=== PATIENT | female | born 1940 | race Caucasian/White ===

== ENCOUNTER → 2017-06-16 11:21 | Outpatient (CLI) | payer MEDICARE, SELFPAY ==
--- NOTE | 2017-06-16 11:35 | RAD_ITS ---
STUDY: X-RAY CHEST REASON FOR EXAM: Female, 76 years old. Two-week history of cough. TECHNIQUE: PA and lateral views of the chest. COMPARISON: Comparison is made with prior study dated June 17, 2014. FINDINGS: Stable elevation of the right hemidiaphragm. The lungs are clear. No acute abnormality is seen. There is no demonstrated pleural abnormality. Normal size heart. Normal mediastinum and yokasta. Normal visualized pulmonary arteries. Normal visualized aortic arch and descending thoracic aorta. There is demineralization of the osseous structures. Normal visualized ribs, clavicles, and shoulders. There is no demonstrated abnormality of the visualized soft tissue structures of the upper abdomen. RAD/Chest PA and Lateral IMPRESSION: Normal x-ray examination of the chest. Electronically Signed: Edgar Mcfadden MD at 12:26 EST Tel [phone], Service support ,
== END ==
PROVIDERS: Family Provider Internal Medicine; PCP Internal Medicine; Visit Provider Internal Medicine
DX: R05 Cough (principal)
CPT/HCPCS: 71046

== ENCOUNTER → 2017-10-02 15:05 | Outpatient (CLI) | payer MEDICARE, SELFPAY ==
--- NOTE | 2017-10-02 15:07 | RAD_ITS ---
STUDY: X-RAY - CERVICAL SPINE REASON FOR EXAM: Female, 77 years old. Neck stiffness. TECHNIQUE: 6 view(s) of the cervical spine were obtained including oblique views. COMPARISON: None FINDINGS: Normal anterior atlantoaxial articulation. Normal odontoid process. Normal cervical lordosis. There is multi-level endplate spondylosis. There is multi-level degenerative disc disease with multilevel disc space narrowing. Normal visualized intervertebral neuroforamina. The soft tissue structures are unremarkable. RAD/Cerv Spine 4 or 5 Views IMPRESSION: Multilevel disc space narrowing and spondylosis. Electronically Signed: Edgar Mcfadden MD at 9:13 EDT Tel [phone], Service support ,
== END ==
PROVIDERS: Family Provider Internal Medicine; PCP Internal Medicine; Visit Provider Internal Medicine
DX: M48.02 Spinal stenosis, cervical region (principal); M47.892 Other spondylosis, cervical region; M43.6 Torticollis
CPT/HCPCS: 72050

== ENCOUNTER → 2017-10-24 08:25 | Outpatient (CLI) | payer MEDICARE, SELFPAY ==
[2017-10-24 08:37] VITALS: BP 131/69; PULSE 89; RESP 16; TEMP 37; O2SAT 95; BMI 26.9
[2017-10-24] MEDS: Cosyntropin 0.25 MG Vial IM (08:50)
== END ==
PROVIDERS: Family Provider Internal Medicine; PCP Internal Medicine; Visit Provider Internal Medicine
DX: R53.83 Other fatigue (principal)
CPT/HCPCS: 82533; 96372; J0834

== ENCOUNTER → 2017-10-24 10:06 | Outpatient (CLI) | payer MEDICARE, SELFPAY ==
--- NOTE | 2017-10-24 10:10 | RAD_ITS ---
STUDY: X-RAY CHEST REASON FOR EXAM: Female, 77 years old. Cough. Shortness of breath. History of double mastectomy. TECHNIQUE: PA and lateral views of the chest. COMPARISON: June 16, 2017. FINDINGS: The lungs are clear and expanded. There is no demonstrated pleural abnormality. Normal size heart. Normal mediastinum and yokasta. Normal visualized pulmonary arteries. Normal visualized aortic arch and descending thoracic aorta. There is demineralization of the osseous structures. Normal visualized ribs, clavicles, and shoulders. There is absence of the bilateral breast shadows. There is no demonstrated abnormality of the visualized soft tissue structures of the upper abdomen. RAD/Chest PA and Lateral IMPRESSION: No acute cardiopulmonary disease or interval change. Electronically Signed: Ruben Parikh DO at 18:37 EDT Tel [phone], Service support ,
== END ==
PROVIDERS: Family Provider Internal Medicine; PCP Internal Medicine; Visit Provider Internal Medicine
DX: R05 Cough (principal); R53.83 Other fatigue
CPT/HCPCS: 36415; 71046; 82533; 96372; J0834

== ENCOUNTER 2017-10-31 06:39 | Day surgery (SDC) | payer MEDICARE, SELFPAY ==
[2017-10-31 07:15] VITALS: BP 127/73; PULSE 85; RESP 18; TEMP 36.2; O2SAT 96; BMI 27.8
--- NOTE | 2017-10-31 09:26 | PCM.OPRPT ---
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 She been unsuccessful in wearing a traditional hearing aid due to chronic drainage from her left mastoid cavity from chronic mastoiditis and the above procedure was offered in hopes of successful rehabilitation of her hearing loss. She was eager to proceed. The risks, alternatives, potential benefits, and complications were discussed at length and any questions answered to the patient and/or caregiver's satisfaction. Witnessed informed consent was obtained in the office, and the patient and/or caregiver was agreeable to proceed. Procedure went as follows: The patient was identified in the preoperative holding after site marking the appropriate ear in accordance with the patient's history, office chart, and physical exam. The patient was then brought to the operating room and placed under general anesthesia and intubated. When appropriate anesthesia is obtained, the left scalp was prepped and draped in usual sterile fashion. The abutment site was then marked 5 cm posterior to the external auditory meatus and injected with 0.5 mL of 1% lidocaine with 100,000 epinephrine. Using a 5 mm punch, The skin and subcutaneous tissue were then resected. The periosteum overlying the operative site was then removed sharply with an iris scissor and a periosteal elevator. The resident services manager drill hole was then created and palpated to ensure bone at the maximal depth of the hole and then finalize to 4 mm in size to allow for placement of the titanium abutment. The bony fragments were then suctioned and irrigated clear and the 4 x 9 mm abutment was then placed in accordance of the manufactures directions. Xeroform gauze was then placed at the skin edge followed by the healing cap. The patient was then to return to anesthesia, was revived and extubated without complication having tolerated the procedure well. Type of Anesthesia:: General Anesthesiologist: Dax Maxwell Special Medications: none Specimen's removed: none Drains: none Estimated Blood Loss (mL): 0 mL Fluids Replaced: 300 mL Grafts/Implants Used: 4 mm by 9 mm titanium abutment - Complications none - Admit VTE Documentation VTE Present on Admission: No VTE Mechan Device Prophylaxis: SCD's VTE Pharm Prophylaxis ordered?: No
[2017-10-31 09:32] VITALS: BP 127/73; BP 131/69; PULSE 72; RESP 18; TEMP 36.2; O2SAT 98
--- NOTE | 2017-10-31 09:34 | DCINST_ITS ---
- Discharge Diagnoses Current Active Problems: Current Active and Chronic Problems Mixed conductive and sensorineural hearing loss (Chronic) Chronic mastoiditis of left side (Chronic) You will use the following diet at home:: No restrictions Your food should be the consistency of: Regular Discharge Activity: Return to Normal Activity Call your doctor if your incision/area has: Continuous Slow Oozing, Increased Pain/ Swelling, Foul Smelling Discharge, Swelling at the incision site Call your doctor if you observe: Fever of 101 or Higher, Uncontrolled pain Cleanse incision/area with: Keep Dressing Clean & Dry Allergies/Adverse Reactions: Allergies bacitracin Allergy (Verified 10/27/17 11:12) Hives clarithromycin Allergy (Verified 10/27/17 11:12) Hives gemfibrozil Allergy (Verified 10/27/17 11:12) Unknown Iodinated Contrast- Oral and IV Dye [CONTRASTS] Allergy (Verified 10/27/17 11:13 ) Rash iodine Allergy (Verified 10/27/17 11:12) Hives levofloxacin Allergy (Verified 10/27/17 11:12) Hives Macrolide Antibiotics Allergy (Verified 10/27/17 11:12) Unknown Penicillins Allergy (Verified 10/27/17 11:12) Laryngospasms sulfamethoxazole [From Bactrim] Allergy (Verified 10/27/17 11:12) Swelling trimethoprim [From Bactrim] Allergy (Verified 10/27/17 11:12) Swelling codeine Adverse Reaction (Verified 10/27/17 11:12) Vomiting meperidine HCl [From Demerol] Adverse Reaction (Verified 10/27/17 11:12) Vomiting morphine Adverse Reaction (Verified 10/27/17 11:12) Vomiting Medications to take at Discharge Lansoprazole [Prevacid] 15 mg PO DAILY 09/09/13 RX: Aspirin E.C. [Ecotrin] 81 mg PO QHS 09/09/13 Diltiazem HCl [Diltiazem 24Hr ER] 120 mg PO DAILY 12/16/16 Lactobacillus Combo No.11 [Probiotic] 1 each PO DAILY 10/27/17 Zicam 1 spray NASAL PRN PRN 10/27/17 Primary Care Physician: Анна Gallardo MD [Primary Care Provider] - Please Follow Up With: Al Snider MD When: 10 days
[2017-10-31 09:45] VITALS: BP 110/60; BP 127/73; PULSE 71; RESP 18; O2SAT 95
[2017-10-31 09:54] VITALS: BP 112/60; BP 127/73; PULSE 73; RESP 18; TEMP 36; O2SAT 97
[2017-10-31 10:10] VITALS: BP 127/73
[2017-10-31 10:31] VITALS: BP 127/73
== END 2017-10-31 10:32 | disposition home or self-care (01) ==
LOC: SDC 06:41 → AC 06:42
PROVIDERS: Family Provider Internal Medicine; PCP Internal Medicine; Visit Provider Otolaryngology
PROC: (CPT 69710; principal; 2017-10-31 08:15)
DX: H90.6 Mixed conductive and sensorineural hearing loss, bilateral (principal); H70.12 Chronic mastoiditis, left ear; K21.9 Gastro-esophageal reflux disease without esophagitis; Z79.82 Long term (current) use of aspirin; Z79.899 Other long term (current) drug therapy
CPT/HCPCS: 69930; J7120; J2405

== ENCOUNTER → 2017-11-17 06:10 | Outpatient (CLI) | payer MEDICARE, SELFPAY ==
--- NOTE | 2017-11-17 06:13 | ECHOD_ITS ---
Reason For Study: SOB Procedure This was a 2D Doppler, Color Flow transthoracic echocardiogram. Exam performed in department. Left Ventricle Normal LV size. Left ventricular systolic function is normal. The estimated ejection fraction is 60 %. Transmitral diastolic flow velocities suggest mild (stage 1) diastolic dysfunction (reversed pattern). No regional wall motion abnormalities noted. Right Ventricle Normal RV size. Normal systolic function. Atria Normal left atrium. Normal right atrium. Mitral Valve Normal mitral valve. Mild (1+) eccentric mitral valve insufficiency. Tricuspid Valve Normal tricuspid valve. Aortic Valve Normal aortic valve. Pulmonic Valve Normal pulmonic valve. Great Vessels Normal aortic root. The pulmonary artery is normal size. Normal inferior vena cava. Pericardium/Pleural No pericardial effusion. MMode/2D Measurements & Calculations LVIDd: 4.4 cm IVSd: 0.56 cm LA dimension: 2.7 cm LVIDs: 3.4 cm LVPWd: 0.81 cm RVDd: 2.7 cm FS: 23.4 % LAV(MOD-bp): 23.9 ml LVAd ap4: 21.8 cm2 SV(MOD-sp4): 29.9 ml LAV(MOD-bp) Indexed: 12.4 ml/m2 EDV(MOD-sp4): 56.3 ml LAV(MOD-sp2): 26.5 ml EDV(sp4-el): 59.7 ml LAV(MOD-sp4): 21.3 ml LVAs ap4: 13.8 cm2 ESV(MOD-sp4): 26.4 ml ESV(sp4-el): 27.6 ml EF(MOD-sp4): 53.1 % EF(sp4-el): 53.8 % SV(sp4-el): 32.1 ml LA A4 area: 11.5 cm2 RA A4 area: 10.8 cm2 Time Measurements MV dec time: 0.24 sec Doppler Measurements & Calculations MV E max christiano: 53.5 cm/sec Lat Peak E' Christiano: 5.2 cm/sec Med Peak E' Christiano: 3.9 cm/sec MV A max christiano: 111.7 cm/sec E/E' lat: 10.3 E/E' med: 13.8 MV E/A: 0.48 Ao V2 max: 136.5 cm/sec LV V1 max: 99.1 cm/sec PA V2 max: 103.8 cm/sec Ao max P.5 mmHg LV V1 max P.9 mmHg Interpretation Summary Normal LV size. Left ventricular systolic function is normal. The estimated ejection fraction is 60 %. Transmitral diastolic flow velocities suggest mild (stage 1) diastolic dysfunction (reversed pattern). Ordering Physician: Анна Gallardo Referring Physician: Анна Gallardo Performed By: Maria Monge RDCS
--- NOTE | 2017-11-17 10:07 | STRESSREP ---
Stress Test Report Exercise myocardial perfusion stress test. 77-year-old lady with a history of shortness of breath. Medications: Aspirin diltiazem Prevacid probiotic. Stress protocol: Resting EKG demonstrates normal sinus rhythm with a rate of 67 bpm normal intervals and noted resting blood pressure is 140/80 mmHg. The patient exercised according to regular Tavon protocol for total duration of 4 minutes and 30 seconds. Patient completed 1 minute and 30 seconds into stage II of the Tavon protocol. The maximum heart rate attained was 123 bpm which was 86% of maximum predicted heart rate the maximum workload attained was 6.4 metabolic equivalents. At rest there were no ST or T-wave changes noted suggest ischemia peak exercise upsloping ST changes only were noted with no meet the criteria for ischemia the test was terminated due to shortness of breath. No chest pain was noted. The resting blood pressure was 140/80 mmHg with a peak blood pressure 148/70 mmHg. Myocardial perfusion protocol. 11.4 mCi of technetium 99m sestamibi was injected at rest. The patient exercised according to regular Tavon protocol for total duration of 4 minutes and 30 seconds. At peak exercise 32.3 mCi of technetium 99m sestamibi was injected stress images were obtained stress and rest images were reconstructed and compared in the short axis vertical long and horizontal long axis. Gated images were also obtained. Perfusion SPECT analysis: Review of the stress images demonstrate normal uptake of tracer noted in all areas of the myocardium. The resting images similarly demonstrate normal uptake of tracer noted in all areas of the myocardium. No areas of reversibility are noted suggest ischemia and no previous infarct is noted. Gated SPECT analysis: The gated ejection fraction is 80%. Conclusion: Normal exercise myocardial perfusion stress test at a low to moderate workload. Preserved ejection fraction
== END ==
PROVIDERS: Family Provider Internal Medicine; PCP Internal Medicine; Visit Provider Internal Medicine
DX: R06.02 Shortness of breath (principal)
CPT/HCPCS: 78452; 93017; 93306; A9500; A4216

== ENCOUNTER 2017-12-19 13:30 | Outpatient (RCR) | payer MEDICARE, SELFPAY ==
--- NOTE | 2017-12-03 09:12 | HP.PTEVAL_ITS ---
Patient's Visit Information MADIHA NEGRON is a 77 year old F referred to Physical Therapy by Анна Gallardo with a diagnosis of DDD CERVICAL ,NECK PAIN. Date of Evaluation: 12/02/17 Physical Therapist: Evangelist Strauss PT, - Visit Plan Frequency: 2x /Week Duration: 3 Weeks Plan: US/P,[facility] THERAPY CERVICAL TRACTION-CERVICAL MOBS 3-4 OA/AA,C2-3 , ICTX 15-20# X15MIN,CERVICAL ROM/POSTURAL EX - Subjective Subjective: This 73 y/o female presents to physical therapy with neck pain,DDD cervical spine. Patient has had cervical pain on right side 2 1/2 months incidous onset of neck. Patient developed Bailey prior to neck pain with tiredenes. Location right cervical worse with turning cervical to right,drivng ,sitting. Symtoms better rest. Patient seen DR x-rays DDD.Denies parathesia/ tingling. Denies SUAREZ/tinnitus/dizziness. Patient sleep is affects. Patient symptoms affect QOL and inablity golf. SOCIAL: . VOCATION: retired. HOBBIES: golfing - Pain Right Neck Pain Intensity (Out of 10): 3 Pain Intensity Range: 10 - Objective POSTURE: mild foward posture. NEURO: denies parathesia/tingling ,reflexes C5-6- 7 1/3. PALAPTION: tender occiput ,parasinals,levator ,C2-3,OA. AROM: BUE WNL. MMT: BUE 4/5 ,shoulder 4-/5. CERVICAL ROM: flexion min loss,extension mod loss,lateeral flexion /rotation right mod loss,left min/mod loss. ASSESORY MOTION: C2-3,OA restricted - Special Tests C/S Radiculapathy - Left Upper limb tension test: Negative C/S Radiculapathy - Right Upper limb tension test: Negative C/S Radiculapathy - Left Spurlings: Negative C/S Radiculapathy - Right Spurlings: Positive C/S Radiculapathy - Left Cervical distraction: Negative C/S Radiculapathy - Right Cervical distraction: Negative Cervical Sitting: Protrusion - Mechanical Response: No effect Cervical Sitting: Protrusion - Symptoms During Testing: Increases Cervical Sitting: Protrusion - Symptoms After Testing: No worse Cervical Sitting: Retraction - Mechanical Response: No effect Cervical Sitting: Retraction - Symptoms During Testing: Increases Cervical Sitting: Retraction - Symptoms After Testing: No worse Cervical Sitting: Sidebend Right - Mechanical Response: No effect Cervical Sitting: Sidebend Right - Symptoms During Testing: Increases Cervical Sitting: Sidebend Right - Symptoms After Testing: No worse Cervical Sitting: Sidebend Left - Mechanical Response: No effect Cervical Sitting: Sidebend Left - Symptoms During Testing: No effect Cervical Sitting: Sidebend Left - Symptoms After Testing: Better Cervical Sitting: Rotation Right - Mechanical Response: No effect Cervical Sitting: Rotation Right - Symptoms During Testing: Increases Cervical Sitting: Rotation Right - Symptoms After Testing: No worse Cervical Sitting: Rotation Left - Mechanical Response: No effect Cervical Sitting: Rotation Left - Symptoms During Testing: Decreases Cervical Sitting: Rotation Left - Symptoms After Testing: Better - Goals Goal 1:: Independant with HEP Goal Time Frame: 4-6 Weeks Goal 2:: Patient to be Independant with posture for ADL'S Goal Time Frame: 4-6 Weeks Goal 3:: Patient to decrease pain right cervical to improve function for driving. Goal Time Frame: 4-6 Weeks Goal 4:: Patient to improve cervical ROM to right min/mod limited for function of recovery for function. Goal Time Frame: 4-6 Weeks Goal 5:: Patient improve ablity to perform ADL'S and driving,golfing with min limiations Goal Time Frame: 4-6 Weeks - Rehabilitation Potential Physical Therapy Diagnosis: This 77 y/o female presents to physical therapy with cervical DDD,neck pain with loss of ROM to right which impairs driving ADL' S and golf thus benifit from skilled PT. Rehabilitation Potential: Good - Anticipated Interventions Patient/Client Instruction: Educate patient on: Condition, Plan of Care For the Purpose of:: To decrease pain, To increase ROM, To improve muscle performance and motor function, To increase tolerance to activity/condition/ position, To improve ability of physical actions for home/community/work/leisure , To improve health of tissue, To decrease soft tissue restriction, To increase flexibility/ROM, To improve health and function, To improve ability to perform tasks related to life management Therapeutic Exercise to Include: Strength training, Postural training, Flexibilty training, Active ROM For the Purpose of:: To decrease pain, To increase ROM, To improve muscle performance and motor function, To improve ability to perform ADL's, To improve performance and independence with ADL's, To improve ability of physical actions for home/community/work/leisure, To improve health of tissue, To decrease soft tissue restriction, To improve ability to perform tasks related to life management Manual Therapy Techniques to Include: Mobilization, Soft tissue mobilization Comment: CERVICAL TRACTION ,MOBS OA ,AA,C2-3 For the Purpose of:: To increase ROM, To improve nutrient delivery to tissue, To increase oxygenation perfusion, To improve health of tissue, To decrease soft tissue restriction TENS: Yes IF ES: Yes Cryotherapy (ice pack, ice massage): Yes Thermo therapy (hot pack): Yes Ultrasound (thermal/non thermal): Yes Intermittent cervical traction: Yes - 15-20# X15MIN For the Purpose of:: To decrease pain, To increase ROM, To improve nutrient delivery to tissue, To increase oxygenation perfusion, To improve health of tissue, To decrease soft tissue restriction Thank you for the opportunity to evaluate your patient. For Medicare and Medicare HMO plans, please review the plan of care and approve it. It will need to be FAXED BACK to us at [phone] for Medicare purposes. Please let me know if there are questions or concerns regarding this plan of care. Physician Signature: Date:
--- NOTE | 2018-02-06 09:19 | HP.PTDCSUM ---
HP - PT D/C Summary It has been my pleasure to treat MADIHA NEGRON under orders from Анна Gallardo, for the diagnosis of DDD CERVICAL ,NECK PAIN for a total of 6 visit(s). Discharge Date: Please see the following information for a summary of their discharge status. - Subjective Subjective: goes by AURELIO.. Neck feels good right now. Played golf twice this week with no increase pain. Just finished [employer] program. - Pain Right Neck Pain Intensity (Out of 10): 1 - Overall Improvement % Improvement: 80 - Objective Objective/Function: CUES TO SLOW DOWN THE EXERICSES- ADMITS SHE DOES GO FAST. INCREASED TRACTION PULL BY 1#. Lori ALL WELL. - Goals Goal 1:: Independant with HEP Goal 2:: Patient to be Independant with posture for ADL'S Goal 3:: Patient to decrease pain right cervical to improve function for driving. Goal 4:: Patient to improve cervical ROM to right min/mod limited for function of recovery for function. Goal 5:: Patient improve ablity to perform ADL'S and driving,golfing with min limiations - Plan Plan: US/[facility] THERAPY CERVICAL TRACTION-CERVICAL MOBS 3-4 OA/AA,C2-3 ,ICTX 15-20# X15MIN,CERVICAL ROM/POSTURAL EX - D/C Information If there are questions or concerns regarding this patient's physical therapy, please feel free to call me at [phone]. Thank you for the referral of this patient. Sincerely, Evangelist Strauss, PT,
== END 2017-12-19 19:00 | disposition home or self-care (01) ==
LOC: PT 13:30
PROVIDERS: Family Provider Internal Medicine; PCP Internal Medicine; Visit Provider Internal Medicine
DX: M50.30 Other cervical disc degeneration, unspecified cervical region (principal)
CPT/HCPCS: 97012; 97035; 97110; 97162

== ENCOUNTER → 2018-05-25 13:31 | Outpatient (CLI) | payer SELFPAY ==
--- NOTE | 2018-05-25 13:43 | CT_ITS ---
STUDY: CT CHEST WITHOUT CONTRAST REASON FOR EXAM: Female, 77 years old. Hyperlipidemia. Calcium scoring examination. Radiological over read examination. RADIATION DOSAGE (If Supplied By Facility): CTDIvol = ( 12.19 ) mGy, DLP = ( 390.07 ) mGycm TECHNIQUE: Transaxial imaging was performed without the administration of intravenous contrast material. Individualized dose optimization techniques were used for this CT. COMPARISON: Comparison is made with prior examination dated February 22, 2016. FINDINGS: History of bilateral mastectomy. Stable mild degree of increased markings at the lung bases suggestive of scarring and/or atelectasis. There is no demonstrated pleural abnormality. There are calcifications of the coronary arteries. There are multiple small lymph nodes within the mediastinum, which are normal in size and morphology most compatible with reactive lymph hyperplasia. Normal hilar regions. Normal unenhanced pulmonary arteries. Normal aorta arch and descending thoracic aorta. There are degenerative changes of the thoracic spine. Hiatal hernia. CT/Limited Chest CT w/CCTA IMPRESSION: Stable examination. No acute abnormality is seen. Electronically Signed: Edgar Mcfadden MD at 15:55 EST Tel [phone], Service support ,
[2018-05-25 13:49] VITALS: BP 102/48; PULSE 57; RESP 18; O2SAT 97; BMI 28.6
--- NOTE | 2018-05-25 15:54 | CA.SCORE ---
Calcium Scoring Date of Study:: 05/25/18 Coronary Calcium Scoring: Coronary calcium scoring. High-resolution computed tomographic imaging of the chest was performed on 121 219 with particular attention paid to the coronary arteries. Images from the examination were analyzed for the presence and extent of coronary artery calcification using the coronary calcification quantification software. The patient tolerated the procedure well and there were no complications. Results: Coronary artery Left main coronary artery score 2.3 Left anterior descending artery score 22.3 Left circumflex artery score 0 Right coronary artery score 0 Total Agagston score 24.6. Interpretation: The above is indicative of mild plaque burden with mild or minimal coronary disease.
--- OUTSIDE RECORDS SUMMARY | 2018-07-28 01:18 | XMS RPT_ITS | Continuity of Care Document ---
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 - Subjective Subjective: This 73 y/o female presents to physical therapy with neck pain,DDD cervical spine. Patient has had cervical pain on right madison e 2 1/2 months incidous onset of neck. Patient developed [place] prior to neck pain with tiredenes. Location right cervical worse with turning cervical to right,drivng ,sitting. Symtoms better rest. Patien t seen DR x-rays DDD.Denies parathesia/tingling. Denies SUAREZ/tinnitus/dizziness. Patient sleep is affects. Patient symptoms affect QOL and inablity golf. SOCIAL: . VOCATION: retired. HOBBIES: golfi ng - Pain Right Neck Pain Intensity (Out of 10): 3 Pain Intensity Range: 10 - Objective POSTURE: mild foward posture. NEURO: denies parathesia/tingling ,reflexes C5-6-7 1/3. PALAPTION: tender occip ut ,parasinals,levator ,C2-3,OA. AROM: BUE WNL. MMT: BUE 4/5 ,shoulder 4-/5. CERVICAL ROM: flexion min loss,extension mod loss,lateeral flexion /rotation right mod loss,left min/mod loss. ASSESORY MOTIO N: C2-3,OA restricted - Special Tests C/S Radiculapathy - Left Upper limb tension test: Negative C/S Radiculapathy - Right Upper limb tension test: Negative C/S Radiculapathy - Left Spurlings: Negative C/S Radiculapathy - Right Spurlings: Positive C/S Radiculapathy - Left Cervical distraction: Negative C/S Radiculapathy - Right Cervical distraction: Negative Cervical Sitting: Protrusion - Mechanical Response: No effect Cervical Sitting: Protrusion - Symptoms During Testing: Increases Cervical Sitting: Protrusion - Symptoms After Testing: No worse Cervical Sitting: Retraction - Mechanical Response: No effect Cervical Sitting: Retraction - Symptoms During Testing: Increases Cervical Sitting: Retraction - Symptoms After Testing: No worse Cervical Sitting: Sidebend Right - Mechanical Response: No eff ect Cervical Sitting: Sidebend Right - Symptoms During Testing: Increases Cervical Sitting: Sidebend Right - Symptoms After Testing: No worse Cervical Sitting: Sidebend Left - Mechanical Response: No ef fect Cervical Sitting: Sidebend Left - Symptoms During Testing: No effect Cervical Sitting: Sidebend Left - Symptoms After Testing: Better Cervical Sitting: Rotation Right - Mechanical Response: No effe ct Cervical Sitting: Rotation Right - Symptoms During Testing: Increases Cervical Sitting: Rotation Right - Symptoms After Testing: No worse Cervical Sitting: Rotation Left - Mechanical Response: No eff ect Cervical Sitting: Rotation Left - Symptoms During Testing: Decreases Cervical Sitting: Rotation Left - Symptoms After Testing: Better - Goals Goal 1:: Independant with HEP Goal Time Frame: 4-6 Week s Goal 2:: Patient to be Independant with posture for ADL'S Goal Time Frame: 4- 6 Weeks Goal 3:: Patient to decrease pain right cervical to improve function for driving. Goal Time Frame: 4-6 Weeks Goal 4 :: Patient to improve cervical ROM to right min/mod limited for function of recovery for function. Goal Time Frame: 4-6 Weeks Goal 5:: Patient improve ablity to perform ADL'S and driving,golfing with mi n limiations Goal Time Frame: 4-6 Weeks - Rehabilitation Potential Physical Therapy Diagnosis: This 77 y/o female presents to physical therapy with cervical DDD,neck pain with loss of ROM to right whic h impairs driving ADL'S and golf thus benifit from skilled PT. Rehabilitation Potential: Good - Anticipated Interventions Patient/Client Instruction: Educate patient on: Condition, Plan of Care For the Purpose of:: To decrease pain, To increase ROM, To improve muscle performance and motor function, To increase tolerance to activity/condition/position, To improve ability of physical actions for home/c ommunity/work/leisure, To improve health of tissue, To decrease soft tissue restriction, To increase flexibility/ROM, To improve health and function, To improve ability to perform tasks related to life management Therapeutic Exercise to Include: Strength training, Postural training, Flexibilty training, Active ROM For the Purpose of:: To decrease pain, To increase ROM, To improve muscle performance an d motor function, To improve ability to perform ADL's, To improve performance and independence with ADL's, To improve ability of physical actions for home/community/work/leisure, To improve health of ti ssue, To decrease soft tissue restriction, To improve ability to perform tasks related to life management Manual Therapy Techniques to Include: Mobilization, Soft tissue mobilization Comment: CERVICAL T RACTION ,MOBS OA ,AA,C2-3 For the Purpose of:: To increase ROM, To improve nutrient delivery to tissue, To increase oxygenation perfusion, To improve health of tissue, To decrease soft tissue restrictio n TENS: Yes IF ES: Yes Cryotherapy (ice pack, ice massage): Yes Thermo therapy (hot pack): Yes Ultrasound (thermal/non thermal): Yes Intermittent cervical traction: Yes - 15-20# X15MIN For the Purpose o f:: To decrease pain, To increase ROM, To improve nutrient delivery to tissue, To increase oxygenation perfusion, To improve health of tissue, To decrease soft tissue restriction Thank you for the o pportunity to evaluate your patient. For Medicare and Medicare HMO plans, please review the plan of care and approve it. It will need to be FAXED BACK to us at [phone] for Medicare purposes. Ple ase let me know if there are questions or concerns regarding this plan of care. Physician Signature: Date: <Electronically signed by Evangelist Strauss PT, Cert. T, OCS> 12/03/17 0916 CC: Анна Gallardo MD MATTIE Signed For Medicare only, by signing this I certify the plan of care. Physicians Signature Date 17-Nov-2017 Echocardiogram Complete Result: Comments: See Note; NOTES: [facility] [address] [place] [address] Echo Complete 11/17/17 1039 MR#: [id number] Acct: [id number] Name: MADIHA NEGRON Rep #: [id number] : 1940 77 From: Alverto Vidales MD Attending Dr: Анна Gallardo MD Status: REG CLI Ordering Dr: Анна Gallardo MD Date: 11/17/17 Location: [facility] Sex: F C Admitted: Reason For Nando dy: SOB Procedure This was a 2D Doppler, Color Flow transthoracic echocardiogram. Exam performed in department. Left Ventricle Normal LV size. Left ventricular systolic function is normal. The estimat ed ejection fraction is 60 %. Transmitral diastolic flow velocities suggest mild (stage 1) diastolic dysfunction (reversed pattern). No regional wall motion abnormalities noted. Right Ventricle Normal RV size. Normal systolic function. Atria Normal left atrium. Normal right atrium. Mitral Valve Normal mitral valve. Mild (1+) eccentric mitral valve insufficiency. Tricuspid Valve Normal tricuspid richard ve. Aortic Valve Normal aortic valve. Pulmonic Valve Normal pulmonic valve. Great Vessels Normal aortic root. The pulmonary artery is normal size. Normal inferior vena cava. Pericardium/Pleural No p ericardial effusion. MMode/2D Measurements AND Calculations LVIDd: 4.4 cm IVSd: 0.56 cm LA dimension: 2.7 cm LVIDs: 3.4 cm LVPWd: 0.81 cm RVDd: 2.7 cm FS: 23.4 % LAV(MOD-bp): 23.9 ml LVAd ap4: 21.8 cm2 SV(MOD-sp4): 29.9 ml LAV(MOD-bp) Indexed: 12.4 ml/m2 EDV(MOD-sp4): 56.3 ml LAV(MOD-sp2): 26.5 ml EDV(sp4-el): 59.7 ml L AV(MOD-sp4): 21.3 ml LVAs ap4: 13.8 cm2 ESV(MOD-sp4): 26.4 ml ESV(sp4-el): 27.6 ml EF(MOD-sp4): 53.1 % EF(sp4-el): 53.8 % SV(sp4-el): 32.1 ml LA A4 area: 11.5 cm2 RA A4 area: 10.8 cm2 Time Measurements MV dec time: 0.24 sec Doppler Measurements AND Calculations MV E max med: 53.5 cm/sec Lat Peak E' Med: 5.2 cm/sec Med Peak E' Med: 3.9 cm/sec MV A max med: 111.7 cm/sec E/E' lat: 10.3 E/E' med: 13.8 MV E/A: 0.48 Ao V2 max: 136.5 cm/sec LV V1 max: 99.1 cm/sec PA V2 max: 103.8 cm/sec Ao max P.5 mmHg LV V1 max P.9 mmHg Interpretation Summary Normal LV size. Left ventricular systolic function is normal. The estimated ejection fracti on is 60 %. Transmitral diastolic flow velocities suggest mild (stage 1) diastolic dysfunction (reversed pattern). __ Ordering Physician: Анна Gallardo Referring Physician: Анна Gallardo Performed By: Maria Monge RDCS 11/17/171727 Date Alverto Vidales MD CC: Анна Gallardo MD Date Dictated: 11/17/17 1039 Date Transcribed: 11/17/171727 Leg Man: Signed 17-Nov-2017 Stress Report Result: Comments: See Note; NOTES: [facility] [address] [place] [address] MR#: [id number] Acct: [id number] Name: MADIHA NEGRON Rep #: [id number] : 77 From: Alverto Vidales MD Primary Care: Анна Gallardo MD Status: REG CLI Ordering Dr: Sex: F C Stress Test Report Exercise myocardial perfusion stress test. 77-year-old lady with a history of shortness of breath. Medications: Aspirin diltiazem Prevacid probiotic. Stress protocol: Resting EKG demonstrates normal sinus rhythm with a rate of 67 bpm normal intervals and noted resting blood p ressure is 140/80 mmHg. The patient exercised according to regular Tavon protocol for total duration of 4 minutes and 30 seconds. Patient completed 1 minute and 30 seconds into stage II of the Tavon pro tocol. The maximum heart rate attained was 123 bpm which was 86% of maximum predicted heart rate the maximum workload attained was 6.4 metabolic equivalents. At rest there were no ST or T-wave changes n oted suggest ischemia peak exercise upsloping ST changes only were noted with no meet the criteria for ischemia the test was terminated due to shortness of breath. No chest pain was noted. The resting b lood pressure was 140/80 mmHg with a peak blood pressure 148/70 mmHg. Myocardial perfusion protocol. 11.4 mCi of technetium 99m sestamibi was injected at rest. The patient exercised according to regula r Tavon protocol for total duration of 4 minutes and 30 seconds. At peak exercise 32.3 mCi of technetium 99m sestamibi was injected stress images were obtained stress and rest images were reconstructed and compared in the short axis vertical long and horizontal long axis. Gated images were also obtained. Perfusion SPECT analysis: Review of the stress images demonstrate normal uptake of tracer noted i n all areas of the myocardium. The resting images similarly demonstrate normal uptake of tracer noted in all areas of the myocardium. No areas of reversibility are noted suggest ischemia and no previous infarct is noted. Gated SPECT analysis: The gated ejection fraction is 80%. Conclusion: Normal exercise myocardial perfusion stress test at a low to moderate workload. Preserved ejection fraction 1013 <Electronically signed by Alverto Vidales MD> Date Alverto Vidales MD CC: Анна Gallardo MD Date Dictated: 11/17/17 1007 Date Transcribed: 11/17/17 1007 Leg Man: CO Signed 03-Nov-2017 Operative Report Result: Comments: See Note; NOTES: [facility] [address] [place] [address] Operative Report 10/31/17 0926 MR#: [id number] Acct: [id number] Name: CARMELINA NEGRON MARIANO Baker Rep #: [id number] : 1940 77 From: Al Snider MD PCP: Анна Gallardo MD Status: [facility] Location: [facility] Problem List (1) 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 She been unsuccessful in wearing a traditional hearing aid due to chronic drainage from her left mastoid cavity from chronic mastoiditis and the above procedure was off ered in hopes of successful rehabilitation of her hearing loss. She was eager to proceed. The risks, alternatives, potential benefits, and complications were discussed at length and any questions answer ed to the patient and/or caregiver's satisfaction. Witnessed informed consent was obtained in the office, and the patient and/or caregiver was agreeable to proceed. Procedure went as follows: The patie nt was identified in the preoperative holding after site marking the appropriate ear in accordance with the patient's history, office chart, and physical exam. The patient was then brought to the operat ing room and placed under general anesthesia and intubated. When appropriate anesthesia is obtained, the left scalp was prepped and draped in usual sterile fashion. The abutment site was then marked 5 c m posterior to the external auditory meatus and injected with 0.5 mL of 1% lidocaine with 100,000 epinephrine. Using a 5 mm punch, The skin and subcutaneous tissue were then resected. The periosteum ove rlying the operative site was then removed sharply with an iris scissor and a periosteal elevator. The car pilot drill hole was then created and palpated to ensure bone at the maximal depth of the hole and then finalize to 4 mm in size to allow for placement of the titanium abutment. The bony fragments were then suctioned and irrigated clear and the 4 x 9 mm abutment was then placed in accordance of the anufactures directions. Xeroform gauze was then placed at the skin edge followed by the healing cap. The patient was then to return to anesthesia, was revived and extubated without complication having t olerated the procedure well. Type of Anesthesia:: General Anesthesiologist: Dax Maxwell Special Medications: none Specimen's removed: none Drains: none Estimated Blood Loss (mL): 0 mL Fluids Replaced: 30 0 mL Grafts/Implants Used: 4 mm by 9 mm titanium abutment - Complications none - Admit VTE Documentation VTE Present on Admission: No VTE Mechan Device Prophylaxis: SCD's VTE Pharm Prophylaxis ordere d?: No 10/31/17 0933 <Electronically signed by Al Snider MD> Date Al Snider MD CC: Анна Gallardo MD; Al Snider MD Signed 31-Oct-2017 Discharge Instruction Result: Comments: See Note; NOTES: [facility] [address] [place] [address] Instructions for Home/Discharge Instructions 10/31/17 0933 MR#: [id number] Acct: [id number] Name: MADIHA NEGRON Rep #: [id number] : 1940 77 From: Al Snider MD PCP: Анна Gallardo MD Status: REG SDC - Discharge Diagnoses Current Active Problems: Current Active and Chron ic Problems Mixed conductive and sensorineural hearing loss (Chronic) Chronic mastoiditis of left side (Chronic) You will use the following diet at home:: No restrictions Your food should be the cons istency of: Regular Discharge Activity: Return to Normal Activity Call your doctor if your incision/area has: Continuous Slow Oozing, Increased Pain/ Swelling, Foul Smelling Discharge, Swelling at the i ncision site Call your doctor if you observe: Fever of 101 or Higher, Uncontrolled pain Cleanse incision/area with: Keep Dressing Clean AND Dry Allergies/Adverse Reactions: Allergies bacitracin Allergy (Verified 10/27/17 11:12) Hives clarithromycin Allergy (Verified 10/27/17 11:12) Hives gemfibrozil Allergy (Verified 10/27/17 11:12) Unknown Iodinated Contrast- Oral and IV Dye [CONTRASTS] Allergy (Liz ified 10/27/17 11:13) Rash iodine Allergy (Verified 10/27/17 11:12) Hives levofloxacin Allergy (Verified 10/27/17 11:12) Hives Macrolide Antibiotics Allergy (Verified 10/27/17 11:12) Unknown Penicillins Allergy (Verified 10/27/17 11:12) Laryngospasms sulfamethoxazole [From Bactrim] Allergy (Verified 10/27/17 11:12) Swelling trimethoprim [From Bactrim] Allergy (Verified 10/27/17 11:12) Swelling codeine Adverse Reaction (Verified 10/27/17 11:12) Vomiting meperidine HCl [From Demerol] Adverse Reaction (Verified 10/27/17 11:12) Vomiting morphine Adverse Reaction (Verified 10/27/17 11:12) Vomiting Medi cations to take at Discharge Lansoprazole [Prevacid] 15 mg PO DAILY 09/09/13 RX: Aspirin E.C. [Ecotrin] 81 mg PO QHS 09/09/13 Diltiazem HCl [Diltiazem 24Hr ER] 120 mg PO DAILY 12/16/16 Lactobacillus Co mbo No.11 [Probiotic] 1 each PO DAILY 10/27/17 Zicam 1 spray NASAL PRN PRN 10/27/17 Primary Care Physician: Анна Gallardo MD [Primary Care Provider] - Please Follow Up With: Al Snider MD When: 10 d ays 10/31/17 0934 <Electronically signed by Al Snider MD> Date Al Snider MD CC: Анна Gallardo MD 24-Oct-2017 Chest PA and Lateral Result: Comments: See Note; NOTES: [facility] [address] [place] [address] Chest PA and Lateral MR#: [id number] Acct: [id number] Name: MADIHA NEGRON Rep #: [id number] : 1940 F 77 From: Ruben Parikh DO PCP: Анна Gallardo MD Status: REG CLI Study: Chest PA and Lateral Date of Exam: 10/24/17 Exam# [id number] Ordering Dr: Анна Gallardo MD STUDY: X-RAY CHEST REASON FOR EXAM: Female, 77 years old. Cough. Shortness of breath. History of double mastectomy. TECHNIQUE: PA and lateral views of the chest. COMPARISON: June 16, 2017. FINDINGS: The lungs are clear and expanded. There is no demonstrated pleural abnormality. Normal size heart. Normal mediastinum and yokasta. Normal visualized pulmonary arteries. Normal visu alized aortic arch and descending thoracic aorta. There is demineralization of the osseous structures. Normal visualized ribs, clavicles, and shoulders. There is absence of the bilateral breast shadows . There is no demonstrated abnormality of the visualized soft tissue structures of the upper abdomen. RAD/Chest PA and Lateral IMPRESSION: No ac little shell tribe cardiopulmonary disease or interval change. Electronically Signed: Ruben Parikh DO at 18:37 EDT Tel [phone], Service support , CC: Анна Gallardo MD Leg Man: Signed 02-Oct-2017 Cerv Spine 4 or 5 Views Result: Comments: See Note; NOTES: [facility] [address] [place] [address] Cerv Spine 4 or 5 Views MR#: [id number] Acct: [id number] Name: MADIHA NEGRON Rep #: [id number] : 1940 F 77 From: Edgar Mcfadden MD PCP: Анна Gallardo MD Status: REG CLI Study: Cerv Spine 4 or 5 Views Date of Exam: 10/02/17 Exam# [id number] Ordering Dr: Анна Gallardo MD STUDY : X-RAY - CERVICAL SPINE REASON FOR EXAM: Female, 77 years old. Neck stiffness. TECHNIQUE: 6 view(s) of the cervical spine were obtained including oblique views. COMPARISON: None FINDINGS: Normal anterior atlantoaxial articulation. Normal odontoid process. Normal cervical lordosis. There is multi-level endplate spondylosis. There is multi-level degenerative dis c disease with multilevel disc space narrowing. Normal visualized intervertebral neuroforamina. The soft tissue structures are unremarkable. RAD /Cerv Spine 4 or 5 Views IMPRESSION: Multilevel disc space narrowing and spondylosis. Electronically Signed: Edgar Mcfadden MD at 9:13 EDT Tel [phone], Service support , CC: Анна Gallardo MD Leg Man: Signed 16-Jun-2017 Chest PA and Lateral Result: Comments: See Note; NOTES: [facility] [address] [place] [address] Chest PA and Lateral MR#: [id number] Acct: [id number] Name: MADIHA NEGRON Rep #: [id number] : 1940 F 76 From: Edgar Mcfadden MD PCP: Анна Gallardo MD Status: REG CLI Study: Chest PA and Lateral Date of Exam: 06/16/17 Exam# [id number] Ordering Dr: Анна Gallardo MD STUDY: X-RA Y CHEST REASON FOR EXAM: Female, 76 years old. Two-week history of cough. TECHNIQUE: PA and lateral views of the chest. COMPARISON: Comparison is made with prior study dated June 17, 2014. FINDINGS: Stable elevation of the right hemidiaphragm. The lungs are clear. No acute abnormality is seen. There is no demonstrated pleural abnormality. Normal size heart . Normal mediastinum and yokasta. Normal visualized pulmonary arteries. Normal visualized aortic arch and descending thoracic aorta. There is demineralization of the osseous structures. Normal visualized ribs, clavicles, and shoulders. There is no demonstrated abnormality of the visualized soft tissue structures of the upper abdomen. RAD/Chest PA and Lateral IMPRESSION: Normal x-ray examination of the chest. Electronically Signed: Edgar Mcfadden MD at 12:26 EST Tel [phone], Service support , CC: Анна Gallardo MD Leg Man: Signed 06-Mar-2017 Knee 4 or More Views Result: Comments: See Note; NOTES: [facility] [address] [place] [address] Knee 4 or More Views MR#: [id number] Acct: [id number] Name: MADIHA NEGRON Rep #: [id number] : 1940 F 76 From: Leonard Miller MD PCP: Анна Gallardo MD Status: REG CLI Study: Knee 4 or More Views Date of Exam: 03/06/17 Exam# [id number] Ordering Dr: Анна Gallardo MD STUDY: X-RAY - RIGHT KNEE REASON FOR EXAM: Female, 76 years old. Pain. No known injury TECHNIQUE: 4 view(s) of the knee. COMPARISON: None. FINDINGS: Normal visualized distal fem ur. Normal visualized proximal tibia and fibula. Normal proximal tibiofibular articulation. There is mild degenerative arthrosis of the medial femorotibial compartment. Normal lateral femorotibial comp artment. Normal patellofemoral articulation. The soft tissue structures are unremarkable. RAD/Knee 4 or More Views IMPRESSION: Mild arthrosis of the medial compartment Electronically Signed: Leonard Miller MD, FACR at 11:45 EDT , Service support , CC: Анна Gallardo MD Leg Man: Signed 17-Dec-2016 Emergency Department Summary Result: Comments: See Note; NOTES: [facility] [address] [place] [address] Emergency Department Summary 12/16/16 1905 MR#: [id number] Acct: [id number] Name: MADIHA NEGRON Rep #: [id number] : 1940 76 From: Moshe Diaz MD PCP: Анна Gallardo MD Status: DEP ER - ER Visit Summary Date of Service: 12/16/16 Chief Complaint: Pulsing in neck Histo ry of Present Illness: The patient is a 76 F presenting to the emergency department secondary to a pulsating sensation in her right neck and dysesthesia in her right lower lip. Patient states this is be en going on intermittently over the course of the last 3-4 days. Patient states that there is no exacerbating relieving factors, no visual changes or weakness associated with this. Patient states that s he has old paresthesias in her right hand that are unchanged after a mastectomy surgery. Patient states that she called her primary care physician recommended that she come to the emergency department. Patient's only underlying risk factors are age. Physical Examination: Vital signs within normal limits. Well-nourished female no acute distress. PRL, EOMI no evidence of nystagmus. Moist mucous membran es. Very minimal right lower lip numbness on palpation with no evidence of facial droop. No carotid bruits. NIH stroke scale found to be 0. Remainder physical otherwise unremarkable. Test Results: [place] bolic panel shows mild elevation of creatinine to 1.5, CT angiogram of the brain and neck are found to be negative for aneurysm dissection or any other abnormalities Emergency Department Course and Rosemary atment: Patient presented with a pulsing sensation in her neck and was evaluated with CT angiograms were found to be negative. Patient states that she has a history of shingles in the past that felt sim ilar to this but there is no obvious rash at this point. No indication for starting treatment at this time. Patient was instructed to follow-up with her primary care physician all questions were answere d and patient was discharged. Disposition: Discharge Impression: 1. Right lip paresthesia ED Disposition - Plan for ED Patient: Disposition: Home or Assisted Living Chief Complaint: Numb/Ting Diagn osis: Paresthesia of lower lip Instructions: ED Paraesthesias Referrals: Анна Gallardo MD [Primary Care Provider] - 3-5 Days if not improving What to do if you have Problems For any increased pain, shortness of breath, bleeding, nausea or vomiting, chest pain, or any unexpected problems, contact your Primary Care Provider. Call [facility] ([phone]) or report to the closest Emergency Ro om. Call 911 if necessary. 12/17/16 2348 <Electronically signed by Moshe Diaz MD> Date Moshe Diaz MD Cosigner Signature (If Indicated): Date CC: Анна Gallardo MD 16-Dec-2016 CTA Head W/WO Contrast Result: Comments: See Note; NOTES: [facility] [address] [place] [address] CTA Head W/WO Contrast MR#: [id number] Acct: [id number] Name: MADIHA NEGRON Rep #: [id number] : 1940 F 76 From: Ginger Vieyra MD PCP: Анна Gallardo MD Status: REG ER Study: CTA Head W/WO Contrast Date of Exam: 12/16/16 Exam# [id number] Ordering Dr: Moshe Diaz MD STUDY: CT A OF THE BRAIN REASON FOR EXAM: Female, 76 years old. History of melanoma, dizziness and weakness RADIATION DOSAGE (If Supplied By Facility): CTDIvol = ( ) mGy, DLP = ( 767.99 ) mGycm TECHNIQUE: CT a ngiography was performed with a multi-detector CT scanner. Data acquisition was obtained from the skull base through the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 Mass Index Calculated 31.41 kg/m2 Body Surface Area Calculated 1.88 m2 :33 Pulse 78 /min Comments: Pattern: Regular Respiration Rate 16 /min Comments: Pattern: Unlabored O2 SAT 98 % Comments: Room air BP Systolic 118 mm[Hg] Comments: Patient Position: Sitting; Cuff Location: Left Arm; Cuff Size: Standard BP Diastolic 70 mm[Hg] Comments: Patient Position: Sitting; Cuff Location: Left Arm; Cuff Size: Standard Weight 183 lb Height 64 in Body Mass Index Calculated 31.41 kg/m2 Body Surface Area Calculated 1.88 m2 :48 Temperature 97.9 f Comments: Method: Temporal Pulse 74 /min Comments: Pattern: Regular Respiration Rate 20 /min Comments: Pattern: Unlabored O2 SAT 97 % Comments: Room air BP Systolic 110 mm[Hg] Comments: Patient Position: Sitting; Cuff Location: Left Arm; Cuff Size: Standard BP Diastolic 70 mm[Hg] Comments: Patient Position: Sitting; Cuff Location: Left Arm; Cuff Size: Standard Weight 186 lb Height 64 in Body Mass Index Calculated 31.93 kg/m2 Body Surface Area Calculated 1.9 m2 :32 Temperature 97.4 f Comments: Method: Temporal Pulse 84 /min Comments: Pattern: Regular Respiration Rate 17 /min O2 SAT 97 % Comments: Room air BP Systolic 108 mm[Hg] Comments: Patient Position: Sitting BP Diastolic 64 mm[Hg] Comments: Patient Position: Sitting Weight 186 lb Height 64 in Body Mass Index Calculated 31.93 kg/m2 Body Surface Area Calculated 1.9 m2 :05 Temperature 97.6 f Comments: Method: Temporal Pulse 74 /min Comments: Pattern: Regular Respiration Rate 20 /min Comments: Pattern: Unlabored O2 SAT 98 % Comments: Room air BP Systolic 104 mm[Hg] Comments: Patient Position: Sitting; Cuff Location: Left Arm; Cuff Size: Standard BP Diastolic 70 mm[Hg] Comments: Patient Position: Sitting; Cuff Location: Left Arm; Cuff Size: Standard Weight 186 lb Height 64 in Body Mass Index Calculated 31.93 kg/m2 Body Surface Area Calculated 1.9 m2 :01 Temperature 97.6 f Comments: Method: Temporal Pulse 78 /min Comments: Pattern: Regular Respiration Rate 20 /min Comments: Pattern: Unlabored O2 SAT 97 % Comments: Room air BP Systolic 120 mm[Hg] Comments: Patient Position: Sitting; Cuff Location: Left Arm; Cuff Size: Standard BP Diastolic 78 mm[Hg] Comments: Patient Position: Sitting; Cuff Location: Left Arm; Cuff Size: Standard Weight 164 lb Height 67 in Body Mass Index Calculated 25.69 kg/m2 Body Surface Area Calculated 1.86 m2 :13 Temperature 97 f Comments: Method: Temporal Pulse 82 /min Comments: Pattern: Regular Respiration Rate 20 /min Comments: Pattern: Unlabored O2 SAT 98 % Comments: Room air BP Systolic 118 mm[Hg] Comments: Patient Position: Sitting; Cuff Location: Left Arm; Cuff Size: Standard BP Diastolic 76 mm[Hg] Comments: Patient Position: Sitting; Cuff Location: Left Arm; Cuff Size: Standard Weight 175 lb Height 67 in Body Mass Index Calculated 27.41 kg/m2 Body Surface Area Calculated 1.91 m2 :57 Temperature 97.6 f Comments: Method: Temporal Pulse 68 /min Comments: Pattern: Regular Respiration Rate 20 /min Comments: Pattern: Unlabored O2 SAT 97 % Comments: Room air BP Systolic 120 mm[Hg] Comments: Patient Position: Sitting; Cuff Location: Left Arm; Cuff Size: Standard BP Diastolic 80 mm[Hg] Comments: Patient Position: Sitting; Cuff Location: Left Arm; Cuff Size: Standard Weight 182 lb Height 68 in Body Mass Index Calculated 27.67 kg/m2 Body Surface Area Calculated 1.96 m2 :20 Temperature 97.6 f Comments: Method: Temporal Pulse 86 /min Comments: Pattern: Regular Respiration Rate 20 /min Comments: Pattern: Unlabored O2 SAT 98 % Comments: Room air BP Systolic 124 mm[Hg] Comments: Patient Position: Sitting; Cuff Location: Left Arm; Cuff Size: Standard BP Diastolic 78 mm[Hg] Comments: Patient Position: Sitting; Cuff Location: Left Arm; Cuff Size: Standard Weight 182 lb Height 68 in Body Mass Index Calculated 27.67 kg/m2 Body Surface Area Calculated 1.96 m2 :28 Temperature 97.6 f Comments: Method: Temporal Pulse 74 /min Comments: Pattern: Regular Respiration Rate 20 /min Comments: Pattern: Unlabored O2 SAT 98 % Comments: Room air BP Systolic 142 mm[Hg] Comments: Patient Position: Sitting; Cuff Location: Left Arm; Cuff Size: Large BP Diastolic 80 mm[Hg] Comments: Patient Position: Sitting; Cuff Location: Left Arm; Cuff Size: Large Weight 182 lb Height 68.2 in Body Mass Index Calculated 27.51 kg/m2 Body Surface Area Calculated 1.97 m2 :08 Temperature 97.6 f Comments: Method: Temporal Pulse 74 /min Comments: Pattern: Regular Respiration Rate 18 /min Comments: Pattern: Unlabored O2 SAT 98 % Comments: Room air BP Systolic 104 mm[Hg] Comments: Patient Position: Sitting; Cuff Location: Left Arm; Cuff Size: Standard BP Diastolic 78 mm[Hg] Comments: Patient Position: Sitting; Cuff Location: Left Arm; Cuff Size: Standard Weight 175 lb Height 68.2 in Body Mass Index Calculated 26.45 kg/m2 Body Surface Area Calculated 1.94 m2 :20 Temperature 98 f Comments: Method: Tympanic Pulse 91 /min Comments: Pattern: Regular Respiration Rate 18 /min Comments: Pattern: Unlabored O2 SAT 97 % Comments: Room air BP Systolic 112 mm[Hg] Comments: Patient Position: Sitting; Cuff Location: Left Arm; Cuff Size: Standard BP Diastolic 78 mm[Hg] Comments: Patient Position: Sitting; Cuff Location: Left Arm; Cuff Size: Standard Weight 182 lb Height 68.5 in Body Mass Index Calculated 27.27 kg/m2 Body Surface Area Calculated 1.97 m2 :08 Temperature 97.6 f Comments: Method: Temporal Pulse 84 /min Comments: Pattern: Regular Respiration Rate 18 /min Comments: Pattern: Unlabored O2 SAT 98 % Comments: Room air BP Systolic 120 mm[Hg] Comments: Patient Position: Sitting; Cuff Location: Left Arm; Cuff Size: Standard BP Diastolic 80 mm[Hg] Comments: Patient Position: Sitting; Cuff Location: Left Arm; Cuff Size: Standard Weight 182 lb Height 68.5 in Body Mass Index Calculated 27.27 kg/m2 Body Surface Area Calculated 1.97 m2 :08 Pulse 82 /min Comments: Pattern: Regular Respiration Rate 16 /min Comments: Pattern: Unlabored O2 SAT 98 % Comments: Room air BP Systolic 130 mm[Hg] Comments: Patient Position: Sitting; Cuff Location: Left Arm; Cuff Size: Standard BP Diastolic 74 mm[Hg] Comments: Patient Position: Sitting; Cuff Location: Left Arm; Cuff Size: Standard Weight 185 lb Height 68.5 in Body Mass Index Calculated 27.72 kg/m2 Body Surface Area Calculated 1.99 m2 :41 Temperature 97.8 f Comments: Method: Temporal Pulse 74 /min Comments: Pattern: Regular Respiration Rate 20 /min Comments: Pattern: Unlabored O2 SAT 98 % Comments: Room air BP Systolic 120 mm[Hg] Comments: Patient Position: Sitting; Cuff Location: Left Arm; Cuff Size: Standard BP Diastolic 78 mm[Hg] Comments: Patient Position: Sitting; Cuff Location: Left Arm; Cuff Size: Standard Weight 181 lb Height 68.5 in Body Mass Index Calculated 27.12 kg/m2 Body Surface Area Calculated 1.97 m2 :55 Temperature 97.4 f Comments: Method: Tympanic Pulse 92 /min Comments: Pattern: Regular Respiration Rate 18 /min Comments: Pattern: Unlabored O2 SAT 98 % Comments: Room air BP Systolic 116 mm[Hg] Comments: Patient Position: Sitting; Cuff Location: Left Arm; Cuff Size: Standard BP Diastolic 74 mm[Hg] Comments: Patient Position: Sitting; Cuff Location: Left Arm; Cuff Size: Standard Weight 181.3125 lb Height 68.5 in Body Mass Index Calculated 27.17 kg/m2 Body Surface Area Calculated 1.97 m2 :12 Temperature 97.6 f Comments: Method: Temporal Pulse 90 /min Comments: Pattern: Regular Respiration Rate 16 /min Comments: Pattern: Unlabored O2 SAT 98 % Comments: Room air BP Systolic 132 mm[Hg] Comments: Patient Position: Sitting; Cuff Location: Left Arm; Cuff Size: Standard BP Diastolic 70 mm[Hg] Comments: Patient Position: Sitting; Cuff Location: Left Arm; Cuff Size: Standard Weight 169 lb Height 68.5 in Body Mass Index Calculated 25.32 kg/m2 Body Surface Area Calculated 1.91 m2 :17 Temperature 97.6 f Comments: Method: Oral Pulse 76 /min Comments: Pattern: Regular Respiration Rate 20 /min Comments: Pattern: Unlabored BP Systolic 122 mm[Hg] Comments: Patient Position: Sitting; Cuff Location: Left Arm; Cuff Size: Standard BP Diastolic 84 mm[Hg] Comments: Patient Position: Sitting; Cuff Location: Left Arm; Cuff Size: Standard Weight 180 lb Height 68.5 in Body Mass Index Calculated 26.97 kg/m2 Body Surface Area Calculated 1.96 m2 :12 Temperature 97.6 f Comments: Method: Oral Pulse 75 /min Comments: Pattern: Regular Respiration Rate 20 /min Comments: Pattern: Unlabored O2 SAT 97 % Comments: Room air BP Systolic 120 mm[Hg] Comments: Patient Position: Sitting; Cuff Location: Left Arm; Cuff Size: Large BP Diastolic 80 mm[Hg] Comments: Patient Position: Sitting; Cuff Location: Left Arm; Cuff Size: Large Weight 180.125 lb Height 68.5 in Body Mass Index Calculated 26.99 kg/m2 Body Surface Area Calculated 1.97 m2 :58 Temperature 97.6 f Comments: Method: Oral Pulse 70 /min Comments: Pattern: Regular Respiration Rate 18 /min Comments: Pattern: Unlabored BP Systolic 120 mm[Hg] Comments: Patient Position: Sitting; Cuff Location: Left Arm; Cuff Size: Standard BP Diastolic 80 mm[Hg] Comments: Patient Position: Sitting; Cuff Location: Left Arm; Cuff Size: Standard Weight 180 lb Height 68.5 in Body Mass Index Calculated 26.97 kg/m2 Body Surface Area Calculated 1.96 m2 :09 Temperature 97.6 f Comments: Method: Oral Pulse 70 /min Comments: Pattern: Regular Respiration Rate 18 /min Comments: Pattern: Unlabored BP Systolic 122 mm[Hg] Comments: Patient Position: Sitting; Cuff Location: Left Arm; Cuff Size: Standard BP Diastolic 78 mm[Hg] Comments: Patient Position: Sitting; Cuff Location: Left Arm; Cuff Size: Standard Weight 180 lb Height 68.5 in Body Mass Index Calculated 26.97 kg/m2 Body Surface Area Calculated 1.96 m2 :34 Temperature 96.8 f Comments: Method: Temporal Pulse 76 /min Comments: Pattern: Regular Respiration Rate 16 /min Comments: Pattern: Unlabored BP Systolic 122 mm[Hg] Comments: Patient Position: Sitting; Cuff Location: Left Arm; Cuff Size: Standard BP Diastolic 74 mm[Hg] Comments: Patient Position: Sitting; Cuff Location: Left Arm; Cuff Size: Standard Weight 183.6 lb Height 68.5 in Body Mass Index Calculated 27.51 kg/m2 Body Surface Area Calculated 1.98 m2 :59 Temperature 98.1 f Comments: Method: Tympanic Pulse 64 /min Comments: Pattern: Regular Respiration Rate 16 /min Comments: Pattern: Unlabored BP Systolic 108 mm[Hg] Comments: Patient Position: Sitting; Cuff Location: Left Arm; Cuff Size: Standard BP Diastolic 74 mm[Hg] Comments: Patient Position: Sitting; Cuff Location: Left Arm; Cuff Size: Standard Weight 183 lb Height 68.5 in Body Mass Index Calculated 27.42 kg/m2 Body Surface Area Calculated 1.98 m2 :43 Temperature 97.6 f Comments: Method: Oral Pulse 70 /min Comments: Pattern: Regular Respiration Rate 14 /min Comments: Pattern: Unlabored O2 SAT 97 % Comments: Room air BP Systolic 112 mm[Hg] Comments: Patient Position: Sitting; Cuff Location: Left Arm; Cuff Size: Standard BP Diastolic 70 mm[Hg] Comments: Patient Position: Sitting; Cuff Location: Left Arm; Cuff Size: Standard Weight 178 lb Height 68.5 in Body Mass Index Calculated 26.67 kg/m2 Body Surface Area Calculated 1.96 m2 :37 Temperature 98 f Comments: Method: Oral Pulse 70 /min Comments: Pattern: Regular Respiration Rate 18 /min Comments: Pattern: Unlabored BP Systolic 118 mm[Hg] Comments: Patient Position: Sitting; Cuff Location: Left Arm; Cuff Size: Standard BP Diastolic 70 mm[Hg] Comments: Patient Position: Sitting; Cuff Location: Left Arm; Cuff Size: Standard Weight 178 lb Height 68.5 in Body Mass Index Calculated 26.67 kg/m2 Body Surface Area Calculated 1.96 m2 :51 Temperature 98 f Comments: Method: Oral Pulse 78 /min Comments: Pattern: Regular Respiration Rate 18 /min Comments: Pattern: Unlabored BP Systolic 122 mm[Hg] Comments: Patient Position: Sitting; Cuff Location: Left Arm; Cuff Size: Standard BP Diastolic 76 mm[Hg] Comments: Patient Position: Sitting; Cuff Location: Left Arm; Cuff Size: Standard Weight 183 lb Height 68.5 in Body Mass Index Calculated 27.42 kg/m2 Body Surface Area Calculated 1.98 m2 :41 Temperature 98 f Comments: Method: Oral Pulse 64 /min Comments: Pattern: Regular Respiration Rate 20 /min Comments: Pattern: Unlabored BP Systolic 118 mm[Hg] Comments: Patient Position: Sitting; Cuff Location: Left Arm; Cuff Size: Standard BP Diastolic 70 mm[Hg] Comments: Patient Position: Sitting; Cuff Location: Left Arm; Cuff Size: Standard Weight 175 lb Height 68.5 in Body Mass Index Calculated 26.22 kg/m2 Body Surface Area Calculated 1.94 m2 :59 Temperature 97.6 f Comments: Method: Oral Pulse 70 /min Comments: Pattern: Regular Respiration Rate 18 /min Comments: Pattern: Unlabored BP Systolic 124 mm[Hg] Comments: Patient Position: Sitting; Cuff Location: Left Arm; Cuff Size: Standard BP Diastolic 74 mm[Hg] Comments: Patient Position: Sitting; Cuff Location: Left Arm; Cuff Size: Standard Weight 173 lb Height 68.5 in Body Mass Index Calculated 25.92 kg/m2 Body Surface Area Calculated 1.93 m2 :52 Temperature 99.7 f Comments: Method: Oral Pulse 76 /min Comments: Pattern: Regular Respiration Rate 18 /min Comments: Pattern: Unlabored BP Systolic 120 mm[Hg] Comments: Patient Position: Sitting; Cuff Location: Left Arm; Cuff Size: Standard BP Diastolic 72 mm[Hg] Comments: Patient Position: Sitting; Cuff Location: Left Arm; Cuff Size: Standard Weight 173 lb Height 68.5 in Body Mass Index Calculated 25.92 kg/m2 Body Surface Area Calculated 1.93 m2 :40 Temperature 97.9 f Comments: Method: Oral Pulse 74 /min Comments: Pattern: Regular Respiration Rate 18 /min Comments: Pattern: Unlabored BP Systolic 110 mm[Hg] Comments: Patient Position: Sitting; Cuff Location: Left Arm; Cuff Size: Standard BP Diastolic 74 mm[Hg] Comments: Patient Position: Sitting; Cuff Location: Left Arm; Cuff Size: Standard Weight 173 lb Height 68.5 in Body Mass Index Calculated 25.92 kg/m2 Body Surface Area Calculated 1.93 m2 :29 Temperature 97.6 f Comments: Method: Oral Pulse 70 /min Comments: Pattern: Regular Respiration Rate 18 /min Comments: Pattern: Unlabored BP Systolic 120 mm[Hg] Comments: Patient Position: Sitting; Cuff Location: Left Arm; Cuff Size: Standard BP Diastolic 78 mm[Hg] Comments: Patient Position: Sitting; Cuff Location: Left Arm; Cuff Size: Standard Weight 173 lb Height 68.5 in Body Mass Index Calculated 25.92 kg/m2 Body Surface Area Calculated 1.93 m2 :22 Temperature 98.2 f Comments: Method: Oral Pulse 68 /min Comments: Pattern: Regular Respiration Rate 18 /min Comments: Pattern: Unlabored BP Systolic 118 mm[Hg] Comments: Patient Position: Sitting; Cuff Location: Left Arm; Cuff Size: Standard BP Diastolic 78 mm[Hg] Comments: Patient Position: Sitting; Cuff Location: Left Arm; Cuff Size: Standard Weight 173 lb Height 68.5 in Body Mass Index Calculated 25.92 kg/m2 Body Surface Area Calculated 1.93 m2 :55 Temperature 97.9 f Comments: Method: Oral Pulse 72 /min Comments: Pattern: Regular Respiration Rate 16 /min Comments: Pattern: Unlabored BP Systolic 116 mm[Hg] Comments: Patient Position: Sitting; Cuff Location: Left Arm; Cuff Size: Standard BP Diastolic 78 mm[Hg] Comments: Patient Position: Sitting; Cuff Location: Left Arm; Cuff Size: Standard Weight 173 lb Height 68.5 in Body Mass Index Calculated 25.92 kg/m2 Body Surface Area Calculated 1.93 m2 :33 Temperature 98.2 f Comments: Method: Oral Pulse 74 /min Comments: Pattern: Regular Respiration Rate 18 /min Comments: Pattern: Unlabored BP Systolic 120 mm[Hg] Comments: Patient Position: Sitting; Cuff Location: Left Arm; Cuff Size: Standard BP Diastolic 80 mm[Hg] Comments: Patient Position: Sitting; Cuff Location: Left Arm; Cuff Size: Standard Weight 173 lb Height 68.5 in Body Mass Index Calculated 25.92 kg/m2 Body Surface Area Calculated 1.93 m2 :46 Temperature 98.2 f Comments: Method: Oral Pulse 70 /min Comments: Pattern: Regular Respiration Rate 18 /min Comments: Pattern: Unlabored BP Systolic 118 mm[Hg] Comments: Patient Position: Sitting; Cuff Location: Left Arm; Cuff Size: Standard BP Diastolic 76 mm[Hg] Comments: Patient Position: Sitting; Cuff Location: Left Arm; Cuff Size: Standard Weight 173 lb :14 Pulse 70 /min Comments: Pattern: Regular Respiration Rate 18 /min Comments: Pattern: Unlabored BP Systolic 120 mm[Hg] Comments: Patient Position: Sitting; Cuff Location: Left Arm; Cuff Size: Standard BP Diastolic 80 mm[Hg] Comments: Patient Position: Sitting; Cuff Location: Left Arm; Cuff Size: Standard Weight 168 lb :31 Temperature 98 f Comments: Method: Oral Pulse 68 /min Comments: Pattern: Regular Respiration Rate 16 /min Comments: Pattern: Unlabored BP Systolic 118 mm[Hg] Comments: Patient Position: Sitting; Cuff Location: Left Arm; Cuff Size: Standard BP Diastolic 78 mm[Hg] Comments: Patient Position: Sitting; Cuff Location: Left Arm; Cuff Size: Standard Weight 168 lb Height 0 in Head Circumference 0.00 cm :24 Pulse 64 /min Comments: Pattern: Regular Respiration Rate 16 /min Comments: Pattern: Unlabored BP Systolic 120 mm[Hg] Comments: Patient Position: Sitting; Cuff Location: Left Arm; Cuff Size: Standard BP Diastolic 78 mm[Hg] Comments: Patient Position: Sitting; Cuff Location: Left Arm; Cuff Size: Standard Weight 169 lb Height 0 in Head Circumference 0.00 cm :01 Pulse 70 /min Comments: Pattern: Regular Respiration Rate 16 /min Comments: Pattern: Unlabored BP Systolic 118 mm[Hg] Comments: Patient Position: Sitting; Cuff Location: Left Arm; Cuff Size: Standard BP Diastolic 80 mm[Hg] Comments: Patient Position: Sitting; Cuff Location: Left Arm; Cuff Size: Standard Weight 0 lb Height 0 in Head Circumference 0.00 cm :00 Temperature 98.1 f Comments: Method: Oral Pulse 70 /min Comments: Pattern: Regular Respiration Rate 16 /min Comments: Pattern: Unlabored BP Systolic 120 mm[Hg] Comments: Patient Position: Sitting; Cuff Location: Left Arm; Cuff Size: Standard BP Diastolic 78 mm[Hg] Comments: Patient Position: Sitting; Cuff Location: Left Arm; Cuff Size: Standard Weight 0 lb Height 0 in Head Circumference 0.00 cm :00 Pulse 68 /min Comments: Pattern: Regular Respiration Rate 16 /min Comments: Pattern: Unlabored BP Systolic 112 mm[Hg] Comments: Patient Position: Sitting; Cuff Location: Left Arm; Cuff Size: Standard BP Diastolic 76 mm[Hg] Comments: Patient Position: Sitting; Cuff Location: Left Arm; Cuff Size: Standard Weight 174 lb Height 0 in Head Circumference 0.00 cm :59 Temperature 98.2 f Comments: Method: Oral Pulse 70 /min Comments: Pattern: Regular Respiration Rate 16 /min Comments: Pattern: Unlabored BP Systolic 110 mm[Hg] Comments: Patient Position: Sitting; Cuff Location: Left Arm; Cuff Size: Standard BP Diastolic 78 mm[Hg] Comments: Patient Position: Sitting; Cuff Location: Left Arm; Cuff Size: Standard Weight 0 lb Height 0 in Head Circumference 0.00 cm :08 Temperature 98.4 f Comments: Method: Oral Pulse 102 /min Comments: Pattern: Regular Respiration Rate 18 /min Comments: Pattern: Unlabored O2 SAT 98 % Comments: Room air BP Systolic 96 mm[Hg] Comments: Patient Position: Sitting; Cuff Location: Left Arm; Cuff Size: Standard BP Diastolic 72 mm[Hg] Comments: Patient Position: Sitting; Cuff Location: Left Arm; Cuff Size: Standard Weight 167.4375 lb Height 0 in Head Circumference 0.00 cm :57 Temperature 98.5 f Comments: Method: Oral Pulse 88 /min Comments: Pattern: Regular Respiration Rate 18 /min Comments: Pattern: Unlabored BP Systolic 100 mm[Hg] Comments: Patient Position: Sitting; Cuff Location: Right Arm; Cuff Size: Standard BP Diastolic 60 mm[Hg] Comments: Patient Position: Sitting; Cuff Location: Right Arm; Cuff Size: Standard Weight 170.125 lb Height 68.5 in Body Mass Index Calculated 25.49 kg/m2 Body Surface Area Calculated 1.92 m2 Head Circumference 0.00 cm :55 Temperature 98.6 f Comments: Method: Oral Pulse 72 /min Comments: Pattern: Regular Respiration Rate 16 /min Comments: Pattern: Unlabored BP Systolic 98 mm[Hg] Comments: Patient Position: Sitting; Cuff Location: Right Arm; Cuff Size: Standard BP Diastolic 68 mm[Hg] Comments: Patient Position: Sitting; Cuff Location: Right Arm; Cuff Size: Standard Weight 0 lb Height 0 in Head Circumference 0.00 cm :14 Temperature 98.2 f Comments: Method: Oral Pulse 72 /min Comments: Pattern: Regular Respiration Rate 16 /min Comments: Pattern: Unlabored BP Systolic 106 mm[Hg] Comments: Patient Position: Sitting; Cuff Location: Left Arm; Cuff Size: Standard BP Diastolic 68 mm[Hg] Comments: Patient Position: Sitting; Cuff Location: Left Arm; Cuff Size: Standard Weight 168 lb Height 0 in Head Circumference 0.00 cm :43 Temperature 98.1 f Comments: Method: Oral Pulse 70 /min Comments: Pattern: Regular Respiration Rate 16 /min Comments: Pattern: Unlabored BP Systolic 106 mm[Hg] Comments: Patient Position: Sitting; Cuff Location: Right Arm; Cuff Size: Standard BP Diastolic 82 mm[Hg] Comments: Patient Position: Sitting; Cuff Location: Right Arm; Cuff Size: Standard Weight 0 lb Height 0 in Head Circumference 0.00 cm :49 Temperature 98.7 f Comments: Method: Oral Pulse 72 /min Comments: Pattern: Regular Respiration Rate 16 /min Comments: Pattern: Unlabored BP Systolic 98 mm[Hg] Comments: Patient Position: Sitting; Cuff Location: Right Arm; Cuff Size: Standard BP Diastolic 62 mm[Hg] Comments: Patient Position: Sitting; Cuff Location: Right Arm; Cuff Size: Standard Weight 160 lb Height 0 in Head Circumference 0.00 cm :05 Temperature 98.2 f Comments: Method: Oral Pulse 68 /min Comments: Pattern: Regular Respiration Rate 16 /min Comments: Pattern: Undefined BP Systolic 104 mm[Hg] Comments: Patient Position: Sitting; Cuff Location: Undefined; Cuff Size: Undefined BP Diastolic 64 mm[Hg] Comments: Patient Position: Sitting; Cuff Location: Undefined; Cuff Size: Undefined Weight 152 lb Height 0 in Head Circumference 0.00 cm Results Date Description Value Details :02 CALCIFIDIOL (53004) VIT D Comments: PATIENT NOT FASTINGPERFORMED BY: [facility] [id number] BY: [employer] [address] [id number] 25 Vitamin D, 25-Hydroxy 26.9 ng/mL (Abnormal) Range: 30.0-100.0 Comments: Vitamin D deficiency has been defined by the [place] [employer] and an Endocrine Society practice guideline as alevel of serum 25-OH vitamin D less than 20 ng/mL (1,2).The Endocrine Society went on to further define vitamin Dinsufficiency as a level between 21 and 29 ng/mL (2).1. IOM ([place] [employer]). 2010. Dietary reference intakes for calcium and D. [place]: The National Academies Press.2. [place] MF, Pamela [place], Jaron SUAREZ, et al. Evaluation, treatment, and prevention of vitamin D deficiency: an Endocrine Society clinical practice guideline. JCEM. 2010; 96(7):1911-30. :02 CBC WITH MANUAL DIFF Comments: PATIENT NOT FASTINGPERFORMED BY: [facility] [place] [id number] BY: [employer] [id number] ([id number]) Immature Grans (Abs) 0.0 {x10E3/uL} (Normal) Range: 0.0-0.1 Immature Granulocytes 0 % (Normal) Baso (Absolute) 0.0 {x10E3/uL} (Normal) Range: 0.0-0.2 Eos (Absolute) 0.1 {x10E3/uL} (Normal) Range: 0.0-0.4 Monocytes(Absolute) 0.3 {x10E3/uL} (Normal) Range: 0.1-0.9 Lymphs (Absolute) 2.2 {x10E3/uL} (Normal) Range: 0.7-3.1 Neutrophils (Absolute) 2.6 {x10E3/uL} (Normal) Range: 1.4-7.0 Basos 1 % (Normal) Eos 2 % (Normal) Monocytes 6 % (Normal) Lymphs 42 % (Normal) Neutrophils 49 % (Normal) Platelets 294 {x10E3/uL} (Normal) Range: 150-379 RDW 14.9 % (Normal) Range: 12.3-15.4 MCHC 34.1 g/dL (Normal) Range: 31.5-35.7 MCH 27.6 pg (Normal) Range: 26.6-33.0 MCV 81 fL (Normal) Range: 79-97 Hematocrit 38.1 % (Normal) Range: 34.0-46.6 Hemoglobin 13.0 g/dL (Normal) Range: 11.1-15.9 RBC 4.71 {x10E6/uL} (Normal) Range: 3.77-5.28 WBC 5.3 {x10E3/uL} (Normal) Range: 3.4-10.8 6-Lks-015992:02 Methymalonic Acid, Serum Comments: PATIENT NOT FASTINGPERFORMED BY: [facility]Core[facility]6370 [facility] [id number] BY: BTC Trip[address] [id number] (56098) Disclaimer: SPRCS (Normal) Comments: This test was developed and its performance characteristicsdetermined by [employer]. It has not been cleared or approvedby the Food and Drug Administration. Methylmalonic Acid, Serum 218 nmol/L (Normal) Range: 0-378 6-Ivq-740358:02 Vitamin B-12 (cyanocobalamin) Comments: PATIENT NOT FASTINGPERFORMED BY: CB [facility] Uutpgq3518 [place] [facility] [place] [id number] BY: [address] [id number] (76923) Vitamin B12 447 pg/mL (Normal) Range: 232-1245 8-Dao-432057:02 Ferritin (66144) Comments: PATIENT NOT FASTINGPERFORMED BY: CB [facility] Lwhfxu9150 [place] [facility] [place] [id number] BY: [address] [id number] Ferritin, Serum 19 ng/mL (Normal) Range: 15-150 5-Rge-506590:02 Sed Rate Erythrocyte Comments: PATIENT NOT FASTINGPERFORMED BY: Aveillant [facility] Wfztdn1353 [facility] [id number] BY: [address] [id number] (91124) Sedimentation Rate-Westergren 15 mm/h (Normal) Range: 0-40 4-Hke-315306:02 CAMILLA (ANTINUCLEAR ANTIBODY) Comments: PATIENT NOT FASTINGPERFORMED BY: CB [facility] Wlkxxw2655 [facility] [id number] BY: [address] [id number] (21635) CAMILLA Direct Negative (Normal) 8-Ihg-653900:02 EBV ACUTE PFOF IgG/IgM Comments: PATIENT NOT FASTINGPERFORMED BY: Aveillant [facility] Bmmzkf8436 [facility] [id number] BY: [address] [id number] (22538) Interpretation: SPRCS (Normal) Comments: EBV Interpretation Chart . Interpretation EBV-IgM EA(D)-IgG VCA-IgG EBNA-IgG . EBV Seronegative - - - - Early Phase + - - - Acute Primary + +or- + - Infection Convalescence/Past - +or- + + Infection Reactivated +or- + + + Infection + Antibody Present - Antibody Absent EBV Nuclear Antigen Ab, IgG >600.0 U/mL (Abnormal) Range: 0.0-17.9 Comments: Negative <18.0 Equivocal 18.0 - 21.9 Positive >21.9 EBV Ab VCA, IgG 484.0 U/mL (Abnormal) Range: 0.0-17.9 Comments: Negative <18.0 Equivocal 18.0 - 21.9 Positive >21.9 EBV Early Antigen Ab, IgG 9.3 U/mL (Abnormal) Range: 0.0-8.9 Comments: A second sample should be collected and tested no less than 2-4 weeks. Negative < 9.0 Equivocal 9 .0 - 10.9 Positive >10.9 EBV Ab VCA, IgM <36.0 U/mL (Normal) Range: 0.0-35.9 Comments: Negative <36.0 Equivocal 36.0 - 43.9 Positive >43.9 3-Cgv-881515:34 HgA1C , Office (98584) HgA1C , Office 6.4 % (Normal) Range: 4.6 - 7.1 39-Kby-865629:23 CBC WITH MANUAL DIFF Comments: fax a copy to Dr. Lo [phone]; A courtesy copy of this report has been sent [phone].PATIENT NOT FASTINGPERFORMED BY: LabCoHackensack University Medical CenterKzztjf6610 [facility] [id number] (67889) l Information: FX DR LO [phone] Immature Grans (Abs) 0.0 {x10E3/uL} (Normal) Range: 0.0-0.1 Immature Granulocytes 0 % (Normal) Baso (Absolute) 0.1 {x10E3/uL} (Normal) Range: 0.0-0.2 Eos (Absolute) 0.1 {x10E3/uL} (Normal) Range: 0.0-0.4 Monocytes(Absolute) 0.4 {x10E3/uL} (Normal) Range: 0.1-0.9 Lymphs (Absolute) 2.4 {x10E3/uL} (Normal) Range: 0.7-3.1 Neutrophils (Absolute) 2.9 {x10E3/uL} (Normal) Range: 1.4-7.0 Basos 1 % (Normal) Eos 2 % (Normal) Monocytes 7 % (Normal) Lymphs 41 % (Normal) Neutrophils 49 % (Normal) Platelets 338 {x10E3/uL} (Normal) Range: 150-379 RDW 14.4 % (Normal) Range: 12.3-15.4 MCHC 32.8 g/dL (Normal) Range: 31.5-35.7 MCH 27.5 pg (Normal) Range: 26.6-33.0 MCV 84 fL (Normal) Range: 79-97 Hematocrit 39.9 % (Normal) Range: 34.0-46.6 Hemoglobin 13.1 g/dL (Normal) Range: 11.1-15.9 RBC 4.76 {x10E6/uL} (Normal) Range: 3.77-5.28 WBC 5.9 {x10E3/uL} (Normal) Range: 3.4-10.8 40-Pls-863093:23 C-REACTIVE PROTEIN (47675) Comments: please fax a copy to Dr. Lo; A courtesy copy of this report has been sent [phone].PATIENT NOT FASTINGPERFORMED BY: BababooHackensack University Medical CenterWcwfmi9800 [facility] [id number] C-Reactive Protein, Quant 3.8 mg/L (Normal) Range: 0.0-4.9 48-Mir-457248:23 Sed Rate Erythrocyte (16217) Comments: fax a copy to Dr. Lo; A courtesy copy of this report has been sent [phone].PATIENT NOT FASTINGPERFORMED BY: BTC [facility]Core[facility]6370 [facility] [id number] Sedimentation Rate-Westergren 17 mm/h (Normal) Range: 0-40 05-Nov-20178:00 Cortisol,Urinary Free 24- Hour Comments: PATIENT NOT FASTINGPERFORMED BY: LabPamela [place] 741497 [facility] [id number] Information: START 11/05/17@8AM Urine (34651) Cortisol,F,ug/24hr,U 12 {ug/24_hr} (Normal) Range: 0-50 Comments: This test was developed and its performance characteristicsdetermined by [facility]. It has not been cleared or approvedby the Food and Drug Administration. Cortisol,F,ug/L,U 7 ug/L (Normal) 21-Dwf-93157:50 CORTISOL SERUM Comments: BASELINE OR POST MEDICATION STIMULATION?: 60 Min Post MED [facility] Olidxhabqz[address] [place], [place], [phone] CORTISOL 41.70 ug/dL (Abnormal) Range: 3.09-22.40 Comments: Adult (AM) 4.30 - 22.40 ug/dL Adult (PM) 3.09 - 16.66 ug/dL 37-Ivq-41131:20 CORTISOL SERUM Comments: BASELINE OR POST MEDICATION STIMULATION?: 30 Min Post MED [facility] Rlifoazmpf[address] [place], [place], [phone] CORTISOL 37.70 ug/dL (Abnormal) Range: 3.09-22.40 Comments: Adult (AM) 4.30 - 22.40 ug/dL Adult (PM) 3.09 - 16.66 ug/dL 50-Aqh-86824:42 CORTISOL SERUM Comments: BASELINE OR POST MEDICATION STIMULATION?: [facility] Nvfyroprnm56[address] [place], [place], [phone]) CORTISOL 28.40 ug/dL (Abnormal) Range: 3.09-22.40 Comments: Adult (AM) 4.30 - 22.40 ug/dL Adult (PM) 3.09 - 16.66 ug/dL 51-Cqj-475738:46 EBV Acute Infection Comments: PATIENT NOT FASTINGPERFORMED BY: LabCorewell [facility] Hospital6370 [facility] [id number] Information: SRC:UC Antibodies Interpretation: SPRCS (Normal) Comments: EBV Interpretation Chart . Interpretation EBV-IgM EA(D)-IgG VCA-IgG EBNA-IgG . EBV Seronegative - - - - Early Phase + - - - Acute Primary + +or- + - Infection Convalescence/Past - +or- + + Infection Reactivated +or- + + + Infection + Antibody Present - Antibody Absent EBV Nuclear Antigen Ab, IgG >600.0 U/mL (Abnormal) Range: 0.0-17.9 Comments: Negative <18.0 Equivocal 18.0 - 21.9 Positive >21.9 EBV Ab VCA, IgG 438.0 U/mL (Abnormal) Range: 0.0-17.9 Comments: Negative <18.0 Equivocal 18.0 - 21.9 Positive >21.9 EBV Early Antigen Ab, IgG 10.6 U/mL (Abnormal) Range: 0.0-8.9 Comments: A second sample should be collected and tested no less than 2-4 weeks. Negative < 9.0 Equivocal 9 .0 - 10.9 Positive >10.9 EBV Ab VCA, IgM <36.0 U/mL (Normal) Range: 0.0-35.9 Comments: Negative <36.0 Equivocal 36.0 - 43.9 Positive >43.9 99-Itq-150060:46 Microscopic Examination Comments: PATIENT NOT FASTINGPERFORMED BY: LabSoundCure Ngsxpo9018 [facility] [id number] Bacteria Few (Normal) Epithelial Cells (non None seen {/hpf} Range: 0 - 10 renal) (Normal) RBC None seen {/hpf} Range: 0 - 2 (Normal) WBC 0-5 {/hpf} Range: 0 - 5 (Normal) Written Authorization WAR (Normal) Comments: PATIENT NOT FASTINGPERFORMED BY: LabSoundCure Qrktep6712 [facility] [id number] 4:46 Comments: Written Authorization Received.Authorization received from KARLA QUINONEZ LPN [id number] by Alejandrina Solano 88-Yrj-883941:46 Troponin I (88371) Comments: PATIENT NOT FASTINGPERFORMED BY: LabCo Glklbk2625 [facility] [id number] Troponin I 0.02 ng/mL (Normal) Range: 0.00-0.04 27-Fhh-091927:46 CREATINE KINASE TOTAL (52478) Comments: PATIENT NOT FASTINGPERFORMED BY: BTC [facility] Iguhhq7820 [facility] [id number] Creatine Kinase,Total 107 U/L (Normal) Range: 24-173 :46 SPEP (01102) Comments: PATIENT NOT FASTINGPERFORMED BY: BTC TripCore[facility]6370 [facility] [id number] PDF . (Normal) Please note: SPRCS (Normal) Comments: Protein electrophoresis scan will follow via computer, mail, orcourier delivery. A/G Ratio 0.9 (Normal) Range: 0.7-1.7 Globulin, Total 4.1 g/dL (Abnormal) Range: 2.2-3.9 M-Fox Not Observed g/dL (Normal) Gamma Globulin 1.3 g/dL (Normal) Range: 0.4-1.8 Beta Globulin 1.4 g/dL (Abnormal) Range: 0.7-1.3 Pyoum-8-Affqfsmj 1.1 g/dL (Abnormal) Range: 0.4-1.0 Hwuvt-8-Oivmxdnt 0.3 g/dL (Normal) Range: 0.0-0.4 Albumin 3.6 g/dL (Normal) Range: 2.9-4.4 Protein, Total 7.7 g/dL (Normal) Range: 6.0-8.5 :46 T4, FREE (THYROXINE) (54039) Comments: PATIENT NOT FASTINGPERFORMED BY: BTC [facility]Core[facility]6370 [facility] [id number] T4,Free(Direct) 1.29 ng/dL (Normal) Range: 0.82-1.77 :46 T3, FREE (TRIDOTHYRONINE) (46651) Comments: PATIENT NOT FASTINGPERFORMED BY: BTC TripCore[facility]6370 [facility] [id number] Triiodothyronine,Free,Serum 3.1 pg/mL (Normal) Range: 2.0-4.4 :46 URINALYSIS, W/ MICRO Comments: PATIENT NOT FASTINGPERFORMED BY: [facility]6370 [facility] [id number] Information: SRC:THOM (91937) Microscopic Examination See below: (Normal) Comments: Microscopic was indicated and was performed. Microscopic Examination MICRON (Normal) Comments: Microscopic follows if indicated. Nitrite, Urine Negative (Normal) Urobilinogen,Semi-Qn 0.2 mg/dL (Normal) Range: 0.2-1.0 Bilirubin Negative (Normal) Occult Blood Negative (Normal) Ketones Negative (Normal) Glucose Negative (Normal) Protein Negative (Normal) WBC Esterase Negative (Normal) Appearance Clear (Normal) Urine-Color Yellow (Normal) pH 6.0 (Normal) Range: 5.0-7.5 Specific [place] 1.007 (Normal) Range: 1.005-1.030 78-Flm-625252:46 URINE DARLYN CULTURE-LOUISE COL Comments: PATIENT NOT FASTINGPERFORMED BY: Cybrata NetworksAtrium Health University City [id number] COUNT (85319) Result 1 MUG (Normal) Comments: Mixed urogenital flora25,000-50,000 colony forming units per mL Urine Final report (Normal) Culture,Comprehensive 63-Ylo-395849:40 DARLYN CULTURE-BLOOD (44280) Comments: PATIENT NOT FASTINGPERFORMED BY: [facility]brata NetworksAt[facility] Health [facility] [id number] Information: RIGHT ARM DRAWN@215PM SRC:WB Result 1 NGFD (Normal) Comments: No aerobic or anaerobic growth in five days. Blood Culture, Routine Final report (Normal) 23-Ebm-966767:03 ANTISTREPTOLYSIN O-TITER Comments: PATIENT NOT FASTINGPERFORMED BY: Cybr[facility] NetworksAt[facility] Health [facility] [id number] BY: Bababoo[address] [id number] (09996) Antistreptolysin O Ab 52.4 {IU/mL} (Normal) Range: 0.0-200.0 29-Aki-156972:03 CCP ANTIBODY (80001) Comments: PATIENT NOT FASTINGPERFORMED BY: Cybrata NetworksAt[facility] Health [facility] [id number] BY: Notice Kiosk[address] [id number] CCP Antibodies IgG/IgA 11 {units} (Normal) Range: 0-19 Comments: Negative <20 Weak positive 20 - 39 Moderate positive 40 - 59 Strong positive >59 93-Qcr-155910:03 SED RATE ERYTHROCYTE Comments: PATIENT NOT FASTINGPERFORMED BY: LabRiley [place] 0311970 [facility] [id number] BY: [address] [id number] (04523) Sedimentation Rate-Westergren 19 mm/h (Normal) Range: 0-40 81-Xxh-566450:03 C-REACTIVE PROTEIN Comments: PATIENT NOT FASTINGPERFORMED BY: LabRiley [place] 0311970 [facility] [id number] BY: [address] [id number] (44440) C-Reactive Protein, Quant 6.4 mg/L (Abnormal) Range: 0.0-4.9 68-Bws-579023:03 TSH (45156) Comments: PATIENT NOT FASTINGPERFORMED BY: [place] 1255870 [facility] [id number] BY: [address] [id number] TSH 2.970 {uIU/mL} (Normal) Range: 0.450-4.500 07-Ffm-341490:03 RHEUMATOID FACTOR-QUANT Comments: PATIENT NOT FASTINGPERFORMED BY: [place] 1255870 [facility] [id number] BY: [address] [id number] (53643) RA Latex Turbid. <10.0 {IU/mL} (Normal) Range: 0.0-13.9 22-Rqo-341594:03 METABOLIC PANEL, Comments: PATIENT NOT FASTINGPERFORMED BY: LabRiley [place] 0311970 [facility] [id number] BY: [address] [id number] COMPREHENSIVE (39247) ALT (SGPT) 15 [iU]/L (Normal) Range: 0-32 AST (SGOT) 22 [iU]/L (Normal) Range: 0-40 Alkaline Phosphatase 94 [iU]/L (Normal) Range: 39-117 Bilirubin, Total <0.2 mg/dL (Normal) Range: 0.0-1.2 A/G Ratio 1.2 (Normal) Range: 1.2-2.2 Globulin, Total 3.5 g/dL (Normal) Range: 1.5-4.5 Albumin 4.3 g/dL (Normal) Range: 3.5-4.8 Protein, Total 7.8 g/dL (Normal) Range: 6.0-8.5 Calcium 10.0 mg/dL (Normal) Range: 8.7-10.3 Carbon Dioxide, Total 24 mmol/L (Normal) Range: 18-29 Comments: Effective October 13, 2017 Carbon Dioxide, Total reference interval will be changing to: Age Male Female 0 days - 30 days 16 - 29 16 - 29 31 days - 1 year 15 - 25 15 - 25 2 years - 5 years 17 - 26 17 - 26 6 y ears - 12 years 19 - 27 19 - 27 >12 years 20 - 29 20 - 29 Chloride 101 mmol/L (Normal) Range: 96-106 Potassium 4.6 mmol/L (Normal) Range: 3.5-5.2 Sodium 140 mmol/L (Normal) Range: 134-144 BUN/Creatinine Ratio 18 (Normal) Range: 12-28 eGFR If Africn Am 59 mL/min/1.73 (Abnormal) eGFR If NonAfricn Am 51 mL/min/1.73 (Abnormal) Creatinine 1.05 mg/dL (Abnormal) Range: 0.57-1.00 BUN 19 mg/dL (Normal) Range: 8-27 Glucose 97 mg/dL (Normal) Range: 65-99 90-Dbk-355916:03 CBC with auto diff Comments: PATIENT NOT FASTINGPERFORMED BY: CB [facility] Nnhoob3174 [facility] [id number] BY: BN [facility] [address] [id number] (25906) Immature Grans (Abs) 0.0 {x10E3/uL} (Normal) Range: 0.0-0.1 Immature Granulocytes 0 % (Normal) Baso (Absolute) 0.1 {x10E3/uL} (Normal) Range: 0.0-0.2 Eos (Absolute) 0.3 {x10E3/uL} (Normal) Range: 0.0-0.4 Monocytes(Absolute) 0.4 {x10E3/uL} (Normal) Range: 0.1-0.9 Lymphs (Absolute) 2.4 {x10E3/uL} (Normal) Range: 0.7-3.1 Neutrophils (Absolute) 3.5 {x10E3/uL} (Normal) Range: 1.4-7.0 Basos 1 % (Normal) Eos 4 % (Normal) Monocytes 7 % (Normal) Lymphs 36 % (Normal) Neutrophils 52 % (Normal) Platelets 356 {x10E3/uL} (Normal) Range: 150-379 RDW 14.2 % (Normal) Range: 12.3-15.4 MCHC 34.2 g/dL (Normal) Range: 31.5-35.7 MCH 28.4 pg (Normal) Range: 26.6-33.0 MCV 83 fL (Normal) Range: 79-97 Hematocrit 39.2 % (Normal) Range: 34.0-46.6 Hemoglobin 13.4 g/dL (Normal) Range: 11.1-15.9 RBC 4.72 {x10E6/uL} (Normal) Range: 3.77-5.28 WBC 6.7 {x10E3/uL} (Normal) Range: 3.4-10.8 10-Puz-573549:03 CAMILLA (ANTINUCLEAR ANTIBODY) Comments: PATIENT NOT FASTINGPERFORMED BY: [employer] [facility] [id number] BY: BTC TripGregory [place] [id number] (91889) CAMILLA Direct Negative (Normal) 12-Pif-563642:03 Lyme Disease Antibody W/ Comments: PATIENT NOT FASTINGPERFORMED BY: [employer] Snlelg[address] [place] [address] [id number] BY: BTC Trip[address] [id number] Reflex (54426) Lyme IgG/IgM Ab <0.91 {ISR} (Normal) Range: 0.00-0.90 Comments: Negative <0.91 Equivocal 0.91 - 1.09 Positive >1.09 8-Ojs-950585:59 Rapid Flu (34485 x 2) Influenza A Ag positive A (Normal) :10 HGB A1C (89912) Comments: PATIENT WAS FASTINGPERFORMED BY: [employer] [address] [id number] BY: LabSoundCureHackensack University Medical CenterXmskqg3063 [facility] [id number] Hemoglobin A1c 6.3 % (Abnormal) Range: 4.8-5.6 Comments: . Pre-diabetes: 5.7 - 6.4 Diabetes: >6.4 Glycemic control for adults with diabetes: <7.0 :10 LIPOPROTEIN, BLD, BY NMR Comments: PATIENT WAS FASTINGPERFORMED BY: [employer] [address] [id number] BY: Aveillant LabZoyi Fzsljf4993 [facility] [id number]; fu 18 DB (85633) LP-IR Score 80 (Abnormal) Comments: INSULIN RESISTANCE MARKER <--Insulin Sensitive Insulin Resistant--> Percentile in Reference PopulationInsulin Resistance ScoreLP-IR Score Low 25th 50th 75th High <27 27 45 63 >63LP-IR Score is inaccurate if patient is non-fasting. .The LP-IR score is a laboratory developed i [facility] that has beenassociated with insulin resistance and diabetes risk and should beused as one component of a physician's clinical assessment. TheLP-IR score listed above has not been cleared by the [place] Food andDrug Administration. LDL Size 20.4 nm (Normal) Comments: INTERPRETATIVE INFORMATION PARTICLE CONCENTRATION AND SIZE <--Lower CVD Risk Highe r CVD Risk--> LDL AND HDL PARTICLES Percentile in Reference Population HDL-P (total) High 75th 50th 25th Low >34.9 34.9 30.5 26.7 <26.7 . Small LDL-P Low 25th 50th 75th High <117 117 527 839 >839 . LDL Size <-Large (Pattern A)-> <-Small (Pattern B)-> 23.0 20.6 20.5 19.0 Small LDL-P and LDL Size are associated with CVD risk, but not afterLDL-P is taken into account. .These assays were developed and their performance characteristicsdetermined by [email or web address]. These assays have not been cleared by [place] Food and Drug Administration. The clinical utility of theselaboratory values have not been fully established. Small LDL-P 1556 nmol/L (Abnormal) HDL-P (Total) 39.4 umol/L (Normal) Cholesterol, Total 321 mg/dL (Abnormal) Range: 100-199 Triglycerides 315 mg/dL (Abnormal) Range: 0-149 HDL-C 55 mg/dL (Normal) LDL-C 203 mg/dL (Abnormal) Range: 0-99 Comments: . Optimal < 100 Above optimal 100 - 129 Borderline 1 30 - 159 High 160 - 189 Very high > 189 .LDL-C is inaccurate if patient is non-fasting. LDL-P 2465 nmol/L (Abnormal) Comments: Low < 1000 Moderate 1000 - 1299 Borderline-High 1300 - 1599 High 1600 - 2000 Very High > 2000 19-Cmq-00417:10 METABOLIC PANEL, Comments: PATIENT WAS FASTINGPERFORMED BY: BN [facility] Axmztgrgba1846 [facility] [id number] BY: CB [facility] Jecqmf9574 [facility] [id number] COMPREHENSIVE (63207) ALT (SGPT) 14 [iU]/L (Normal) Range: 0-32 AST (SGOT) 20 [iU]/L (Normal) Range: 0-40 Alkaline Phosphatase 85 [iU]/L (Normal) Range: 39-117 Bilirubin, Total 0.4 mg/dL (Normal) Range: 0.0-1.2 A/G Ratio 1.3 (Normal) Range: 1.2-2.2 Globulin, Total 3.3 g/dL (Normal) Range: 1.5-4.5 Albumin 4.3 g/dL (Normal) Range: 3.5-4.8 Protein, Total 7.6 g/dL (Normal) Range: 6.0-8.5 Calcium 9.9 mg/dL (Normal) Range: 8.7-10.3 Carbon Dioxide, Total 22 mmol/L (Normal) Range: 18-29 Chloride 102 mmol/L (Normal) Range: 96-106 Potassium 4.6 mmol/L (Normal) Range: 3.5-5.2 Sodium 141 mmol/L (Normal) Range: 134-144 BUN/Creatinine Ratio 16 (Normal) Range: 12-28 eGFR If Africn Am 55 mL/min/1.73 (Abnormal) eGFR If NonAfricn Am 47 mL/min/1.73 (Abnormal) Creatinine 1.12 mg/dL (Abnormal) Range: 0.57-1.00 BUN 18 mg/dL (Normal) Range: 8-27 Glucose 135 mg/dL (Abnormal) Range: 65-99 4-Bfw-765754:37 MICROALBUMIN: CREATININE RATIO Comments: PATIENT NOT FASTINGPERFORMED BY: [employer] Jwmtdp1193 [facility] [id number] (97591) AND (41711) Microalb/Creat Ratio <2.3 {mg/g_creat} (Normal) Range: 0.0-30.0 Microalbumin, Urine <3.0 ug/mL (Normal) Creatinine, Urine 130.4 mg/dL (Normal) 5-Pjj-208928:37 URINALYSIS (40214) Comments: PATIENT NOT FASTINGPERFORMED BY: [employer] Pykuze8532 [facility] [id number] Information: NURSE DRAW Microscopic Examination MICNIP (Normal) Comments: Microscopic not indicated and not performed. Nitrite, Urine Negative (Normal) Urobilinogen,Semi-Qn 0.2 mg/dL (Normal) Range: 0.2-1.0 Bilirubin Negative (Normal) Occult Blood Negative (Normal) Ketones Negative (Normal) Glucose Negative (Normal) Protein Negative (Normal) WBC Esterase Negative (Normal) Appearance Clear (Normal) Urine-Color Yellow (Normal) pH 6.5 (Normal) Range: 5.0-7.5 Specific [place] 1.018 (Normal) Range: 1.005-1.030 7-Mca-212576:37 Homocysteine, Plasma (83110) Comments: PATIENT NOT FASTINGPERFORMED BY: LabCoHackensack University Medical CenterZraquo3958 [facility] [id number] Homocyst(e)ine, Plasma 13.2 umol/L (Normal) Range: 0.0-15.0 88-Pfo-339728:10 Basic Metabolic Profile (BMP) Comments: [facility] [address]yjzdmrkx[address] [place], [address] GAP 6 (Normal) Range: 5-15 CO2 28.0 mmol/L (Normal) Range: 21.0-32.0 CL 108 mmol/L (Abnormal) Range: 98-107 K 3.9 mmol/L (Normal) Range: 3.5-5.1 NA 142 mmol/L (Normal) Range: 136-145 CA 9.1 mg/dL (Normal) Range: 8.5-10.1 BUN/CRE 12.0 {RATIO} (Normal) Range: 10-20 Estimated CRCL 31.68 ml/min (Normal) EST GFR - AA 43 mL/min (Abnormal) Comments: GFR Calc EST GFR 36 mL/min (Abnormal) Comments: Non- GFR Calc CREAT,SERUM 1.50 mg/dL (Abnormal) Range: 0.55-1.02 Comments: The validity of the calculated GFR AND GFRAA in patients over70 years has not been determined. Clinical correlation isessential. BUN 18 mg/dL (Normal) Range: 7-18 GLU 131 mg/dL (Abnormal) Range: 70-110 Comments: Fasting Glucose result greater than or equal to 126 mg/dLsuggests DIABETES MELLITUS per A.D.A. criteria. 9-Msn-814665:39 CBC with auto diff Comments: PATIENT NOT FASTINGPERFORMED BY: LabCoHackensack University Medical CenterBhqmlr6508 [facility] [id number] Information: NURSE DRAW (14232) Immature Grans (Abs) 0.0 {x10E3/uL} (Normal) Range: 0.0-0.1 Immature Granulocytes 0 % (Normal) Baso (Absolute) 0.0 {x10E3/uL} (Normal) Range: 0.0-0.2 Eos (Absolute) 0.1 {x10E3/uL} (Normal) Range: 0.0-0.4 Monocytes(Absolute) 0.4 {x10E3/uL} (Normal) Range: 0.1-0.9 Lymphs (Absolute) 2.4 {x10E3/uL} (Normal) Range: 0.7-3.1 Neutrophils (Absolute) 2.6 {x10E3/uL} (Normal) Range: 1.4-7.0 Basos 1 % (Normal) Eos 2 % (Normal) Monocytes 7 % (Normal) Lymphs 44 % (Normal) Neutrophils 46 % (Normal) Platelets 317 {x10E3/uL} (Normal) Range: 150-379 RDW 14.0 % (Normal) Range: 12.3-15.4 MCHC 33.3 g/dL (Normal) Range: 31.5-35.7 MCH 27.8 pg (Normal) Range: 26.6-33.0 MCV 84 fL (Normal) Range: 79-97 Hematocrit 39.6 % (Normal) Range: 34.0-46.6 Hemoglobin 13.2 g/dL (Normal) Range: 11.1-15.9 RBC 4.74 {x10E6/uL} (Normal) Range: 3.77-5.28 WBC 5.5 {x10E3/uL} (Normal) Range: 3.4-10.8 [id number] METABOLIC PANEL, COMPREHENSIVE Comments: PATIENT NOT FASTINGPERFORMED BY: [facility] [id number] [id number]; db 03-25 ([id number]) ALT (SGPT) 12 [iU]/L (Normal) Range: 0-32 AST (SGOT) 21 [iU]/L (Normal) Range: 0-40 Alkaline Phosphatase, S 93 [iU]/L (Normal) Range: 39-117 Bilirubin, Total 0.3 mg/dL (Normal) Range: 0.0-1.2 A/G Ratio 1.3 (Normal) Range: 1.2-2.2 Globulin, Total 3.4 g/dL (Normal) Range: 1.5-4.5 Albumin, Serum 4.5 g/dL (Normal) Range: 3.5-4.8 Protein, Total, Serum 7.9 g/dL (Normal) Range: 6.0-8.5 Calcium, Serum 9.8 mg/dL (Normal) Range: 8.7-10.3 Carbon Dioxide, Total 20 mmol/L (Normal) Range: 18-29 Chloride, Serum 102 mmol/L (Normal) Range: 96-106 Potassium, Serum 4.4 mmol/L (Normal) Range: 3.5-5.2 Sodium, Serum 143 mmol/L (Normal) Range: 134-144 BUN/Creatinine Ratio 15 (Normal) Range: 12-28 eGFR If Africn Am 50 mL/min/1.73 (Abnormal) eGFR If NonAfricn Am 43 mL/min/1.73 (Abnormal) Creatinine, Serum 1.21 mg/dL (Abnormal) Range: 0.57-1.00 BUN 18 mg/dL (Normal) Range: 8-27 Glucose, Serum 112 mg/dL (Abnormal) Range: 65-99 [id number]-Ine-[id number]:12 HgA1C , Office (43704) HgA1C , Office 6.1 % (Normal) Range: 4.6 - 7.1 [id number]-Ipf-[id number] LIPOPROTEIN, BLD, BY NMR Comments: PATIENT WAS FASTINGPERFORMED BY: BN [facility] [address] [id number] BY: CB [facility] [id number] [facility] [id number] Information: HARD DRAW; fu 10-31-16 ([id number]) LP-IR Score 76 (Abnormal) Comments: INSULIN RESISTANCE MARKER <--Insulin Sensitive Insulin Resistant--> Percentile in Reference PopulationInsulin Resistance ScoreLP-IR Score Low 25th 50th 75th High <27 27 45 63 >63LP-IR Score is inaccurate if patient is non-fasting. .The LP-IR score is a laboratory developed i [facility] that has beenassociated with insulin resistance and diabetes risk and should beused as one component of a physician's clinical assessment. TheLP-IR score listed above has not been cleared by the [place] Food andDrug Administration. LDL Size 20.1 nm (Normal) Comments: INTERPRETATIVE INFORMATION PARTICLE CONCENTRATION AND SIZE <--Lower CVD Risk Highe r CVD Risk--> LDL AND HDL PARTICLES Percentile in Reference Population HDL-P (total) High 75th 50th 25th Low >34.9 34.9 30.5 26.7 <26.7 . Small LDL-P Low 25th 50th 75th High <117 117 527 839 >839 . LDL Size <-Large (Pattern A)-> <-Small (Pattern B)-> 23.0 20.6 20.5 19.0 Small LDL-P and LDL Size are associated with CVD risk, but not afterLDL-P is taken into account. .These assays were developed and their performance characteristicsdetermined by [facility]. These assays have not been cleared by [place] Food and Drug Administration. The clinical utility of theselaboratory values have not been fully established. Small LDL-P 1425 nmol/L (Abnormal) HDL-P (Total) 34.1 umol/L (Normal) Cholesterol, Total 287 mg/dL (Abnormal) Range: 100-199 Triglycerides 329 mg/dL (Abnormal) Range: 0-149 HDL-C 47 mg/dL (Normal) LDL-C 174 mg/dL (Abnormal) Range: 0-99 Comments: . Optimal < 100 Above optimal 100 - 129 Borderline 1 30 - 159 High 160 - 189 Very high > 189 .LDL-C is inaccurate if patient is non-fasting. LDL-P 2297 nmol/L (Abnormal) Comments: Low < 1000 Moderate 1000 - 1299 Borderline-High 1300 - 1599 High 1600 - 2000 Very High > 21-Oct-201610:53 Homocysteine, Plasma Comments: PATIENT WAS FASTINGPERFORMED BY: [facility] [address] [id number] BY: LabSoundCureHackensack University Medical CenterNfdfhy3405 [facility] [id number] ([id number]) Homocyst(e)ine, Plasma 13.7 umol/L (Normal) Range: 0.0-15.0 :57 T3, FREE (TRIDOTHYRONINE) (40567) Comments: PATIENT NOT FASTINGPERFORMED BY: [facility] [id number] Triiodothyronine,Free,Serum 2.8 pg/mL (Normal) Range: 2.0-4.4 :57 T4, FREE (THYROXINE) (11231) Comments: PATIENT NOT FASTINGPERFORMED BY: [facility] [id number] T4,Free(Direct) 1.06 ng/dL (Normal) Range: 0.82-1.77 :57 Anti-TPO Antibody (74093) Comments: PATIENT NOT FASTINGPERFORMED BY: [facility] [id number] Thyroid Peroxidase (TPO) Ab 14 {IU/mL} (Normal) Range: 0-34 2-Ibx-586396:45 HgA1C , Office (44546) HgA1C , Office 6.0 % (Normal) Range: 4.6 - 7.1 :11 LIPID PANEL (76884) Comments: PATIENT WAS FASTINGPERFORMED BY: [facility] [id number]; apt. 4-5 LDL/HDL Ratio 3.8 {ratio_units} (Abnormal) Range: 0.0-3.2 Comments: LDL/HDL Ratio Men Women 1/2 Avg.Risk 1.0 1.5 Av g.Risk 3.6 3.2 2X Avg.Risk 6.2 5.0 3X Avg.Risk 8.0 6.1 LDL Cholesterol Calc 193 mg/dL (Abnormal) Range: 0-99 VLDL Cholesterol Gianfranco 41 mg/dL (Abnormal) Range: 5-40 HDL Cholesterol 51 mg/dL (Normal) Comments: According to ATP-III Guidelines, HDL-C >59 mg/dL is considered anegative risk factor for CHD. Triglycerides 204 mg/dL (Abnormal) Range: 0-149 Cholesterol, Total 285 mg/dL (Abnormal) Range: 100-199 :11 METABOLIC PANEL, Comments: PATIENT WAS FASTINGPERFORMED BY: LabCoHackensack University Medical CenterKwrqkr2661 [facility] [id number] Information: [id number] COMPREHENSIVE (59273) ALT (SGPT) 12 [iU]/L (Normal) Range: 0-32 AST (SGOT) 23 [iU]/L (Normal) Range: 0-40 Alkaline Phosphatase, S 79 [iU]/L (Normal) Range: 39-117 Bilirubin, Total 0.3 mg/dL (Normal) Range: 0.0-1.2 A/G Ratio 1.2 (Normal) Range: 1.1-2.5 Globulin, Total 3.4 g/dL (Normal) Range: 1.5-4.5 Albumin, Serum 4.2 g/dL (Normal) Range: 3.5-4.8 Protein, Total, Serum 7.6 g/dL (Normal) Range: 6.0-8.5 Calcium, Serum 9.4 mg/dL (Normal) Range: 8.7-10.3 Carbon Dioxide, Total 23 mmol/L (Normal) Range: 18-29 Chloride, Serum 102 mmol/L (Normal) Range: 97-108 Potassium, Serum 4.5 mmol/L (Normal) Range: 3.5-5.2 Sodium, Serum 139 mmol/L (Normal) Range: 134-144 BUN/Creatinine Ratio 17 (Normal) Range: 11-26 eGFR If Africn Am 54 mL/min/1.73 (Abnormal) eGFR If NonAfricn Am 47 mL/min/1.73 (Abnormal) Creatinine, Serum 1.15 mg/dL (Abnormal) Range: 0.57-1.00 BUN 19 mg/dL (Normal) Range: 8-27 Glucose, Serum 101 mg/dL (Abnormal) Range: 65-99 07-Feb-20159:03 METABOLIC PANEL, Comments: PATIENT WAS FASTINGPERFORMED BY: LabCoHackensack University Medical CenterSmnvmo7208 [facility] [id number] Information: [id number] COMPREHENSIVE (34786) ALT (SGPT) 11 [iU]/L (Normal) Range: 0-32 AST (SGOT) 21 [iU]/L (Normal) Range: 0-40 Alkaline Phosphatase, S 93 [iU]/L (Normal) Range: 39-117 Bilirubin, Total 0.3 mg/dL (Normal) Range: 0.0-1.2 A/G Ratio 1.2 (Normal) Range: 1.1-2.5 Globulin, Total 3.4 g/dL (Normal) Range: 1.5-4.5 Albumin, Serum 4.2 g/dL (Normal) Range: 3.5-4.8 Protein, Total, Serum 7.6 g/dL (Normal) Range: 6.0-8.5 Calcium, Serum 9.7 mg/dL (Normal) Range: 8.7-10.3 Carbon Dioxide, Total 22 mmol/L (Normal) Range: 18-29 Chloride, Serum 100 mmol/L (Normal) Range: 97-108 Potassium, Serum 4.4 mmol/L (Normal) Range: 3.5-5.2 Sodium, Serum 137 mmol/L (Normal) Range: 134-144 BUN/Creatinine Ratio 15 (Normal) Range: 11-26 eGFR If Africn Am 52 mL/min/1.73 (Abnormal) eGFR If NonAfricn Am 45 mL/min/1.73 (Abnormal) Creatinine, Serum 1.19 mg/dL (Abnormal) Range: 0.57-1.00 BUN 18 mg/dL (Normal) Range: 8-27 Glucose, Serum 93 mg/dL (Normal) Range: 65-99 07-Feb-20159:03 LIPID PANEL (62858) Comments: PATIENT WAS FASTINGPERFORMED BY: [facility] Cclpkm3785 [facility] [id number]; apt. 02-13-15 LDL/HDL Ratio 3.9 {ratio_units} (Abnormal) Range: 0.0-3.2 Comments: LDL/HDL Ratio Men Women 1/2 Avg.Risk 1.0 1.5 Av g.Risk 3.6 3.2 2X Avg.Risk 6.2 5.0 3X Avg.Risk 8.0 6.1 LDL Cholesterol Calc 188 mg/dL (Abnormal) Range: 0-99 VLDL Cholesterol Gianfranco 49 mg/dL (Abnormal) Range: 5-40 HDL Cholesterol 48 mg/dL (Normal) Comments: According to ATP-III Guidelines, HDL-C >59 mg/dL is considered anegative risk factor for CHD. Triglycerides 246 mg/dL (Abnormal) Range: 0-149 Cholesterol, Total 285 mg/dL (Abnormal) Range: 100-199 8-Vel-101442:10 HgA1C , Office (26197) HgA1C , Office 6.2 % (Normal) Range: 4.6 - 7.1 3-Fyy-735805:10 Blood Glucose , Office (54749) Blood Glucose , Office 120 (Normal) :35 Comp. Metabolic Panel (14) Comments: PATIENT WAS FASTINGPERFORMED BY: LabCoHackensack University Medical CenterJluruf3110 [facility] [id number] Information: [id number]; patient has fu 6-09-16 nothing urgent will discuss at that apt. ALT (SGPT) 15 [iU]/L (Normal) Range: 0-32 AST (SGOT) 24 [iU]/L (Normal) Range: 0-40 Alkaline Phosphatase, S 89 [iU]/L (Normal) Range: 39-117 Bilirubin, Total 0.4 mg/dL (Normal) Range: 0.0-1.2 A/G Ratio 1.3 (Normal) Range: 1.1-2.5 Globulin, Total 3.2 g/dL (Normal) Range: 1.5-4.5 Albumin, Serum 4.2 g/dL (Normal) Range: 3.5-4.8 Protein, Total, Serum 7.4 g/dL (Normal) Range: 6.0-8.5 Calcium, Serum 9.7 mg/dL (Normal) Range: 8.7-10.3 Carbon Dioxide, Total 23 mmol/L (Normal) Range: 18-29 Chloride, Serum 102 mmol/L (Normal) Range: 97-108 Potassium, Serum 4.9 mmol/L (Normal) Range: 3.5-5.2 Sodium, Serum 140 mmol/L (Normal) Range: 134-144 BUN/Creatinine Ratio 18 (Normal) Range: 11-26 eGFR If Africn Am 52 mL/min/1.73 (Abnormal) eGFR If NonAfricn Am 45 mL/min/1.73 (Abnormal) Creatinine, Serum 1.18 mg/dL (Abnormal) Range: 0.57-1.00 BUN 21 mg/dL (Normal) Range: 8-27 Glucose, Serum 102 mg/dL (Abnormal) Range: 65-99 :35 Lipid Panel With LDL/HDL Comments: PATIENT WAS FASTINGPERFORMED BY: BababooHackensack University Medical CenterAkntbz6144 [facility] [id number] Ratio LDL/HDL Ratio 4.1 {ratio_units} (Abnormal) Range: 0.0-3.2 Comments: LDL/HDL Ratio Men Women 1/2 Avg.Risk 1.0 1.5 Av g.Risk 3.6 3.2 2X Avg.Risk 6.2 5.0 3X Avg.Risk 8.0 6.1 LDL Cholesterol Calc 195 mg/dL (Abnormal) Range: 0-99 VLDL Cholesterol Gianfranco 57 mg/dL (Abnormal) Range: 5-40 HDL Cholesterol 48 mg/dL (Normal) Comments: According to ATP-III Guidelines, HDL-C >59 mg/dL is considered anegative risk factor for CHD. Triglycerides 286 mg/dL (Abnormal) Range: 0-149 Cholesterol, Total 300 mg/dL (Abnormal) Range: 100-199 :37 METABOLIC PANEL, Comments: PATIENT WAS FASTINGPERFORMED BY: BababooWilliam [place] [id number] [facility] [id number] Information: [id number] COMPREHENSIVE (14364) ALT (SGPT) 15 [iU]/L (Normal) Range: 0-32 AST (SGOT) 24 [iU]/L (Normal) Range: 0-40 Alkaline Phosphatase, S 91 [iU]/L (Normal) Range: 39-117 Bilirubin, Total 0.3 mg/dL (Normal) Range: 0.0-1.2 A/G Ratio 1.5 (Normal) Range: 1.1-2.5 Globulin, Total 3.0 g/dL (Normal) Range: 1.5-4.5 Albumin, Serum 4.5 g/dL (Normal) Range: 3.5-4.8 Protein, Total, Serum 7.5 g/dL (Normal) Range: 6.0-8.5 Calcium, Serum 10.0 mg/dL (Normal) Range: 8.7-10.3 Carbon Dioxide, Total 23 mmol/L (Normal) Range: 18-29 Chloride, Serum 101 mmol/L (Normal) Range: 97-108 Potassium, Serum 4.6 mmol/L (Normal) Range: 3.5-5.2 Sodium, Serum 140 mmol/L (Normal) Range: 134-144 BUN/Creatinine Ratio 17 (Normal) Range: 11-26 eGFR If Africn Am 55 mL/min/1.73 (Abnormal) eGFR If NonAfricn Am 48 mL/min/1.73 (Abnormal) Creatinine, Serum 1.13 mg/dL (Abnormal) Range: 0.57-1.00 BUN 19 mg/dL (Normal) Range: 8-27 Glucose, Serum 101 mg/dL (Abnormal) Range: 65-99 :37 LIPID PANEL (07750) Comments: PATIENT WAS FASTINGPERFORMED BY: LabCoHackensack University Medical CenterOmusjk2120 [facility] [id number] LDL/HDL Ratio 3.8 {ratio_units} (Abnormal) Range: 0.0-3.2 Comments: LDL/HDL Ratio Men Women 1/2 Avg.Risk 1.0 1.5 Av g.Risk 3.6 3.2 2X Avg.Risk 6.2 5.0 3X Avg.Risk 8.0 6.1 Comment: LDLCOM (Normal) Comments: Possible Familial Hypercholesterolemia. FH should be suspected whenfasting LDL cholesterol is above 189 mg/dL or non-HDL cholesterolis above 219 mg/dL. A family history of high cholesterol and heartdise ase in 1st degree relatives should be collected. J Clin Nidqrhd2662;5:133-140 LDL Cholesterol Calc 195 mg/dL (Abnormal) Range: 0-99 VLDL Cholesterol Gianfranco 58 mg/dL (Abnormal) Range: 5-40 HDL Cholesterol 52 mg/dL (Normal) Comments: According to ATP-III Guidelines, HDL-C >59 mg/dL is considered anegative risk factor for CHD. Triglycerides 291 mg/dL (Abnormal) Range: 0-149 Cholesterol, Total 305 mg/dL (Abnormal) Range: 100-199 :19 HgA1C , Office (58396) HgA1C , Office 6.0 % (Normal) Range: 4.6 - 7.1 :37 CBC WITH MANUAL DIFF Comments: PATIENT WAS FASTINGPERFORMED BY: [place] [id number] [facility] [id number] Information: [id number] (15507) Immature Grans (Abs) 0.0 {x10E3/uL} (Normal) Range: 0.0-0.1 Immature Granulocytes 0 % (Normal) Baso (Absolute) 0.0 {x10E3/uL} (Normal) Range: 0.0-0.2 Eos (Absolute) 0.2 {x10E3/uL} (Normal) Range: 0.0-0.4 Monocytes(Absolute) 0.4 {x10E3/uL} (Normal) Range: 0.1-0.9 Lymphs (Absolute) 2.3 {x10E3/uL} (Normal) Range: 0.7-3.1 Neutrophils (Absolute) 2.2 {x10E3/uL} (Normal) Range: 1.4-7.0 Basos 1 % (Normal) Eos 5 % (Normal) Monocytes 7 % (Normal) Lymphs 44 % (Normal) Neutrophils 43 % (Normal) Platelets 321 {x10E3/uL} (Normal) Range: 150-379 RDW 15.1 % (Normal) Range: 12.3-15.4 MCHC 34.2 g/dL (Normal) Range: 31.5-35.7 MCH 26.8 pg (Normal) Range: 26.6-33.0 MCV 78 fL (Abnormal) Range: 79-97 Hematocrit 36.3 % (Normal) Range: 34.0-46.6 Hemoglobin 12.4 g/dL (Normal) Range: 11.1-15.9 RBC 4.63 {x10E6/uL} (Normal) Range: 3.77-5.28 WBC 5.1 {x10E3/uL} (Normal) Range: 3.4-10.8 :37 Metabolic Panel, Comprehensive Comments: PATIENT WAS FASTINGPERFORMED BY: [facility] [id number] (53851) ALT (SGPT) 13 [iU]/L (Normal) Range: 0-32 AST (SGOT) 21 [iU]/L (Normal) Range: 0-40 Alkaline Phosphatase, S 86 [iU]/L (Normal) Range: 39-117 Bilirubin, Total 0.3 mg/dL (Normal) Range: 0.0-1.2 A/G Ratio 1.4 (Normal) Range: 1.1-2.5 Globulin, Total 3.0 g/dL (Normal) Range: 1.5-4.5 Albumin, Serum 4.2 g/dL (Normal) Range: 3.5-4.8 Protein, Total, Serum 7.2 g/dL (Normal) Range: 6.0-8.5 Calcium, Serum 9.7 mg/dL (Normal) Range: 8.6-10.2 Carbon Dioxide, Total 22 mmol/L (Normal) Range: 18-29 Chloride, Serum 101 mmol/L (Normal) Range: 97-108 Potassium, Serum 4.6 mmol/L (Normal) Range: 3.5-5.2 Sodium, Serum 140 mmol/L (Normal) Range: 134-144 BUN/Creatinine Ratio 20 (Normal) Range: 11-26 eGFR If Africn Am 54 mL/min/1.73 (Abnormal) eGFR If NonAfricn Am 46 mL/min/1.73 (Abnormal) Creatinine, Serum 1.16 mg/dL (Abnormal) Range: 0.57-1.00 BUN 23 mg/dL (Normal) Range: 8-27 Glucose, Serum 106 mg/dL (Abnormal) Range: 65-99 01-Qfs-57391:37 Lipid Panel (02876) Comments: PATIENT WAS FASTINGPERFORMED BY: [facility] Rfcyzl6555 [facility] [id number] LDL/HDL Ratio 4.3 {ratio_units} (Abnormal) Range: 0.0-3.2 Comments: LDL/HDL Ratio Men Women 1/2 Avg.Risk 1.0 1.5 Av g.Risk 3.6 3.2 2X Avg.Risk 6.2 5.0 3X Avg.Risk 8.0 6.1 LDL Cholesterol Calc 211 mg/dL (Abnormal) Range: 0-99 VLDL Cholesterol Gianfranco 59 mg/dL (Abnormal) Range: 5-40 HDL Cholesterol 49 mg/dL (Normal) Comments: According to ATP-III Guidelines, HDL-C >59 mg/dL is considered anegative risk factor for CHD. Triglycerides 295 mg/dL (Abnormal) Range: 0-149 Cholesterol, Total 319 mg/dL (Abnormal) Range: 100-199 :57 CALCIFIDIOL (59199) VIT D 25 Comments: PATIENT NOT FASTINGPERFORMED BY: BababooHackensack University Medical CenterVescdb0293 [facility] [id number] Vitamin D, 25-Hydroxy 23.6 ng/mL (Abnormal) Range: 30.0-100.0 Comments: Vitamin D deficiency has been defined by the [place] [employer] and an Endocrine Society practice guideline as alevel of serum 25-OH vitamin D less than 20 ng/mL (1,2).The Endocrine Society went on to further define vitamin Dinsufficiency as a level between 21 and 29 ng/mL (2).1. IOM ([place] [employer]). 2010. Dietary reference intakes for calcium and D. [place]: The National Academies Press.2. [place] MF, Pamela NC, Jaron SUAREZ, et al. Evaluation, treatment, and prevention of vitamin D deficiency: an Endocrine Society clinical practice guideline. JCEM. 2010; 96(7):1911-30. :57 TSH (66551) Comments: PATIENT NOT FASTINGPERFORMED BY: Bababoo Gsqzli3831 [facility] [id number] TSH 3.010 {uIU/mL} (Normal) Range: 0.450-4.500 :57 METABOLIC PANEL, COMPREHENSIVE Comments: PATIENT NOT FASTINGPERFORMED BY: BababooHackensack University Medical CenterQxvpqk3303 [facility] [id number] (31667) ALT (SGPT) 16 [iU]/L (Normal) Range: 0-32 AST (SGOT) 31 [iU]/L (Normal) Range: 0-40 Alkaline Phosphatase, S 78 [iU]/L (Normal) Range: 39-117 A/G Ratio 1.3 (Normal) Range: 1.1-2.5 Bilirubin, Total 0.3 mg/dL (Normal) Range: 0.0-1.2 Globulin, Total 3.2 g/dL (Normal) Range: 1.5-4.5 Albumin, Serum 4.3 g/dL (Normal) Range: 3.5-4.8 Protein, Total, Serum 7.5 g/dL (Normal) Range: 6.0-8.5 Calcium, Serum 9.7 mg/dL (Normal) Range: 8.6-10.2 Carbon Dioxide, Total 22 mmol/L (Normal) Range: 19-28 Chloride, Serum 103 mmol/L (Normal) Range: 97-108 Potassium, Serum 4.2 mmol/L (Normal) Range: 3.5-5.2 Sodium, Serum 139 mmol/L (Normal) Range: 134-144 BUN/Creatinine Ratio 15 (Normal) Range: 11-26 eGFR If Africn Am 55 mL/min/1.73 (Abnormal) eGFR If NonAfricn Am 48 mL/min/1.73 (Abnormal) Creatinine, Serum 1.13 mg/dL (Abnormal) Range: 0.57-1.00 BUN 17 mg/dL (Normal) Range: 8-27 Glucose, Serum 143 mg/dL (Abnormal) Range: 65-99 13-Gct-43491:57 CBC WITH MANUAL DIFF Comments: PATIENT NOT FASTINGPERFORMED BY: [facility] Hoqfod7757 [facility] [id number] Information: [id number] (88743) Immature Grans (Abs) 0.0 {x10E3/uL} (Normal) Range: 0.0-0.1 Immature Granulocytes 0 % (Normal) Range: 0-2 Baso (Absolute) 0.0 {x10E3/uL} (Normal) Range: 0.0-0.2 Eos (Absolute) 0.1 {x10E3/uL} (Normal) Range: 0.0-0.4 Monocytes(Absolute) 0.3 {x10E3/uL} (Normal) Range: 0.1-0.9 Lymphs (Absolute) 2.3 {x10E3/uL} (Normal) Range: 0.7-3.1 Neutrophils (Absolute) 2.6 {x10E3/uL} (Normal) Range: 1.4-7.0 Basos 1 % (Normal) Range: 0-3 Eos 1 % (Normal) Range: 0-5 Monocytes 6 % (Normal) Range: 4-12 Lymphs 43 % (Normal) Range: 14-46 Neutrophils 49 % (Normal) Range: 40-74 Platelets 303 {x10E3/uL} (Normal) Range: 155-379 RDW 14.2 % (Normal) Range: 12.3-15.4 MCHC 34.0 g/dL (Normal) Range: 31.5-35.7 MCH 28.5 pg (Normal) Range: 26.6-33.0 MCV 84 fL (Normal) Range: 79-97 Hematocrit 39.7 % (Normal) Range: 34.0-46.6 Hemoglobin 13.5 g/dL (Normal) Range: 11.1-15.9 RBC 4.73 {x10E6/uL} (Normal) Range: 3.77-5.28 WBC 5.3 {x10E3/uL} (Normal) Range: 3.4-10.8 27-Nvh-70482:22 Urinalysis, Office (63601) UA - LEUKOCYTE ESTERASE Negative (Normal) UA - NITRITE Negative (Normal) URINE UROBILINGN LOUISE TIMED 2 mg/dL (Normal) UA - PROTEIN Negative mg/dL (Normal) UA - PH 5.0 (Normal) UA - BLOOD Hemolyzed Trace (Normal) UA - SPECIFIC GRAVITY 1.030 (Abnormal) UA - KETONES Negative mg/dL (Normal) UA - BILIRUBIN Negative (Normal) UA - GLUCOSE Negative (Normal) 5-Mzi-308029:22 CMP GAP 9 (Normal) Range: 5-15 CL 107 mmol/L (Normal) Range: 98-107 CO2 26.0 mmol/L (Normal) Range: 21.0-32.0 K 4.1 mmol/L (Normal) Range: 3.5-5.1 NA 142 mmol/L (Normal) Range: 136-145 BIT 0.30 mg/dL (Normal) Range: 0.00-1.00 ALT 19 U/L (Normal) Range: 12-78 ALK 84 U/L (Normal) Range: 50-136 AST 24 U/L (Normal) Range: 15-37 CA 9.1 mg/dL (Normal) Range: 8.5-10.1 AG 0.9 {RATIO} (Normal) Range: 0.9-2.4 ALB 3.5 g/dL (Normal) Range: 3.4-5.0 GLOB 4.0 g/dL (Normal) Range: 2.7-4.2 TPROT 7.5 g/dL (Normal) Range: 6.4-8.2 BC 14.2 {RATIO} (Normal) Range: 10-20 CREAT 1.2 mg/dL (Abnormal) Range: 0.6-1.0 BUN 17 mg/dL (Normal) Range: 7-18 GLU 94 mg/dL (Normal) Range: 70-110 6-Gom-202696:22 LIPID LDL 150 mg/dL (Abnormal) Range: 0-130 VLDL 51 mg/dL (Abnormal) Range: 5-40 HDL 46 mg/dL (Normal) Comments: Reference RangeHDL <40 mg/dL Low HDL CholesterolHDL >or= 60 mg/dL High HDL Cholesterol TRIG 256 mg/dL (Abnormal) Range: 0-199 Comments: Serum Triglycerides Reference IntervalNormal <150 mg/dLBorderline high 150 - 199 mg/dLHigh 200 - 499 mg/ dLVery High > or = 500 mg/dL CHOL 247 mg/dL (Abnormal) Comments: <200 mg/dL [place]281-328 mg/dL Borderline>240 mg/dL High Risk :15 CRE Comments: CALL RESULTS TO 8665 CREAT 1.4 mg/dL (Abnormal) Range: 0.6-1.0 :11 ABDOMEN WITH IV CONTRAST Radiology Report See Note Comments: PROCEDURE: CT ABDOMEN WITH CONTRAST REASON FOR EXAM: Female, 72 years old. Adrenal adenoma. History ofbreast cancer and melanoma. RADIATION DOSAGE (If Supplied By Facility): CTDIvol = ( 16 ) mGy, (Normal) DLP =(1203 ) mGycm TECHNIQUE: Transaxial images were obtained post I.V. administration of100 ml of Isovue 300 contrast. COMPARISON: April 07, 2012 FINDINGS:The v isualized lung bases are unremarkable. The visualized portions oftheheart are within normal limits. Liver size is normal. In the right lobe laterally on axial image 18,focaldecreased density is demons trated. This is unchanged compared to a priorstudy of December 15, 2008. There is non-visualization of the gallbladder,which may be secondary to either contraction or a prior cholecystectomy.Normal sple en. Normal pancreas. The right inner gland is normal. Small nodule in the left adrenal glandmeasures 1 cm in diameter. This is stable compared to the prior study 2011 and December 15. No abnormal enhancement isdemonstrated on delayed imaging. The right kidney is mildly atrophic with cortical thinning posteriorly.There is no hydronephrosis or retained renal calculi. The ureter is decompressed. Left kidney size is normal. There is no hydronephrosis or retained renalcalculi. The ureters decompress. Moderate size hiatal hernia is present. Normal small intestine. Normalcolon. T he appendix is visualized and appears normal. Normal abdominal aorta. Normal inferior vena cava. Normalretroperitoneum. Normal abdominal wall. There are diffuse degenerative changes of thevisualized lumbar spine. IMPRESSION:1 cm diameter left adrenal nodule is stable dating back to December.This is most consistent with a small adenoma. 1 cm diameter decreased density in the right lobe of the liver is stable. Cortical thinning and atrophic changes are identified in the rightkidney.No hydronephrosis. Moderate hiatal hernia. Lumbar spondylosis. Signed:Diaz oliver D.O.November 10, 2012 at 11:10:28 AM [id number] Signed DS/DS If you are the referring physician and would like to consult with theradiologist who provided this interpretation, please contact Diaz Chavez D.O. at [phone]. If this radiologist is unavailable, you will bedirected to another radiologist to assist. If you are a patient with a question regarding this report, pleasecont actyour referring physician directly. Professional Interpretation Provided By: [employer], Phone , These documents contain legally protected and confidential healthinforma tion intended only for the use of the individual or entity namedabove. If you are not the intended recipient, you are hereby notifiedthatany disclosure, copying, distribution, or other use of these docu ments isstrictly prohibited. If you have received this information in error,pleasenotify the sender immediately and arrange for the return or destructionofthese documents. Dictated on 11/10/12 1110 b y Justin Becker DOscribed on 11/10/12 1125 by ITS IMPORTSign by Vitaly Becker DO on 11/10/12 1126 Sign by: Eugenio Vitaly 4-Yjd-448298:40 LIPID LDL <TEST NOT PERFORMED> mg/dL (Normal) Range: 0-130 VLDL 83 mg/dL (Abnormal) Range: 5-40 CHOL 313 mg/dL (Abnormal) Comments: <200 mg/dL Desirable 200-240 mg/dL Borderline >240 mg/dL High Risk HDL 44 mg/dL (Normal) Comments: Reference Range HDL <40 mg/dL Low HDL Cholesterol HDL >or= 60 mg/dL High HDL Cholesterol TRIG 417 mg/dL (Abnormal) Comments: TRIGLYCERIDE IS GREATER THAN 400 mg/dL. LDL RESULT IS INVALID AND WILL NOT BE REPORTED.Serum Triglycerides Reference Interval Normal <150 mg/dL Bor derline high 150 - 199 mg/dL High 200 - 499 mg/dL Very High > or = 500 mg/dL 2-Tsb-239121:40 LIVER ALT 20 U/L (Normal) Range: 12-78 BID 0.09 mg/dL (Normal) Range: 0.00-0.30 BIT 0.40 mg/dL (Normal) Range: 0.00-1.00 ALK 85 U/L (Normal) Range: 50-136 ALB 4.0 g/dL (Normal) Range: 3.4-5.0 AST 22 U/L (Normal) Range: 15-37 TPROT 8.2 g/dL (Normal) Range: 6.4-8.2 1-Ucx-344849:50 CHEST, PA AND LATERAL Radiology Report See Note (Normal) Comments: PROCEDURE: X-RAY CHEST REASON FOR EXAM: Female, 71 years old. Chest pain TECHNIQUE: Frontal and lateral views COMPARISON: None. FINDINGS: The lungs are mildly hyperaerated. There is no demonst rated parenchymalabnormality. There is no demonstrated pleural abnormality. Normal heart and pericardium. Normal mediastinum and yokasta. Normal visualized pulmonary arteries.Normalvisualized aortic arch and descending thoracic aorta. Normal visualized thoracic spine. Normal visualized ribs, clavicles, andshoulders. There is no demonstrated abnormality of the visualized soft tissuestructures of the up per abdomen. IMPRESSION:Mild hyperaeration. Signed:Сергей Gilliland D.O.April 07, 2012 at 8:03:03 PM [id number] Signed IF/IF If you are the referring physician and would like to [facility] theradiologist who provided this interpretation, please contact Сергей Gilliland D.O.at [phone]. If this radiologist is unavailable, you will be directedto another radiologist to assist. If you are a pa tient with a question regarding this report, pleasecontactyour referring physician directly. Professional Interpretation Provided By: [employer], Phone , These documents c ontain legally protected and confidential healthinformation intended only for the use of the individual or entity namedabove. If you are not the intended recipient, you are hereby notifiedthatany disclo sure, copying, distribution, or other use of these documents isstrictly prohibited. If you have received this information in error,pleasenotify the sender immediately and arrange for the return or destr uctionofthese documents. Dictated on 04/07/12 1311 by Todd Gilliland DOranscribed on 04/07/122012 by ITS IMPORTSign by Сергей Gilliland DO on 04/07/122013 Sign by: Сергей Gilliland DO [id number] CKMB CPKMB 0.6 ng/mL (Normal) Range: 0.0-5.0 Comments: CK-MB and RI Interpretation MB Relative Index Non-AMI <or= 5 NA Indeterminate > 5 <or= 4 AMI > 5 > 4 CPK 90 U/L (Normal) Range: 26-192 [id number]:21 DDIMQ 1.24 {FEUug/mL} Range: 0.22-0.48 (Abnormal) Comments: D-Dimer ELEVATED: Additional studies and clinicalassessments are indicated to conclude diagnosis of:Deep Vein Thrombosis (DVT) or Pulmonary Embolism (PE)CRITICAL VALUE REPEATED AND VERIFIED. CALLED TO Chip SOLIZ RN04/07/12 1324 TRANG ALCANTARRESULTS READ BACK BY SAME . [id number] TROP < 0.02 ng/mL (Normal) Comments: TROPONIN-I EXPECTED VALUES <0.05 NEGATIVE 0.06 - 0.59 AT RISK OF WI > OR = 0.60 SUGGEST WI 07-Apr-20120:00 CHEST WITH CONTRAST Radiology Report See Note (Normal) Comments: PROCEDURE: CT CHEST WITH CONTRAST REASON FOR EXAM: Female, 71 years old. Left-sided chest pain andelevated d- dimer. The patient has a history of bilateral breast cancer. RADIATION DOSAGE (If Suppli ed By Facility): CTDIvol = ( 16.81 ) mGy, DLP=( 716.38 ) mGycm TECHNIQUE: High resolution transaxial imaging was performed followingintravenous administration of 75CC ml of Isovue 370 contrast materi al.Multiplanar coronal and sagittal images were reformatted. COMPARISON: Comparison is made with prior study dated October 03, 2006. FINDINGS:Hyperinflation. There is a mild degree of biapical parenchymal scarring. Mild degree ofbibasilar scarring. There is no demonstrated pleural abnormality. Normal heart and pericardium. There are multiple small lymph nodes within the mediastinum, which arenormal in s ize and morphology most compatible with reactive lymphhyperplasia. Normal hilar regions. Normal enhancement of the pulmonaryarteries. Normal enhanced thoracic aorta and visualized great vessels. Ther e are mild multi-level degenerative changes of the thoracic spine. There is a 1 cm hypodense nodule in the proximal of the left adrenalgland.This most likely represents a small adenoma. There is eviden ce of amoderate-sized hiatal hernia. IMPRESSION:There is no evidence of pulmonary embolism.Small left adrenal adenoma. Signed:Edgar Mcfadden M.D.April 07, 2012 at 4:18:06 PM [id number] onically Signed GP/GP If you are the referring physician and would like to consult with theradiologist who provided this interpretation, please contact Ana Rosa Almonte at [phone]. If this r adiologist is unavailable, youwill be directed to another radiologist to assist. If you are a patient with a question regarding this report, pleasecontactyour referring physician directly. Professional Interpretation Provided By: [employer], Phone , These documents contain legally protected and confidential healthinformation intended only for the use of the individual or entity namedabove. If you are not the intended recipient, you are hereby notifiedthatany disclosure, copying, distribution, or other use of these documents isstrictly prohibited. If you have received t his information in error,pleasenotify the sender immediately and arrange for the return or destructionofthese documents. Dictated on 04/07/12 1550 by Lesa FLORES,Karlranscribed on 04/07/12 1622 by ITS IMPORTSign by Edgar Mcfadden MD on 04/07/12 162 Sign by: Edgar Mcfadden MD [id number]:26 CBCMD RBCM NORM C+C {NORMAL} (Normal) PE ADEQUATE (Normal) EOS 3 % (Normal) Range: 0-5 MON 3 % (Normal) Range: 0-10 LYMPH 53 % (Abnormal) Range: 19-41 BAND 1 % (Normal) Range: 0-5 PMN 40 % (Abnormal) Range: 47-70 ANC 2.5 3/uL (Normal) Range: 2.0-7.7 LUCIE 100 (Normal) PLT 312 K/mm3 (Normal) Range: 150-450 MCHC 33.4 g/dL (Normal) Range: 32-36 RDW 13.7 % (Normal) Range: 11.6-14.6 MCH 28.6 pg (Normal) Range: 27.0-32.0 MCV 85.6 fL (Normal) Range: 81-99 HCT 39.0 % (Normal) Range: 37-47 HGB 13.0 g.dL (Normal) Range: 12.0-15.0 RBC 4.55 {M/mm3} (Normal) Range: 4.2-5.4 WBC 5.4 K/mm3 (Normal) Range: 4.4-11.0 :26 CMP GAP 11 (Normal) Range: 5-15 CO2 26.0 mmol/L (Normal) Range: 21.0-32.0 CL 103 mmol/L (Normal) Range: 98-107 K 4.1 mmol/L (Normal) Range: 3.5-5.1 NA 140 mmol/L (Normal) Range: 136-145 BIT 0.40 mg/dL (Normal) Range: 0.00-1.00 ALK 86 U/L (Normal) Range: 50-136 ALT 17 U/L (Normal) Range: 12-78 AST 22 U/L (Normal) Range: 15-37 AG 0.9 {RATIO} (Normal) Range: 0.9-2.4 CA 9.0 mg/dL (Normal) Range: 8.5-10.1 GLOB 4.3 g/dL (Abnormal) Range: 2.7-4.2 ALB 3.9 g/dL (Normal) Range: 3.4-5.0 TPROT 8.2 g/dL (Normal) Range: 6.4-8.2 BC 15.4 {RATIO} (Normal) Range: 10-20 CREAT 1.3 mg/dL (Abnormal) Range: 0.6-1.0 BUN 20 mg/dL (Abnormal) Range: 7-18 GLU 107 mg/dL (Normal) Range: 70-110 :26 LIPID LDL 189 mg/dL (Abnormal) Range: 0-130 VLDL 65 mg/dL (Abnormal) Range: 5-40 HDL 44 mg/dL (Normal) Comments: Reference Range HDL <40 mg/dL Low HDL Cholesterol HDL >or= 60 mg/dL High HDL Cholesterol CHOL 298 mg/dL (Abnormal) Comments: <200 mg/dL Desirable 200-240 mg/dL Borderline >240 mg/dL High Risk TRIG 323 mg/dL (Abnormal) Comments: Serum Triglycerides Reference Interval Normal <150 mg/dL Borderline high 150 - 199 mg/dL High 200 - 499 mg/dL Very High > or = 500 mg/dL :26 UAC UBAC 0 SEEN {/hpf} (Normal) UMUC 0 SEEN {/hpf} (Normal) UEPIS 0-5 SEEN {/hpf} (Normal) Range: 5-10 URBC 0 SEEN {/hpf} (Normal) Range: 0-5 UWBC 0 SEEN {/hpf} (Normal) Range: 0-5 UMA Negative (Normal) UOB Negative (Normal) TINA Negative (Normal) UROBU 0.2 EU/dl (Normal) Range: 0.2 - 1.0 CRISTHIAN 6.0 (Normal) Range: 5.0-8.0 uPROTU Negative (Normal) BILIU Negative (Normal) KETU Negative mg/dL (Normal) SGU 1.020 (Normal) Range: 1.002-1.030 GLUR Negative (Normal) UCLAR Clear (Normal) UCOL Yellow (Normal) :22 CMP GAP 11 (Normal) Range: 5-15 CO2 26.0 mmol/L (Normal) Range: 21.0-32.0 CL 104 mmol/L (Normal) Range: 98-107 K 4.0 mmol/L (Normal) Range: 3.5-5.1 NA 141 mmol/L (Normal) Range: 136-145 BIT 0.40 mg/dL (Normal) Range: 0.00-1.00 ALT 20 U/L (Normal) Range: 12-78 ALK 80 U/L (Normal) Range: 50-136 AST 22 U/L (Normal) Range: 15-37 CA 9.4 mg/dL (Normal) Range: 8.5-10.1 AG 0.9 {RATIO} (Normal) Range: 0.9-2.4 GLOB 4.2 g/dL (Normal) Range: 2.7-4.2 ALB 3.8 g/dL (Normal) Range: 3.4-5.0 TPROT 8.0 g/dL (Normal) Range: 6.4-8.2 BC 16.4 {RATIO} (Normal) Range: 10-20 CREAT 1.1 mg/dL (Abnormal) Range: 0.6-1.0 BUN 18 mg/dL (Normal) Range: 7-18 GLU 99 mg/dL (Normal) Range: 70-110 :22 LIPID Comments: has f/u 08/15 VLDL 57 mg/dL (Abnormal) Range: 5-40 LDL 187 mg/dL (Abnormal) Range: 0-130 HDL 44 mg/dL (Normal) Comments: Reference Range HDL <40 mg/dL Low HDL Cholesterol HDL >or= 60 mg/dL High HDL Cholesterol TRIG 287 mg/dL (Abnormal) Comments: Serum Triglycerides Reference Interval Normal <150 mg/dL Borderline high 150 - 199 mg/dL High 200 - 499 mg/dL Very High > or = 500 mg/dL CHOL 288 mg/dL (Abnormal) Comments: <200 mg/dL Desirable 200-240 mg/dL Borderline >240 mg/dL High Risk :25 COMP METABOLIC GAP 8 (Normal) Range: 5-15 CO2 28.0 mmol/L (Normal) Range: 21.0-32.0 CL 103 mmol/L (Normal) Range: 98-107 K 4.2 mmol/L (Normal) Range: 3.5-5.1 NA 139 mmol/L (Normal) Range: 136-145 T BILI 0.30 mg/dL (Normal) Range: 0.00-1.00 ALT 19 U/L (Normal) Range: 12-78 ALK P 84 U/L (Normal) Range: 50-136 AST 22 U/L (Normal) Range: 15-37 CA 9.5 mg/dL (Normal) Range: 8.5-10.1 A/G 0.8 {RATIO} (Abnormal) Range: 0.9-2.4 GLOB 4.5 g/dL (Abnormal) Range: 2.7-4.2 ALB 3.7 g/dL (Normal) Range: 3.4-5.0 T PROT 8.2 g/dL (Normal) Range: 6.4-8.2 BUN/CRE 14.2 {RATIO} (Normal) Range: 10-20 CREAT,SERUM 1.2 mg/dL (Abnormal) Range: 0.6-1.0 BUN 17 mg/dL (Normal) Range: 7-18 GLU 112 mg/dL (Abnormal) Range: 70-110 Comments: Fasting Glucose result from 110 to <126 mg/dL suggests IMPAIRED HOMEOSTASIS per A.D.A. criteria. :25 LIPID VLDL 61 mg/dL (Abnormal) Range: 5-40 LDL 192 mg/dL (Abnormal) Range: 0-130 HDL 45 mg/dL (Normal) Comments: Reference Range HDL <40 mg/dL Low HDL Cholesterol HDL >or= 60 mg/dL High HDL Cholesterol TRIG 304 mg/dL (Abnormal) Comments: Serum Triglycerides Reference Interval Normal <150 mg/dL Borderline high 150 - 199 mg/dL High 200 - 499 mg/dL Very High > or = 500 mg/dL CHOL 298 mg/dL (Abnormal) Comments: <200 mg/dL Desirable 200-240 mg/dL Borderline >240 mg/dL High Risk :58 LIPID VLDL 43 mg/dL (Abnormal) Range: 5-40 HDL 56 mg/dL (Normal) Comments: Reference Range HDL <40 mg/dL Low HDL Cholesterol HDL >or= 60 mg/dL High HDL Cholesterol LDL 178 mg/dL (Abnormal) Range: 0-130 TRIG 213 mg/dL (Abnormal) Comments: Serum Triglycerides Reference Interval Normal <150 mg/dL Borderline high 150 - 199 mg/dL High 200 - 499 mg/dL Very High > or = 500 mg/dL CHOL 277 mg/dL (Abnormal) Comments: <200 mg/dL Desirable 200-240 mg/dL Borderline >240 mg/dL High Risk :59 COMP METABOLIC CO2 29.0 mmol/L (Normal) Range: 21.0-32.0 GAP 7 (Normal) Range: 5-15 A/G 0.9 {RATIO} (Normal) Range: 0.9-2.4 ALB 3.8 g/dL (Normal) Range: 3.4-5.0 ALK P 83 U/L (Normal) Range: 50-136 ALT 15 U/L (Normal) Range: 12-78 AST 15 U/L (Normal) Range: 15-37 CA 9.1 mg/dL (Normal) Range: 8.5-10.1 CL 103 mmol/L (Normal) Range: 98-107 GLOB 4.4 g/dL (Abnormal) Range: 2.7-4.2 K 4.7 mmol/L (Normal) Range: 3.5-5.1 NA 139 mmol/L (Normal) Range: 136-145 T BILI 0.40 mg/dL (Normal) Range: 0.00-1.00 T PROT 8.2 g/dL (Normal) Range: 6.4-8.2 BUN 17 mg/dL (Normal) Range: 7-18 BUN/CRE 15.5 {RATIO} (Normal) Range: 10-20 CREAT,SERUM 1.1 mg/dL (Abnormal) Range: 0.6-1.0 EST GFR 52 mL/min (Abnormal) EST GFR - AA 63 mL/min (Normal) GLU 98 mg/dL (Normal) Range: 70-110 :59 LIPID HDL 53 mg/dL (Normal) Comments: Reference RangeHDL <40 mg/dL Low HDL CholesterolHDL >or= 60 mg/dL High HDL Cholesterol LDL 185 mg/dL (Abnormal) Range: 0-130 VLDL 37 mg/dL (Normal) Range: 5-40 CHOL 275 mg/dL (Abnormal) Comments: <200 mg/dL [id number] mg/dL Borderline>240 mg/dL High Risk TRIG 187 mg/dL (Normal) Comments: Serum Triglycerides Reference IntervalNormal <150 mg/dLBorderline high 150 - 199 mg/dLHigh 200 - 499 mg/ dLVery High > or = 500 mg/dL [id number] HAND,MIN 3 VIEWS (MT) Radiology Report See Note (Normal) Comments: Exam Number: [id number] CLINICAL:NO RECENT INJURYPAIN MID 2ND AND 3RD METACARPAL AREA X-RAY EXAMINATION RIGHT HAND TECHNIQUE:Three views of the hand. COMPARISON:None. FINDINGS:Normal visualized carpal syed olimpia. Normal metacarpal bones. Normal visualized phalanges. 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 Normal second through fifth carpometacarpalarticulations. Normal metacarpophalangeal joints. There are degenerative changesof the interphalangeal joints. There is no de monstrated soft tissue swelling. IMPRESSION:Chronic degenerative changes, as discussed above. Reported By: TRA STEVENSON M.D. :32 LIPID CHOL 214 mg/dL (Abnormal) Comments: <200 mg/dL Desirable 200-240 mg/dL Borderline >240 mg/dL High Risk HDL 41 mg/dL (Normal) Comments: Reference Range HDL <40 mg/dL Low HDL Cholesterol HDL >or= 60 mg/dL High HDL Cholesterol LDL 128 mg/dL (Normal) Range: 0-130 TRIG 227 mg/dL (Abnormal) Comments: Serum Triglycerides Reference Interval Normal <150 mg/dL Borderline high 150 - 199 mg/dL High 200 - 499 mg/dL Very High > or = 500 mg/dL VLDL 45 mg/dL (Abnormal) Range: 5-40 :32 LIVER D BILI 0.05 mg/dL (Normal) Range: 0.00-0.30 ALB 3.4 g/dL (Normal) Range: 3.4-5.0 ALK P 69 U/L (Normal) Range: 50-136 ALT 18 U/L (Abnormal) Range: 30-65 AST 20 U/L (Normal) Range: 15-37 T BILI 0.30 mg/dL (Normal) Range: 0.00-1.00 T PROT 7.5 g/dL (Normal) Range: 6.4-8.2 [id number] PELVIS WITH IV CONTRAST Radiology Report See Note (Normal) Comments: Exam Number: [id number] CLINICAL:Abdominal pain, history of breast cancer CT ABDOMEN WITH CONTRAST COMPARISON: weight TECHNIQUE:Transaxial imaging was performed post contrast administration. The e xamination was performed with intravenous administration of 100 ml of Isovue- 300 contrast material. Oral contrast given. Delayed imaging submitted. Coronal and sagittal images reconstructed. FINDINGS :The visualized lower lungs are clear. The visualized heart is normal in size, morphology and position. There is a stable low attenuated lesion in the right lobe of the liver becomes isoattenuating on delayed imaging consistent with a benign cavernous hemangioma. No enhancing liver lesion identified. The spleen is normal size and contour with normal enhancement. Normal gallbladder and visualized co mmon bile duct (CBD). The pancreas is normal without focal or diffuse enlargement, atrophy or pancreatic calcifications. Stable left adrenal adenoma. Stable mild lobulation to the kidneys. No enhancing renal lesion. No hydronephrosis. Normal retroperitoneum without lymphadenopathy or a mass lesion. Normal visualized distal esophagus and stomach. Normal visualized small intestine, without an obstruc tion or bowel wall edema. Mild thickening of the sigmoid colon wall with scattered diverticula. There is some minimal inflammation in the surrounding mesentery. There is no peritoneal fluid. There is no demonstrated free peritoneal or extraluminal gas. Normal caliber of the abdominal aorta. Normal caliber of the inferior vena cava. Normal visualized osseous and soft tissue structures in the abdomin al region. CT PELVIS WITH CONTRAST COMPARISON:None. TECHNIQUE:Transaxial imaging was performed post contrast administration. The examination was performed with intravenous administration of 100 ml of I sovue-300 contrast material. Oral contrast given. Delayed imaging submitted. Coronal and sagittal images reconstructed. FINDINGS:Normal bladder without demonstrated mass, wall thickening or calculus. The uterus is normal in size and contour. Normal adnexal regions without a demonstrated ovarian or adnexal mass lesion. There is a small moderate free fluid lower pelvis. There is no demonstrated pel alexsander or inguinal lymphadenopathy. Normal loops of small intestines visualized within the pelvis. Diverticula with mild sigmoid bowel wall thickening and minimal mesenteric inflammation. Normal visualized pelvic arteries and veins. Normal visualized osseous and soft tissue structures of the pelvis. IMPRESSION:Possible developing sigmoid diverticulitis. Clinical correlation recommended. Sigmoid colon w all thickening with mild mesenteric inflammation and free fluid in lower pelvis. Appendix within normal limits. Probably benign cavernous hemangioma within the right lobe of the liver which is stable. S table left adrenal adenoma. Reported By: ZAY POSADAS M.D. [id number] ABDOMEN WITH IV CONTRAST Radiology Report See Note (Normal) Comments: Exam Number: [id number] CLINICAL:Abdominal pain, history of breast cancer CT ABDOMEN WITH CONTRAST COMPARISON: weight TECHNIQUE:Transaxial imaging was performed post contrast administration. The e xamination was performed with intravenous administration of 100 ml of Isovue- 300 contrast material. Oral contrast given. Delayed imaging submitted. Coronal and sagittal images reconstructed. FINDINGS :The visualized lower lungs are clear. The visualized heart is normal in size, morphology and position. There is a stable low attenuated lesion in the right lobe of the liver becomes isoattenuating on delayed imaging consistent with a benign cavernous hemangioma. No enhancing liver lesion identified. The spleen is normal size and contour with normal enhancement. Normal gallbladder and visualized co mmon bile duct (CBD). The pancreas is normal without focal or diffuse enlargement, atrophy or pancreatic calcifications. Stable left adrenal adenoma. Stable mild lobulation to the kidneys. No enhancing renal lesion. No hydronephrosis. Normal retroperitoneum without lymphadenopathy or a mass lesion. Normal visualized distal esophagus and stomach. Normal visualized small intestine, without an obstruc tion or bowel wall edema. Mild thickening of the sigmoid colon wall with scattered diverticula. There is some minimal inflammation in the surrounding mesentery. There is no peritoneal fluid. There is no demonstrated free peritoneal or extraluminal gas. Normal caliber of the abdominal aorta. Normal caliber of the inferior vena cava. Normal visualized osseous and soft tissue structures in the abdomin al region. CT PELVIS WITH CONTRAST COMPARISON:None. TECHNIQUE:Transaxial imaging was performed post contrast administration. The examination was performed with intravenous administration of 100 ml of I sovue-300 contrast material. Oral contrast given. Delayed imaging submitted. Coronal and sagittal images reconstructed. FINDINGS:Normal bladder without demonstrated mass, wall thickening or calculus. The uterus is normal in size and contour. Normal adnexal regions without a demonstrated ovarian or adnexal mass lesion. There is a small moderate free fluid lower pelvis. There is no demonstrated pel alexsander or inguinal lymphadenopathy. Normal loops of small intestines visualized within the pelvis. Diverticula with mild sigmoid bowel wall thickening and minimal mesenteric inflammation. Normal visualized pelvic arteries and veins. Normal visualized osseous and soft tissue structures of the pelvis. IMPRESSION:Possible developing sigmoid diverticulitis. Clinical correlation recommended. Sigmoid colon w all thickening with mild mesenteric inflammation and free fluid in lower pelvis. Appendix within normal limits. Probably benign cavernous hemangioma within the right lobe of the liver which is stable. S table left adrenal adenoma. Reported By: ZAY POSADAS M.D. :01 BMP BUN 16 mg/dL (Normal) Range: 7-18 BUN/CRE 13.3 {RATIO} (Normal) Range: 10-20 CA 9.0 mg/dL (Normal) Range: 8.5-10.1 CL 106 mmol/L (Normal) Range: 98-107 CO2 27.0 mmol/L (Normal) Range: 21.0-32.0 CREAT,SERUM 1.2 mg/dL (Abnormal) Range: 0.6-1.0 EST GFR 47 mL/min (Abnormal) EST GFR - AA 57 mL/min (Abnormal) GAP 7 (Normal) Range: 5-15 GLU 88 mg/dL (Normal) Range: 70-110 K 4.1 mmol/L (Normal) Range: 3.5-5.1 NA 140 mmol/L (Normal) Range: 136-145 :01 CBCD BASO% 0.6 % (Normal) Range: 0-1 EO% 1.6 % (Normal) Range: 0-5 HCT 36.3 % (Abnormal) Range: 37-47 HGB 12.4 g/dL (Normal) Range: 12.0-16.0 LY% 44.9 % (Abnormal) Range: 19-41 MCH 29.3 pg (Normal) Range: 27.0-32.0 MCHC 34.3 g/dL (Normal) Range: 32-36 MCV 85.5 fL (Normal) Range: 81-99 MONO% 5.5 % (Normal) Range: 0-10 MPV 6.8 fL (Normal) Range: 6.5-12.0 NEUT% 47.4 % (Normal) Range: 47-70 PLT 274 K/mm3 (Normal) Range: 150-450 RBC 4.25 {M/mm3} (Normal) Range: 4.2-5.4 RDW 14.2 % (Normal) Range: 11.6-14.6 WBC 4.7 K/mm3 (Normal) Range: 4.4-11.0 [id number] Urinalysis, Office (80362) UA - BILIRUBIN Negative (Normal) UA - BLOOD Hemolyzed Small (Normal) UA - KETONES Negative mg/dL (Normal) UA - LEUKOCYTE ESTERASE Negative (Normal) UA - NITRITE Negative (Normal) UA - PH 6.0 (Normal) UA - PROTEIN Negative mg/dL (Normal) UA - SPECIFIC GRAVITY 1.025 (Normal) URINE UROBILINGN LOUISE TIMED 2 mg/dL (Normal) UA - GLUCOSE Negative (Normal) :10 LIPID CHOL 280 mg/dL (Abnormal) Comments: <200 mg/dL Desirable 200-240 mg/dL Borderline >240 mg/dL High Risk HDL 54 mg/dL (Normal) Comments: Reference Range HDL <40 mg/dL Low HDL Cholesterol HDL >or= 60 mg/dL High HDL Cholesterol LDL 179 mg/dL (Abnormal) Range: 0-130 TRIG 236 mg/dL (Abnormal) Comments: Serum Triglycerides Reference Interval Normal <150 mg/dL Borderline high 150 - 199 mg/dL High 200 - 499 mg/dL Very High > or = 500 mg/dL VLDL 47 mg/dL (Abnormal) Range: 5-40 :10 LIVER ALB 3.7 g/dL (Normal) Range: 3.4-5.0 ALK P 90 U/L (Normal) Range: 50-136 ALT 17 U/L (Abnormal) Range: 30-65 AST 16 U/L (Normal) Range: 15-37 D BILI 0.07 mg/dL (Normal) Range: 0.00-0.30 T BILI 0.40 mg/dL (Normal) Range: 0.00-1.00 T PROT 8.0 g/dL (Normal) Range: 6.4-8.2 [id number]:00 Urinalysis, Office (33897) UA - BILIRUBIN Negative (Normal) UA - BLOOD Hemolyzed Small (Normal) UA - GLUCOSE Negative (Normal) UA - KETONES Negative mg/dL (Normal) UA - LEUKOCYTE ESTERASE Negative (Normal) UA - NITRITE Negative (Normal) UA - PH 6.0 (Normal) UA - PROTEIN Negative mg/dL (Normal) UA - SPECIFIC GRAVITY 1.025 (Normal) URINE UROBILINGN LOUISE TIMED 2 mg/dL (Normal) :20 CBCD BASO% 0.5 % (Normal) Range: 0-1 EO% 1.6 % (Normal) Range: 0-5 HCT 39.6 % (Normal) Range: 37-47 HGB 13.8 g/dL (Normal) Range: 12.0-16.0 LY% 43.4 % (Abnormal) Range: 19-41 MCH 29.4 pg (Normal) Range: 27.0-32.0 MCHC 34.7 g/dL (Normal) Range: 32-36 MCV 84.8 fL (Normal) Range: 81-99 MONO% 6.2 % (Normal) Range: 0-10 MPV 7.4 fL (Normal) Range: 6.5-12.0 NEUT% 48.3 % (Normal) Range: 47-70 PLT 326 K/mm3 (Normal) Range: 150-450 RBC 4.68 {M/mm3} (Normal) Range: 4.2-5.4 RDW 13.5 % (Normal) Range: 11.6-14.6 WBC 4.6 K/mm3 (Normal) Range: 4.4-11.0 :20 COMP METABOLIC A/G 0.9 {RATIO} (Normal) Range: 0.9-2.4 ALB 3.8 g/dL (Normal) Range: 3.4-5.0 ALK P 94 U/L (Normal) Range: 50-136 ALT 24 U/L (Abnormal) Range: 30-65 AST 19 U/L (Normal) Range: 15-37 BUN 16 mg/dL (Normal) Range: 7-18 BUN/CRE 12.3 {RATIO} (Normal) Range: 10-20 CA 9.6 mg/dL (Normal) Range: 8.5-10.1 CL 105 mmol/L (Normal) Range: 98-107 CO2 27.5 mmol/L (Normal) Range: 21.0-32.0 CREAT,SERUM 1.3 mg/dL (Abnormal) Range: 0.6-1.0 EST GFR 43 mL/min (Abnormal) EST GFR - AA 52 mL/min (Abnormal) Comments: ESTIMATED GLOMERULAR FILTRATION RATE The National Kidney Foundation (NKF) guidelines forChronic kidney disease (CKD) recommends all laboratoriesestimate the level of glomerular filtration ra te (GFR)in p atients from age 18 - 70 years of age.The eGFR for patient's is the eGFRmultiplied by 1.212. [facility] Laboratory uses the abbreviated Modification of Diet inRenal Disease (MDRD) study equati on to calculate the eGFR.The Estimated GFR equation is not applicable for patients<18 years of age or patients >70 years of age.The following conditions may alter the eGFR calculationresult: extre mes in body size, severe malnutrition orobesity, skeletal muscle disease, paraplegia, quadriplegia,vegetarian diet, , certain drug therapy and rapidlychanging kidney function. Association o f GFR and Staging of Kidney Disease*GFR (mL/min) With Kidney Disease W/O Kidney Disease>/= 90 Stage One Rhrxyo59 - 89 Stage Two Suspect Decreased GFR30 - 59 Stage Three Stage Three15 - 29 Stage Four Stage Four< 15 or Dialysis Stage Five Stage Five *Each stage assumes the associ ated GFR level has been ineffect for at least three months.Additional studies & clinical assessments are indicated toconclude diagnosis of Chronic Kidney Disease (CKD). GAP 8 (Normal) Range: 5-15 GLOB 4.3 g/dL (Abnormal) Range: 2.7-4.2 GLU 106 mg/dL (Normal) Range: 70-110 K 4.5 mmol/L (Normal) Range: 3.5-5.1 NA 140 mmol/L (Normal) Range: 136-145 T BILI 0.33 mg/dL (Normal) Range: 0.00-1.00 T PROT 8.1 g/dL (Normal) Range: 6.4-8.2 [id number]-[id number]:20 LIPID CHOL 314 mg/dL (Abnormal) Comments: <200 mg/dL Desirable 200-240 mg/dL Borderline >240 mg/dL High Risk HDL 54 mg/dL (Normal) Comments: Reference Range HDL <40 mg/dL Low HDL Cholesterol HDL >or= 60 mg/dL High HDL Cholesterol LDL 220 mg/dL (Abnormal) Range: 0-130 TRIG 200 mg/dL (Abnormal) Comments: Serum Triglycerides Reference Interval Normal <150 mg/dL Borderline high 150 - 199 mg/dL High 200 - 499 mg/dL Very High > or = 500 mg/dL VLDL 40 mg/dL (Normal) Range: 5-40 :20 METHYLM [id number] 336 nmol/L (Normal) Range: 73-376 Comments: The reference range for methylmalonic acid has been set at+3sd above the mean for healthy blood bank donors. In theclinical assessment of patients with megaloblastic anemiasa cutoff of +3sd provides gre ater specificity in thediagnosis of the vitamin deficiency states, despite thesacrifice of some sensitivity.Performed At: [address] [id number] :21 COMP METABOLIC CL 106 mmol/L (Normal) Range: 98-107 CO2 27.1 mmol/L (Normal) Range: 21.0-32.0 GAP 5 (Normal) Range: 5-15 A/G 1.0 {RATIO} (Normal) Range: 0.9-2.4 ALB 3.9 g/dL (Normal) Range: 3.4-5.0 ALK P 88 U/L (Normal) Range: 50-136 ALT 26 U/L (Abnormal) Range: 30-65 AST 20 U/L (Normal) Range: 15-37 BUN 18 mg/dL (Normal) Range: 7-18 BUN/CRE 15.0 {RATIO} (Normal) Range: 10-20 CA 9.8 mg/dL (Normal) Range: 8.5-10.1 CREAT,SERUM 1.2 mg/dL (Abnormal) Range: 0.6-1.0 GLOB 4.0 g/dL (Normal) Range: 2.7-4.2 GLU 86 mg/dL (Normal) Range: 70-110 K 3.8 mmol/L (Normal) Range: 3.5-5.1 NA 138 mmol/L (Normal) Range: 136-145 T BILI 0.37 mg/dL (Normal) Range: 0.00-1.00 T PROT 7.9 g/dL (Normal) Range: 6.4-8.2 00-Jgl-75339:21 LIPID CHOL 266 mg/dL (Abnormal) Comments: <200 mg/dL Desirable 200-240 mg/dL Borderline >240 mg/dL High Risk HDL 54 mg/dL (Normal) Comments: Reference Range HDL <40 mg/dL Low HDL Cholesterol HDL >or= 60 mg/dL High HDL Cholesterol LDL 166 mg/dL (Abnormal) Range: 0-130 TRIG 232 mg/dL (Abnormal) Comments: Serum Triglycerides Reference Interval Normal <150 mg/dL Borderline high 150 - 199 mg/dL High 200 - 499 mg/dL Very High > or = 500 mg/dL VLDL 46 mg/dL (Abnormal) Range: 5-40 9-Dmw-886873:45 PELVIS WITH CONTRAST Radiology Report See Note (Normal) Comments: Exam Number: [id number] THREE PHASE CT OF THE ABDOMEN WITH AND WITHOUT CONTRAST/CT OF THEPELVIS WITH CONTRAST HISTORYBreast cancer. Liver lesion. COMPARISONJune 03, 2007, also from October 03, 2006. 3 .75-mm axial tomographic images were acquired through the abdomenwithout intravenous contrast administration. The study is thenrepeated after administration of 100 cc of Isovue 300 contrast withdelaye d imaging. Images were also obtained through the pelvis. 100cc of Isovue 300 contrast was given. The patient was pretreatedwithout immediate complications. A small hypodensity persists in the right lobe of the liver having alow density on nonenhanced and on enhanced images but without aperipheral enhancement. It does tend to disappear on delayed images. Its overall shape is unchanged from the pr evious study of 2007. It isapproximately the same overall size as the study from Maymeasuring about 11 or 12 mm in length. On the previous study ofJune 03, 2007, this measured at approximately the same length. Itis slightly more prominent, however, compared to a study of lthough this could be secondary to volume averaging and greater slicethickness on that previous 2006 study. The elliot ngs are clear. No pleural or pericardial effusions. The heartis normal size. The aorta is normal. Small left adrenal mass is unchanged in size, isprobably an adenoma. The right adrenal gland is no rmal. The kidneysare unchanged without evidence of obstruction. The pancreas andspleen are normal. The gallbladder has been resected. No enlargedlymph nodes within the abdomen or pelvis. There are colonicdiverticula in the colon without inflammation. There are degenerativechanges to the lower lumbar facet. The uterus is normal. No adnexalmasses. There are several phleboliths. IMPRESSIONOve rall the liver lesion in the right lobe has not significantlychanged from the study of June 03, 2007. The left adrenal mass isalso stable in size favoring a benign etiology. Reported By: ANN MARIE GERBER M.D. 2-Wnn-948343:44 ABDOMEN W/WO CONTRAST Radiology Report See Note (Normal) Comments: Exam Number: [id number] THREE PHASE CT OF THE ABDOMEN WITH AND WITHOUT CONTRAST/CT OF THEPELVIS WITH CONTRAST HISTORYBreast cancer. Liver lesion. COMPARISONJune 03, 2007, also from October 03, 2006. 3 .75-mm axial tomographic images were acquired through the abdomenwithout intravenous contrast administration. The study is thenrepeated after administration of 100 cc of Isovue 300 contrast withdelaye d imaging. Images were also obtained through the pelvis. 100cc of Isovue 300 contrast was given. The patient was pretreatedwithout immediate complications. A small hypodensity persists in the right lobe of the liver having alow density on nonenhanced and on enhanced images but without aperipheral enhancement. It does tend to disappear on delayed images. Its overall shape is unchanged from the pr evious study of 2007. It isapproximately the same overall size as the study from Maymeasuring about 11 or 12 mm in length. On the previous study ofJune 03, 2007, this measured at approximately the same length. Itis slightly more prominent, however, compared to a study of lthough this could be secondary to volume averaging and greater slicethickness on that previous 2006 study. The elliot ngs are clear. No pleural or pericardial effusions. The heartis normal size. The aorta is normal. Small left adrenal mass is unchanged in size, isprobably an adenoma. The right adrenal gland is no rmal. The kidneysare unchanged without evidence of obstruction. The pancreas andspleen are normal. The gallbladder has been resected. No enlargedlymph nodes within the abdomen or pelvis. There are colonicdiverticula in the colon without inflammation. There are degenerativechanges to the lower lumbar facet. The uterus is normal. No adnexalmasses. There are several phleboliths. IMPRESSIONOve rall the liver lesion in the right lobe has not significantlychanged from the study of June 03, 2007. The left adrenal mass isalso stable in size favoring a benign etiology. Reported By: ANN MARIE GERBER M.D. :24 CBCD,SMEAR DIFF CELLS COUNTED 100 (Normal) EOS 2 % (Normal) Range: 0-5 HCT 36.9 % (Abnormal) Range: 37-47 HGB 12.7 g/dL (Normal) Range: 12.0-16.0 LYMPH 42 % (Abnormal) Range: 19-41 MCH 29.1 pg (Normal) Range: 27.0-32.0 MCHC 34.4 g/dL (Normal) Range: 32-36 MCV 84.8 fL (Normal) Range: 81-99 MONOCYTE 5 % (Normal) Range: 0-10 PLT 293 K/mm3 (Normal) Range: 150-450 PLT EST SeeNote (Normal) Comments: Result: ADEQUATE RBC 4.36 {M/mm3} (Normal) Range: 4.2-5.4 RDW 12.9 % (Normal) Range: 11.6-14.6 RED CELL MORPH SeeNote {NORMAL} (Normal) Comments: Result: NORM C+C SEGS 51 % (Normal) Range: 47-70 WBC 4.3 K/mm3 (Abnormal) Range: 4.4-11.0 :24 COMP METABOLIC A/G 1.0 {RATIO} (Normal) Range: 0.9-2.4 ALB 3.7 g/dL (Normal) Range: 3.4-5.0 ALK P 87 U/L (Normal) Range: 50-136 ALT 29 U/L (Abnormal) Range: 30-65 AST 22 U/L (Normal) Range: 15-37 BUN 16 mg/dL (Normal) Range: 7-18 BUN/CRE 13.3 {RATIO} (Normal) Range: 10-20 CA 9.5 mg/dL (Normal) Range: 8.5-10.1 CL 104 mmol/L (Normal) Range: 98-107 CO2 23.6 mmol/L (Normal) Range: 21.0-32.0 CREAT,SERUM 1.2 mg/dL (Abnormal) Range: 0.6-1.0 GAP 10 (Normal) Range: 5-15 GLOB 3.8 g/dL (Normal) Range: 2.7-4.2 GLU 89 mg/dL (Normal) Range: 70-110 K 4.0 mmol/L (Normal) Range: 3.5-5.1 NA 138 mmol/L (Normal) Range: 136-145 T BILI 0.30 mg/dL (Normal) Range: 0.00-1.00 T PROT 7.5 g/dL (Normal) Range: 6.4-8.2 09-Oct-20079:24 LIPID CHOL 246 mg/dL (Abnormal) Comments: <200 mg/dL Desirable 200-240 mg/dL Borderline >240 mg/dL High Risk HDL 53 mg/dL (Normal) Comments: Reference Range HDL <40 mg/dL Low HDL Cholesterol HDL >or= 60 mg/dL High HDL Cholesterol LDL 165 mg/dL (Abnormal) Range: 0-130 TRIG 140 mg/dL (Normal) Comments: Serum Triglycerides Reference Interval Normal <150 mg/dL Borderline high 150 - 199 mg/dL High 200 - 499 mg/dL Very High > or = 500 mg/dL VLDL 28 mg/dL (Normal) Range: 5-40 14-Mhd-417972:15 ABDOMEN W/WO CONTRAST Radiology Report See Note (Normal) Comments: Exam Number: [id number] CT OF THE ABDOMEN WITH AND WITHOUT CONTRAST HISTORYNeoplasm uncertain behavior of adrenal glands. COMPARISON STUDYJune 2006. 2.75-mm axial tomographic images were acquired through the upperabdomen without intravenous contrast administration. The study hasbeen repeated through the entire abdomen after the uneventfuladministration of 100 cc of Isovue 300 contrast. Delayed images wereobtained through the adrenal glands. Lung bases are clear. No pleural or pericardial effusions. The heartis of normal size. A tiny left adrenal mass is unchanged in appearance a size that hasdensity measurement of -15 Hounsfield units consistent with alipid-laden benign adenoma. The right adrenal gland is normal. Within the right lobe of the liver there is an oval shaped lowattenuati on mass which fills in with contrast on delayed imagesmeasuring about 11.6 mm in length. By my measurements it measuredabout 10 mm previously. No other hepatic lesions are identified. Small cortical defects are again noted in the right kidney. Nohydronephrosis. The pancreas and spleen are unremarkable. Noadenopathy. The bowel is normal. Osseous structures showdegenerative facet disease at the L5-S1 level. IMPRESSION1) Stable left adrenal benign adenoma.2) Small right hepatic hypodensity probably unchanged in size,consider its small size. Consider a 6 month follow-up abdomen CT withc ontrast to confirm stability. Reported By: ANN MARIE GERBER M.D. 58-Irs-724391:14 LIPID CHOL 246 mg/dL (Abnormal) Comments: <200 mg/dL Desirable 200-240 mg/dL Borderline >240 mg/dL High Risk HDL 48 mg/dL (Normal) Comments: Reference Range HDL <40 mg/dL Low HDL Cholesterol HDL >or= 60 mg/dL High HDL Cholesterol LDL 148 mg/dL (Abnormal) Range: 0-130 TRIG 248 mg/dL (Abnormal) Comments: Serum Triglycerides Reference Interval Normal <150 mg/dL Borderline high 150 - 199 mg/dL High 200 - 499 mg/dL Very High > or = 500 mg/dL VLDL 50 mg/dL (Abnormal) Range: 5-40 05-Vgy-107828:14 LIVER ALB 3.9 g/dL (Normal) Range: 3.4-5.0 ALK P 84 U/L (Normal) Range: 50-136 ALT 29 [iU]/L (Abnormal) Range: 30-65 AST 19 U/L (Normal) Range: 15-37 D BILI 0.06 mg/dL (Normal) Range: 0.00-0.30 T BILI 0.36 mg/dL (Normal) Range: 0.00-1.00 T PROT 7.8 g/dL (Normal) Range: 6.4-8.2 :40 ABDOMEN W/WO CONTRAST Radiology Report See Note (Normal) Comments: Exam Number: [id number] 4-PHASE CT SCAN OF LIVER CLINICAL STATEMENTMass in the right hepatic lobe. History of breast cancer. CONTRASTIV and oral contrast. The patient was premedicated to pr event Iodine allergy. No allergic reaction was noted during or after the contrastCT scan. COMPARISONComparison is made to the recent CT scan of the chest on October 03, 2006. FINDINGSThere is redemonstration of 8-mm ov al nodular density in the posteriorsegment of the right hepatic lobe with progressive filling of contrastmedia into inside this lesion. On the 4-minute delayed scan, there isalmost complete filling of contrast media, isodense with thesurrounding liver parenchyma. The findings are consistent with abenign hematoma rather than due to metastases. Cortical indentations are seen in the superior end of th e inferiorpole of the right kidney, most likely due to chronic pyelonephritis inview of no atherosclerotic vascular calcifications of the abdominalaorta or adrenal arteries. There is redemonstration o f 1 cm-benign left adrenal adenoma,measuring -1 Hounsfield unit on the noncontrast CT scan. The spleen, pancreas, and biliary tree are unremarkable except forpostsurgical change of cholecystectomy. The right adrenal gland andleft kidney appears to be normal as well as periaortic region. IMPRESSION1. Status post cholecystectomy. Right chronic pyelonephritis withcortical scarring is suspected.2. 8-mm hypodense oval lesion in the posterior segment of theright hepatic lobe is believed to be due to benign hemangioma ratherthan metastases to the liver. Reported By: JOSY JOSEPH M.D. 03-Oct-20068:39 CHEST WITH CONTRAST Radiology Report See Note (Normal) Comments: Exam Number: [id number] CT CHEST WITH CONTRAST CLINICAL STATEMENTRight axillary lymph node with possible enlargement. History ofbreast cancer. COMPARISONNone. TECHNIQUE5-mm continuous axial images were o btained from the thoracic inlet tothe upper abdomen following the administration of l00 cc of Isovue 300. FINDINGSThere is no axillary, mediastinal or hilar lymphadenopathy. Therewere several small lym ph nodes seen in the right axilla. The oneclosest to the marked palpable lesion measures approximately 6 mm inlong axis. A slightly larger lymph node is also seen posteriorlywhich measures approximate ly 8 mm in greatest dimension and 5 mm inshort axis dimension. There are several normal sized lymph nodes inthe mediastinum as well. The heart chambers are normal. There is no pericardial effusion orpe ricardial thickening. The lungs are clear. There is no focal consolidation, pleuraleffusion, pneumothorax or pulmonary nodules. No endobronchiallesions. In the upper abdomen, there is an ill-define d 8-mm hypodense lesionseen within the posterior segment of the right hepatic lobe,suboptimally evaluated given the early phase of contrast enhancement.The spleen, pancreas, right adrenal gland, and kid neys are withinnormal limits. There are some focal areas of cortical thinning seenwithin the right kidney. There is a 9-mm nodule within the leftadrenal gland which is indeterminate. The osseous str uctures are unremarkable. IMPRESSION1. There are a few small lymph nodes within the right axilla whichare normal in size and did not meet CT criteria for lymphadenopathy.No prior studies are availabl e to see if these are enlarging. Thereare few normal sized lymph nodes in the mediastinum as well. 2. An 8-mm hypodensity within the right hepatic lobe lesionindetermined but worrisome for metastati c disease in a patient with ahistory of breast cancer. Comparison with prior studies, ifavailable, would be most useful. Followup dedicated CT of the liveris recommended if previous images are not magdaleno ilable. 3. A 9-mm nodular density in the left adrenal gland. This nodulecould be evaluated further at the same time as the liver lesionmentioned in impression #2. Reported By: ELIE BECKFORD M.D. 05-Lau-81000:40 COMP METABOLIC A/G 1.0 {RATIO} (Normal) Range: 0.9-2.4 ALB 3.7 g/dL (Normal) Range: 3.4-5.0 ALK P 77 U/L (Normal) Range: 50-136 ALT 28 [iU]/L (Abnormal) Range: 30-65 AST 24 U/L (Normal) Range: 15-37 BUN 14 mg/dL (Normal) Range: 7-18 BUN/CRE 14.0 {RATIO} (Normal) Range: 10-20 CA 8.9 mg/dL (Normal) Range: 8.5-10.1 CL 108 mmol/L (Abnormal) Range: 98-107 CO2 27.4 mmol/L (Normal) Range: 22.0-29.0 CREAT,SERUM 1.0 mg/dL (Normal) Range: 0.6-1.0 GAP 8 (Normal) Range: 5-15 GLOB 3.7 g/dL (Abnormal) Range: 2.3-3.5 GLU 87 mg/dL (Normal) Range: 70-110 K 4.1 mmol/L (Normal) Range: 3.5-5.1 NA 143 mmol/L (Normal) Range: 136-145 T BILI 0.50 mg/dL (Normal) Range: 0.00-1.00 T PROT 7.4 g/dL (Normal) Range: 6.4-8.2 :40 LIPID CHOL 230 mg/dL (Abnormal) Comments: <200 mg/dL Desirable 200-240 mg/dL Borderline >240 mg/dL High Risk HDL 54 mg/dL (Normal) Comments: Reference Range HDL <40 mg/dL Low HDL Cholesterol HDL >or= 60 mg/dL High HDL Cholesterol LDL 147 mg/dL (Abnormal) Range: 0-130 TRIG 143 mg/dL (Normal) Comments: Serum Triglycerides Reference Interval Normal <150 mg/dL Borderline high 150 - 199 mg/dL High 200 - 499 mg/dL Very High > or = 500 mg/dL VLDL 29 mg/dL (Normal) Range: 5-40 Plan of Care Name Dates Details Instructions Encounter for routine adult medical exam with abnormal findings : Eprescribed prescriptions (G8553) Indication: Encounter for routine adult medical exam with abnormal findings Forearm joint pain, left : Lateral Epicondyle injection Indication: Forearm joint pain, left Acute pansinusitis : *URI Treatment Indication: Acute pansinusitis Acute pansinusitis : *URI Symptoms Indication: Acute pansinusitis Acute pansinusitis : Eprescribed prescriptions (G8553) Indication: Acute pansinusitis Impaired Fasting Glucose (Renamed from Elevated fasting blood sugar) : Hemoglobin A1c Test *: a1c test Indication: Impaired Fasting Glucose (Renamed from Elevated fasting blood sugar) Impaired Fasting Glucose (Renamed from Elevated fasting blood sugar) : Eprescribed prescriptions (G8553) Indication: Impaired Fasting Glucose (Renamed from Elevated fasting blood sugar) Epicondylitis, lateral : Lateral Epicondyle injection Indication: Epicondylitis, lateral Hypercholesteremia : High Cholesterol (Hypercholesterolemia) *: cardiovascular health Indication: Hypercholesteremia Acute sinusitis, unspecified : *URI Treatment Indication: Acute sinusitis, unspecified Acute sinusitis, unspecified : URI Symptoms Indication: Acute sinusitis, unspecified Acute sinusitis, unspecified : *URI Treatment Indication: Acute sinusitis, unspecified Acute sinusitis, unspecified : Antibiotic Usage Education - Female Indication: Acute sinusitis, unspecified Acute sinusitis, unspecified : URI Symptoms Indication: Acute sinusitis, unspecified Hypercholesteremia : Cholesterol - Nonprescription Treatment Indication: Hypercholesteremia Planned Observations CBC WITH MANUAL DIFF ([id number])Indication: Renal insufficiency On: 4-Yzz-549057:55 Request MICROALBUMIN: CREATININE RATIO (30814) AND (49504)Indication: Renal insufficiency On: :55 Request URINALYSIS (87470)Indication: Renal insufficiency On: :55 Request Metabolic Panel, Comprehensive (46540)Indication: Renal insufficiency On: :55 Request EBV Panel (09628)Indication: Fatigue On: 69-Nsj-450921:49 Request METABOLIC PANEL, COMPREHENSIVE (61890)Indication: Hypercholesteremia On: 6-Cvn-884171:30 Request LIPID PANEL (41268)Indication: Hypercholesteremia On: :30 Request HgA1C , Office (23611)Indication: Impaired Fasting Glucose (Renamed from Elevated fasting blood sugar) On: 0-Ola-661340:01 Request VITAMIN D, 1, 25-DIHYDROXY (90232)Indication: Vitamin disease On: 45-Yyo-946344:51 Request METABOLIC PANEL, COMPREHENSIVE (89898)Indication: Hypercholesteremia On: :33 Request LIPID PANEL (84207)Indication: Hypercholesteremia On: 07-Jul-20129:33 Request Troponin I (80160)Indication: CHEST PAIN On: 9-Wmq-298676:17 Request CPK MB FRACTION (76118)Indication: CHEST PAIN On: 0-Cbo-672356:17 Request CREATINE KINASE TOTAL (53344)Indication: CHEST PAIN On: 1-Qoy-883240:17 Request D-Dimer (36824)Indication: CHEST PAIN On: 7-Irb-649978:17 Request LIPID PANEL (52056)Indication: Hypercholesteremia On: 4-Yqh-052207:07 Request HEPATIC FUNCTION PANEL (83803)Indication: Hypercholesteremia On: 9-Ikk-853901:07 Request URINALYSIS, W/ MICRO (58714)Indication: Renal insufficiency On: 70-Afk-098138:41 Request METABOLIC PANEL, COMPREHENSIVE (62471)Indication: Hypercholesteremia On: 46-Pui-847793:41 Request LIPID PANEL (34554)Indication: Hypercholesteremia On: :41 Request CBC WITH MANUAL DIFF (93013)Indication: Hypercholesteremia On: :41 Request Metabolic Panel, Comprehensive (73699)Indication: Hypercholesteremia On: :10 Request Lipid Panel (05975)Indication: Hypercholesteremia On: 49-Rpr-189544:10 Request Lipid Panel (86439)Indication: Hypercholesteremia On: 86-Xgq-953188:48 Request Comments: recheck in 3 months Metabolic Panel, Comprehensive (20981)Indication: Hypercholesteremia On: 55-Kvv-075207:47 Request LIPID PANEL (25493)Indication: Hypercholesteremia On: 7-Tyv-697972:19 Request LIPID PANEL (85339)Indication: Hypercholesteremia On: 88-Mpi-508282:00 Request METABOLIC PANEL, COMPREHENSIVE (72661)Indication: Hypercholesteremia On: 98-Xob-814832:00 Request Metabolic Panel, Basic (17874)Indication: Abdominal pain, acute, generalized On: 31-Tuf-813007:06 Request CBC, Platelets & Auto Diff (93262)Indication: Abdominal pain, acute, generalized On: 52-Dve-478681:06 Request Lipid Panel (87429)Indication: Hypercholesteremia On: 26-Kuw-972069:03 Request HEPATIC FUNCTION PANEL (57455)Indication: Hypercholesteremia On: :03 Request HEPATIC FUNCTION PANEL (99046)Indication: Hypercholesteremia On: :21 Request Lipid Panel (23125)Indication: Hypercholesteremia On: 20-Axm-278486:21 Request Comments: in three months (approximately) Methylmalonic acid, serum 14768Xunlromndg: Nonscarring hair loss, unspecified On: 9-Epz-263483:16 Request CBC (Auto) (17302)Indication: Hypercholesteremia On: 7-Zkz-424816:11 Request Metabolic Panel, Comprehensive (59768)Indication: Hypercholesteremia On: 2-Qdh-748741:11 Request Lipid Panel (58254)Indication: Hypercholesteremia On: 6-Irc-225747:11 Request Comments: 4 month Metabolic Panel, Comprehensive (65835)Indication: Hypercholesteremia On: :50 Request Lipid Panel (14581)Indication: Hypercholesteremia On: 0-Xsk-306983:50 Request Urinalysis, Office (14622)Indication: Renal insufficiency On: 6-Emd-349774:42 Request METABOLIC PANEL, COMPREHENSIVE (01897)Indication: Hypercholesteremia On: 49-Awm-366863:12 Request LIPID PANEL (01658)Indication: Hypercholesteremia On: 44-Sok-183880:12 Request CBC WITH MANUAL DIFF (08881)Indication: Hypercholesteremia On: 83-Kta-679232:12 Request Comments: in six months (approximately) HEPATIC FUNCTION PANEL (68803)Indication: Hypercholesteremia On: 28-Pws-679391:23 Request Lipid Panel (18017)Indication: Hypercholesteremia On: 11-Xkd-788119:23 Request Comments: in six months HEPATIC FUNCTION PANEL (26913)Indication: Hypercholesteremia On: 00-Lny-044896:16 Request LIPID PANEL (60908)Indication: Hypercholesteremia On: 86-Qpu-129251:16 Request Planned Encounters Medical; [facility] (Doctor) - On: 30-Apr-2018 13:00 [facility] Sami FLORES, Анна Fong MD Planned Procedures Flu Vaccine (Quadrivalent) On: 28-Jan-2018 Intent 60001Lh: Iveth Richard Comments: Lot #[id number]-R dltd, IMDose prefilled syringegiven by: Lauren Richard MA Nuclear Stress Test/Stress On: 07-Nov-2017 Intent SPECT/TreadmillBy: Sami FLORES, Анна Gallardo MD, Анна iRley Echo CompleteBy: Sami FLORES, On: 07-Nov-2017 Intent Анна Fong MD ELECTROCARDIOGRAM, COMPLETE On: 21-Oct-2017 Intent (ECG) (68874)By: Sami FLORES, Comments: see scanned document of test done to see results reviewed today with patient Анна Gallardo MD, Анна Riley Radiology - ChestBy: Sami On: 21-Oct-2017 Intent Анна FLORES MD, Dana M Radiology - Cervical SpineBy: On: 02-Oct-2017 Intent Анна Gallardo MD, MD, Dana M Radiology - ChestBy: Sami On: 16-Jun-2017 Intent Анна FLORES MD, Dana M Comments: wet read DRAIN/INJECT MAJOR JOINT OR On: 11-Mar-2017 Intent BURSA (17197)By: Sami FLORES, Comments: lot: 2 cc marcaine [id number] exp 08-03-2018 1 cc kenalog [id number] exp exp:as above rte:intra articular right knee dose:as above given by:Dr. 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 On: 13-Feb-2016 Intent (08005)By: Анна Gallardo MD, MD, Dana M Flu Vaccine (Quadrivalent) On: 30-Jan-2016 Intent 41023Tc: KARLA Quinonez Comments: Lot #:[id number] date:5-93-08Ffoavt given:0.5mlRoute: IMSite given:Right DltdGiven by: Obi signed Fluarix EKG (26804)By: Sami FLORES, On: 25-Jan-2016 Intent Анна Fong MD Comments: see scanned document of test done to see results reviewed today with patient Kenalog Injection, 10 mgm On: 30-Oct-2015 Intent (J3301)By: Анна Gallardo MD Comments: Lot #:[id number] date:02/2017Amount given:1ml KenalogRoute: intra jointSite given: left elbowGiven by: Анна Gallardo Dr., MD, Dana M Bone Density StudyBy: Sami On: 08-Aug-2015 Intent Анна FLORES MD, Dana M Flu Vaccine (Quadrivalent) On: 13-Feb-2015 Intent 24027Hh: Анна Gallardo MD, MD, Dana M MRI - Knee(s) - LeftBy: Sami On: 08-Jul-2014 Intent Анна FLORES MD, Dana M Radiology - ChestBy: Sami On: 17-Jun-2014 Intent Анна FLORES MD, Dana M Comments: attention left clavicle Radiology - Knee - Left - On: 17-Jun-2014 Intent Weight BearingBy: Анна Gallardo MD, MD, Dana M Prevnar 13 (39293)By: Sami On: 11-Apr-2014 Intent Анна FLORES MD, Dana M ELECTROCARDIOGRAM, COMPLETE On: 11-Apr-2014 Intent (ECG) (37667)By: Анна Gallardo MD, MD, Dana M Flu Vaccine (Quadrivalent) On: 04-Mar-2014 Intent 64042Fn: Reyna Grace LPN ADMINISTRATION OF INFLUENZA On: 04-Mar-2014 Intent VIRUS VACCINE (G0008)By: Lesly Comments: X23SP6.15prefilled syringeR Dltd, IMAS, LPNABN and VIS signed Reyna GARSIA Eprescribed prescriptions On: 09-Aug-2013 Intent (G8553)By: Reyna Lopes DO FLU VAC, SPLIT, >3 YEARS, On: 27-Jan-2013 Intent INTRAMUSC (98577)By: Kory, Comments: Lot:[id number]:Dose:0.5mLRoute:IMSite:L DltdGiven By:TAMMY signed Katalina IMMUNIZ ADMNIN, 1 VAC, On: 27-Jan-2013 Intent SNGL/COMBO (97093)By: Katalina Horn CT - OtherBy: Aaynna Ayers CNP On: 09-Nov-2012 Intent Comments: Adrenals with and without contrast CT - Abdomen & PelvisBy: On: 04-Nov-2012 Intent Анна Gallardo MD, MD, Dana M CT - AbdomenBy: Sami FLORES, On: 29-Oct-2012 Intent Анна Fong MD Comments: adrenal glands Kenalog Injection, 10 mgm On: 29-Oct-2012 Intent (J3301)By: Анна Gallardo MD, MD, Dana M Kenalog Injection, 10 mgm On: 29-Oct-2012 Intent (J3301)By: Анна Gallardo MD, MD, Dana M CT - Other (IV Contrast On: 07-Jul-2012 Intent Needed)By: Анна Gallardo MD Comments: Abdomen - focus on adrenal glands Анна Gallardo MD Eprescribed prescriptions On: 07-Jul-2012 Intent (G8553)By: Leora Brush LPN CT - AbdomenBy: Sami FLORES, On: 21-Apr-2012 Intent Анна Fong MD Comments: follow up on adrenal gland adenoma in 4 months Eprescribed prescriptions On: 21-Apr-2012 Intent (G8553)By: Katalina Horn CT - Chest (IV Contrast On: 07-Apr-2012 Intent Needed)By: Анна Gallardo MD Comments: PE protocol patient has allergy to IVP dye she will go through endo to be premedicated Анна Gallardo MD Radiology - ChestBy: Sami On: 07-Apr-2012 Intent Анна FLORES MD, Dana M EKG ([id number])By: Sami FLORES, On: 07-Apr-2012 Intent Анна Fong MD Comments: see scanned document of test done to see results reviewed today with patient IMMUNIZ ADMNIN, 1 VAC, On: 20-Jan-2012 Intent SNGL/COMBO ([id number])By: Hluszrola Comments: Lot #[id number]-right deltoidgiven by: Topher Blue LPN LPN, Tori FLU VAC, SPLIT, >3 YEARS, On: 20-Jan-2012 Intent INTRAMUSC ([id number])By: Mirza GARSIA, Tori FLU VAC, SPLIT, >3 YEARS, On: 15-Feb-2011 Intent INTRAMUSC ([id number])By: Floyd, Comments: Lot:[id number]:11/02/11Amt:prefilledRoute:IMSite:right deltGiven By: SUN Bearden Mariluz IMMUNIZ ADMNIN, 1 VAC, On: 15-Feb-2011 Intent SNGL/COMBO ([id number])By: Mariluz Barrientos IMMUNIZ ADMNIMyles, 1 VAC, On: 06-Feb-2010 Intent SNGL/COMBO ([id number])By: Evert MENDEZ, Catrina FLU VAC, SPLIT, >3 YEARS, On: 06-Feb-2010 Intent INTRAMUSC ([id number])By: Evert MENDEZ, Comments: Lot #: [id number] date: mount given: 0.5 mlRoute: IMSite given: right deltoidGiven by: VANESSA Curtis Kenalog Injection, 10 mgm On: 23-Sep-2009 Intent ([id number])By: Sami FLORES, Анна Gallardo MD, Анна Riley Kenalog Injection, 10 mgm On: 23-Sep-2009 Intent (J3301)By: Sami FLORES, Анна Gallardo MD, Анна Riley Radiology - Hand - RightBy: On: 21-Sep-2009 Intent Sami FLORES, Анна Gallardo MD, Анна Riley IMMUNIZ ADMNIN, 1 VAC, On: 02-Feb-2009 Intent SNGL/COMBO ([id number])By: Catrina Loyd RN FLU VAC, SPLIT, >3 YEARS, On: 02-Feb-2009 Intent INTRAMUSC ([id number])By: Catrina Loyd RN CT - Abdomen & PelvisBy: On: 13-Dec-2008 Intent Sami FLORES, Анна Gallardo MD, Анна Riley IMMUNIZ ADMNIN, 1 VAC, On: 19-Feb-2008 Intent SNGL/COMBO ([id number])By: KARLA Quinonez FLU VAC, SPLIT, >3 YEARS, On: 19-Feb-2008 Intent INTRAMUSC ([id number])By: Jayce, Comments: Lot #:Expiration date:Amount given:Route: IMSite given:left deltoid Given by:wallace [facility] On: 05-Feb-2008 Intent VACCINE ([id number])By: Анна Gallardo MD, MD, Dana M PNEUM VAC ADLT/IMUMNOSPR, On: 05-Feb-2008 Intent SBC/INTRM ([id number])By: Анна Gallardo MD, MD, Dana M CT - Abdomen & PelvisBy: On: 05-Nov-2007 Intent Анна Gallardo MD, MD, Dana M CT - AbdomenBy: Sami FLORES, On: 27-May-2007 Intent Анна Fong MD CT - ChestBy: Анна Gallardo MD On: 30-Sep-2006 Intent Анна Fraga MD Comments: attn axillary--enlarged axillary node Radiology - Thoracic SpineBy: On: 03-Apr-2006 Intent Анна Gallardo MD, MD, Dana M Radiology - Lumbar SpineBy: On: 03-Apr-2006 Intent Анна Gallardo MD, MD, Dana M FLU VAC, SPLIT, >3 YEARS, On: 17-Mar-2006 Intent INTRAMUSC ([id number])By: Nelia Eaton [facility] On: 17-Mar-2006 Intent VIRUS VACCINE ([id number])By: Nelia Eaton Planned Medications INJECTION, TRIAMCINOLONE ACETONIDE, NOT OTHERWISE SPECIFIED, 10 MG Ordered: 29-Oct-2012 Pending Анна Gallardo MD, MD, Dana M INJECTION, TRIAMCINOLONE ACETONIDE, NOT OTHERWISE SPECIFIED, 10 MG Ordered: 29-Oct-2012 Mamiing Анна Gallardo MD, MD, Dana M INJECTION, TRIAMCINOLONE ACETONIDE, NOT OTHERWISE SPECIFIED, 10 MG Ordered: 30-Oct-2015 Pending Анна Gallardo MD, MD, Dana M Instructions Name Dates Details Current nonsmoker (Renamed from Current non-smoker) : How to access health information online Indication: Current nonsmoker (Renamed from Current non-smoker) Current nonsmoker (Renamed from Current non-smoker) : How to access health information online - Detail Indication: Current nonsmoker (Renamed from Current non-smoker) Current nonsmoker (Renamed from Current non-smoker) : Patient Instructions Indication: Current nonsmoker (Renamed from Current non-smoker) BMI 31.0-31.9,adult : How to access health information online Indication: BMI 31.0-31.9,adult BMI 31.0-31.9,adult : How to access health information online - Detail Indication: BMI 31.0-31.9,adult BMI 31.0-31.9,adult : Patient Instructions Indication: BMI 31.0-31.9,adult BMI 31.0-31.9,adult : How to access health information online Indication: BMI 31.0-31.9,adult BMI 31.0-31.9,adult : How to access health information online - Detail Indication: BMI 31.0-31.9,adult BMI 31.0-31.9,adult : Patient Instructions Indication: BMI 31.0-31.9,adult Cough : How to access health information online Indication: Cough Cough : How to access health information online - Detail Indication: Cough Cough : Patient Instructions Indication: Cough Current nonsmoker (Renamed from Current non-smoker) : How to access health information online Indication: Current nonsmoker (Renamed from Current non-smoker) Current nonsmoker (Renamed from Current non-smoker) : How to access health information online - Detail Indication: Current nonsmoker (Renamed from Current non-smoker) Current nonsmoker (Renamed from Current non-smoker) : Patient Instructions Indication: Current nonsmoker (Renamed from Current non-smoker) BMI 32.0-32.9,adult : How to access health information online Indication: BMI 32.0-32.9,adult BMI 32.0-32.9,adult : How to access health information online - Detail Indication: BMI 32.0-32.9,adult BMI 32.0-32.9,adult : Patient Instructions Indication: BMI 32.0-32.9,adult Current nonsmoker (Renamed from Current non-smoker) : How to access health information online Indication: Current nonsmoker (Renamed from Current non-smoker) Current nonsmoker (Renamed from Current non-smoker) : How to access health information online - Detail Indication: Current nonsmoker (Renamed from Current non-smoker) Current nonsmoker (Renamed from Current non-smoker) : Patient Instructions Indication: Current nonsmoker (Renamed from Current non-smoker) Encounter for routine adult medical exam with abnormal findings : How to access health information online Indication: Encounter for routine adult medical exam with abnormal findings Encounter for routine adult medical exam with abnormal findings : How to access health information online - Detail Indication: Encounter for routine adult medical exam with abnormal findings Encounter for routine adult medical exam with abnormal findings : Patient Instructions Indication: Encounter for routine adult medical exam with abnormal findings Right knee pain : How to access health information online Indication: Right knee pain Right knee pain : How to access health information online - Detail Indication: Right knee pain Right knee pain : Patient Instructions Indication: Right knee pain BMI 31.0-31.9,adult : How to access health information online Indication: BMI 31.0-31.9,adult BMI 31.0-31.9,adult : How to access health information online - Detail Indication: BMI 31.0-31.9,adult BMI 31.0-31.9,adult : Patient Instructions Indication: BMI 31.0-31.9,adult Hypercholesteremia : How to access health information online Indication: Hypercholesteremia Hypercholesteremia : How to access health information online - Detail Indication: Hypercholesteremia Hypercholesteremia : Patient Instructions Indication: Hypercholesteremia BMI 27.0-27.9,adult : How to access health information online Indication: BMI 27.0-27.9,adult BMI 27.0-27.9,adult : How to access health information online - Detail Indication: BMI 27.0-27.9,adult BMI 27.0-27.9,adult : Patient Instructions Indication: BMI 27.0-27.9,adult Chest pain : How to access health information online Indication: Chest pain Chest pain : How to access health information online - Detail Indication: Chest pain Chest pain : Patient Instructions Indication: Chest pain Forearm joint pain, left : How to access health information online Indication: Forearm joint pain, left Forearm joint pain, left : How to access health information online - Detail Indication: Forearm joint pain, left Forearm joint pain, left : Patient Instructions Indication: Forearm joint pain, left Encounter for routine adult medical exam with abnormal findings : How to access health information online Indication: Encounter for routine adult medical exam with abnormal findings Encounter for routine adult medical exam with abnormal findings : How to access health information online - Detail Indication: Encounter for routine adult medical exam with abnormal findings Encounter for routine adult medical exam with abnormal findings : Patient Instructions Indication: Encounter for routine adult medical exam with abnormal findings Acute pansinusitis : How to access health information online Indication: Acute pansinusitis Acute pansinusitis : How to access health information online - Detail Indication: Acute pansinusitis Acute pansinusitis : Patient Instructions Indication: Acute pansinusitis Impaired Fasting Glucose (Renamed from Elevated fasting blood sugar) : How to access health information online Indication: Impaired Fasting Glucose (Renamed from Elevated fasting blood sugar) Impaired Fasting Glucose (Renamed from Elevated fasting blood sugar) : How to access health information online - Detail Indication: Impaired Fasting Glucose (Renamed from Elevated fasting blood sugar) Impaired Fasting Glucose (Renamed from Elevated fasting blood sugar) : Patient Instructions Indication: Impaired Fasting Glucose (Renamed from Elevated fasting blood sugar) Abdominal pain, acute, left lower quadrant : Patient Instructions Indication: Abdominal pain, acute, left lower quadrant Hypercholesteremia : Patient Instructions Indication: Hypercholesteremia CHEST PAIN : Patient Instructions Indication: CHEST PAIN Hypercholesteremia : Patient Instructions Indication: Hypercholesteremia Encounters Lab Order On: 07-Apr-2018 15:52 Encounter Diagnosis: Renal insufficiency End: 07-Apr-2018 15:56 [facility] Visit On: 28-Jan-2018 11:57 Encounter Diagnosis: Need for prophylactic vaccination and inoculation against influenza (Renamed from Need for immunization against influenza) End: 01-Feb-2018 20:35 [facility] Visit On: 08-Jan-2018 13:39 Encounter Diagnosis: BMI 31.0-31.9,adult, Current nonsmoker (Renamed from Current non-smoker), Abdominal weakness, Fatigue, Arthralgia, unspecified joint, SOB (shortness of breath), Neck stiffness End: 08-Jan-2018 14:24 [facility] Order On: 06-Jan-2018 14:08 Encounter Diagnosis: Fatigue End: 06-Jan-2018 14:11 [facility] Visit On: 08-Dec-2017 11:25 Encounter Reason: Follow up for chronic medical issues - The patient feels well with minor complaints and has decreased energy level. Patient has been compliant with instructions. Current medication use: no side effects End: 08-Dec-2017 12:10 and compliant with dosing regimen. Patient sleeps 7 hours per night. Impact of disease: emotional impact-mild. Nutrition: balanced diet and supplemental vitamins. The medical issues the patient is follo wing up for include blood sugar issues, cardiac issues, high cholesterol, kidney problems (renal insuff) and other (MTHFR mutation, esophageal strciture, hx. 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), Postmenopausal, Elevated serum homocysteine level, Myalgia, Hypercholesteremia, Migraine, Renal insufficiency, Homozygous MTHFR mutation C677T, Esophageal stricture, Abnormal thyroid blood test, Abnormality of esophagus, Arthralgia, unspecified joint, Constipation, chronic, Personal history of breast cancer, Encounter for routine adult medical exam with abnormal findings, Abnormal cortisol level, Bilateral hearing loss, unspecified hearing loss type, Allergic to IV contrast, Malignant melanoma, Degeneration of intervertebral disc of thoracic region, Acute intractable headache, unspecified headache type, BMI 32.0-32.9,adult, Chest pain, Neck stiffness, Prediabetes, SOB (shortness of breath) [facility] Visit On: 07-Nov-2017 9:30 Encounter Reason: Follow up acute care visit - The patient feels the same and has decreased energy level. Patient has been compliant with instructions. Current medication use: no side effects and compliant with dosing re End: 07-Nov-2017 10:15 gimen. Patient sleeps 6 hours per night. Impact of disease: emotional impact-mild. Nutrition: balanced diet and supplemental vitamins. The medical issues the patient is following up for include other (mono,fatigue).Encounter Diagnosis: BMI 31.0-31.9,adult, Current nonsmoker (Renamed from Current non-smoker), Fatigue, Viral syndrome, Constipation, chronic, Abnormal cortisol level, SOB (shortness of breath), Cough (786.2) [facility] Order On: 30-Oct-2017 8:36 Encounter Diagnosis: Abnormal cortisol level, Myalgia End: 30-Oct-2017 8:42 [facility] Order On: 23-Oct-2017 13:46 Encounter Diagnosis: Fatigue End: 23-Oct-2017 14:12 [facility] Visit On: 21-Oct-2017 13:22 Encounter Reason: Follow up acute care visit - The patient does not feel well and has decreased energy level. Patient has been compliant with instructions. Current medication use: no side effects and compliant with dosin End: 21-Oct-2017 13:52 g regimen. Patient sleeps 7 hours per night. Impact of disease: emotional impact- mild. Nutrition: balanced diet and supplemental vitamins. The medical issues the patient is following up for include URI.Encounter Diagnosis: BMI 32.0-32.9,adult, Current nonsmoker (Renamed from Current non-smoker), Cough (786.2), Neck stiffness, Arthralgia, unspecified joint, Fatigue, SOB (shortness of breath) [facility] Visit On: 02-Oct-2017 14:14 Encounter Diagnosis: BMI 32.0-32.9,adult, Current nonsmoker (Renamed from Current non-smoker), Myalgia, Neck stiffness, Acute intractable headache, unspecified headache type, Arthralgia, unspecified joint, Cough (786.2) End: 02-Oct-2017 15:14 [facility] Visit On: 04-Aug-2017 13:01 Encounter Reason: Follow up tests - Date: (07/30/17)., [ADDITIONAL REASON] Follow up for chronic medical issues - The patient feels well with minor complai End: 05-Aug-2017 7:33 nts, has good energy level and is sleeping well. Patient has been compliant with instructions. Current medication use: no side effects and compliant with dosing regimen. Patient sleeps 8 hours per night . Nutrition: balanced diet and supplemental vitamins. The medical issues the patient is following up for include All identified problems below, blood sugar issues, high blood pressure and high cholesterol. weight :. 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), Prediabetes, Postmenopausal, Renal insufficiency, Homozygous MTHFR mutation C677T, Migraine, Abnormal thyroid blood test, Abnormality of esophagus, Malignant melanoma, Personal history of breast cancer, Allergic to IV contrast, BMI 31.0-31.9,adult, Esophageal stricture, Chest mass, Bilateral hearing loss, unspecified hearing loss type, Hypercholesteremia, Degeneration of intervertebral disc of thoracic region, Elevated serum homocysteine level, Flu-like symptoms, Encounter for routine adult medical exam with abnormal findings, Chest pain [facility] Visit On: 16-Jun-2017 9:27 Encounter Reason: Follow up acute care visit - The patient feeling better since last seen and improving. Patient has been compliant with instructions. Current medication use: no side effects, compliant with dosing regime End: 16-Jun-2017 11:13 n and considered effective by patient. Patient sleeps 7 hours per night. Impact of disease: emotional impact-mild. Nutrition: balanced diet and supplemental vitamins. The medical issues the patient is following up for include other (Influenza A). Encounter Diagnosis: BMI 31.0-31.9,adult, Current nonsmoker (Renamed from Current non-smoker), Cough (786.2) [facility] Order On: 09-Jun-2017 16:53 Encounter Diagnosis: Flu-like symptoms End: 09-Jun-2017 16:59 [facility] Visit On: 25-Mar-2017 13:25 Encounter Reason: Physical female exam - General health: feels well with no complaints, has good energy level and is sleeping well. The patient's appetite is normal. Nutrition: normal/adequate. Exercises 3 days per week. End: 31-Mar-2017 11:14 Sleeps on average 7 hours per night. Normal bowel and bladder habits. There are no current emotional problems. screening, colonoscopy (02/2016), screening, mammography (double mastectomy), screening, P ap smear (none over 70) and screening, visual acuity (Dr. 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), Buttock pain, Abnormality of esophagus, Elevated serum homocysteine level, Degeneration of intervertebral disc of thoracic region, Esophageal stricture, Right knee pain, Chest pain, Screening for osteoporosis, BMI 27.0-27.9,adult, Allergic to IV contrast, BMI 25.0-25.9,adult, Bilateral hearing loss, unspecified hearing loss type [facility] Visit On: 11-Mar-2017 11:41 Encounter Reason: Injections - The medication the patient is here to receive is other (2 cc marcaine 1 cc kenalog right knee).Encounter Diagnosis: Right knee pain End: 13-Mar-2017 12:55 [facility] Order On: 11-Mar-2017 9:09 Encounter Diagnosis: Elevated serum homocysteine level, Renal insufficiency End: 11-Mar-2017 9:13 [facility] Visit On: 06-Mar-2017 8:18 Encounter Diagnosis: Left knee pain End: 06-Mar-2017 8:45 [facility] Visit On: 07-Feb-2017 14:06 Encounter Reason: Injections - The medication the patient is here to receive is other (quad flu).Encounter Diagnosis: Need for prophylactic vaccination and inoculation against influenza (Renamed from Need for immunization against influenza) End: 10-Feb-2017 19:32 [facility] Visit On: 31-Oct-2016 14:04 Encounter Reason: Follow up for chronic medical issues - The patient feels well with minor complaints and has good energy level. Patient has been compliant with instructions. Current medication use: no side effects, comp End: 31-Oct-2016 14:38 liant with dosing regimen and considered effective by patient. Patient sleeps 7 hours per night. Impact of disease: emotional impact-mild. Nutrition: balanced diet and supplemental vitamins. The medical issues the patient is following up for include blood sugar issues, cardiac issues, high cholesterol, kidney problems and other (hair loss, esophageal abnormality, hx. 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), Abnormality of esophagus, Homozygous MTHFR mutation C677T, Elevated serum homocysteine level [facility] Visit On: 13-Feb-2016 13:12 Encounter Diagnosis: BMI 27.0-27.9,adult, Current nonsmoker (Renamed from Current non-smoker), Annual Medicare Physical (Renamed from Medicare annual wellness visit, subsequent), Forearm joint pain, left, Abnormality of esophagus, End: 19-Feb-2016 8:10 Degeneration of intervertebral disc of thoracic region, Allergic to IV contrast, Fatigue, Mitral regurgitation, Well Woman--benechos, Malignant melanoma, Hypercholesteremia, Impaired Fasting Glucose (Renamed from Elevated fasting blood sugar), Nonscarring hair loss, unspecified, Chest pain, Personal history of breast cancer, 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), Esophageal stricture, Screening for osteoporosis, Migraine, Prediabetes, Renal insufficiency, Abnormal thyroid blood test, Postmenopausal, Chest mass [facility] Visit On: 30-Jan-2016 12:05 Encounter Diagnosis: Need for prophylactic vaccination and inoculation against influenza (V04.81) End: 30-Jan-2016 17:54 [facility] Visit On: 25-Jan-2016 13:57 Encounter Diagnosis: Chest pain, Current nonsmoker (Renamed from Current non-smoker) End: 25-Jan-2016 14:57 [facility] Visit On: 30-Oct-2015 14:20 Encounter Diagnosis: Forearm joint pain, left, Current nonsmoker (Renamed from Current non-smoker) End: 31-Oct-2015 9:44 [facility] Visit On: 08-Aug-2015 11:28 Encounter Reason: Annual Medicare Exam - The patient had reviewed and updated the family history, medication/s, past medical history and social history. Yes the patient did have a mini mental status exam done today. The End: 08-Aug-2015 12:49 activities of daily living the patient needs help with are none. The patient has driven in past 6 months and put area rugs through house (fall handout given ), but the patient has not had fecal incontin ence, had urinary incontinence, missed or ran out of medications to soon, fallen in the past 6 months, gotten lost, has a medalert necklace or bracelet or put handrails in bathroom. The patient has comp leted the following preventative measures: PAP smear (over age 70 ), mammography (double masectomy ) and colonoscopy (2013). The patient does have durable power of cotton bag sewer and living will. The patient has noticed nothing from the geriatic depression scale. Other providers contributing to the patient's care are body worker (Dr. Martin ), gastrologist (Dr. Castanon ) and other: (Opthalm: Dr. Lo ). Note for Annual Medicare Exam: patient here for medical follow up as well as medicare physical. went through all the mdicare questions withthe patient and reveiwed alltheir medical problems with NO taking dilitizem for this and help. had diliation. have to split pill and should not. going to [employer] and exercise. had migtraine after URI and plane think barometric pressure. saw alonzo because vision off thought aura better now Encounter Diagnosis: Annual Medicare Physical (Renamed from Medicare annual wellness visit, subsequent), Current nonsmoker (Renamed from Current non-smoker), Screening for osteoporosis, BMI 27.0-27.9,adult, Dysphagia, Impaired Fasting Glucose (Renamed from Elevated fasting blood sugar), Personal history of breast cancer, Nonscarring hair loss, unspecified, Mitral regurgitation, Hypercholesteremia, Fatigue, Malignant melanoma, Migraine, Well Woman--benechos, Abnormality of esophagus, Allergic to IV contrast, Degeneration of intervertebral disc of thoracic region, Esophageal stricture, 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 Patient has been compliant with instructions. Current medication use: experiencing side effects (dicyclomine ) and compliant with dosing reg End: 13-Feb-2015 11:43 imen. The patient feels well with no complaints, has good energy level and is sleeping well. Patient sleeps 7 hours per night. Impact of disease: emotional impact- mild. Nutrition: balanced diet and supplemental vitamins.Encounter Diagnosis: Dysphagia , Hypercholesteremia, Contrast media allergy (V15.08), Migraine (346.80), Well Woman--benechos, Diseases of Esophagus, Unspecified (530.9), Degenerative Disc Disease (722.6), Impaired Fasting Glucose (Renamed from Elevated fasting blood sugar), Alopecia, unspecified (704.00), Mitral regurgitation (424.0), Melanoma,unspecified (172.9), HX, PERSONAL, MALIGNANCY, BREAST (V10.3), Fatigue, Need for prophylactic vaccination and inoculation against influenza (V04.81) [facility] Phone Encounter On: 07-Feb-2015 9:35 Encounter Diagnosis: Hypercholesteremia End: 07-Feb-2015 9:36 [facility] Office Visit On: 25-Oct-2014 15:19 Encounter Reason: Cough - Symptoms include cough. The cough is described as barky and brassy. Cough onset was gradual 2 week(s) ago. Symptoms are described as worsening. Symptoms are relieved by nonsteroidal anti-inflamm End: 25-Oct-2014 15:41 atory drugs. Note for Cough: yellow ucous allergic to alot atb. been over week and not getting betterEncounter Diagnosis: Acute pansinusitis [facility] Office Visit On: 07-Oct-2014 11:07 Encounter Reason: Follow up for chronic medical issues - The patient feels well with no complaints, has good energy level and is sleeping well. Patient has been compliant with instructions. Current medication use: no madison End: 07-Oct-2014 11:41 e effects, compliant with dosing regimen and considered effective by patient. Patient sleeps 7 hours per night. Impact of disease: emotional impact-mild. Nutrition: balanced diet and supplemental vitami ns. The medical issues the patient is following up for include blood sugar issues, cardiac issues, gastric reflux, high cholesterol and other (alopecia, DDD, hx. breast cancer ).Encounter Diagnosis: Impaired Fasting Glucose (Renamed from Elevated fasting blood sugar), HX, PERSONAL, MALIGNANCY, BREAST (V10.3), GERD (530.81), Contrast media allergy (V15.08), Migraine (346.80), Alopecia, unspecified (704.00), Mitral regurgitation (424.0), Fatigue, Left knee pain, Melanoma,unspecified (172.9), Diseases of Esophagus, Unspecified (530.9), Degenerative Disc Disease (722.6), Well Woman--benechos, Hypercholesteremia (272.0) [facility] Phone Encounter On: 11-Jul-2014 14:54 [facility] End: 11-Jul-2014 14:58 Office Visit On: 08-Jul-2014 10:59 Encounter Reason: Follow up tests - Date: (06/30/14 blood work)., [ADDITIONAL REASON] Follow up for chronic medical issues - The patient feels well with minor complai End: 08-Jul-2014 11:44 nts (knee issues), has good energy level and is sleeping well. Patient has been compliant with instructions. Current medication use: no side effects and compliant with dosing regimen. Patient sleeps 7 h ours per night.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 Patient has been compliant with instructions. Current medication use: no s End: 27-May-2007 11:23 jessenia effects. Patient sleeps 7 hours per night. Nutrition: inappropriate diet and no supplemental vitamins & iron. The medical issues the patient is following up for include gastric reflux ,high chol esterol and other (allergy). weight :. Note for Follow up for chronic medical issues: pain in left ear last few months. sinus infection in past treat with atb help, [ADDITIONAL REASON] Follow up, Laboratory Test Results - Date: (05.01.07 on face sheet). 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 Patient has been compliant with instructions. Current medication use: no side effects. Patient sleeps 5 hours per night. End: 30-Sep-2006 16:25 Nutrition: balanced diet. The medical issues the patient is following up for include All identified problems below ,gastric reflux ,high cholesterol and other (Breast Ca, Melanoma). Encounter Diagnosis: Hypercholesteremia (272.0), GERD (530.81), Melanoma,unspecified (172.9), Breast Cancer (174.9), Migraine (346.80), Mitral regurgitation (424.0), Alopecia, unspecified (704.00), Need for prophylactic vaccination and inoculation against influenza (V04.81), Diseases of Esophagus, Unspecified (530.9), [facility]--[facility], Low back pain (724.2), Allergic rhinitis (477.9) [facility] Office Visit On: 03-Apr-2006 14:58 Encounter Reason: Follow up for chronic medical issues - The patient feels well with no complaints ,has good energy level and is sleeping well. Patient has been compliant with instructions. Current medication use: compli End: 03-Apr-2006 15:27 ant with dosing regimen. Patient sleeps 6 hours per night. Nutrition: poor nutrition. The medical issues the patient is following up for include gastric reflux and other. 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 talkback host when lay on, still a knot, years had, no worseEncounter Diagnosis: GERD (530.81), Melanoma,unspecified (172.9), Breast Cancer (174.9), Migraine (346.80), Alopecia, unspecified (704.00), Need for prophylactic vaccination and inoculation against influenza (V04.81), Mitral regurgitation (424.0), Diseases of Esophagus, Unspecified (530.9), Hypercholesteremia (272.0), [facility]--[facility], Low back pain (724.2) [facility] Historical Summary On: 01-Apr-2006 12:55 [facility] End: 01-Apr-2006 13:02 Historical Summary On: 24-Mar-2006 17:57 [facility] End: 24-Mar-2006 17:59 Nurse Visit On: 17-Mar-2006 11:16 Encounter Diagnosis: Need for prophylactic vaccination and inoculation against influenza (V04.81) End: 17-Mar-2006 11:16 [facility] Error Encounter On: 07-Mar-2006 14:13 Encounter Diagnosis: Unspecified Diagnosis End: 07-Mar-2006 14:18 [facility]ayers [facility]; a guarantor
--- OUTSIDE RECORDS SUMMARY | 2018-07-28 01:19 | XMS RPT_ITS | Continuity of Care Document ---
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 Wdjmew6004 [facility] [id number] COUNT (29426) Result 1 MUG (Normal) Comments: Mixed urogenital flora25,000-50,000 colony forming units per mL Urine Final report (Normal) Culture,Comprehensive 28-Hmd-149016:40 DARLYN CULTURE-BLOOD (79805) Comments: PATIENT NOT FASTINGPERFORMED BY: [employer]eta [facility] [id number] Information: RIGHT ARM DRAWN@215PM SRC:WB Result 1 NGFD (Normal) Comments: No aerobic or anaerobic growth in five days. Blood Culture, Routine Final report (Normal) 90-Drs-570673:03 ANTISTREPTOLYSIN O-TITER Comments: PATIENT NOT FASTINGPERFORMED BY: [employer] [facility]-SullivanJaneevaAtrium Health [facility] [id number] BY: AorTx[address] [id number] (89576) Antistreptolysin O Ab 52.4 {IU/mL} (Normal) Range: 0.0-200.0 76-Foe-069871:03 CCP ANTIBODY (56123) Comments: PATIENT NOT FASTINGPERFORMED BY: [employer] Hqximi0003 [facility] [id number] BY: AorTx[address] [id number] CCP Antibodies IgG/IgA 11 {units} (Normal) Range: 0-19 Comments: Negative <20 Weak positive 20 - 39 Moderate positive 40 - 59 Strong positive >59 10-Zfh-738715:03 SED RATE ERYTHROCYTE Comments: PATIENT NOT FASTINGPERFORMED BY: [employer] [facility] [id number] BY: [address] [id number] (12006) Sedimentation Rate-Westergren 19 mm/h (Normal) Range: 0-40 18-Mcz-985133:03 C-REACTIVE PROTEIN Comments: PATIENT NOT FASTINGPERFORMED BY: [place] 9685070 [facility] [id number] BY: [address] [id number] (12406) C-Reactive Protein, Quant 6.4 mg/L (Abnormal) Range: 0.0-4.9 36-Icy-074650:03 TSH (46061) Comments: PATIENT NOT FASTINGPERFORMED BY: LabSteven Ville 0195170 [facility] [id number] BY: [address] [id number] TSH 2.970 {uIU/mL} (Normal) Range: 0.450-4.500 08-Lgh-654365:03 RHEUMATOID FACTOR-QUANT Comments: PATIENT NOT FASTINGPERFORMED BY: LabSteven [place] 0195170 [facility] [id number] BY: [address] [id number] (65111) RA Latex Turbid. <10.0 {IU/mL} (Normal) Range: 0.0-13.9 38-Jnz-906762:03 METABOLIC PANEL, Comments: PATIENT NOT FASTINGPERFORMED BY: LabSteven [place] 0195170 [facility] [id number] BY: [address] [id number] COMPREHENSIVE (84970) ALT (SGPT) 15 [iU]/L (Normal) Range: 0-32 [...] 0 days - 30 days 16 - 16 - 31 days - 1 year 15 - 25 15 - 25 2 years - 5 years 17 - 26 17 - 26 6 y ears - 12 years 19 - 19 - >12 years - 20 - Chloride 101 mmol/L (Normal) Range: 96-106 Potassium 4.6 mmol/L (Normal) Range: 3.5-5.2 Sodium 140 mmol/L (Normal) Range: 134-144 BUN/Creatinine Ratio 18 (Normal) Range: 12-28 eGFR If Africn Am 59 mL/min/1.73 (Abnormal) eGFR If NonAfricn Am 51 mL/min/1.73 (Abnormal) Creatinine 1.05 mg/dL (Abnormal) Range: 0.57-1.00 BUN 19 mg/dL (Normal) Range: 8-27 Glucose 97 mg/dL (Normal) Range: 65-99 86-Lrd-256348:03 CBC with auto diff Comments: PATIENT NOT FASTINGPERFORMED BY: CB [facility] [address] [id number] BY: BN [facility] [address] [id number] (15826) Immature Grans (Abs) 0.0 {x10E3/uL} (Normal) Range: [...] 3.77-5.28 WBC 6.7 {x10E3/uL} (Normal) Range: 3.4-10.8 81-Awd-207514:03 CAMILLA (ANTINUCLEAR ANTIBODY) Comments: PATIENT NOT FASTINGPERFORMED BY: [employer] [facility] [id number] BY: AorTx[address] [id number] (58749) CAMILLA Direct Negative (Normal) 23-Non-700920:03 Lyme Disease Antibody W/ Comments: PATIENT NOT FASTINGPERFORMED BY: [employer] [id number] BY: [employer] [id number] Reflex (10336) Lyme IgG/IgM Ab <0.91 {ISR} (Normal) Range: 0.00-0.90 Comments: Negative <0.91 Equivocal 0.91 - 1.09 Positive >1.09 9-Vvz-004961:59 Rapid Flu (89884 x 2) Influenza A Ag positive A (Normal) 58-Sey-53101:10 HGB A1C (03062) Comments: PATIENT WAS FASTINGPERFORMED BY: [employer] Avejzawjqo0044 [facility] [id number] BY: [facility] Igamrw1933 [facility] [id number] Hemoglobin A1c 6.3 % (Abnormal) Range: 4.8-5.6 Comments: . Pre-diabetes: 5.7 - 6.4 Diabetes: >6.4 Glycemic control for adults with diabetes: <7.0 96-Elt-84481:10 LIPOPROTEIN, BLD, BY NMR Comments: PATIENT WAS FASTINGPERFORMED BY: [employer] [facility] Knxrabjfjg7277 [facility] [id number] BY: [facility] Ljqjuk6641 [facility] [id number]; fu 4-2-18 DB (82915) LP-IR Score 80 (Abnormal) Comments: INSULIN RESISTANCE MARKER <--Insulin Sensitive Insulin Resistant--> Percentile in Reference PopulationInsulin Resistance ScoreLP-IR Score Low 25th 50th 75th High <27 27 45 63 >63LP-IR Score is inaccurate if patient is non-fasting. .The LP-IR score is a laboratory developed i [facility] that has beenassociated with insulin [...] were developed and their performance characteristicsdetermined by [employer]. These assays have not been cleared by [...] 1600 - 2000 Very High > 2000 69-Nuf-65933:10 METABOLIC PANEL, Comments: PATIENT WAS FASTINGPERFORMED BY: [facility] [address] [id number] BY: [facility] Ziendw8485 [facility] [id number] [facility] (22509) ALT (SGPT) 14 [iU]/L (Normal) Range: 0-32 [...] 8-27 Glucose 135 mg/dL (Abnormal) Range: 65-99 7-Yoe-771948:37 MICROALBUMIN: CREATININE RATIO Comments: PATIENT NOT FASTINGPERFORMED BY: [employer] Gsxbdg3744 [facility] [id number] (61115) AND (61124) Microalb/Creat Ratio <2.3 {mg/g_creat} (Normal) Range: 0.0-30.0 Microalbumin, Urine <3.0 ug/mL (Normal) Creatinine, Urine 130.4 mg/dL (Normal) :37 URINALYSIS (51002) Comments: PATIENT NOT FASTINGPERFORMED BY: [employer] Osksxu6377 [facility] [id number] Information: NURSE DRAW Microscopic Examination MICNIP (Normal) Comments: Microscopic not indicated and not performed. Nitrite, Urine Negative (Normal) Urobilinogen,Semi-Qn 0.2 mg/dL (Normal) Range: 0.2-1.0 Bilirubin Negative (Normal) Occult Blood Negative (Normal) Ketones Negative (Normal) Glucose Negative (Normal) Protein Negative (Normal) WBC Esterase Negative (Normal) Appearance Clear (Normal) Urine-Color Yellow (Normal) pH 6.5 (Normal) Range: 5.0-7.5 Specific [place] 1.018 (Normal) Range: 1.005-1.030 :37 Homocysteine, Plasma (44792) Comments: PATIENT NOT FASTINGPERFORMED BY: [employer] Dznzqs7294 [facility] [id number] Homocyst(e)ine, Plasma 13.2 umol/L (Normal) Range: 0.0-15.0 19-Jml-462776:10 Basic Metabolic Profile (BMP) Comments: [facility] Em[address] [place], [address] GAP 6 (Normal) Range: 5-15 CO2 28.0 [...] 126 mg/dLsuggests DIABETES MELLITUS per A.D.A. criteria. 6-Gge-625371:39 CBC with auto diff Comments: PATIENT NOT FASTINGPERFORMED BY: LabCoBayonne Medical CenterQpnhyv5205 [facility] [id number] Information: NURSE DRAW (64592) Immature Grans (Abs) 0.0 {x10E3/uL} (Normal) Range: [...] 3.77-5.28 WBC 5.5 {x10E3/uL} (Normal) Range: 3.4-10.8 2-Qja-773629:39 METABOLIC PANEL, COMPREHENSIVE Comments: PATIENT NOT FASTINGPERFORMED BY: [facility] Dhtumt5899 [facility] [id number]; fu db 11-21 (48959) ALT (SGPT) 12 [iU]/L (Normal) Range: 0-32 [...] Glucose, Serum 112 mg/dL (Abnormal) Range: 65-99 88-Oyt-582141:12 HgA1C , Office (93467) HgA1C , Office 6.1 % (Normal) Range: 4.6 - 7.1 02-Duk-124353:53 LIPOPROTEIN, BLD, BY NMR Comments: PATIENT WAS FASTINGPERFORMED BY: BN [facility] [address] [id number] BY: CB [facility] Ryitma5060 [facility] [id number] Information: HARD DRAW; fu 10-31-16 (47255) LP-IR Score 76 (Abnormal) Comments: INSULIN RESISTANCE MARKER <--Insulin Sensitive Insulin Resistant--> Percentile in Reference PopulationInsulin Resistance ScoreLP-IR Score Low 25th 50th 75th High <27 27 45 63 >63LP-IR Score is inaccurate if patient is non-fasting. .The LP-IR score is a laboratory developed i [facility] that has beenassociated with insulin [...] were developed and their performance characteristicsdetermined by [employer]. These assays have not been cleared by [...] 1600 - 2000 Very High > 2000 62-Nwb-883040:53 Homocysteine, Plasma Comments: PATIENT WAS FASTINGPERFORMED BY: BN [facility] Jhfbqdemxm4158 [facility] [id number] BY: CB [facility] Zwqwvg8499 [facility] [id number] (36984) Homocyst(e)ine, Plasma 13.7 umol/L (Normal) Range: 0.0-15.0 14-Apn-714313:57 T3, FREE (TRIDOTHYRONINE) (87214) Comments: PATIENT NOT FASTINGPERFORMED BY: [employer] AmericaSchool[facility] Hospital6370 [facility] [id number] Triiodothyronine,Free,Serum 2.8 pg/mL (Normal) Range: 2.0-4.4 :57 T4, FREE (THYROXINE) (38699) Comments: PATIENT NOT FASTINGPERFORMED BY: [employer] [facility]School[facility]6370 [facility] [id number] T4,Free(Direct) 1.06 ng/dL (Normal) Range: 0.82-1.77 :57 Anti-TPO Antibody (10626) Comments: PATIENT NOT FASTINGPERFORMED BY: [employer] [facility] [place] [address] [id number] Thyroid Peroxidase (TPO) Ab 14 {IU/mL} (Normal) Range: 0-34 9-Mob-785183:45 HgA1C , Office (24105) HgA1C , Office 6.0 % (Normal) Range: 4.6 - 7.1 :11 LIPID PANEL (54276) Comments: PATIENT WAS FASTINGPERFORMED BY: [employer] [facility] [place] [address] [id number]; apt. 4-5 LDL/HDL Ratio 3.8 {ratio_units} (Abnormal) [...] METABOLIC PANEL, Comments: PATIENT WAS FASTINGPERFORMED BY: LabSchoolcraft [facility] Hospital6370 [facility] [id number] Information: [id number] COMPREHENSIVE (06557) ALT (SGPT) 12 [iU]/L (Normal) Range: 0-32 [...] METABOLIC PANEL, Comments: PATIENT WAS FASTINGPERFORMED BY: KYLE LabCoBayonne Medical CenterLflsss6803 [facility] [id number] Information: [id number] COMPREHENSIVE (92816) ALT (SGPT) 11 [iU]/L (Normal) Range: 0-32 [...] mg/dL (Normal) Range: 65-99 07-Feb-20159:03 LIPID PANEL (39827) Comments: PATIENT WAS FASTINGPERFORMED BY: LabCoBayonne Medical CenterMldqiw6552 [facility] [id number]; apt. 02-13-15 LDL/HDL Ratio 3.9 {ratio_units} (Abnormal) [...] Cholesterol, Total 285 mg/dL (Abnormal) Range: 100-199 1-Lmr-974535:10 HgA1C , Office (95926) HgA1C , Office 6.2 % (Normal) Range: 4.6 - 7.1 :10 Blood Glucose , Office (06629) Blood Glucose , Office 120 (Normal) :35 Comp. Metabolic Panel (14) Comments: PATIENT WAS FASTINGPERFORMED BY: [facility] Fidjuh4118 [facility] [id number] Information: [id number]; patient has fu 6-09-16 nothing urgent will [...] With LDL/HDL Comments: PATIENT WAS FASTINGPERFORMED BY: AorTxBayonne Medical CenterHsuzwf2596 [facility] [id number] Ratio LDL/HDL Ratio 4.1 {ratio_units} (Abnormal) Range: [...] METABOLIC PANEL, Comments: PATIENT WAS FASTINGPERFORMED BY: [employer] Njqqfv4493 [facility] [id number] Information: [id number] COMPREHENSIVE (12343) ALT (SGPT) 15 [iU]/L (Normal) Range: 0-32 [...] Glucose, Serum 101 mg/dL (Abnormal) Range: 65-99 29-Ura-865431:37 LIPID PANEL (09443) Comments: PATIENT WAS FASTINGPERFORMED BY: [employer]6370 ClearMesh NetworksAtrium Health University City [id number] LDL/HDL Ratio 3.8 {ratio_units} (Abnormal) Range: 0.0-3.2 [...] degree relatives should be collected. J Clin Xmrggei7819;5:133-140 LDL Cholesterol Calc 195 mg/dL (Abnormal) Range: 0-99 VLDL Cholesterol Gianfranco 58 mg/dL (Abnormal) Range: 5-40 HDL Cholesterol 52 mg/dL (Normal) Comments: According to ATP-III Guidelines, HDL-C >59 mg/dL is considered anegative risk factor for CHD. Triglycerides 291 mg/dL (Abnormal) Range: 0-149 Cholesterol, Total 305 mg/dL (Abnormal) Range: 100-199 0-Xdp-622442:19 HgA1C , Office (19218) HgA1C , Office 6.0 % (Normal) Range: 4.6 - 7.1 :37 CBC WITH MANUAL DIFF Comments: PATIENT WAS FASTINGPERFORMED BY: [employer] [facility] Doswsb3394 [facility]-SullivanJaneevaAtrium Health [facility] City [id number] Information: [id number] (69171) Immature Grans (Abs) 0.0 {x10E3/uL} (Normal) Range: [...] Panel, Comprehensive Comments: PATIENT WAS FASTINGPERFORMED BY: LabCoBayonne Medical CenterOvnvwk8541 [facility] [id number] (75810) ALT (SGPT) 13 [iU]/L (Normal) Range: 0-32 [...] Glucose, Serum 106 mg/dL (Abnormal) Range: 65-99 :37 Lipid Panel (47592) Comments: PATIENT WAS FASTINGPERFORMED BY: LabCoBayonne Medical CenterAqbgck4293 [facility] [id number] LDL/HDL Ratio 4.3 {ratio_units} (Abnormal) Range: 0.0-3.2 [...] 319 mg/dL (Abnormal) Range: 100-199 :57 CALCIFIDIOL (56370) VIT D 25 Comments: PATIENT NOT FASTINGPERFORMED BY: [employer] [facility]School[facility] Hospital6370 [facility] [id number] Vitamin D, 25-Hydroxy 23.6 ng/mL (Abnormal) Range: 30.0-100.0 Comments: Vitamin D deficiency has been defined by the [place] ofMedicine and an Endocrine Society practice guideline as alevel of serum 25-OH vitamin D less than 20 ng/mL (1,2).The Endocrine Society went on to further define vitamin Dinsufficiency as a level between 21 and 29 ng/mL (2).1. IOM ([place] of Medicine). 2010. Dietary reference intakes for calcium and D. [place]: The National Academies Press.2. [place] MF, Pamela HOLDEN, Jaron SUAREZ, et al. Evaluation, treatment, and prevention of vitamin D deficiency: an Endocrine Society clinical practice guideline. JCEM. 2010; 96(7):1911-30. :57 TSH (36519) Comments: PATIENT NOT FASTINGPERFORMED BY: LabCoBayonne Medical CenterLtwvmz7290 [facility] [id number] TSH 3.010 {uIU/mL} (Normal) Range: 0.450-4.500 :57 METABOLIC PANEL, COMPREHENSIVE Comments: PATIENT NOT FASTINGPERFORMED BY: LabSchoolcraft Memorial Hospital6370 [facility] [id number] (86044) ALT (SGPT) 16 [iU]/L (Normal) Range: 0-32 [...] Glucose, Serum 143 mg/dL (Abnormal) Range: 65-99 25-Vjn-56974:57 CBC WITH MANUAL DIFF Comments: PATIENT NOT FASTINGPERFORMED BY: [facility] Pcnlvb0866 [facility] [id number] Information: [id number] (03268) Immature Grans (Abs) 0.0 {x10E3/uL} (Normal) Range: [...] 3.77-5.28 WBC 5.3 {x10E3/uL} (Normal) Range: 3.4-10.8 43-Kfn-81196:22 Urinalysis, Office (09547) UA - LEUKOCYTE ESTERASE Negative (Normal) UA - NITRITE Negative (Normal) URINE UROBILINGN LOUISE TIMED 2 mg/dL (Normal) UA - PROTEIN Negative mg/dL (Normal) UA - PH 5.0 (Normal) UA - BLOOD Hemolyzed Trace (Normal) UA - SPECIFIC GRAVITY 1.030 (Abnormal) UA - KETONES Negative mg/dL (Normal) UA - BILIRUBIN Negative (Normal) UA - GLUCOSE Negative (Normal) 8-Dcd-487746:22 CMP GAP 9 (Normal) Range: 5-15 CL [...] 7-18 GLU 94 mg/dL (Normal) Range: 70-110 4-Qch-148174:22 LIPID LDL 150 mg/dL (Abnormal) Range: 0-130 [...] CHOL 247 mg/dL (Abnormal) Comments: <200 mg/dL Bshtqvhie926-328 mg/dL Borderline>240 mg/dL High Risk :15 CRE [...] is stable compared to the prior study ofTan2011 and December 15 9. No abnormal enhancement isdemonstrated on delayed imaging. [...] oliver D.O.November 10, 2012 at 11:10:28 AM [id number] Signed DS/DS If you are the referring physician and would like to consult with theradiologist who provided this interpretation, please contact Diaz Chavez D.O. at [phone]. If this radiologist is unavailable, you will bedirected to another radiologist to assist. If you are a patient with a question regarding this report, pleasecont actyour referring physician directly. Professional Interpretation Provided By: [employer], Phone , These documents contain legally protected [...] or destructionofthese documents. Dictated on 11/10/12 1110 Marce Cespedes DOribed on 11/10/12 1125 by ITS IMPORTSign by Eugenio BUCKNERVitaly on 11/10/12 1126 Sign by: Vitaly Becker DO 4-Joh-668401:40 LIPID LDL <TEST NOT PERFORMED> mg/dL (Normal) [...] Very High > or = 500 mg/dL 5-Ahn-667919:40 LIVER ALT 20 U/L (Normal) Range: 12-78 BID 0.09 mg/dL (Normal) Range: 0.00-0.30 BIT 0.40 mg/dL (Normal) Range: 0.00-1.00 ALK 85 U/L (Normal) Range: 50-136 ALB 4.0 g/dL (Normal) Range: 3.4-5.0 AST 22 U/L (Normal) Range: 15-37 TPROT 8.2 g/dL (Normal) Range: 6.4-8.2 3-Ocu-237514:50 CHEST, PA AND LATERAL Radiology Report See [...] Gilliland D.O.April 07, 2012 at 8:03:03 PM [id number] Signed IF/IF If you are the referring physician and would like to consult [facility] theradiologist who provided this interpretation, please contact Сергей Gilliland D.O.at [phone]. If this radiologist is unavailable, you will be directedto another radiologist to assist. If you are a pa tient with a question regarding this report, pleasecontactyour referring physician directly. Professional Interpretation Provided By: [employer], Phone , These documents c ontain legally [...] on 04/07/122013 Sign by: Сергей Gilliland DO 0-Zde-834883:21 CKMB CPKMB 0.6 ng/mL (Normal) Range: 0.0-5.0 Comments: CK-MB and RI Interpretation MB Relative Index Non-AMI <or= 5 NA Indeterminate > 5 <or= 4 AMI > 5 > 4 CPK 90 U/L (Normal) Range: 26-192 2-Xot-837722:21 DDIMQ 1.24 {FEUug/mL} Range: 0.22-0.48 (Abnormal) Comments: D-Dimer ELEVATED: Additional studies and clinicalassessments are indicated to conclude diagnosis of:Deep Vein Thrombosis (DVT) or Pulmonary Embolism (PE)CRITICAL VALUE REPEATED AND VERIFIED. CALLED TO Chip SOLIZ RN04/07/12 1324 TRANG ALCANTARRESULTS READ BACK BY SAME . 2-Fwy-840786:21 TROP < 0.02 ng/mL (Normal) Comments: TROPONIN-I EXPECTED VALUES <0.05 NEGATIVE 0.06 - 0.59 AT RISK OF PA > OR = 0.60 SUGGEST PA 07-Apr-20120:00 CHEST WITH CONTRAST Radiology Report See [...] Mcfadden M.D.April 07, 2012 at 4:18:06 PM [id number] onically Signed GP/GP If you are the referring physician and would like to consult with theradiologist who provided this interpretation, please contact Ana Rosa Almonte at [phone]. If this r adiologist is unavailable, youwill be directed to another radiologist to assist. If you are a patient with a question regarding this report, pleasecontactyour referring physician directly. Professional Interpretation Provided By: [employer], Phone , These documents contain legally protected [...] destructionofthese documents. Dictated on 04/07/12 1550 by Karl Mcfadden MDranscribed on 04/07/121621 by ITS IMPORTSign by Lesa FLORES,Edgar on 04/07/121622 Sign by: Edgar Mcfadden MD :26 CBCMD RBCM NORM C+C {NORMAL} (Normal) PE [...] CHOL 275 mg/dL (Abnormal) Comments: <200 mg/dL Vuhqcprsz884-347 mg/dL Borderline>240 mg/dL High Risk TRIG 187 mg/dL (Normal) Comments: Serum Triglycerides Reference IntervalNormal <150 mg/dLBorderline high 150 - 199 mg/dLHigh 200 - 499 mg/ dLVery High > or = 500 mg/dL 99-Cgd-663870:07 HAND,MIN 3 VIEWS (MT) Radiology Report See Note (Normal) Comments: Exam Number: [id number] CLINICAL:NO RECENT INJURYPAIN MID 2ND AND 3RD [...] T PROT 7.5 g/dL (Normal) Range: 6.4-8.2 41-Tks-512255:55 PELVIS WITH IV CONTRAST Radiology Report See Note (Normal) Comments: Exam Number: [id number] CLINICAL:Abdominal pain, history of breast cancer CT [...] adrenal adenoma. Reported By: ZAY POSADAS M.D. 75-Bcw-008389:54 ABDOMEN WITH IV CONTRAST Radiology Report See Note (Normal) Comments: Exam Number: [id number] CLINICAL:Abdominal pain, history of breast cancer CT [...] 11.6-14.6 WBC 4.7 K/mm3 (Normal) Range: 4.4-11.0 09-Dqr-300474:29 Urinalysis, Office (95441) UA - BILIRUBIN Negative (Normal) UA - [...] mg/dL VLDL 47 mg/dL (Abnormal) Range: 5-40 73-Nyf-21031:10 LIVER ALB 3.7 g/dL (Normal) Range: 3.4-5.0 ALK P 90 U/L (Normal) Range: 50-136 ALT 17 U/L (Abnormal) Range: 30-65 AST 16 U/L (Normal) Range: 15-37 D BILI 0.07 mg/dL (Normal) Range: 0.00-0.30 T BILI 0.40 mg/dL (Normal) Range: 0.00-1.00 T PROT 8.0 g/dL (Normal) Range: 6.4-8.2 3-Qxn-393595:00 Urinalysis, Office (62956) UA - BILIRUBIN Negative (Normal) UA - [...] for patient's is the eGFRmultiplied by 1.212. [facility] Laboratory uses the abbreviated Modification of Diet [...] Disease W/O Kidney Disease>/= 90 Stage One Obxihz43 - 89 Stage Two Suspect Decreased GFR30 [...] T PROT 8.1 g/dL (Normal) Range: 6.4-8.2 46-Ptt-07904:20 LIPID CHOL 314 mg/dL (Abnormal) Comments: <200 [...] mg/dL VLDL 40 mg/dL (Normal) Range: 5-40 28-Zbh-89735:20 METHYLM 865209 336 nmol/L (Normal) Range: 73-376 Comments: The reference range for methylmalonic acid has been set at+3sd above the mean for healthy blood bank donors. In theclinical assessment of patients with megaloblastic anemiasa cutoff of +3sd provides gre ater specificity in thediagnosis of the vitamin deficiency states, despite thesacrifice of some sensitivity.Performed At: [facility] [id number] 48-Gpg-19450:21 COMP METABOLIC CL 106 mmol/L (Normal) Range: [...] T PROT 7.9 g/dL (Normal) Range: 6.4-8.2 32-Cng-29046:21 LIPID CHOL 266 mg/dL (Abnormal) Comments: <200 [...] mg/dL VLDL 46 mg/dL (Abnormal) Range: 5-40 6-Xkm-947764:45 PELVIS WITH CONTRAST Radiology Report See Note (Normal) Comments: Exam Number: [id number] THREE PHASE CT OF THE ABDOMEN WITH [...] mm in length. On the previous study ofMayuary 2007, this measured at approximately the same [...] etiology. Reported By: ANN MARIE GERBER M.D. 5-Hwz-570354:44 ABDOMEN W/WO CONTRAST Radiology Report See Note (Normal) Comments: Exam Number: [id number] THREE PHASE CT OF THE ABDOMEN WITH [...] mg/dL VLDL 28 mg/dL (Normal) Range: 5-40 29-Kxj-328379:15 ABDOMEN W/WO CONTRAST Radiology Report See Note (Normal) Comments: Exam Number: [id number] CT OF THE ABDOMEN WITH AND WITHOUT [...] stability. Reported By: ANN MARIE GERBER M.D. 78-Eza-432265:14 LIPID CHOL 246 mg/dL (Abnormal) Comments: <200 [...] mg/dL VLDL 50 mg/dL (Abnormal) Range: 5-40 90-Eab-333574:14 LIVER ALB 3.9 g/dL (Normal) Range: 3.4-5.0 ALK P 84 U/L (Normal) Range: 50-136 ALT 29 [iU]/L (Abnormal) Range: 30-65 AST 19 U/L (Normal) Range: 15-37 D BILI 0.06 mg/dL (Normal) Range: 0.00-0.30 T BILI 0.36 mg/dL (Normal) Range: 0.00-1.00 T PROT 7.8 g/dL (Normal) Range: 6.4-8.2 64-Aad-039703:40 ABDOMEN W/WO CONTRAST Radiology Report See Note (Normal) Comments: Exam Number: [id number] 4-PHASE CT SCAN OF LIVER CLINICAL STATEMENTMass [...] Report See Note (Normal) Comments: Exam Number: [id number] CT CHEST WITH CONTRAST CLINICAL STATEMENTRight axillary [...] impression #2. Reported By: ELIE BECKFORD M.D. 20-Eug-76139:40 COMP METABOLIC A/G 1.0 {RATIO} (Normal) Range: [...] - Nonprescription Treatment Indication: Hypercholesteremia Planned Observations EBV Panel ([id number])Indication: Fatigue On: 39-Vnh-214776:49 Request METABOLIC PANEL, COMPREHENSIVE (43177)Indication: Hypercholesteremia On: 4-Yvh-234698:30 Request LIPID PANEL (55991)Indication: Hypercholesteremia On: 8-Zrs-218744:30 Request HgA1C , Office (92446)Indication: Impaired Fasting Glucose (Renamed from Elevated fasting blood sugar) On: 4-Kre-454014:01 Request VITAMIN D, 1, 25-DIHYDROXY (83451)Indication: Vitamin disease On: 81-Rha-725369:51 Request METABOLIC PANEL, COMPREHENSIVE (55506)Indication: Hypercholesteremia On: 07-Jul-20129:33 Request LIPID PANEL (87892)Indication: Hypercholesteremia On: :33 Request Troponin I (86776)Indication: CHEST PAIN On: 1-Zit-670666:17 Request CPK MB FRACTION (75706)Indication: CHEST PAIN On: 5-Dis-643622:17 Request CREATINE KINASE TOTAL (56540)Indication: CHEST PAIN On: 9-Goz-429334:17 Request D-Dimer (00491)Indication: CHEST PAIN On: 6-Gfl-961322:17 Request LIPID PANEL (00887)Indication: Hypercholesteremia On: 1-Tqv-395799:07 Request HEPATIC FUNCTION PANEL (60297)Indication: Hypercholesteremia On: 1-Yed-873328:07 Request URINALYSIS, W/ MICRO (23929)Indication: Renal insufficiency On: 49-Elv-674473:41 Request METABOLIC PANEL, COMPREHENSIVE (85894)Indication: Hypercholesteremia On: 27-Rkw-468488:41 Request LIPID PANEL (97945)Indication: Hypercholesteremia On: 77-Yvv-510902:41 Request CBC WITH MANUAL DIFF (60997)Indication: Hypercholesteremia On: 63-Als-128114:41 Request Metabolic Panel, Comprehensive (58436)Indication: Hypercholesteremia On: 66-Vbv-791993:10 Request Lipid Panel (72154)Indication: Hypercholesteremia On: 37-Qwi-894232:10 Request Lipid Panel (80085)Indication: Hypercholesteremia On: 69-Bkh-728998:48 Request Comments: recheck in 3 months Metabolic Panel, Comprehensive (64266)Indication: Hypercholesteremia On: 72-Mvv-422910:47 Request LIPID PANEL (63438)Indication: Hypercholesteremia On: 1-Nke-103622:19 Request LIPID PANEL (47151)Indication: Hypercholesteremia On: 04-Mvy-373374:00 Request METABOLIC PANEL, COMPREHENSIVE (30205)Indication: Hypercholesteremia On: 27-Dhl-511106:00 Request Metabolic Panel, Basic (38335)Indication: Abdominal pain, acute, generalized On: :06 Request CBC, Platelets & Auto Diff (86353)Indication: Abdominal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
--- OUTSIDE RECORDS SUMMARY | 2018-07-28 01:21 | XMS RPT_ITS | Continuity of Care Document ---
:1940 Author Organization [facility] Address [address] [place] [address] Phone Care Team Providers Name Role Phone Анна Gallardo MD Unavailable Al Snider Unavailable Анна Gallardo MD Unavailable Boogie Lopez Unavailable Kathy FLORES, Vitaly Odonnell Unavailable Dayna DO , Dr. [place] - Pauline Baker Unavailable KARLA Quinonez Unavailable Unavailable Unavailable Unavailable Problems Name Dates Details Abdominal weakness (R19.8, 789.9) Comments: knock area out of her. not pain. no weight loss. Status: Active Abnormal glucose level (R73.09, 790.29) Comments: stable now. in 6.0's Status: Active Abnormal thyroid blood test (R94.6, [...] worsen then to [facility] main. Status: Active Allergic to IV contrast (Z91.041, V15.08) Status: Active Bilateral hearing loss, unspecified hearing loss type (H91.93, 389.9) Comments: sees Dr. snider ENT Status: Active BMI 28.0-28.9,adult (Z68.28, V85.24) Status: Active BMI 31.0-31.9,adult (Z68.31, V85.31) Status: Active Constipation, chronic (K59.09, 564.00) Comments: stable talk about stoold softner daily. 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 Status: Active Diabetes mellitus type II, controlled, with no complications (Renamed from Controlled type 2 diabetes mellitus without complication) (E11.9, 250.00) Comments: hga1c 6.6 will add metformin pt told if sick, dehydrate or flu signs and symptoms to hold the metformin. also if planning to get IV dye, will hold. Status: Active Elevated serum homocysteine level (R74.8, 790.5) Comments: under 15 not uner 10. on folic acid Status: Active Encounter for routine adult medical exam with abnormal findings (Z00.01, V70.0) Comments: 04-30-18 [facility] no mammogram d/t double mastectomy, no pap over age 70. Colonoscopy 6-[address] Bedoya, had some colon removed for divert. DEXA 02/2016 good so recheck 2019, patient is deaf in left ear-now has bone conduction hearing aid, immunizations are up to date, 6CIT= Status: Active Esophageal stricture (K22.2, 530.3) Comments: eating well weight good. 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 Status: Active Hypercholesteremia (E78.00, 272.0) Comments: reviewed with patient recent test cholesterol still too high tried welchol Zetia, colestid, statins, niacin. Lopid. tried SP. went high after stop periods. talk about repathea now diabetic and wilchec k CCTA. try metforminBV screening normal 11-16, 1-19 BHL -17 Status: Active Impaired Fasting Glucose (Renamed from Elevated fasting blood sugar) (R73.01, 790.21) Comments: impaired fasting glucose Status: Active Malignant melanoma (C43.9, 172.9) Comments: seeing Dr. martin now. Status: Active Migraine (G43.909, 346.90) Comments: stable had one after sick recently. went away. 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 3-11 biopsy axila and reactive lymph nodes. Status: Active Postmenopausal (Z78.0, V49.81) Status: Active Renal insufficiency (N28.9, 593.9) Comments: stable for 10 yearss work up in past on PPI chronically ? contribute. stable okay for metformin only mild Status: Active Medications Name Dates Details Aspirin EC Low Dose 81 MG Oral Tablet Delayed Release 1 (one) Tablet DR qd for 0 days Quantity: 30 {Tablet} Refills: 3 Ordered:30-Apr-2018 Sami FLORES, Анна Whitt MD Start : 30-Apr-2018 Active DilTIAZem HCl ER 120 MG Oral Capsule Extended Release 24 Hour 1 Capsule ER 24HR qd for 0 days Quantity: 90 {Capsule} Refills: 3 Ordered:30-Apr-2018 Анна Gallardo MD, MD, Dana M Start : 30-Apr-2018 Active Comments:pt wants this actual medication the cartia Folic Acid 1 MG Oral Tablet 1 (one) Tablet Tablet 5 a day for 0 days Quantity: 30 {Tablet} Refills: 0 Ordered:30-Apr-2018 Анна Gallardo MD, MD, Dana M Start : 30-Apr-2018 Active MetFORMIN HCl 500 MG Oral Tablet 1 (one) Tablet in am with breakfast for 0 days Quantity: 30 {Tablet} Refills: 4 Ordered:30-Apr-2018 Анна Gallardo MD, MD, Dana M Start : 30-Apr-2018 Active Prevacid 30 MG Oral Capsule Delayed Release [address] BID for 0 days Quantity: 60 {Capsule_DR} Refills: 0 Ordered:30-Apr-2018 Анна Gallardo MD, MD, Dana M Start : 30-Apr-2018 Active Vitamin B Complex Oral Tablet 1 (one) Tablet Tablet daily for 0 days Quantity: 30 {Tablet} Refills: 0 Ordered:30-Apr-2018 Анна Gallardo MD, MD, Dana M Start : 30-Apr-2018 Active ACETYLCYSTEINE, 20% (Inhalation Solution) 1 Solution [...] days Quantity: 30 {Tablet} Refills: 6 Ordered:30-Mar-2012 Анна Gallardo MD, MD, Dana M Start : 30-Mar-2012 End : 30-Mar-2012 Inactive Comments:myalgia BACTRIM DS, 800-160MG (Oral Tablet) 1 Tablet bid for 0 days Quantity: 20 {Tablet} Refills: 0 Ordered:05-Oct-2013 Long JAILER/TRAINING OFFICER, Leora L Start : 20-Aug-2013 End : [...] days Quantity: 10 {Tablet} Refills: 0 Ordered:26-Jun-2010 Leora Brush LPN Start : 26-Jun-2010 End : 26-Jun-2010 Inactive [...] : 30-Oct-2015 End : 31-Oct-2015 Inactive Comments:Lot #:[id number] date:07/2016Amount given:1mlRoute: intra- jointSite given: left elbowGiven [...] : 29-Oct-2012 Inactive Comments:no refills called to [facility] 07-07-12 eruell TRIAMCINOLONE ACETONIDE, 0.1% (External Cream) 1 (one) [...] End : 16-Aug-2011 Inactive Comments:muscle aches ZOSTAVAX, 01363WOW/0.65ML (Subcutaneous Solution Reconstituted) 1 (one) For Solution [...] 2 bid End : 07-Oct-2014 Discontinued ERGOCALCIFEROL, [id number] (Oral Capsule) 1 (one) Capsule Capsule twice a week for 0 days Quantity: 8 {Capsule} Refills: 3 Ordered:17-Jun-2014 Анна Gallardo MD, MD, Dana M Start : 17-Jun-2014 End : 07-Oct-2014 Discontinued [...] 466.0) Status: Inactive as of 29-Oct-2012 Acute intractable headache, unspecified headache type (R51, 784.0) Status: Resolved as of 30-Apr-2018 Acute pansinusitis (J01.40, 461.8) Comments: willuse otc mucinex. at this poitn treat with atb then see hwo do Status: Inactive as of 13-Feb-2015 Acute sinusitis, unspecified (J01.90, 461.9) Status: Inactive as of 29-Oct-2012 Adrenal adenoma (D35.00, 227.0) Comments: 1 cm will recheck. has scheduled. 2008 had one good Status: Inactive as of 17-Jun-2014 Allergic rhinitis (J30.9, 477.9) Status: Inactive as of 08-Nov-2008 Arthralgia, unspecified joint (M25.50, 719.40) Comments: gone and labs negative Status: Resolved as of 30-Apr-2018 BMI 25.0-25.9,adult (Z68.25, V85.21) Status: Resolved as [...] sob call. Status: Inactive as of 29-Oct-2012 Chest pain (R07.9, 786.50) Comments: muscular. tender to massage muscle and help. with mastectomy and scar ? cause been years since stress will get fatigue more take naps more and not able to go all day work outside. when work out not sob. Status: Resolved as of 30-Apr-2018 Chronic serous otitis media, unspecified laterality (H65.20, [...] treat with atb ? mycoplasma. went to [place]. have one dog. have feral cats outside. old house ? mold Status: Resolved as of 05-Dec-2017 Diverticulitis (K57.92, 562.11) Status: Inactive as of 17-Jun-2014 Diverticulosis (K57.90, 562.10) Comments: reveiwed with patient hospital reports. colectomy. Status: Inactive as of 17-Jun-2014 Dysphagia (R13.10, 787.20) Comments: was in ER recently because worsen on dicyclomine. better off. seen braydon[place]ent[place] and he scopeput her on diltiazem, and seems to be better Status: Inactive as of 30-Oct-2015 Ear surgery Comments: done because chronic infection refer to local ENT here abnormal external meatus Status: Inactive as of 29-Oct-2012 Epicondylitis, lateral (M77.10, 726.32) Comments: handout given Status: Inactive as of 19-Mar-2013 Fatigue (R53.83, 780.79) Comments: seem viral syndrome. [...] is better but still really limited Status: Resolved as of 30-Apr-2018 Flu-like symptoms (R68.89, 780.99) Status: Resolved as of 02-Oct-2017 Forearm joint pain, left (M25.532, 719.43) Comments: bad again and want injected. 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 had echo and stress test good. still get fatigue. Status: Resolved as of 30-Apr-2018 Subcutaneous nodule of chest wall (R22.9, 782.2) [...] as of 17-Jun-2014 Well Woman--benechos Comments: colonscopy - good Status: Resolved as of 02-Oct-2017 Procedures Procedure Dates Details Bunion Completed Comments: right foot Cholecystectomy Completed Colonoscopy Completed Comments: Dr. Castanon 09-08-2013 repeat in 6 months per scanned document Dr. Wyman rec. repeat in 3 years MASTECTOMY, EXTENDED, RADICAL () Completed Comments: bilateral, 1984 portion of colon removed Completed Comments: d/t diverticulitis 09-10-13 Skin Cancer Completed Comments: on left side of face removal Melanoma Dr. Martin Date Value Details 13-May-2018 TXT - Blood Flow Screening Result: Comments: See Note; NOTES: [facility] Cardiovascular Services [address] [place] [address] 05/12/18 0800 MR#: [id number] Acct: [id number] Name: MADIHA NEGRON Rep #: [id number] : 1940 77 From: Omero Fink MD Attending Dr: Анна Gallardo MD Status: REG REF Ordering Dr: Date: 05/13/18 Location: [facility] Sex: F C Admitted: Reason For Study: Blood flow screening Car otid Duplex Ultrasound Abdominal Aorta The right maximum ICA velocity is 74.6/22.6 cm/s. The maximal outside diameter of the proximal aorta The right ECA velocity is less than 125 cm/s. measures 1.6 cm in the longitudinal axis. There is no plaque formation noted on the right The maximal outside diameter of the proximal aorta side. measures 1.5 x 1.6 cm in the cross-sectional axis. The left maximum ICA velocity is 96.6/36.9 cm/s. The left ECA velocity is less than 125 cm/s. There is no plaque formation noted on the left side. Ankle Brachial Index The right ankle/ brachial index is 1.0. The left ankl e/ brachial index is 1.0. Medical History and Assessment The client presents with a history of diabetes. The heart rate is 66 beats per minute. The heart rhythm is regular. The right blood pressure is 120/76. The assessment was performed by Topher Hdz RVT. Interpretation Summary Normal carotid artery screening (0 to 15% narrowing). Normal aortic ultrasound exam. The ankle/brachial index is normal (1.0 or greater). Ordering Physician: Анна Gallardo M.D. Performed By: Chelsi Hdz RV T 05/13/181951 Date Omero Fink MD CC: Анна Gallardo MD Date Dictated: 05/12/18 Date Transcribed: 05/13/181951 Lump Receiver: Signed 11-Feb-2018 PT D/C Summary (1) Result: Comments: See Note; NOTES: [facility] Physical Therapy [facility] [place] [address] Fax REHABILITATION SERVICES DISCHAR SUMMARY MR#: [id number] Acct: [id number] Name: MADIHA NEGRON Rep #: [id number] : 1940 77 From: Evangelist Strauss PT, Cert. MDT, OCS Referring Dr.: Анна Gallardo MD Status: REG RCR Insuran ce: [facility] MEDICARE SELF PAY INSURANCE HP - PT D/C Summary It has been my pleasure to treat MADIHA NEGRON under orders from Анна Gallardo, for the diagnosis of DDD CERVICAL ,NECK [...] driving,golfing with min limiations - Plan Plan: US/MHP,MANULA THERAPY CERVICAL TRACTION-CERVICAL MOBS 3-4 OA/AA,C2-3 ,ICTX 15-20# X15MIN,CERVICAL ROM/POSTUR AL EX - D/C Information If there are questions or concerns regarding this patient's physical therapy, please feel free to call me at [phone]. Thank you for the referral of this patient. Sincerely , Evangelist Strauss PT, <Electronically signed by Evangelist Strauss PT, Cert. T, OCS> 02/11/18 1449 CC: Анна Gallardo MD MATTIE Signed 03-Dec-2017 Inital Evaluation (1) - PT Result: Comments: See Note; NOTES: [facility] Physical Therapy [facility] [place] [address] Fax REHABILITATION SERVICES INITIAL EVALUATION MR#: [id number] Acct: [id number] Name: MADIHA NEGORN Rep #: [id number] : 1940 77 From: Cert. KARLEY Mckeon PT, OCS Referring Dr.: Анна Gallardo MD Status: REG RCR Insura nce: [facility] MEDICARE SELF PAY INSURANCE Patient's Visit Information MADIHA NEGRON is a 77 year old F referred to Physical Therapy by Анна Gallardo with a diagnosis of DDD CERVICAL ,N SANG PAIN. Date of Evaluation: 12/02/17 Physical Therapist: Evangelist Strauss PT, - Visit Plan Frequency: 2x /Week Duration: 3 Weeks Plan: US/MHP,MANULA THERAPY CERVICAL TRACTION-CERVICAL MOBS 3-4 OA/AA ,C2-3 ,ICTX 15-20# X15MIN,CERVICAL ROM/POSTURAL EX - Subjective Subjective: This 73 y/o female presents to physical therapy with neck pain,DDD cervical spine. Patient has had cervical pain on right madison e 2 1/2 months incidous onset of neck. Patient developed [place] prior to neck pain with tiredenes. Location [...] to be FAXED BACK to us at [phone] for Medicare purposes. Ple ase let me know if there are questions or concerns regarding this plan of care. Physician Signature: Date: <Electronically signed by Evangelist Strauss PT, Cert. MDT, OCS> 12/03/17915 CC: Анна Gallardo MD MATTIE Signed For Medicare only, by signing this I certify the plan of care. Physicians Signature Date 17-Nov-2017 Echocardiogram Complete Result: Comments: See Note; NOTES: [facility] Cardiovascular Services [address] [place] [address] Echo Complete 11/17/17 1039 MR#: [id number] Acct: [id number] Name: MADIHA NEGRON Rep #: [id number] : 1940 77 From: Alverto Vidales MD Attending Dr: Анна Gallardo MD Status: REG CLI Ordering Dr: Анна Gallardo MD Date: 11/17/17 Location: [facility] Sex: F C Admitted: Reason For Sierra dy: SOB Procedure This was a 2D [...] Gallardo Performed By: Maria Monge RDCS 11/17/17 1728 Date Alverto Vidales MD CC: Анна Gallardo MD Date Dictated: 11/17/17 1039 Date Transcribed: 11/17/17 1728 Lump Receiver: Signed 17-Nov-2017 Stress Report Result: Comments: See Note; NOTES: [facility] Cardiovascular Services [address] [place] [address] MR#: [id number] Acct: [id number] Name: MADIHA NEGRON Rep #: [id number] : 77 From: Alverto Vidales MD Primary [...] low to moderate workload. Preserved ejection fraction 07 /16/18 1013 <Electronically signed by Alverto Vidales MD> Date Alverto Vidales MD CC: Анна Gallardo MD Date Dictated: 11/17/17 1007 Date Transcribed: 11/17/17 1007 Lump Receiver: [place] Signed 03-Nov-2017 Operative Report Result: Comments: See Note; NOTES: [facility] Medical Records Department [address] [place] [address] Operative Report 10/31/17 0926 MR#: [id number] Acct: [id number] Name: CARMELINA NEGRON Rep #: [id number] : 1940 77 From: Al Snider MD PCP: Анна Gallardo MD Status: [facility] Location: [facility] Problem List (1) [...] iris scissor and a periosteal elevator. The dispatcher ship pilot drill hole was then created and palpated to ensure bone at the maximal depth of the hole and then finalize to 4 mm in size to allow for placement of the titanium abutment. The bony fragments were then suctioned and irrigated clear and the 4 x 9 mm abutment was then placed in accordance of the [facility] directions. Xeroform gauze was then placed at [...] SCD's VTE Pharm Prophylaxis ordere d?: No 10/31/17932 <Electronically signed by Al Snider MD> Date Al Snider MD CC: Анна Gallardo MD; Al Snider MD Signed 31-Oct-2017 Discharge Instruction Result: Comments: See Note; NOTES: [facility] Medical Records Department [address] [place] [address] Instructions for Home/Discharge Instructions 10/31/17932 MR#: [id number] Acct: [id number] Name: MADIHA NEGRON Rep #: [id number] : 1940 77 From: Al Snider MD [...] and Lateral Result: Comments: See Note; NOTES: [facility] Imaging Services [address] [place] [address] Chest PA and Lateral MR#: [id number] Acct: [id number] Name: MADIHA NEGRON Rep #: [id number] : 1940 F 77 From: Ruben Parikh DO PCP: Анна Gallardo MD Status: REG CLI Study: Chest PA and Lateral Date of Exam: 10/24/17 Exam# [id number] Ordering Dr: Анна Gallardo MD STUDY: X-RAY [...] Ruben Parikh DO at 18:37 EDT Tel [phone], Service support , CC: Анна Gallardo MD Lump Receiver: Signed 02-Oct-2017 Cerv Spine 4 or 5 Views Result: Comments: See Note; NOTES: [facility] Imaging Services [address] [place] [address] Cerv Spine 4 or 5 Views MR#: [id number] Acct: [id number] Name: MADIHA NEGRON Rep #: [id number] : 1940 F 77 From: Edgar Mcfadden MD PCP: Анна Gallardo MD Status: REG CLI Study: Cerv Spine 4 or 5 Views Date of Exam: 10/02/17 Exam# [id number] Ordering Dr: Анна Gallardo MD STUDY : [...] Edgar Mcfadden MD at 9:13 EDT Tel [phone], Service support , CC: Анна Gallardo MD Lump Receiver: Signed 16-Jun-2017 Chest PA and Lateral Result: Comments: See Note; NOTES: [facility] Imaging Services [address] [place] [address] Chest PA and Lateral MR#: [id number] Acct: [id number] Name: MADIHA NEGRON Rep #: [id number] : 1940 F 76 From: Edgar Mcfadden MD PCP: Анна Gallardo MD Status: REG CLI Study: Chest PA and Lateral Date of Exam: 06/16/17 Exam# [id number] Ordering Dr: Анна Gallardo MD STUDY: X-RA [...] Edgar Mcfadden MD at 12:26 EST Tel [phone], Service support , CC: Анна Gallardo MD Lump Receiver: Signed 06-Mar-2017 Knee 4 or More Views Result: Comments: See Note; NOTES: [facility] Imaging Services [address] [place] [address] Knee 4 or More Views MR#: [id number] Acct: [id number] Name: MADIHA NEGRON Rep #: [id number] : 1940 F 76 From: Leonard Miller MD PCP: Анна Gallardo MD Status: REG CLI Study: Knee 4 or More Views Date of Exam: 03/06/17 Exam# [id number] Ordering Dr: Анна Gallardo MD STUDY: X-RAY [...] Service support , CC: Анна Gallardo MD Lump Receiver: Signed 17-Dec-2016 Emergency Department Summary Result: Comments: See Note; NOTES: [facility] Medical Records Department [address] [place] [address] Emergency Department Summary 12/16/16 1905 MR#: [id number] Acct: [id number] Name: MADIHA NEGRON Rep #: [id number] : 1940 76 From: Moshe Diaz MD [...] 0. Remainder physical otherwise unremarkable. Test Results: [place] bolic panel shows mild elevation of creatinine [...] problems, contact your Primary Care Provider. Call [facility] ([phone]) or report to the closest Emergency Ro om. Call 911 if necessary. 12/17/16 3535 <Electronically signed by Moshe Diaz MD> Date Moshe Diaz MD Cosigner Signature (If Indicated): Date CC: Анна Gallardo MD 16-Dec-2016 CTA Head W/WO Contrast Result: Comments: See Note; NOTES: [facility] Imaging Services [address] [place] [address] CTA Head W/WO Contrast MR#: [id number] Acct: [id number] Name: MADIHA NEGRON Rep #: [id number] : 1940 F 76 From: Ginger Vieyra MD PCP: Анна Gallardo MD Status: REG ER Study: CTA Head W/WO Contrast Date of Exam: 12/16/16 Exam# [id number] Ordering Dr: Moshe Diaz MD STUDY: CT [...] There is no demonstrated aneurysm of the nondalton of [place]. There is no demonstrated abnormality of the visualized brain. 0035 CT/CTA Head W/WO Contrast IMPRESSION: Normal nondalton of [place] without a demonstrated aneurysm or hemodynamically significant stenosis. There are no acute intracranial abnormalities. Electronicall y Signed: Ginger Vieyra MD at 18:49 EDT Tel [phone], Service support , CC: Анна Gallardo MD; Moshe Diaz Lump Receiver: Signed 16-Dec-2016 CTA Neck W/WO Contrast Result: Comments: See Note; NOTES: [facility] Imaging Services [address] [place] [address] CTA Neck W/WO Contrast MR#: [id number] Acct: [id number] Name: MADIHA NEGRON Rep #: [id number] : 1940 F 76 From: Ginger Vieyra MD PCP: Анна Gallardo MD Status: REG ER Study: CTA Neck W/WO Contrast Date of Exam: 12/16/16 Exam# [id number] Ordering Dr: Moshe Diaz MD STUDY: CT [...] Individualized dose optimization techniques were used for [facility] CT. COMPARISON: None. FINDINGS: AORTIC ARCH: There [...] Vieyra MD at 19: 00 EDT Tel [phone], Service support , CC: Анна Gallardo MD; Mohse Diaz Lump Receiver: Signed 22-Feb-2016 Chest without Contrast Result: Comments: See Note; NOTES: [facility] Imaging Services [address] [place] [address] Verdana 4d Chest without Contrast MR#: [id number] Acct: [id number] Name: MADIHA NEGRON Rep #: [id number] : 1940 F 75 From: Natalie Rosa MD PCP: Анна Gallardo MD Status: REG CLI Study: Chest without Contrast Date of Exam: 02/22/16 Exam# [id number] Ordering Dr: Анна Gallardo MD STUDY: CT [...] MD at 7:22 EDT , Service support [phone], CC: Анна Gallardo MD Lump Receiver: Signed 20-Feb-2016 Dexa Bone Density Study () Result: Comments: See Note; NOTES: [facility] Imaging Services [address] [place] [address] Verdana 4d Dexa Bone Density Study () MR#: [id number] Acct: [id number] Name: ELSA NEGRON Rep #: [id number] : 1940 F 75 From: Edgar Mcfadden MD PCP: Анна Gallardo MD Status: [facility] Study: Dexa Bone Density Study () Date of Exam: 02/20/16 Exam# [id number] Ordering Dr: Анна Dhaliwal MD STUDY: DUAL [...] Edgar Mcfadden MD at 11:33 EDT Tel [phone], Service support [phone], CC: Анна Gallardo MD Lump Receiver: Signed 08-Feb-2015 Emergency Department Summary Result: Comments: See Note; NOTES: [facility] Medical Records Department [address] [place] [address] Emergency Department Summary MR#: [id number] Acct: [id number] Name: MADIHA ECHEVERRIA Rep #: [id number] : 1940 74 From: Vitaly Denney DO [...] bolus. Vitaly Denney DO T: NTS JOB: [id number] 02/08/15 0835 <Electronically signed by Vitaly Denney DO> Date Vitaly Mercedes Cosigner Signature (If Indicated): Date CC: Анна Gallardo MD Date Dictated: 02/07/151619 Date Transcribed: 02/07/151619 Lump Receiver: Signed 08-Feb-2015 Emergency Department Summary Result: Comments: See Note; NOTES: [facility] Medical Records Department [address] [place] [address] Emergency Department Summary MR#: [id number] Acct: [id number] Name: MADIHA ECHEVERRIA Rep #: [id number] : 1940 74 From: Vitaly Denney DO PCP: Анна Gallardo MD Status: DEP ER DATE OF SERVICE: 02/07/2015 Addendum Again addendum to prior dictation. After makin g arrangements for upper endoscopy went back into the room and the patient states that the food bolus resolved itself as I walked in. She is able to tolerate a Coke. I let Dr. Castanon office know sade case. They will be contacting her tomorrow to set up outpatient dilatation of the esophagus. Vitaly Denney DO T: NTS JOB: [id number] 02/08/15 0835 <Electronically signed by Vitaly Denney DO> Date Vitaly Denney DO Cosigner Signature (If Indicated): Date CC: Анна Gallardo MD Date Dictated: 02/07/151629 Date Transcribed: 02/07/151629 Lump Receiver: Signed 07-Feb-2015 Discharge Instruction Result: Comments: See Note; NOTES: [facility] Medical Records Department [address] [place] [address] Discharge Instruction 02/07/15 1628 MR#: [id number] Acct: [id number] Name: MADIHA NEGRON Rep #: [id number] : 1940 74 From: Vitaly Denney DO PCP: Анна Gallardo MD Status: REG ER ED Disposition - Plan for ED Patient: Disposition: Home or Assisted Living [facility] Complaint: Foreign Body Instructions: ED Esophageal Foreign [...] lems, contact your doctor. Call [facility] ([phone]) or report to the closest Emergency Room. Call 911 if necessary. 02/07/15 4008 <Electronically signed by Vitaly Denney DO&amp ;#62; Date Vitaly Denney DO Cosigner Signature (If Indicated): Date CC: Анна Gallardo MD 27-Jul-2014 Lower Ext Joint Only (Routine) Result: Comments: See Note; NOTES: [facility] Imaging Services [address] [place] [address] MRI Report MR#: [id number] Acct: [id number] Name: MADIHA NEGRON Rep #: [id number] : 1940 F 73 From: Leonard Miller MD PCP: Анна Gallardo MD Status: REG CLI Study: Lower Ext Joint Only (Routine) Date of Exam: 07/27/14 Exam# [id number] Ordering Dr: Анна Gallardo MD SIERRA DY: MRI LEFT KNEE REASON FOR EXAM: [...] FACR at 11:24 EDT ,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 (68601) ALT (SGPT) 11 [iU]/L (Normal) Range: 0-32 [...] Glucose, Serum 93 mg/dL (Normal) Range: 65-99 :03 LIPID PANEL (98720) Comments: PATIENT WAS FASTINGPERFORMED BY: Lab[facility] PhosphorTrenton Psychiatric HospitalEkgwtf6600 [facility] [id number]; apt. 02-13-15 LDL/HDL Ratio 3.9 {ratio_units} (Abnormal) [...] Cholesterol, Total 285 mg/dL (Abnormal) Range: 100-199 0-Sro-362221:10 HgA1C , Office (49738) HgA1C , Office 6.2 % (Normal) Range: 4.6 - 7.1 0-Tif-641496:10 Blood Glucose , Office (90668) Blood Glucose , Office 120 (Normal) :35 Comp. Metabolic Panel (14) Comments: PATIENT WAS FASTINGPERFORMED BY: LabCoTrenton Psychiatric HospitalHocnoi3412 [facility] [id number] Information: [id number]; patient has fu -09-16 nothing urgent will discuss at that apt. [...] With LDL/HDL Comments: PATIENT WAS FASTINGPERFORMED BY: [employer] Sk[facility] ParkCarteret Health Care [id number] Ratio LDL/HDL Ratio 4.1 {ratio_units} (Abnormal) Range: [...] METABOLIC PANEL, Comments: PATIENT WAS FASTINGPERFORMED BY: Social BicyclesFirstHealth [facility] [id number] Information: [id number] COMPREHENSIVE (66678) ALT (SGPT) 15 [iU]/L (Normal) Range: 0-32 [...] Glucose, Serum 101 mg/dL (Abnormal) Range: 65-99 77-Bla-374422:37 LIPID PANEL (57132) Comments: PATIENT WAS FASTINGPERFORMED BY: KYLE LabCoTrenton Psychiatric HospitalThcrsu2564 [facility] [id number] LDL/HDL Ratio 3.8 {ratio_units} (Abnormal) Range: 0.0-3.2 [...] degree relatives should be collected. J Clin Yskkeis5391;5:133-140 LDL Cholesterol Calc 195 mg/dL (Abnormal) Range: 0-99 VLDL Cholesterol Gianfranco 58 mg/dL (Abnormal) Range: 5-40 HDL Cholesterol 52 mg/dL (Normal) Comments: According to ATP-III Guidelines, HDL-C >59 mg/dL is considered anegative risk factor for CHD. Triglycerides 291 mg/dL (Abnormal) Range: 0-149 Cholesterol, Total 305 mg/dL (Abnormal) Range: 100-199 :19 HgA1C , Office (57481) HgA1C , Office 6.0 % (Normal) Range: 4.6 - 7.1 :37 CBC WITH MANUAL DIFF Comments: PATIENT WAS FASTINGPERFORMED BY: [facility] Tywlms4035 [facility] [id number] Information: [id number] (75898) Immature Grans (Abs) 0.0 {x10E3/uL} (Normal) Range: [...] Panel, Comprehensive Comments: PATIENT WAS FASTINGPERFORMED BY: LabCoTrenton Psychiatric HospitalAyzlmd9424 [facility] [id number] (14694) ALT (SGPT) 13 [iU]/L (Normal) Range: 0-32 [...] mg/dL (Abnormal) Range: 65-99 :37 Lipid Panel (95931) Comments: PATIENT WAS FASTINGPERFORMED BY: Mavizon Vfonqx3977 [facility] [id number] LDL/HDL Ratio 4.3 {ratio_units} (Abnormal) Range: 0.0-3.2 [...] 319 mg/dL (Abnormal) Range: 100-199 :57 CALCIFIDIOL (82271) VIT D 25 Comments: PATIENT NOT FASTINGPERFORMED BY: Mavizon Pajgic4724 [facility] [id number] Vitamin D, 25-Hydroxy 23.6 ng/mL (Abnormal) Range: 30.0-100.0 Comments: Vitamin D deficiency has been defined by the [place] of[employer]icine and an Endocrine Society practice guideline as alevel of serum 25-OH vitamin D less than 20 ng/mL (1,2).The Endocrine Society went on to further define vitamin Dinsufficiency as a level between 21 and 29 ng/mL (2).1. IOM ([place] of Medicine). 2010. Dietary reference intakes for calcium and D. [place]: The National Academies Press.2. Diego MF, Pamela NC, Jaron SUAREZ, et al. Evaluation, treatment, and prevention of vitamin D deficiency: an Endocrine Society clinical practice guideline. JCEM. 2010; 96(7):1911-30. :57 TSH (79404) Comments: PATIENT NOT FASTINGPERFORMED BY: [facility] Mtjunc9486 [facility] [id number] TSH 3.010 {uIU/mL} (Normal) Range: 0.450-4.500 :57 METABOLIC PANEL, COMPREHENSIVE Comments: PATIENT NOT FASTINGPERFORMED BY: Fix That BugMclaren Bay Special Care Hospital6370 [facility] [id number] (65300) ALT (SGPT) 16 [iU]/L (Normal) Range: 0-32 [...] Glucose, Serum 143 mg/dL (Abnormal) Range: 65-99 :57 CBC WITH MANUAL DIFF Comments: PATIENT NOT FASTINGPERFORMED BY: [facility]6370 [facility] [id number] Information: [id number] (24332) Immature Grans (Abs) 0.0 {x10E3/uL} (Normal) Range: [...] 3.77-5.28 WBC 5.3 {x10E3/uL} (Normal) Range: 3.4-10.8 :22 Urinalysis, Office (70260) UA - LEUKOCYTE ESTERASE Negative (Normal) UA - NITRITE Negative (Normal) URINE UROBILINGN LOUISE TIMED 2 mg/dL (Normal) UA - PROTEIN Negative mg/dL (Normal) UA - PH 5.0 (Normal) UA - BLOOD Hemolyzed Trace (Normal) UA - SPECIFIC GRAVITY 1.030 (Abnormal) UA - KETONES Negative mg/dL (Normal) UA - BILIRUBIN Negative (Normal) UA - GLUCOSE Negative (Normal) 1-Myw-515868:22 CMP GAP 9 (Normal) Range: 5-15 CL [...] 7-18 GLU 94 mg/dL (Normal) Range: 70-110 5-Zoz-024035:22 LIPID LDL 150 mg/dL (Abnormal) Range: 0-130 [...] CHOL 247 mg/dL (Abnormal) Comments: <200 mg/dL Dvehgkmvm653-885 mg/dL Borderline>240 mg/dL High Risk :15 CRE [...] is stable compared to the prior study ofWi2011 and December 15 9. No abnormal enhancement [...] Moderate hiatal hernia. Lumbar spondylosis. Signed:Diaz oliver DEfe.November 10, 2012 at 11:10:28 AM [id number] Signed DS/DS If you are the referring physician and would like to consult with theradiologist who provided this interpretation, please contact Diaz Chavez D.O. at [phone]. If this radiologist is unavailable, you will bedirected to another radiologist to assist. If you are a patient with a question regarding this report, pleasecont actyour referring physician directly. Professional Interpretation Provided By: CoSchedule, Phone , These documents contain legally protected [...] documents. Dictated on 11/10/12 1110 b y Yanely Becker DOranscribed on 11/10/12 1125 by ITS IMPORTSign by Vitaly Becker DO on 11/10/12 1126 Sign by: Vitaly Becker DO 3-Uof-866204:40 LIPID LDL <TEST NOT PERFORMED> mg/dL (Normal) [...] Very High > or = 500 mg/dL 5-Vdg-948068:40 LIVER ALT 20 U/L (Normal) Range: 12-78 BID 0.09 mg/dL (Normal) Range: 0.00-0.30 BIT 0.40 mg/dL (Normal) Range: 0.00-1.00 ALK 85 U/L (Normal) Range: 50-136 ALB 4.0 g/dL (Normal) Range: 3.4-5.0 AST 22 U/L (Normal) Range: 15-37 TPROT 8.2 g/dL (Normal) Range: 6.4-8.2 6-Obr-273470:50 CHEST, PA AND LATERAL Radiology Report See [...] Gilliland D.O.April 07, 2012 at 8:03:03 PM [id number] Signed IF/IF If you are the referring physician and would like to consult [employer] theradiologist who provided this interpretation, please contact Сергей Gilliland D.O.at [phone]. If this radiologist is unavailable, you will be directedto another radiologist to assist. If you are a pa tient with a question regarding this report, pleasecontactyour referring physician directly. Professional Interpretation Provided By: Co[employer], Phone , These documents c ontain legally [...] uctionofthese documents. Dictated on 04/07/12 1311 by Linette Gilliland DOribed on 04/07/122012 by ITS IMPORTSign by Сергей Gilliland DO on 04/07/122013 Sign by: Сергей Gilliland DO 0-Rqz-981322:21 CKMB CPKMB 0.6 ng/mL (Normal) Range: 0.0-5.0 Comments: CK-MB and RI Interpretation MB Relative Index Non-AMI <or= 5 NA Indeterminate > 5 <or= 4 AMI > 5 > 4 CPK 90 U/L (Normal) Range: 26-192 2-Svl-080009:21 DDIMQ 1.24 {FEUug/mL} Range: 0.22-0.48 (Abnormal) Comments: D-Dimer ELEVATED: Additional studies and clinicalassessments are indicated to conclude diagnosis of:Deep Vein Thrombosis (DVT) or Pulmonary Embolism (PE)CRITICAL VALUE REPEATED AND VERIFIED. CALLED TO Chip SOLIZ RN04/07/12 1324 TRANG ALCANTARRESULTS READ BACK BY SAME . 5-Eob-111536:21 TROP < 0.02 ng/mL (Normal) Comments: TROPONIN-I EXPECTED VALUES <0.05 NEGATIVE 0.06 - 0.59 AT RISK OF MD > OR = 0.60 SUGGEST MD 07-Apr-20120:00 CHEST WITH CONTRAST Radiology Report See [...] Mcfadden M.D.April 07, 2012 at 4:18:06 PM [id number] onically Signed GP/GP If you are the referring physician and would like to consult with theradiologist who provided this interpretation, please contact Ana Rosa Almonte at [phone]. If this r adiologist is unavailable, youwill be directed to another radiologist to assist. If you are a patient with a question regarding this report, pleasecontactyour referring physician directly. Professional Interpretation Provided By: CoSchedule, Phone , These documents contain legally protected [...] 04/07/12 1550 by Karl Mcfadden MDranscribed on 04/07/12 1622 by ITS IMPORTSign by Edgar Mcfadden MD on 04/07/12 1623 Sign by: Edgar Mcfadden MD 43-Jya-13165:26 CBCMD RBCM NORM C+C {NORMAL} (Normal) PE [...] (Normal) GLU 98 mg/dL (Normal) Range: 70-110 03-Fgw-75823:59 LIPID HDL 53 mg/dL (Normal) Comments: Reference RangeHDL <40 mg/dL Low HDL CholesterolHDL >or= 60 mg/dL High HDL Cholesterol LDL 185 mg/dL (Abnormal) Range: 0-130 VLDL 37 mg/dL (Normal) Range: 5-40 CHOL 275 mg/dL (Abnormal) Comments: <200 mg/dL Taqvzlnlr406-243 mg/dL Borderline>240 mg/dL High Risk TRIG 187 mg/dL (Normal) Comments: Serum Triglycerides Reference IntervalNormal <150 mg/dLBorderline high 150 - 199 mg/dLHigh 200 - 499 mg/ dLVery High > or = 500 mg/dL 28-Ayd-032391:07 HAND,MIN 3 VIEWS (MT) Radiology Report See Note (Normal) Comments: Exam Number: [id number] CLINICAL:NO RECENT INJURYPAIN MID 2ND AND 3RD [...] T PROT 7.5 g/dL (Normal) Range: 6.4-8.2 26-Nmg-579541:55 PELVIS WITH IV CONTRAST Radiology Report See Note (Normal) Comments: Exam Number: [id number] CLINICAL:Abdominal pain, history of breast cancer CT [...] adrenal adenoma. Reported By: ZAY POSADAS M.D. 27-Zif-262317:54 ABDOMEN WITH IV CONTRAST Radiology Report See Note (Normal) Comments: Exam Number: [id number] CLINICAL:Abdominal pain, history of breast cancer CT [...] adrenal adenoma. Reported By: ZAY POSADAS M.D. 29-Kno-74922:01 BMP BUN 16 mg/dL (Normal) Range: 7-18 [...] 11.6-14.6 WBC 4.7 K/mm3 (Normal) Range: 4.4-11.0 03-Ust-119718:29 Urinalysis, Office (65921) UA - BILIRUBIN Negative (Normal) UA - [...] mg/dL VLDL 47 mg/dL (Abnormal) Range: 5-40 51-Bkr-95588:10 LIVER ALB 3.7 g/dL (Normal) Range: 3.4-5.0 ALK P 90 U/L (Normal) Range: 50-136 ALT 17 U/L (Abnormal) Range: 30-65 AST 16 U/L (Normal) Range: 15-37 D BILI 0.07 mg/dL (Normal) Range: 0.00-0.30 T BILI 0.40 mg/dL (Normal) Range: 0.00-1.00 T PROT 8.0 g/dL (Normal) Range: 6.4-8.2 7-Gag-688118:00 Urinalysis, Office (58139) UA - BILIRUBIN Negative (Normal) UA - BLOOD Hemolyzed Small (Normal) UA - GLUCOSE Negative (Normal) UA - KETONES Negative mg/dL (Normal) UA - LEUKOCYTE ESTERASE Negative (Normal) UA - NITRITE Negative (Normal) UA - PH 6.0 (Normal) UA - PROTEIN Negative mg/dL (Normal) UA - SPECIFIC GRAVITY 1.025 (Normal) URINE UROBILINGN LOUISE TIMED 2 mg/dL (Normal) 55-Jgb-89360:20 CBCD BASO% 0.5 % (Normal) Range: 0-1 [...] for patient's is the eGFRmultiplied by 1.212. [facility] Laboratory uses the abbreviated Modification of [...] Disease W/O Kidney Disease>/= 90 Stage One Clubxf27 - 89 Stage Two Suspect Decreased GFR30 [...] T PROT 8.1 g/dL (Normal) Range: 6.4-8.2 :20 LIPID CHOL 314 mg/dL (Abnormal) Comments: <200 [...] 40 mg/dL (Normal) Range: 5-40 :20 METHYLM 780078 336 nmol/L (Normal) Range: 73-376 Comments: The reference range for methylmalonic acid has been set at+3sd above the mean for healthy blood bank donors. In theclinical assessment of patients with megaloblastic anemiasa cutoff of +3sd provides gre ater specificity in thediagnosis of the vitamin deficiency states, despite thesacrifice of some sensitivity.Performed At: [address] [id number] :21 COMP METABOLIC CL 106 mmol/L (Normal) [...] T PROT 7.9 g/dL (Normal) Range: 6.4-8.2 07-Qep-58068:21 LIPID CHOL 266 mg/dL (Abnormal) Comments: <200 [...] mg/dL VLDL 46 mg/dL (Abnormal) Range: 5-40 9-Ese-277971:45 PELVIS WITH CONTRAST Radiology Report See Note (Normal) Comments: Exam Number: [id number] THREE PHASE CT OF THE ABDOMEN WITH AND WITHOUT CONTRAST/CT OF THEPELVIS WITH CONTRAST HISTORYBreast cancer. Liver lesion. COMPARISONJan2007, also from October 03, 2006. 3 .75-mm [...] prominent, however, compared to a study of hough this could be secondary to volume averaging [...] etiology. Reported By: ANN MARIE GERBER M.D. 7-Shd-505850:44 ABDOMEN W/WO CONTRAST Radiology Report See Note (Normal) Comments: Exam Number: [id number] THREE PHASE CT OF THE ABDOMEN WITH [...] prominent, however, compared to a study of lthou this could be secondary to volume averaging [...] etiology. Reported By: ANN MARIE GERBER M.D. 09-Oct-20079:24 CBCD,SMEAR DIFF CELLS COUNTED 100 (Normal) EOS [...] T PROT 7.5 g/dL (Normal) Range: 6.4-8.2 :24 LIPID CHOL 246 mg/dL (Abnormal) Comments: <200 [...] mg/dL VLDL 28 mg/dL (Normal) Range: 5-40 82-Gyl-017869:15 ABDOMEN W/WO CONTRAST Radiology Report See Note (Normal) Comments: Exam Number: [id number] CT OF THE ABDOMEN WITH AND WITHOUT [...] stability. Reported By: ANN MARIE GERBER M.D. 73-Eia-692387:14 LIPID CHOL 246 mg/dL (Abnormal) Comments: <200 [...] mg/dL VLDL 50 mg/dL (Abnormal) Range: 5-40 83-Irz-003996:14 LIVER ALB 3.9 g/dL (Normal) Range: 3.4-5.0 ALK P 84 U/L (Normal) Range: 50-136 ALT 29 [iU]/L (Abnormal) Range: 30-65 AST 19 U/L (Normal) Range: 15-37 D BILI 0.06 mg/dL (Normal) Range: 0.00-0.30 T BILI 0.36 mg/dL (Normal) Range: 0.00-1.00 T PROT 7.8 g/dL (Normal) Range: 6.4-8.2 24-Nwf-727172:40 ABDOMEN W/WO CONTRAST Radiology Report See Note (Normal) Comments: Exam Number: [id number] 4-PHASE CT SCAN OF LIVER CLINICAL STATEMENTMass [...] the liver. Reported By: JOSY JOSEPH M.D. :39 CHEST WITH CONTRAST Radiology Report See Note (Normal) Comments: Exam Number: [id number] CT CHEST WITH CONTRAST CLINICAL STATEMENTRight axillary [...] impression #2. Reported By: ELIE BECKFORD M.D. 21-Wak-13381:40 COMP METABOLIC A/G 1.0 {RATIO} (Normal) Range: [...] - Nonprescription Treatment Indication: Hypercholesteremia Planned Observations Homocysteine, Plasma (87696)Indication: Elevated serum homocysteine level On: 98-Qkv-514141:15 Request METABOLIC PANEL, COMPREHENSIVE (86674)Indication: Diabetes mellitus type II, controlled, with no complications (Renamed from Controlled type 2 diabetes mellitus without complication) On: 61-Gjl-840984:02 Request LIPID PANEL (19101)Indication: Diabetes mellitus type II, controlled, with no complications (Renamed from Controlled type 2 diabetes mellitus without complication) On: 90-Yxv-567512:02 Request HGB A1C (19700)Indication: Diabetes mellitus type II, controlled, with no complications (Renamed from Controlled type 2 diabetes mellitus without complication) On: 15-Nna-909859:02 Request EBV Panel (54593)Indication: Fatigue On: 80-Mia-221159:49 Request METABOLIC PANEL, COMPREHENSIVE (52051)Indication: Hypercholesteremia On: :30 Request LIPID PANEL (25819)Indication: Hypercholesteremia On: :30 Request HgA1C , Office (01711)Indication: Impaired Fasting Glucose (Renamed from Elevated fasting blood sugar) On: 5-Vbl-370968:01 Request VITAMIN D, 1, 25-DIHYDROXY (97694)Indication: Vitamin disease On: 75-Tma-040427:51 Request METABOLIC PANEL, COMPREHENSIVE (82147)Indication: Hypercholesteremia On: :33 Request LIPID PANEL (85159)Indication: Hypercholesteremia On: :33 Request Troponin I (85321)Indication: CHEST PAIN On: :17 Request CPK MB FRACTION (52305)Indication: CHEST PAIN On: :17 Request CREATINE KINASE TOTAL (67095)Indication: CHEST PAIN On: :17 Request D-Dimer (84085)Indication: CHEST PAIN On: :17 Request LIPID PANEL (01817)Indication: Hypercholesteremia On: 8-Rtj-055991:07 Request HEPATIC FUNCTION PANEL (31699)Indication: Hypercholesteremia On: 7-Ass-921826:07 Request URINALYSIS, W/ MICRO (63458)Indication: Renal insufficiency On: 67-Snh-513101:41 Request METABOLIC PANEL, COMPREHENSIVE (43054)Indication: Hypercholesteremia On: 35-Ypc-123565:41 Request LIPID PANEL (72226)Indication: Hypercholesteremia On: 38-Dxj-711275:41 Request CBC WITH MANUAL DIFF (73857)Indication: Hypercholesteremia On: 35-Hvl-880828:41 Request Metabolic Panel, Comprehensive (97516)Indication: Hypercholesteremia On: 11-Ruc-790035:10 Request Lipid Panel (99421)Indication: Hypercholesteremia On: 33-Fej-046764:10 Request Lipid Panel (00114)Indication: Hypercholesteremia On: 13-Chd-280446:48 Request Comments: recheck in 3 months Metabolic Panel, Comprehensive (26256)Indication: Hypercholesteremia On: 91-Wvf-113016:47 Request LIPID PANEL (29902)Indication: Hypercholesteremia On: 3-Gsd-747585:19 Request LIPID PANEL (81323)Indication: Hypercholesteremia On: 56-Mwy-578496:00 Request METABOLIC PANEL, COMPREHENSIVE (38156)Indication: Hypercholesteremia On: 37-Uwu-441080:00 Request Metabolic Panel, Basic (61943)Indication: Abdominal pain, acute, generalized On: :06 Request CBC, Platelets & Auto Diff (82718)Indication: Abdominal pain, acute, generalized On: 23-Yvb-227396:06 Request Lipid Panel (71494)Indication: Hypercholesteremia On: 30-Quo-113977:03 Request HEPATIC FUNCTION PANEL (60313)Indication: Hypercholesteremia On: :03 Request HEPATIC FUNCTION PANEL (33849)Indication: Hypercholesteremia On: :21 Request Lipid Panel (19026)Indication: Hypercholesteremia On: 52-Eas-555315:21 Request Comments: in three months (approximately) Methylmalonic acid, serum 39696Nzlscunukp: Nonscarring hair loss, unspecified On: 4-Qfk-971259:16 Request CBC (Auto) (67266)Indication: Hypercholesteremia On: 0-App-764761:11 Request Metabolic Panel, Comprehensive (13240)Indication: Hypercholesteremia On: 1-Jlr-710687:11 Request Lipid Panel (17214)Indication: Hypercholesteremia On: 5-Mjd-565791:11 Request Comments: 4 month Metabolic Panel, Comprehensive (98884)Indication: Hypercholesteremia On: 9-Bbl-117168:50 Request Lipid Panel (32310)Indication: Hypercholesteremia On: 5-Roe-698082:50 Request Urinalysis, Office (00631)Indication: Renal insufficiency On: 8-Szv-069390:42 Request METABOLIC PANEL, COMPREHENSIVE (50850)Indication: Hypercholesteremia On: 39-Ase-857886:12 Request LIPID PANEL (91847)Indication: Hypercholesteremia On: 76-Nhn-400929:12 Request CBC WITH MANUAL DIFF (40618)Indication: Hypercholesteremia On: 33-Ibl-803001:12 Request Comments: in six months (approximately) HEPATIC FUNCTION PANEL (65665)Indication: Hypercholesteremia On: 26-Bnv-813166:23 Request Lipid Panel (87785)Indication: Hypercholesteremia On: 69-Img-080012:23 Request Comments: in six months HEPATIC FUNCTION PANEL (87208)Indication: Hypercholesteremia On: 65-Nbp-845294:16 Request LIPID PANEL (58342)Indication: Hypercholesteremia On: 21-Zce-118256:16 Request Planned Encounters Medical; MDLENAP 3 Month FU - On: 03-Aug-2018 11:00 [facility] Sami FLORES, Анна Fong MD Planned Procedures Flu Vaccine (Quadrivalent) On: 28-Jan-2018 Intent 36144Le: Iveth Richard Comments: Lot #[id number]-[id number] dltd, IMDose prefilled syringegiven by: Lauren Richard MA Nuclear Stress Test/Stress On: 07-Nov-2017 Intent SPECT/TreadmillBy: Sami FLORES, Анна Fong MD Echo CompleteBy: Sami FLORES, On: 07-Nov-2017 Intent Анна Fong MD ELECTROCARDIOGRAM, COMPLETE On: 21-Oct-2017 Intent (ECG) (85776)By: Sami FLORES, Comments: see scanned document of [...] ()By: Sami FLORES, Comments: lot: 2 cc marcaine [id number] exp 08-03-2018 1 cc kenalog [id number] exp exp:as above rte:intra articular right knee dose:as above given by:Dr. Gallardo ABN signedER, JAILER/TRAINING OFFICER Анна Fong MD Radiology - Knee - Right - On: 06-Mar-2017 Intent Weight BearingBy: Анна Gallardo MD, MD, Dana M Flu Vaccine (Quadrivalent) On: 07-Feb-2017 Intent 36429Lp: Анна Gallardo MD Comments: QUAD flu shotlot number: [id number]: 08/2017R Deltoid IMAD JAILER/TRAINING OFFICER Анна Gallardo MD CT - Chest (Without On: 13-Feb-2016 Intent Contrast)By: Анна Gallardo MD Comments: think lipoma but has had skin cancer melanoma and bresat cancer. 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 On: 13-Feb-2016 Intent (42940)By: Анна Gallardo MD, MD, Dana M Flu Vaccine (Quadrivalent) On: 30-Jan-2016 Intent 18268Ve: KARLA Quinonez Comments: Lot #:[id number] date:5-16-25Tmexju given:0.5mlRoute: IMSite given:Right DltdGiven by: Adrian and ABN signed Fluarix EKG (12494)By: Sami FLORES, On: 25-Jan-2016 Intent Анна Fong MD Comments: see scanned document of test done to see results reviewed today with patient Kenalog Injection, 10 mgm On: 30-Oct-2015 Intent (J3301)By: Анна Gallardo MD Comments: Lot #:[id number] date:02/2017Amount given:1ml KenalogRoute: intra jointSite given: left elbowGiven by: Анна Gallardo Dr., MD, Dana M Bone Density StudyBy: Sami On: 08-Aug-2015 Intent Анна FLORES MD, Dana M Flu Vaccine (Quadrivalent) On: 13-Feb-2015 Intent 17787Ei: Анна Gallardo MD, MD, Dana M MRI - Knee(s) - LeftBy: Sami On: 08-Jul-2014 Intent Анна FLORES MD, Dana M Radiology - ChestBy: Sami On: 17-Jun-2014 Intent Анна FLORES MD, Dana M Comments: attention left clavicle Radiology - Knee - Left - On: 17-Jun-2014 Intent Weight BearingBy: Анна Gallardo MD, MD, Dana M Prevnar 13 (33477)By: Sami On: 11-Apr-2014 Intent Анна FLORES MD, Dana M ELECTROCARDIOGRAM, COMPLETE On: 11-Apr-2014 Intent (ECG) (12306)By: Анна Gallardo MD, MD, Dana M Flu Vaccine (Quadrivalent) On: 04-Mar-2014 Intent 48149Ux: Reyna Grace LPN ADMINISTRATION OF INFLUENZA On: 04-Mar-2014 Intent VIRUS VACCINE (G0008)By: Lesly Comments: X23SP6.15prefilled syringeR Dltd, IMAS, LPNABN and VIS signed Reyna GARSIA Eprescribed prescriptions On: 09-Aug-2013 Intent (G8553)By: Reyna Lopes DO FLU VAC, SPLIT, >3 YEARS, On: 27-Jan-2013 Intent INTRAMUSC ([id number])By: Kory, Comments: Lot:[id number]:Dose:0.5mLRoute:IMSite:L DltdGiven By:TAMMY signed Katalina IMMUNIZ ADMNIN, 1 VAC, On: 27-Jan-2013 Intent SNGL/COMBO ([id number])By: Katalina Horn CT - OtherBy: Ayanna Ayers CNP E On: 09-Nov-2012 Intent Comments: Adrenals with and [...] Intent Анна FLORES MD, Dana M EKG ([id number])By: Sami FLORES, On: 07-Apr-2012 Intent Анна Fong MD Comments: see scanned document of test done to see results reviewed today with patient IMMUNIZ ADMNIN, 1 VAC, On: 20-Jan-2012 Intent SNGL/COMBO ([id number])By: Mirza Comments: Lot #[id number]-right deltoidgiven by: Topher Blue LPN LPN, Tori FLU VAC, SPLIT, >3 YEARS, On: 20-Jan-2012 Intent INTRAMUSC ([id number])By: Mirza GARSIA, Tori FLU VAC, SPLIT, >3 YEARS, On: 15-Feb-2011 Intent INTRAMUSC ([id number])By: Floyd, Comments: Lot:[id number]:11/02/11Amt:prefilledRoute:IMSite:right deltGiven By: SUN Bearden Mariluz IMMUNIZ ADMNIN, 1 VAC, On: 15-Feb-2011 Intent SNGL/COMBO ([id number])By: Mariluz Barrientos IMMUNIZ ADMNIN, 1 VAC, On: 06-Feb-2010 Intent SNGL/COMBO ([id number])By: Evert MENDEZ, Catrina FLU VAC, SPLIT, >3 YEARS, On: 06-Feb-2010 Intent INTRAMUSC ([id number])By: Evert MENDEZ, Comments: Lot #: [id number] date: mount given: 0.5 mlRoute: IMSite given: right deltoidGiven by: VANESSA Curtisy Kenalog Injection, 10 mgm On: 23-Sep-2009 Intent (J3301)By: Анна Gallardo MD, MD, Анна Riley Kenalog Injection, 10 mgm On: 23-Sep-2009 Intent ([id number])By: Анна Gallardo MD, MD, Dana M Radiology - Hand - RightBy: On: 21-Sep-2009 Intent Анна Gallardo MD, MD, Анна Riley IMMUNIZ ADMNIN, 1 VAC, On: 02-Feb-2009 Intent SNGL/COMBO ([id number])By: Catrina Loyd RN FLU VAC, SPLIT, >3 YEARS, On: 02-Feb-2009 Intent INTRAMUSC ([id number])By: Catrina Loyd RN CT - Abdomen & PelvisBy: On: 13-Dec-2008 Intent Анна Gallardo MD, MD, Анна Riley IMMUNIZ ADMNIN, 1 VAC, On: 19-Feb-2008 Intent SNGL/COMBO ([id number])By: KARLA Quinonez FLU VAC, SPLIT, >3 YEARS, On: 19-Feb-2008 Intent INTRAMUSC ([id number])By: Jayce, Comments: Lot #:Expiration date:Amount given:Route: IMSite given:left deltoid Given by:wallace KARLA ADMINISTRATION OF PNEUMOCOCCAL On: 05-Feb-2008 Intent VACCINE ([id number])By: Анна Gallardo MD, MD, Dana M PNEUM VAC ADLT/IMUMNOSPR, On: 05-Feb-2008 Intent SBC/INTRM ([id number])By: Анна Gallardo MD, MD, Dana M CT - Abdomen & PelvisBy: On: 05-Nov-2007 Intent Анна Gallardo MD, MD, Dana M CT - AbdomenBy: Sami FLORES, On: 27-May-2007 Intent Анна Fong MD CT - ChestBy: Анна Gallardo MD On: 30-Sep-2006 Intent Анна Fraga MD Comments: attn axillary--enlarged axillary node Radiology - Thoracic SpineBy: On: 03-Apr-2006 Intent Sami FLORES Анна Gallardo MD, Анна Riley Radiology - Lumbar SpineBy: On: 03-Apr-2006 Intent Sami FLORES, Анна Gallardo MD, Анна Riley FLU VAC, SPLIT, >3 YEARS, On: 17-Mar-2006 Intent INTRAMUSC ([id number])By: Nelia Eaton ADMINISTRATION OF INFLUENZA On: 17-Mar-2006 Intent VIRUS VACCINE ([id number])By: Nelia Eaton Planned Medications INJECTION, TRIAMCINOLONE ACETONIDE, NOT OTHERWISE SPECIFIED, 10 MG Ordered: 29-Oct-2012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
--- OUTSIDE RECORDS SUMMARY | 2018-07-28 01:22 | XMS RPT_ITS | Continuity of Care Document ---
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 14-Ecf-424706:46 Troponin I (18243) Comments: PATIENT NOT FASTINGPERFORMED BY: [facility] Nxyfgd2598 [place] [facility] BradsbyAt[facility] [id number] Troponin I 0.02 ng/mL (Normal) Range: 0.00-0.04 :46 CREATINE KINASE TOTAL (78802) Comments: PATIENT NOT FASTINGPERFORMED BY: [facility]6[address] [facility] [id number] Creatine Kinase,Total 107 U/L (Normal) Range: 24-173 :46 SPEP (60415) Comments: PATIENT NOT FASTINGPERFORMED BY: [facility] DevelopmentAsc[facility] Standish Hospital[address] [place] [address] [id number] PDF . (Normal) Please note: SPRCS (Normal) Comments: Protein electrophoresis scan will follow via computer, mail, orcourier delivery. A/G Ratio 0.9 (Normal) Range: 0.7-1.7 Globulin, Total 4.1 g/dL (Abnormal) Range: 2.2-3.9 M-Fox Not Observed g/dL (Normal) Gamma Globulin 1.3 g/dL (Normal) Range: 0.4-1.8 Beta Globulin 1.4 g/dL (Abnormal) Range: 0.7-1.3 Twzgo-8-Etdnkvug 1.1 g/dL (Abnormal) Range: 0.4-1.0 Dxyvx-1-Plafhjqe 0.3 g/dL (Normal) Range: 0.0-0.4 Albumin 3.6 g/dL (Normal) Range: 2.9-4.4 Protein, Total 7.7 g/dL (Normal) Range: 6.0-8.5 :46 T4, FREE (THYROXINE) (61998) Comments: PATIENT NOT FASTINGPERFORMED BY: [facility]6[address] [facility] [id number] T4,Free(Direct) 1.29 ng/dL (Normal) Range: 0.82-1.77 :46 T3, FREE (TRIDOTHYRONINE) (62735) Comments: PATIENT NOT FASTINGPERFORMED BY: [facility]6[address] [facility] [id number] Triiodothyronine,Free,Serum 3.1 pg/mL (Normal) Range: 2.0-4.4 :46 URINALYSIS, W/ MICRO Comments: PATIENT NOT FASTINGPERFORMED BY: [facility] Research and DevelopmentMit[place] 0400470 [facility] [id number] Information: SRC:UC (27681) Microscopic Examination See below: (Normal) Comments: Microscopic was indicated and was performed. Microscopic Examination MICRON (Normal) Comments: Microscopic follows if indicated. Nitrite, Urine Negative (Normal) Urobilinogen,Semi-Qn 0.2 mg/dL (Normal) Range: 0.2-1.0 Bilirubin Negative (Normal) Occult Blood Negative (Normal) Ketones Negative (Normal) Glucose Negative (Normal) Protein Negative (Normal) WBC Esterase Negative (Normal) Appearance Clear (Normal) Urine-Color Yellow (Normal) pH 6.0 (Normal) Range: 5.0-7.5 Specific [place] 1.007 (Normal) Range: 1.005-1.030 :46 URINE DARLYN CULTURE-LOUISE COL Comments: PATIENT NOT FASTINGPERFORMED BY: BuzzSpiceCape Regional Medical CenterXbjcyi5019 [facility] [id number] COUNT (28469) Result 1 MUG (Normal) Comments: Mixed urogenital flora25,000-50,000 colony forming units per mL Urine Final report (Normal) Culture,Comprehensive 97-Ofj-929997:40 DARLYN CULTURE-BLOOD (95833) Comments: PATIENT NOT FASTINGPERFORMED BY: [facility] and DevelopmentAsc[facility] Stand[facility] Hospital6[facility] [id number] Information: RIGHT ARM DRAWN@215PM SRC:WB Result 1 NGFD (Normal) Comments: No aerobic or anaerobic growth in five days. Blood Culture, Routine Final report (Normal) 56-Tjs-972586:03 ANTISTREPTOLYSIN O-TITER Comments: PATIENT NOT FASTINGPERFORMED BY: [facility] and DevelopmentMit[place] 0400470 [facility] [id number] BY: [address] [id number] (51855) Antistreptolysin O Ab 52.4 {IU/mL} (Normal) Range: 0.0-200.0 24-Fiu-743888:03 CCP ANTIBODY (12716) Comments: PATIENT NOT FASTINGPERFORMED BY: Lab41 Turner StreetDublin [place] [id number] BY: [address] [id number] CCP Antibodies IgG/IgA 11 {units} (Normal) Range: 0-19 Comments: Negative <20 Weak positive 20 - 39 Moderate positive 40 - 59 Strong positive >59 67-Eci-419582:03 SED RATE ERYTHROCYTE Comments: PATIENT NOT FASTINGPERFORMED BY: [place] 5058970 [facility] [id number] BY: [address] [id number] (62114) Sedimentation Rate-Westergren 19 mm/h (Normal) Range: 0-40 12-Liu-933056:03 C-REACTIVE PROTEIN Comments: PATIENT NOT FASTINGPERFORMED BY: [place] 5058970 [facility] [id number] BY: [place] [id number] (14748) C-Reactive Protein, Quant 6.4 mg/L (Abnormal) Range: 0.0-4.9 19-Add-401615:03 TSH (71940) Comments: PATIENT NOT FASTINGPERFORMED BY: [place] 5058970 [facility] [id number] BY: [address] [id number] TSH 2.970 {uIU/mL} (Normal) Range: 0.450-4.500 02-Amq-049286:03 RHEUMATOID FACTOR-QUANT Comments: PATIENT NOT FASTINGPERFORMED BY: [place] 5058970 [facility] [id number] BY: [address] [id number] (64235) RA Latex Turbid. <10.0 {IU/mL} (Normal) Range: 0.0-13.9 25-Ixu-911921:03 METABOLIC PANEL, Comments: PATIENT NOT FASTINGPERFORMED BY: [place] 5058970 [facility] [id number] BY: [employer] [id number] [facility] (71085) ALT (SGPT) 15 [iU]/L (Normal) Range: 0-32 [...] 8-27 Glucose 97 mg/dL (Normal) Range: 65-99 46-Nes-426717:03 CBC with auto diff Comments: PATIENT NOT FASTINGPERFORMED BY: KYLE [facility] Uggylm5200 [facility] [id number] BY: [address] [id number] (76037) Immature Grans (Abs) 0.0 {x10E3/uL} (Normal) Range: [...] 3.77-5.28 WBC 6.7 {x10E3/uL} (Normal) Range: 3.4-10.8 77-Zjg-768849:03 CAMILLA (ANTINUCLEAR ANTIBODY) Comments: PATIENT NOT FASTINGPERFORMED BY: KYLE [employer] [id number] BY: [address] [id number] (99970) CAMILLA Direct Negative (Normal) 26-Tmh-056452:03 Lyme Disease Antibody W/ Comments: PATIENT NOT FASTINGPERFORMED BY: [facility]len[facility] HospitalVurv Technology[address] [id number] BY: [address] [facility] [id number] Reflex (81753) Lyme IgG/IgM Ab <0.91 {ISR} (Normal) Range: 0.00-0.90 Comments: Negative <0.91 Equivocal 0.91 - 1.09 Positive >1.09 9-Why-062909:59 Rapid Flu (22441 x 2) Influenza A Ag positive A (Normal) 71-Ulf-86873:10 HGB A1C (65204) Comments: PATIENT WAS FASTINGPERFORMED BY: [employer] Lyhcjjdvtw6246 [facility] [id number] BY: Chorus Vycfhr3300 [facility] [id number] Hemoglobin A1c 6.3 % (Abnormal) Range: 4.8-5.6 Comments: . Pre-diabetes: 5.7 - 6.4 Diabetes: >6.4 Glycemic control for adults with diabetes: <7.0 01-Wpd-02877:10 LIPOPROTEIN, BLD, BY NMR Comments: PATIENT WAS FASTINGPERFORMED BY: [employer] Mxtuzebqoe9877 [facility] [id number] BY: Chorus Shdhet9405 [facility] [id number]; fu 4-2-18 DB (85918) LP-IR Score 80 (Abnormal) Comments: INSULIN RESISTANCE MARKER <--Insulin Sensitive Insulin Resistant--> Percentile in Reference PopulationInsulin Resistance ScoreLP-IR Score Low 25th 50th 75th High <27 27 45 63 >63LP-IR Score is inaccurate if patient is non-fasting. .The LP-IR score is a laboratory developed i [facility] that has beenassociated with insulin [...] were developed and their performance characteristicsdetermined by [place]. These assays have not been cleared by [...] 1600 - 2000 Very High > 2000 18-Ofj-31203:10 METABOLIC PANEL, Comments: PATIENT WAS FASTINGPERFORMED BY: LabCo[address] [id number] BY: [facility] Rsotjt5260 [facility] [id number] COMPREHENSIVE (71692) ALT (SGPT) 14 [iU]/L (Normal) Range: 0-32 [...] 8-27 Glucose 135 mg/dL (Abnormal) Range: 65-99 2-Uqu-579067:37 MICROALBUMIN: CREATININE RATIO Comments: PATIENT NOT FASTINGPERFORMED BY: [facility] Gtirwb3479 [facility] [id number] (75738) AND (32106) Microalb/Creat Ratio <2.3 {mg/g_creat} (Normal) Range: 0.0-30.0 Microalbumin, Urine <3.0 ug/mL (Normal) Creatinine, Urine 130.4 mg/dL (Normal) 4-Uga-889814:37 URINALYSIS (44493) Comments: PATIENT NOT FASTINGPERFORMED BY: [facility] Qyvydj5531 [facility] [id number] Information: NURSE DRAW Microscopic Examination MICNIP (Normal) Comments: Microscopic not indicated and not performed. Nitrite, Urine Negative (Normal) Urobilinogen,Semi-Qn 0.2 mg/dL (Normal) Range: 0.2-1.0 Bilirubin Negative (Normal) Occult Blood Negative (Normal) Ketones Negative (Normal) Glucose Negative (Normal) Protein Negative (Normal) WBC Esterase Negative (Normal) Appearance Clear (Normal) Urine-Color Yellow (Normal) pH 6.5 (Normal) Range: 5.0-7.5 Specific [place] 1.018 (Normal) Range: 1.005-1.030 :37 Homocysteine, Plasma (84913) Comments: PATIENT NOT FASTINGPERFORMED BY: KYLE [facility] Mnjana1022 [facility] [id number] Homocyst(e)ine, Plasma 13.2 umol/L (Normal) Range: 0.0-15.0 67-Ggf-339761:10 Basic Metabolic Profile (BMP) Comments: [facility] Ijhxfyvaza9464 [place], [place], [id number] GAP 6 (Normal) Range: 5-15 CO2 28.0 [...] 126 mg/dLsuggests DIABETES MELLITUS per A.D.A. criteria. 4-Lcd-226533:39 CBC with auto diff Comments: PATIENT NOT FASTINGPERFORMED BY: KYLE SMT Research and DevelopmentCoCape Regional Medical CenterBohqym3087 [facility] [id number] Information: NURSE DRAW (31860) Immature Grans (Abs) 0.0 {x10E3/uL} (Normal) Range: [...] 3.77-5.28 WBC 5.5 {x10E3/uL} (Normal) Range: 3.4-10.8 6-Apn-496626:39 METABOLIC PANEL, COMPREHENSIVE Comments: PATIENT NOT FASTINGPERFORMED BY: [facility]6[address] [facility] [id number]; fu db 11-21 (93742) ALT (SGPT) 12 [iU]/L (Normal) Range: 0-32 [...] Glucose, Serum 112 mg/dL (Abnormal) Range: 65-99 83-Vbw-099078:12 HgA1C , Office (31682) HgA1C , Office 6.1 % (Normal) Range: 4.6 - 7.1 95-Jex-481143:53 LIPOPROTEIN, BLD, BY NMR Comments: PATIENT WAS FASTINGPERFORMED BY: BN [facility] [address] [id number] BY: CB [facility] Znrdcv3391 [facility] [id number] Information: HARD DRAW; fu 10-31-16 (74923) LP-IR Score 76 (Abnormal) Comments: INSULIN RESISTANCE MARKER <--Insulin Sensitive Insulin Resistant--> Percentile in Reference PopulationInsulin Resistance ScoreLP-IR Score Low 25th 50th 75th High <27 27 45 63 >63LP-IR Score is inaccurate if patient is non-fasting. .The LP-IR score is a laboratory developed i [facility] that has beenassociated with insulin resistance and [...] were developed and their performance characteristicsdetermined by [employer]. These assays have not been cleared by [...] 1600 - 2000 Very High > 2000 58-Shf-970330:53 Homocysteine, Plasma Comments: PATIENT WAS FASTINGPERFORMED BY: [place] [address] [facility] [id number] BY: [place] 5058970 [facility] [id number] (41816) Homocyst(e)ine, Plasma 13.7 umol/L (Normal) Range: 0.0-15.0 :57 T3, FREE (TRIDOTHYRONINE) (19885) Comments: PATIENT NOT FASTINGPERFORMED BY: [address] [id number] Triiodothyronine,Free,Serum 2.8 pg/mL (Normal) Range: 2.0-4.4 :57 T4, FREE (THYROXINE) (67596) Comments: PATIENT NOT FASTINGPERFORMED BY: [address] [id number] T4,Free(Direct) 1.06 ng/dL (Normal) Range: 0.82-1.77 :57 Anti-TPO Antibody (63514) Comments: PATIENT NOT FASTINGPERFORMED BY: [address] [id number] Thyroid Peroxidase (TPO) Ab 14 {IU/mL} (Normal) Range: 0-34 5-Czc-900082:45 HgA1C , Office (36788) HgA1C , Office 6.0 % (Normal) Range: 4.6 - 7.1 :11 LIPID PANEL (58127) Comments: PATIENT WAS FASTINGPERFORMED BY: [address] [id number]; apt. 4-5 LDL/HDL Ratio 3.8 {ratio_units} (Abnormal) [...] Cholesterol, Total 285 mg/dL (Abnormal) Range: 100-199 23-Xwx-34463:11 METABOLIC PANEL, Comments: PATIENT WAS FASTINGPERFORMED BY: LabCoCape Regional Medical CenterFljvmi6111 [facility] [id number] Information: [id number] COMPREHENSIVE (45743) ALT (SGPT) 12 [iU]/L (Normal) Range: 0-32 [...] Glucose, Serum 101 mg/dL (Abnormal) Range: 65-99 :03 METABOLIC PANEL, Comments: PATIENT WAS FASTINGPERFORMED BY: [employer] Vlcmyf8187 [facility] [id number] Information: [id number] COMPREHENSIVE (95697) ALT (SGPT) 11 [iU]/L (Normal) Range: 0-32 [...] mg/dL (Normal) Range: 65-99 :03 LIPID PANEL (64706) Comments: PATIENT WAS FASTINGPERFORMED BY: BuzzSpiceCape Regional Medical CenterUcbkgr2867 [facility] [id number]; apt. 1012-15 LDL/HDL Ratio 3.9 {ratio_units} (Abnormal) Range: 0.0-3.2 [...] Cholesterol, Total 285 mg/dL (Abnormal) Range: 100-199 9-Ron-929899:10 HgA1C , Office (15199) HgA1C , Office 6.2 % (Normal) Range: 4.6 - 7.1 1-Rrg-803250:10 Blood Glucose , Office (68759) Blood Glucose , Office 120 (Normal) :35 Comp. Metabolic Panel (14) Comments: PATIENT WAS FASTINGPERFORMED BY: [facility]6[address] [facility] [id number] Information: [id number]; patient has fu 6-09-16 nothing urgent will [...] Glucose, Serum 102 mg/dL (Abnormal) Range: 65-99 73-Ubt-96007:35 Lipid Panel With LDL/HDL Comments: PATIENT WAS FASTINGPERFORMED BY: [employer]6370 [facility] [id number] Ratio LDL/HDL Ratio 4.1 {ratio_units} (Abnormal) Range: [...] METABOLIC PANEL, Comments: PATIENT WAS FASTINGPERFORMED BY: [employer]6370 [facility] [id number] Information: [id number] COMPREHENSIVE (30828) ALT (SGPT) 15 [iU]/L (Normal) Range: 0-32 [...] Glucose, Serum 101 mg/dL (Abnormal) Range: 65-99 07-Wfi-749148:37 LIPID PANEL (00974) Comments: PATIENT WAS FASTINGPERFORMED BY: LabCoCape Regional Medical CenterKpfgys0284 [facility] [id number] LDL/HDL Ratio 3.8 {ratio_units} (Abnormal) Range: 0.0-3.2 [...] degree relatives should be collected. J Clin Vdcvick6119;5:133-140 LDL Cholesterol Calc 195 mg/dL (Abnormal) Range: 0-99 VLDL Cholesterol Gianfranco 58 mg/dL (Abnormal) Range: 5-40 HDL Cholesterol 52 mg/dL (Normal) Comments: According to ATP-III Guidelines, HDL-C >59 mg/dL is considered anegative risk factor for CHD. Triglycerides 291 mg/dL (Abnormal) Range: 0-149 Cholesterol, Total 305 mg/dL (Abnormal) Range: 100-199 :19 HgA1C , Office (17541) HgA1C , Office 6.0 % (Normal) Range: 4.6 - 7.1 :37 CBC WITH MANUAL DIFF Comments: PATIENT WAS FASTINGPERFORMED BY: [facility]6[address] [facility] [id number] Information: [id number] (59690) Immature Grans (Abs) 0.0 {x10E3/uL} (Normal) Range: [...] Panel, Comprehensive Comments: PATIENT WAS FASTINGPERFORMED BY: [employer] Wuaowr0852 [facility] [id number] (75942) ALT (SGPT) 13 [iU]/L (Normal) Range: 0-32 [...] mg/dL (Abnormal) Range: 65-99 :37 Lipid Panel (82765) Comments: PATIENT WAS FASTINGPERFORMED BY: [employer]6370 [facility] [id number] LDL/HDL Ratio 4.3 {ratio_units} (Abnormal) Range: 0.0-3.2 [...] 319 mg/dL (Abnormal) Range: 100-199 :57 CALCIFIDIOL (20314) VIT D 25 Comments: PATIENT NOT FASTINGPERFORMED BY: [facility] Idebkx6841 [place] [facility] [id number] Vitamin D, 25-Hydroxy 23.6 ng/mL (Abnormal) Range: 30.0-100.0 Comments: Vitamin D deficiency has been defined by the [place] ofMedicine and an Endocrine Society practice guideline as alevel of serum 25-OH vitamin D less than 20 ng/mL (1,2).The Endocrine Society went on to further define vitamin Dinsufficiency as a level between 21 and 29 ng/mL (2).1. IOM ([place] of Medicine). 2010. Dietary reference intakes for calcium and D. [place]: The National Academies Press.2. Diego MF, Pamela NC, Jaron SUAREZ, et al. Evaluation, treatment, and prevention of vitamin D deficiency: an Endocrine Society clinical practice guideline. JCEM. 2010; 96(7):1911-30. :57 TSH (81450) Comments: PATIENT NOT FASTINGPERFORMED BY: [employer] Ylddzx2861 [facility] [id number] TSH 3.010 {uIU/mL} (Normal) Range: 0.450-4.500 :57 METABOLIC PANEL, COMPREHENSIVE Comments: PATIENT NOT FASTINGPERFORMED BY: [employer] Dyinqb8102 [facility] [id number] (05346) ALT (SGPT) 16 [iU]/L (Normal) Range: 0-32 [...] Glucose, Serum 143 mg/dL (Abnormal) Range: 65-99 52-Jup-84144:57 CBC WITH MANUAL DIFF Comments: PATIENT NOT FASTINGPERFORMED BY: [facility] Dipqba2781 [facility] [id number] Information: [id number] (19948) Immature Grans (Abs) 0.0 {x10E3/uL} (Normal) Range: [...] 3.77-5.28 WBC 5.3 {x10E3/uL} (Normal) Range: 3.4-10.8 71-Mjq-86891:22 Urinalysis, Office (10467) UA - LEUKOCYTE ESTERASE Negative (Normal) UA - NITRITE Negative (Normal) URINE UROBILINGN LOUISE TIMED 2 mg/dL (Normal) UA - PROTEIN Negative mg/dL (Normal) UA - PH 5.0 (Normal) UA - BLOOD Hemolyzed Trace (Normal) UA - SPECIFIC GRAVITY 1.030 (Abnormal) UA - KETONES Negative mg/dL (Normal) UA - BILIRUBIN Negative (Normal) UA - GLUCOSE Negative (Normal) 4-Wtl-792242:22 CMP GAP 9 (Normal) Range: 5-15 CL [...] 7-18 GLU 94 mg/dL (Normal) Range: 70-110 2-Ahi-449618:22 LIPID LDL 150 mg/dL (Abnormal) Range: 0-130 [...] CHOL 247 mg/dL (Abnormal) Comments: <200 mg/dL Vdogcfqdw368-500 mg/dL Borderline>240 mg/dL High Risk :15 CRE [...] is stable compared to the prior study [facility] 2011 and December 15 9. No abnormal enhancement [...] oliver D.O.November 10, 2012 at 11:10:28 AM [id number] Signed DS/DS If you are the referring physician and would like to consult with theradiologist who provided this interpretation, please contact Diaz Chavez D.O. at [phone]. If this radiologist is unavailable, you will bedirected to another radiologist to assist. If you are a patient with a question regarding this report, pleasecont actyour referring physician directly. Professional Interpretation Provided By: [employer], Phone , These documents contain legally protected [...] 11/10/12 1126 Sign by: Vitaly Becker DO 6-Bcz-201631:40 LIPID LDL <TEST NOT PERFORMED> mg/dL (Normal) [...] Very High > or = 500 mg/dL 7-Wbt-938759:40 LIVER ALT 20 U/L (Normal) Range: 12-78 BID 0.09 mg/dL (Normal) Range: 0.00-0.30 BIT 0.40 mg/dL (Normal) Range: 0.00-1.00 ALK 85 U/L (Normal) Range: 50-136 ALB 4.0 g/dL (Normal) Range: 3.4-5.0 AST 22 U/L (Normal) Range: 15-37 TPROT 8.2 g/dL (Normal) Range: 6.4-8.2 0-Jom-677425:50 CHEST, PA AND LATERAL Radiology Report See [...] Gilliland D.O.April 07, 2012 at 8:03:03 PM [id number] Signed IF/IF If you are the referring physician and would like to consult [facility] theradiologist who provided this interpretation, please contact Сергей Gilliland D.O.at [phone]. If this radiologist is unavailable, you will be directedto another radiologist to assist. If you are a pa tient with a question regarding this report, pleasecontactyour referring physician directly. Professional Interpretation Provided By: [employer], Phone , These documents c ontain legally [...] on 04/07/122013 Sign by: Сергей Gilliland DO 7-Ljm-495577:21 CKMB CPKMB 0.6 ng/mL (Normal) Range: 0.0-5.0 Comments: CK-MB and RI Interpretation MB Relative Index Non-AMI <or= 5 NA Indeterminate > 5 <or= 4 AMI > 5 > 4 CPK 90 U/L (Normal) Range: 26-192 3-Xmu-963559:21 DDIMQ 1.24 {FEUug/mL} Range: 0.22-0.48 (Abnormal) Comments: D-Dimer ELEVATED: Additional studies and clinicalassessments are indicated to conclude diagnosis of:Deep Vein Thrombosis (DVT) or Pulmonary Embolism (PE)CRITICAL VALUE REPEATED AND VERIFIED. CALLED TO Chip SOLIZ RN04/07/12 1324 TRANG ALCANTARRESULTS READ BACK BY SAME . 3-Pvs-059017:21 TROP < 0.02 ng/mL (Normal) Comments: TROPONIN-I EXPECTED VALUES <0.05 NEGATIVE 0.06 - 0.59 AT RISK OF OK > OR = 0.60 SUGGEST OK :00 CHEST WITH CONTRAST Radiology Report See Note [...] Mcfadden M.D.April 07, 2012 at 4:18:06 PM [id number] onically Signed GP/GP If you are the referring physician and would like to consult with theradiologist who provided this interpretation, please contact Ana Rosa Almonte at [phone]. If this r adiologist is unavailable, youwill be directed to another radiologist to assist. If you are a patient with a question regarding this report, pleasecontactyour referring physician directly. Professional Interpretation Provided By: [employer], Phone , These documents contain legally protected [...] documents. Dictated on 04/07/12 1550 by Karl Mcfadedn MDranscribed on 04/07/12 1622 by ITS IMPORTSign by Edgar Mcfadden MD on 04/07/12 1623 Sign by: Edgar Mcfadden MD 88-Ljt-51928:26 CBCMD RBCM NORM C+C {NORMAL} (Normal) PE [...] CHOL 275 mg/dL (Abnormal) Comments: <200 mg/dL Zwvlghsuf453-343 mg/dL Borderline>240 mg/dL High Risk TRIG 187 mg/dL (Normal) Comments: Serum Triglycerides Reference IntervalNormal <150 mg/dLBorderline high 150 - 199 mg/dLHigh 200 - 499 mg/ dLVery High > or = 500 mg/dL 84-Vxt-746943:07 HAND,MIN 3 VIEWS (MT) Radiology Report See Note (Normal) Comments: Exam Number: [id number] CLINICAL:NO RECENT INJURYPAIN MID 2ND AND 3RD [...] T PROT 7.5 g/dL (Normal) Range: 6.4-8.2 34-Eod-812306:55 PELVIS WITH IV CONTRAST Radiology Report See Note (Normal) Comments: Exam Number: [id number] CLINICAL:Abdominal pain, history of breast cancer CT [...] adrenal adenoma. Reported By: ZAY POSADAS M.D. 33-Vtj-388689:54 ABDOMEN WITH IV CONTRAST Radiology Report See Note (Normal) Comments: Exam Number: [id number] CLINICAL:Abdominal pain, history of breast cancer CT [...] 11.6-14.6 WBC 4.7 K/mm3 (Normal) Range: 4.4-11.0 :29 Urinalysis, Office (74135) UA - BILIRUBIN Negative (Normal) UA - [...] T PROT 8.0 g/dL (Normal) Range: 6.4-8.2 4-Akp-751543:00 Urinalysis, Office (51568) UA - BILIRUBIN Negative (Normal) UA - [...] for patient's is the eGFRmultiplied by 1.212. [facility] Laboratory uses the abbreviated Modification of [...] Disease W/O Kidney Disease>/= 90 Stage One Jdbqks01 - 89 Stage Two Suspect Decreased GFR30 [...] 40 mg/dL (Normal) Range: 5-40 :20 METHYLM 218785 336 nmol/L (Normal) Range: 73-376 Comments: The reference range for methylmalonic acid has been set at+3sd above the mean for healthy blood bank donors. In theclinical assessment of patients with megaloblastic anemiasa cutoff of +3sd provides gre ater specificity in thediagnosis of the vitamin deficiency states, despite thesacrifice of some sensitivity.Performed At: [employer] [id number] :21 COMP METABOLIC CL 106 mmol/L (Normal) [...] T PROT 7.9 g/dL (Normal) Range: 6.4-8.2 :21 LIPID CHOL 266 mg/dL (Abnormal) Comments: <200 [...] mg/dL VLDL 46 mg/dL (Abnormal) Range: 5-40 1-Ote-019997:45 PELVIS WITH CONTRAST Radiology Report See Note (Normal) Comments: Exam Number: [id number] THREE PHASE CT OF THE ABDOMEN WITH [...] in length. On the previous study ofMayuary , 2008, this measured at approximately the same length. Itis slightly more prominent, however, compared to a study of this could be secondary to volume averaging [...] etiology. Reported By: ANN MARIE GERBER M.D. 5-Zqd-107482:44 ABDOMEN W/WO CONTRAST Radiology Report See Note (Normal) Comments: Exam Number: [id number] THREE PHASE CT OF THE ABDOMEN WITH [...] mm in length. On the previous study 2007, this measured at approximately the same length. Itis slightly more prominent, however, compared to a study of this could be secondary to volume averaging [...] mg/dL VLDL 28 mg/dL (Normal) Range: 5-40 12-Ntj-923453:15 ABDOMEN W/WO CONTRAST Radiology Report See Note (Normal) Comments: Exam Number: [id number] CT OF THE ABDOMEN WITH AND WITHOUT [...] stability. Reported By: ANN MARIE GERBER M.D. 41-Vlc-743332:14 LIPID CHOL 246 mg/dL (Abnormal) Comments: <200 [...] mg/dL VLDL 50 mg/dL (Abnormal) Range: 5-40 74-Qix-281631:14 LIVER ALB 3.9 g/dL (Normal) Range: 3.4-5.0 ALK P 84 U/L (Normal) Range: 50-136 ALT 29 [iU]/L (Abnormal) Range: 30-65 AST 19 U/L (Normal) Range: 15-37 D BILI 0.06 mg/dL (Normal) Range: 0.00-0.30 T BILI 0.36 mg/dL (Normal) Range: 0.00-1.00 T PROT 7.8 g/dL (Normal) Range: 6.4-8.2 39-Ktf-059885:40 ABDOMEN W/WO CONTRAST Radiology Report See Note (Normal) Comments: Exam Number: [id number] 4-PHASE CT SCAN OF LIVER CLINICAL STATEMENTMass [...] Report See Note (Normal) Comments: Exam Number: [id number] CT CHEST WITH CONTRAST CLINICAL STATEMENTRight axillary [...] impression #2. Reported By: ELIE BECKFORD M.D. 98-Ulq-21073:40 COMP METABOLIC A/G 1.0 {RATIO} (Normal) Range: [...] Treatment Indication: Hypercholesteremia Planned Observations Homocysteine, Plasma (36129)Indication: Elevated serum homocysteine level On: 86-Ujh-032494:15 Request METABOLIC PANEL, COMPREHENSIVE (67496)Indication: Diabetes mellitus type II, controlled, with no complications (Renamed from Controlled type 2 diabetes mellitus without complication) On: 78-Ygm-659460:02 Request LIPID PANEL (11988)Indication: Diabetes mellitus type II, controlled, with no complications (Renamed from Controlled type 2 diabetes mellitus without complication) On: 96-Lzm-292279:02 Request HGB A1C (72162)Indication: Diabetes mellitus type II, controlled, with no complications (Renamed from Controlled type 2 diabetes mellitus without complication) On: 62-Zdr-510296:02 Request EBV Panel (35312)Indication: Fatigue On: 00-Cuk-393452:49 Request METABOLIC PANEL, COMPREHENSIVE (82976)Indication: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
--- OUTSIDE RECORDS SUMMARY | 2018-07-28 01:24 | XMS RPT_ITS | Continuity of Care Document ---
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 [id number] COMPREHENSIVE (72026) ALT (SGPT) 15 [iU]/L (Normal) Range: 0-32 [...] 8-27 Glucose 97 mg/dL (Normal) Range: 65-99 45-Vxb-920022:03 CBC with auto diff Comments: PATIENT NOT FASTINGPERFORMED BY: CB [facility] Xqvxrg8311 [facility] [id number] BY: BN [facility] [address] [id number] (32134) Immature Grans (Abs) 0.0 {x10E3/uL} (Normal) Range: [...] 3.77-5.28 WBC 6.7 {x10E3/uL} (Normal) Range: 3.4-10.8 82-Uem-219176:03 CAMILLA (ANTINUCLEAR ANTIBODY) Comments: PATIENT NOT FASTINGPERFORMED BY: [employer] [facility] [id number] BY: [place] [id number] (29915) CAMILLA Direct Negative (Normal) 40-Msc-203825:03 Lyme Disease Antibody W/ Comments: PATIENT NOT FASTINGPERFORMED BY: Spockly [address] [place] [address] [id number] BY: OpVista[address] [id number] Reflex (03315) Lyme IgG/IgM Ab <0.91 {ISR} (Normal) Range: 0.00-0.90 Comments: Negative <0.91 Equivocal 0.91 - 1.09 Positive >1.09 8-Fbn-484201:59 Rapid Flu (02445 x 2) Influenza A Ag positive A (Normal) :10 HGB A1C (70483) Comments: PATIENT WAS FASTINGPERFORMED BY: Browserling [address] [id number] BY: LabBio-Adhes[facility] AllianceMountainside HospitalSlvbrm8557 [facility] [id number] Hemoglobin A1c 6.3 % (Abnormal) Range: 4.8-5.6 Comments: . Pre-diabetes: 5.7 - 6.4 Diabetes: >6.4 Glycemic control for adults with diabetes: <7.0 :10 LIPOPROTEIN, BLD, BY NMR Comments: PATIENT WAS FASTINGPERFORMED BY: [employer] [address] [id number] BY: [employer] [facility]Jotvine[facility] Vaekjo4055 [facility] [id number]; fu 18 DB (53682) LP-IR Score 80 (Abnormal) Comments: INSULIN RESISTANCE MARKER <--Insulin Sensitive Insulin Resistant--> Percentile in Reference PopulationInsulin Resistance ScoreLP-IR Score Low 25th 50th 75th High <27 27 45 63 >63LP-IR Score is inaccurate if patient is non-fasting. .The LP-IR score is a laboratory developed i [facility] that has beenassociated with insulin resistance and [...] were developed and their performance characteristicsdetermined by [employer]. These assays have not been cleared by [...] 1600 - 2000 Very High > 2000 38-Gjm-93669:10 METABOLIC PANEL, Comments: PATIENT WAS FASTINGPERFORMED BY: BN [facility] Oiewalidws7031 [facility] [id number] BY: CB [facility] Lgmvtr3153 [facility] [id number] COMPREHENSIVE (61375) ALT (SGPT) 14 [iU]/L (Normal) Range: 0-32 [...] 8-27 Glucose 135 mg/dL (Abnormal) Range: 65-99 9-Fqu-696347:37 MICROALBUMIN: CREATININE RATIO Comments: PATIENT NOT FASTINGPERFORMED BY: Spockly Kbsgid4037 [facility] [id number] (29379) AND (46980) Microalb/Creat Ratio <2.3 {mg/g_creat} (Normal) Range: 0.0-30.0 Microalbumin, Urine <3.0 ug/mL (Normal) Creatinine, Urine 130.4 mg/dL (Normal) 0-Xwf-436121:37 URINALYSIS (37664) Comments: PATIENT NOT FASTINGPERFORMED BY: [employer] Wkpiut9381 [facility] [id number] Information: NURSE DRAW Microscopic Examination MICNIP (Normal) Comments: Microscopic not indicated and not performed. Nitrite, Urine Negative (Normal) Urobilinogen,Semi-Qn 0.2 mg/dL (Normal) Range: 0.2-1.0 Bilirubin Negative (Normal) Occult Blood Negative (Normal) Ketones Negative (Normal) Glucose Negative (Normal) Protein Negative (Normal) WBC Esterase Negative (Normal) Appearance Clear (Normal) Urine-Color Yellow (Normal) pH 6.5 (Normal) Range: 5.0-7.5 Specific [place] 1.018 (Normal) Range: 1.005-1.030 8-Tzg-445249:37 Homocysteine, Plasma (94963) Comments: PATIENT NOT FASTINGPERFORMED BY: [facility]CoMountainside HospitalXrtxuf4828 [facility] [id number] Homocyst(e)ine, Plasma 13.2 umol/L (Normal) Range: 0.0-15.0 33-Ybi-628391:10 Basic Metabolic Profile (BMP) Comments: [facility] H[address]bt[address]pwjnw[address] [place], [address] GAP 6 (Normal) Range: 5-15 CO2 28.0 [...] 126 mg/dLsuggests DIABETES MELLITUS per A.D.A. criteria. 1-Nke-168974:39 CBC with auto diff Comments: PATIENT NOT FASTINGPERFORMED BY: [facility]CoMountainside HospitalBkjksv2389 [facility] [id number] Information: NURSE DRAW (01189) Immature Grans (Abs) 0.0 {x10E3/uL} (Normal) Range: [...] 3.77-5.28 WBC 5.5 {x10E3/uL} (Normal) Range: 3.4-10.8 2-Hnj-222845:39 METABOLIC PANEL, COMPREHENSIVE Comments: PATIENT NOT FASTINGPERFORMED BY: [facility]CoMountainside HospitalIyabsg3807 [facility] [id number]; db 03-25 (64744) ALT (SGPT) 12 [iU]/L (Normal) Range: 0-32 [...] Glucose, Serum 112 mg/dL (Abnormal) Range: 65-99 97-Oqj-867268:12 HgA1C , Office (75570) HgA1C , Office 6.1 % (Normal) Range: 4.6 - 7.1 59-Mnl-914718:53 LIPOPROTEIN, BLD, BY NMR Comments: PATIENT WAS FASTINGPERFORMED BY: BN [facility] [address] [id number] BY: CB [facility] Wkfleg0151 [facility] [id number] Information: HARD DRAW; fu 10-31-16 (30003) LP-IR Score 76 (Abnormal) Comments: INSULIN RESISTANCE MARKER <--Insulin Sensitive Insulin Resistant--> Percentile in Reference PopulationInsulin Resistance ScoreLP-IR Score Low 25th 50th 75th High <27 27 45 63 >63LP-IR Score is inaccurate if patient is non-fasting. .The LP-IR score is a laboratory developed i [facility] that has beenassociated with insulin resistance and [...] were developed and their performance characteristicsdetermined by [employer]. These assays have not been cleared by [...] Homocysteine, Plasma Comments: PATIENT WAS FASTINGPERFORMED BY: [employer] [address] [id number] BY: LabBio-[facility] AllianceMountainside HospitalRcvhre9371 [facility] [id number] (71053) Homocyst(e)ine, Plasma 13.7 umol/L (Normal) Range: 0.0-15.0 :57 T3, FREE (TRIDOTHYRONINE) (58895) Comments: PATIENT NOT FASTINGPERFORMED BY: [facility]6370 [facility] [id number] Triiodothyronine,Free,Serum 2.8 pg/mL (Normal) Range: 2.0-4.4 :57 T4, FREE (THYROXINE) (45551) Comments: PATIENT NOT FASTINGPERFORMED BY: [facility]6370 [facility] [id number] T4,Free(Direct) 1.06 ng/dL (Normal) Range: 0.82-1.77 :57 Anti-TPO Antibody (47778) Comments: PATIENT NOT FASTINGPERFORMED BY: [facility]6370 [facility] [id number] Thyroid Peroxidase (TPO) Ab 14 {IU/mL} (Normal) Range: 0-34 6-Yhr-760632:45 HgA1C , Office (60855) HgA1C , Office 6.0 % (Normal) Range: 4.6 - 7.1 :11 LIPID PANEL (93806) Comments: PATIENT WAS FASTINGPERFORMED BY: [facility]6370 [facility] [id number]; apt. 4-5 LDL/HDL Ratio 3.8 {ratio_units} (Abnormal) [...] METABOLIC PANEL, Comments: PATIENT WAS FASTINGPERFORMED BY: [facility]CoMountainside HospitalDpfhsy3389 [facility] [id number] Information: [id number] COMPREHENSIVE (92268) ALT (SGPT) 12 [iU]/L (Normal) Range: 0-32 [...] METABOLIC PANEL, Comments: PATIENT WAS FASTINGPERFORMED BY: [facility]CoMount[facility] HospitalTyrrss0659 [facility] [id number] Information: [id number] COMPREHENSIVE (23718) ALT (SGPT) 11 [iU]/L (Normal) Range: 0-32 [...] mg/dL (Normal) Range: 65-99 07-Feb-20159:03 LIPID PANEL (65711) Comments: PATIENT WAS FASTINGPERFORMED BY: LabCo Qiiest4866 [facility] [id number]; apt. 02-13-15 LDL/HDL Ratio 3.9 {ratio_units} (Abnormal) [...] Cholesterol, Total 285 mg/dL (Abnormal) Range: 100-199 4-Qcm-023512:10 HgA1C , Office (14727) HgA1C , Office 6.2 % (Normal) Range: 4.6 - 7.1 5-Bfs-424817:10 Blood Glucose , Office (71607) Blood Glucose , Office 120 (Normal) :35 Comp. Metabolic Panel (14) Comments: PATIENT WAS FASTINGPERFORMED BY: [facility]CoMount[facility]ide HospitalZbgkef1317 [facility] [id number] Information: [id number]; patient has fu 6-09-16 nothing urgent will [...] With LDL/HDL Comments: PATIENT WAS FASTINGPERFORMED BY: [facility]bysMountainside HospitalKpgidx0989 [facility] [id number] Ratio LDL/HDL Ratio 4.1 {ratio_units} (Abnormal) Range: [...] METABOLIC PANEL, Comments: PATIENT WAS FASTINGPERFORMED BY: [place]bysMaureen [place] 2821770 [facility] [id number] Information: [id number] COMPREHENSIVE (51467) ALT (SGPT) 15 [iU]/L (Normal) Range: 0-32 [...] mg/dL (Abnormal) Range: 65-99 :37 LIPID PANEL (43616) Comments: PATIENT WAS FASTINGPERFORMED BY: [facility]CoMountainside HospitalGvzwel2019 [facility] [id number] LDL/HDL Ratio 3.8 {ratio_units} (Abnormal) Range: 0.0-3.2 [...] degree relatives should be collected. J Clin Mbbiktk6909;5:133-140 LDL Cholesterol Calc 195 mg/dL (Abnormal) Range: 0-99 VLDL Cholesterol Gianfranco 58 mg/dL (Abnormal) Range: 5-40 HDL Cholesterol 52 mg/dL (Normal) Comments: According to ATP-III Guidelines, HDL-C >59 mg/dL is considered anegative risk factor for CHD. Triglycerides 291 mg/dL (Abnormal) Range: 0-149 Cholesterol, Total 305 mg/dL (Abnormal) Range: 100-199 :19 HgA1C , Office (56096) HgA1C , Office 6.0 % (Normal) Range: 4.6 - 7.1 :37 CBC WITH MANUAL DIFF Comments: PATIENT WAS FASTINGPERFORMED BY: [place] 1256170 [facility] [id number] Information: [id number] (55116) Immature Grans (Abs) 0.0 {x10E3/uL} (Normal) Range: [...] Panel, Comprehensive Comments: PATIENT WAS FASTINGPERFORMED BY: [facility]6370 [facility] [id number] (94988) ALT (SGPT) 13 [iU]/L (Normal) Range: 0-32 [...] Glucose, Serum 106 mg/dL (Abnormal) Range: 65-99 60-Wjk-43723:37 Lipid Panel (99196) Comments: PATIENT WAS FASTINGPERFORMED BY: LabCo Dyamgf0910 [facility] [id number] LDL/HDL Ratio 4.3 {ratio_units} (Abnormal) Range: 0.0-3.2 [...] 319 mg/dL (Abnormal) Range: 100-199 :57 CALCIFIDIOL (14758) VIT D 25 Comments: PATIENT NOT FASTINGPERFORMED BY: [facility]bysMountainside HospitalEhtjmg5464 [facility] [id number] Vitamin D, 25-Hydroxy 23.6 ng/mL (Abnormal) Range: 30.0-100.0 Comments: Vitamin D deficiency has been defined by the [place] [employer] and an Endocrine Society practice guideline as alevel of serum 25-OH vitamin D less than 20 ng/mL (1,2).The Endocrine Society went on to further define vitamin Dinsufficiency as a level between 21 and 29 ng/mL (2).1. IOM ([place] [employer]). 2010. Dietary reference intakes for calcium and D. [place]: The National Academies Press.2. Diego MF, Pamela NC, Jaron SUAREZ, et al. Evaluation, treatment, and prevention of vitamin D deficiency: an Endocrine Society clinical practice guideline. JCEM. 2010; 96(7):1911-30. :57 TSH (45123) Comments: PATIENT NOT FASTINGPERFORMED BY: [facility] Pefcgb6211 [facility] [id number] TSH 3.010 {uIU/mL} (Normal) Range: 0.450-4.500 :57 METABOLIC PANEL, COMPREHENSIVE Comments: PATIENT NOT FASTINGPERFORMED BY: [facility]bysMountainside HospitalZipqjx4418 [facility] [id number] (19937) ALT (SGPT) 16 [iU]/L (Normal) Range: 0-32 [...] Glucose, Serum 143 mg/dL (Abnormal) Range: 65-99 65-Qqk-56305:57 CBC WITH MANUAL DIFF Comments: PATIENT NOT FASTINGPERFORMED BY: [facility] Zhakch7571 [facility] [id number] Information: [id number] (54719) Immature Grans (Abs) 0.0 {x10E3/uL} (Normal) Range: [...] 3.77-5.28 WBC 5.3 {x10E3/uL} (Normal) Range: 3.4-10.8 34-Ndy-91501:22 Urinalysis, Office (43331) UA - LEUKOCYTE ESTERASE Negative (Normal) UA - NITRITE Negative (Normal) URINE UROBILINGN LOUISE TIMED 2 mg/dL (Normal) UA - PROTEIN Negative mg/dL (Normal) UA - PH 5.0 (Normal) UA - BLOOD Hemolyzed Trace (Normal) UA - SPECIFIC GRAVITY 1.030 (Abnormal) UA - KETONES Negative mg/dL (Normal) UA - BILIRUBIN Negative (Normal) UA - GLUCOSE Negative (Normal) 6-Fgl-926061:22 CMP GAP 9 (Normal) Range: 5-15 CL [...] 7-18 GLU 94 mg/dL (Normal) Range: 70-110 7-Tos-104459:22 LIPID LDL 150 mg/dL (Abnormal) Range: 0-130 [...] CHOL 247 mg/dL (Abnormal) Comments: <200 mg/dL Qovbstcrm990-938 mg/dL Borderline>240 mg/dL High Risk :15 CRE [...] oliver D.O.November 10, 2012 at 11:10:28 AM [id number] Signed DS/DS If you are the referring physician and would like to consult with theradiologist who provided this interpretation, please contact Diaz Chavez D.O. at [phone]. If this radiologist is unavailable, you will bedirected to another radiologist to assist. If you are a patient with a question regarding this report, pleasecont actyour referring physician directly. Professional Interpretation Provided By: [employer], Phone , These documents contain legally protected [...] on 11/10/12 1126 Sign by: Eugenio Vitaly 1-Zjx-668300:40 LIPID LDL <TEST NOT PERFORMED> mg/dL (Normal) [...] Very High > or = 500 mg/dL 0-Lob-049228:40 LIVER ALT 20 U/L (Normal) Range: 12-78 BID 0.09 mg/dL (Normal) Range: 0.00-0.30 BIT 0.40 mg/dL (Normal) Range: 0.00-1.00 ALK 85 U/L (Normal) Range: 50-136 ALB 4.0 g/dL (Normal) Range: 3.4-5.0 AST 22 U/L (Normal) Range: 15-37 TPROT 8.2 g/dL (Normal) Range: 6.4-8.2 3-Hlc-246921:50 CHEST, PA AND LATERAL Radiology Report See [...] Gilliland D.O.April 07, 2012 at 8:03:03 PM [id number] Signed IF/IF If you are the referring physician and would like to consult [facility] theradiologist who provided this interpretation, please contact Сергей Gilliland D.O.at [phone]. If this radiologist is unavailable, you will be directedto another radiologist to assist. If you are a pa tient with a question regarding this report, pleasecontactyour referring physician directly. Professional Interpretation Provided By: [employer], Phone , These documents c ontain legally [...] on 04/07/122013 Sign by: Сергей Gilliland DO 3-Thr-703728:21 CKMB CPKMB 0.6 ng/mL (Normal) Range: 0.0-5.0 Comments: CK-MB and RI Interpretation MB Relative Index Non-AMI <or= 5 NA Indeterminate > 5 <or= 4 AMI > 5 > 4 CPK 90 U/L (Normal) Range: 26-192 3-Jeq-046275:21 DDIMQ 1.24 {FEUug/mL} Range: 0.22-0.48 (Abnormal) Comments: D-Dimer ELEVATED: Additional studies and clinicalassessments are indicated to conclude diagnosis of:Deep Vein Thrombosis (DVT) or Pulmonary Embolism (PE)CRITICAL VALUE REPEATED AND VERIFIED. CALLED TO Chip SOLIZ RN04/07/12 1324 TRANG ALCANTARRESULTS READ BACK BY SAME . 4-Wec-062756:21 TROP < 0.02 ng/mL (Normal) Comments: TROPONIN-I EXPECTED VALUES <0.05 NEGATIVE 0.06 - 0.59 AT RISK OF MS > OR = 0.60 SUGGEST MS 07-Apr-20120:00 CHEST WITH CONTRAST Radiology Report See [...] Mcfadden M.D.April 07, 2012 at 4:18:06 PM [id number] onically Signed GP/GP If you are the referring physician and would like to consult with theradiologist who provided this interpretation, please contact Ana Rosa Almonte at [phone]. If this r adiologist is unavailable, youwill be directed to another radiologist to assist. If you are a patient with a question regarding this report, pleasecontactyour referring physician directly. Professional Interpretation Provided By: [employer], Phone , These documents contain legally protected [...] 04/07/12 162 Sign by: Edgar Mcfadden MD 89-Spb-88808:26 CBCMD RBCM NORM C+C {NORMAL} (Normal) PE [...] CHOL 275 mg/dL (Abnormal) Comments: <200 mg/dL Rducgmepp756-609 mg/dL Borderline>240 mg/dL High Risk TRIG 187 mg/dL (Normal) Comments: Serum Triglycerides Reference IntervalNormal <150 mg/dLBorderline high 150 - 199 mg/dLHigh 200 - 499 mg/ dLVery High > or = 500 mg/dL 10-Npr-761034:07 HAND,MIN 3 VIEWS (MT) Radiology Report See Note (Normal) Comments: Exam Number: [id number] CLINICAL:NO RECENT INJURYPAIN MID 2ND AND 3RD [...] T PROT 7.5 g/dL (Normal) Range: 6.4-8.2 79-Wwn-632745:55 PELVIS WITH IV CONTRAST Radiology Report See Note (Normal) Comments: Exam Number: [id number] CLINICAL:Abdominal pain, history of breast cancer CT [...] adrenal adenoma. Reported By: ZAY POSADAS M.D. 73-Evh-832692:54 ABDOMEN WITH IV CONTRAST Radiology Report See Note (Normal) Comments: Exam Number: [id number] CLINICAL:Abdominal pain, history of breast cancer CT [...] 11.6-14.6 WBC 4.7 K/mm3 (Normal) Range: 4.4-11.0 44-Zbb-252146:29 Urinalysis, Office (49294) UA - BILIRUBIN Negative (Normal) UA - [...] T PROT 8.0 g/dL (Normal) Range: 6.4-8.2 3-Myu-922258:00 Urinalysis, Office (94968) UA - BILIRUBIN Negative (Normal) UA - [...] for patient's is the eGFRmultiplied by 1.212. [facility] Laboratory uses the abbreviated Modification of Diet [...] Disease W/O Kidney Disease>/= 90 Stage One Bauoii02 - 89 Stage Two Suspect Decreased GFR30 [...] T PROT 8.1 g/dL (Normal) Range: 6.4-8.2 57-Lzc-67055:20 LIPID CHOL 314 mg/dL (Abnormal) Comments: <200 [...] 40 mg/dL (Normal) Range: 5-40 :20 METHYLM 622321 336 nmol/L (Normal) Range: 73-376 Comments: The reference range for methylmalonic acid has been set at+3sd above the mean for healthy blood bank donors. In theclinical assessment of patients with megaloblastic anemiasa cutoff of +3sd provides gre ater specificity in thediagnosis of the vitamin deficiency states, despite thesacrifice of some sensitivity.Performed At: [address] [id number] :21 COMP METABOLIC CL 106 mmol/L (Normal) [...] T PROT 7.9 g/dL (Normal) Range: 6.4-8.2 38-Ypf-81844:21 LIPID CHOL 266 mg/dL (Abnormal) Comments: <200 [...] mg/dL VLDL 46 mg/dL (Abnormal) Range: 5-40 8-Iee-246374:45 PELVIS WITH CONTRAST Radiology Report See Note (Normal) Comments: Exam Number: [id number] THREE PHASE CT OF THE ABDOMEN WITH [...] etiology. Reported By: ANN MARIE GERBER M.D. 9-Svj-374752:44 ABDOMEN W/WO CONTRAST Radiology Report See Note (Normal) Comments: Exam Number: [id number] THREE PHASE CT OF THE ABDOMEN WITH [...] mg/dL VLDL 28 mg/dL (Normal) Range: 5-40 56-Hdx-706869:15 ABDOMEN W/WO CONTRAST Radiology Report See Note (Normal) Comments: Exam Number: [id number] CT OF THE ABDOMEN WITH AND WITHOUT [...] stability. Reported By: ANN MARIE GERBER M.D. 43-Irg-382366:14 LIPID CHOL 246 mg/dL (Abnormal) Comments: <200 [...] mg/dL VLDL 50 mg/dL (Abnormal) Range: 5-40 84-Mrj-711402:14 LIVER ALB 3.9 g/dL (Normal) Range: 3.4-5.0 ALK P 84 U/L (Normal) Range: 50-136 ALT 29 [iU]/L (Abnormal) Range: 30-65 AST 19 U/L (Normal) Range: 15-37 D BILI 0.06 mg/dL (Normal) Range: 0.00-0.30 T BILI 0.36 mg/dL (Normal) Range: 0.00-1.00 T PROT 7.8 g/dL (Normal) Range: 6.4-8.2 :40 ABDOMEN W/WO CONTRAST Radiology Report See Note (Normal) Comments: Exam Number: [id number] 4-PHASE CT SCAN OF LIVER CLINICAL STATEMENTMass [...] Report See Note (Normal) Comments: Exam Number: [id number] CT CHEST WITH CONTRAST CLINICAL STATEMENTRight axillary [...] impression #2. Reported By: ELIE BECKFORD M.D. 43-Qno-56127:40 COMP METABOLIC A/G 1.0 {RATIO} (Normal) Range: [...] Treatment Indication: Hypercholesteremia Planned Observations EBV Panel (46282)Indication: Fatigue On: 35-Wow-366172:49 Request METABOLIC PANEL, COMPREHENSIVE (71852)Indication: Hypercholesteremia On: :30 Request LIPID PANEL (84093)Indication: Hypercholesteremia On: :30 Request HgA1C , Office (76878)Indication: Impaired Fasting Glucose (Renamed from Elevated fasting blood sugar) On: 3-Mtb-732323: Request VITAMIN D, 1, 25-DIHYDROXY (62949)Indication: Vitamin disease On: 07-Tmh-450766:51 Request METABOLIC PANEL, COMPREHENSIVE (73427)Indication: Hypercholesteremia On: :33 Request LIPID PANEL (52437)Indication: Hypercholesteremia On: 07-Jul-20129:33 Request Troponin I (70785)Indication: CHEST PAIN On: 4-Tny-311425:17 Request CPK MB FRACTION (12095)Indication: CHEST PAIN On: :17 Request CREATINE KINASE TOTAL (63689)Indication: CHEST PAIN On: 9-Kqu-476035:17 Request D-Dimer (77926)Indication: CHEST PAIN On: 0-Ziy-954120:17 Request LIPID PANEL (82542)Indication: Hypercholesteremia On: 2-Fhl-590740:07 Request HEPATIC FUNCTION PANEL (74102)Indication: Hypercholesteremia On: 0-Pcb-036118:07 Request URINALYSIS, W/ MICRO (71367)Indication: Renal insufficiency On: 92-Hlt-436818:41 Request METABOLIC PANEL, COMPREHENSIVE (91739)Indication: Hypercholesteremia On: 78-Cly-956165:41 Request LIPID PANEL (96492)Indication: Hypercholesteremia On: :41 Request CBC WITH MANUAL DIFF (97120)Indication: Hypercholesteremia On: 82-Cte-498431:41 Request Metabolic Panel, Comprehensive (66815)Indication: Hypercholesteremia On: 02-Pcu-952025:10 Request Lipid Panel (51173)Indication: Hypercholesteremia On: 36-Vbu-724217:10 Request Lipid Panel (69949)Indication: Hypercholesteremia On: 15-Wgd-111356:48 Request Comments: recheck in 3 months Metabolic Panel, Comprehensive (18079)Indication: Hypercholesteremia On: 45-Umh-980097:47 Request LIPID PANEL (08531)Indication: Hypercholesteremia On: 6-Vak-496342:19 Request LIPID PANEL (57461)Indication: Hypercholesteremia On: 40-Mbi-457990:00 Request METABOLIC PANEL, COMPREHENSIVE (13083)Indication: Hypercholesteremia On: 64-Aqf-025972:00 Request Metabolic Panel, Basic (16467)Indication: Abdominal pain, acute, generalized On: :06 Request CBC, Platelets & Auto Diff (07071)Indication: Abdominal pain, acute, generalized On: :06 Request Lipid Panel (85759)Indication: Hypercholesteremia On: :03 Request HEPATIC FUNCTION PANEL (69121)Indication: Hypercholesteremia On: 27-Zaf-615072:03 Request HEPATIC FUNCTION PANEL (47947)Indication: Hypercholesteremia On: :21 Request Lipid Panel (60668)Indication: Hypercholesteremia On: 10-Rcs-547665:21 Request Comments: in three months (approximately) Methylmalonic acid, serum 00238Kbjgvzdneg: Nonscarring hair loss, unspecified On: 3-Xxu-320226:16 Request CBC (Auto) (41001)Indication: Hypercholesteremia On: 1-Qwc-432698:11 Request Metabolic Panel, Comprehensive (61462)Indication: Hypercholesteremia On: 0-Cgx-674454:11 Request Lipid Panel (10157)Indication: Hypercholesteremia On: 5-Zsb-527827:11 Request Comments: 4 month Metabolic Panel, Comprehensive ([id number])Indication: Hypercholesteremia On: 1-Muo-428430:50 Request Lipid Panel ([id number])Indication: Hypercholesteremia On: 7-Coa-279934:50 Request Urinalysis, Office (77516)Indication: Renal insufficiency On: 4-Grb-298872:42 Request METABOLIC PANEL, COMPREHENSIVE (69754)Indication: Hypercholesteremia On: 16-Nka-577119:12 Request LIPID PANEL ([id number])Indication: Hypercholesteremia On: 41-Tgu-085353:12 Request CBC WITH MANUAL DIFF ([id number])Indication: Hypercholesteremia On: 47-Qcg-625795:12 Request Comments: in six months (approximately) HEPATIC FUNCTION PANEL (14866)Indication: Hypercholesteremia On: 49-Mnu-944106:23 Request Lipid Panel ([id number])Indication: Hypercholesteremia On: 60-Mnf-598810:23 Request Comments: in six months HEPATIC FUNCTION PANEL (68070)Indication: Hypercholesteremia On: 78-Laq-416904:16 Request LIPID PANEL ([id number])Indication: Hypercholesteremia On: 63-Qpx-368144:16 Request Planned Encounters Medical; [facility]ness Exam (Nurse) - On: 09-Apr-2018 8:15 [facility] KARLA Quinonez; [facility] Wellness Exam (Doctor) - On: 30-Apr-2018 13:00 [facility] Sami FLORES, Анна Gallardo MD, Анна Riley Planned Procedures Flu Vaccine (Quadrivalent) On: 28-Jan-2018 Intent [id number]: Iveth Richard Comments: Lot #[id number]-R dltd, IMDose prefilled syringegiven by: Lauren Richard MA Nuclear Stress Test/Stress On: 07-Nov-2017 Intent SPECT/TreadmillBy: Sami FLORES, Анан Fong MD Echo CompleteBy: Sami FLORES, On: 07-Nov-2017 Intent Анна Fong MD ELECTROCARDIOGRAM, COMPLETE On: 21-Oct-2017 Intent (ECG) ([id number])By: Sami FLORES, Comments: see scanned document of [...] cc celeste [id number] exp 08-03-2018 1 cc keegan [id number] exp exp:as above rte:intra articular right knee dose:as above given by:Dr. Gallardo ABN signedER, Анна Ramirez MD Radiology - Knee - Right - On: 06-Mar-2017 Intent Weight BearingBy: Анна Gallardo MD, MD, Dana M Flu Vaccine (Quadrivalent) On: 07-Feb-2017 Intent [id number]: Анна Gallardo MD Comments: QUAD flu shotlot number: [id number]: 08/2017R Deltoid IMAD SENIOR WEALTH ADVISOR Анна Gallardo MD CT - Chest (Without On: 13-Feb-2016 Intent Contrast)By: Анна Gallardo MD Comments: think lipoma but has had skin cancer melanoma and bresat cancer. 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 On: 13-Feb-2016 Intent ([id number])By: Анна Gallardo MD, MD, Dana M Flu Vaccine (Quadrivalent) On: 30-Jan-2016 Intent [id number]: KARLA Quinonez Comments: Lot #:[id number] date:6-00-98Tchkvh given:0.5mlRoute: IMSite given:Right DltdGiven by: Adrian and ABN signed Fluarix EKG ([id number])By: Sami FLORES, On: 25-Jan-2016 Intent Анна Fong MD Comments: see scanned document of test done to see results reviewed today with patient Kenalog Injection, 10 mgm On: 30-Oct-2015 Intent (J3301)By: Анна Gallardo MD Comments: Lot #:[id number] date:02/2017Amount given:1ml KenalogRoute: intra jointSite given: left elbowGiven by: Анна Gallardo Dr., MD,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
--- OUTSIDE RECORDS SUMMARY | 2018-07-28 01:25 | XMS RPT_ITS | Continuity of Care Document ---
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 17-Tab-120906:03 C-REACTIVE PROTEIN Comments: PATIENT NOT FASTINGPERFORMED BY: Lab[place] 7840470 [facility] [id number] BY: [address] [id number] (59459) C-Reactive Protein, Quant 6.4 mg/L (Abnormal) Range: 0.0-4.9 36-Czh-895856:03 TSH (82927) Comments: PATIENT NOT FASTINGPERFORMED BY: [place] 8196470 [facility] [id number] BY: [address] [id number] TSH 2.970 {uIU/mL} (Normal) Range: 0.450-4.500 15-Tui-968040:03 RHEUMATOID FACTOR-QUANT Comments: PATIENT NOT FASTINGPERFORMED BY: [place] 8196470 [facility] [id number] BY: [address] [id number] (97268) RA Latex Turbid. <10.0 {IU/mL} (Normal) Range: 0.0-13.9 70-Gol-875602:03 METABOLIC PANEL, Comments: PATIENT NOT FASTINGPERFORMED BY: [place] 7840470 [facility] [id number] BY: [address] [id number] COMPREHENSIVE (09237) ALT (SGPT) 15 [iU]/L (Normal) Range: 0-32 [...] 8-27 Glucose 97 mg/dL (Normal) Range: 65-99 51-Nga-488564:03 CBC with auto diff Comments: PATIENT NOT FASTINGPERFORMED BY: CB [facility] Gujbwr8829 [facility] [id number] BY: BN [facility] [address] [id number] (15964) Immature Grans (Abs) 0.0 {x10E3/uL} (Normal) Range: [...] 3.77-5.28 WBC 6.7 {x10E3/uL} (Normal) Range: 3.4-10.8 55-Jjh-853888:03 CAMILLA (ANTINUCLEAR ANTIBODY) Comments: PATIENT NOT FASTINGPERFORMED BY: [place] [employer] [facility] [id number] BY: WeembaBrian [place] [id number] (00019) CAMILLA Direct Negative (Normal) 42-Suj-655677:03 Lyme Disease Antibody W/ Comments: PATIENT NOT FASTINGPERFORMED BY: [place] Pqhmaa[address] [place] [address] [id number] BY: Weemba[address] [id number] Reflex (26845) Lyme IgG/IgM Ab <0.91 {ISR} (Normal) Range: 0.00-0.90 Comments: Negative <0.91 Equivocal 0.91 - 1.09 Positive >1.09 0-Uxh-244235:59 Rapid Flu (44571 x 2) Influenza A Ag positive A (Normal) :10 HGB A1C (04912) Comments: PATIENT WAS FASTINGPERFORMED BY: [employer] [address] [id number] BY: LabUniweb.ruNew Bridge Medical CenterZupcum1435 [facility] [id number] Hemoglobin A1c 6.3 % (Abnormal) Range: 4.8-5.6 Comments: . Pre-diabetes: 5.7 - 6.4 Diabetes: >6.4 Glycemic control for adults with diabetes: <7.0 :10 LIPOPROTEIN, BLD, BY NMR Comments: PATIENT WAS FASTINGPERFORMED BY: [employer] [address] [id number] BY: [employer] [facility] Txacob2601 [facility] [id number]; fu 18 DB (25442) LP-IR Score 80 (Abnormal) Comments: INSULIN RESISTANCE MARKER <--Insulin Sensitive Insulin Resistant--> Percentile in Reference PopulationInsulin Resistance ScoreLP-IR Score Low 25th 50th 75th High <27 27 45 63 >63LP-IR Score is inaccurate if patient is non-fasting. .The LP-IR score is a laboratory developed i [facility] that has beenassociated with insulin resistance and [...] were developed and their performance characteristicsdetermined by [employer] These assays have not been cleared by [...] 1600 - 2000 Very High > 2000 61-Pqj-43957:10 METABOLIC PANEL, Comments: PATIENT WAS FASTINGPERFORMED BY: BN [facility] Bdyrehulia0525 [facility] [id number] BY: CB [facility] Dqzxtl0779 [facility] [id number] COMPREHENSIVE (48623) ALT (SGPT) 14 [iU]/L (Normal) Range: 0-32 [...] 8-27 Glucose 135 mg/dL (Abnormal) Range: 65-99 9-Sul-908298:37 MICROALBUMIN: CREATININE RATIO Comments: PATIENT NOT FASTINGPERFORMED BY: [place] Oztezb6812 [employer] Software Pvt LtdECU Health Chowan Hospital [id number] (68426) AND (73702) Microalb/Creat Ratio <2.3 {mg/g_creat} (Normal) Range: 0.0-30.0 Microalbumin, Urine <3.0 ug/mL (Normal) Creatinine, Urine 130.4 mg/dL (Normal) 2-Eki-711884:37 URINALYSIS (36729) Comments: PATIENT NOT FASTINGPERFORMED BY: [place] Nkbriu7197 [employer] Pvt LtdECU Health Chowan Hospital [id number] Information: NURSE DRAW Microscopic Examination MICNIP (Normal) Comments: Microscopic not indicated and not performed. Nitrite, Urine Negative (Normal) Urobilinogen,Semi-Qn 0.2 mg/dL (Normal) Range: 0.2-1.0 Bilirubin Negative (Normal) Occult Blood Negative (Normal) Ketones Negative (Normal) Glucose Negative (Normal) Protein Negative (Normal) WBC Esterase Negative (Normal) Appearance Clear (Normal) Urine-Color Yellow (Normal) pH 6.5 (Normal) Range: 5.0-7.5 Specific Tuthill 1.018 (Normal) Range: 1.005-1.030 6-Btp-314785:37 Homocysteine, Plasma (76485) Comments: PATIENT NOT FASTINGPERFORMED BY: LabCoNew Bridge Medical CenterEzllsy8092 [facility] [id number] Homocyst(e)ine, Plasma 13.2 umol/L (Normal) Range: 0.0-15.0 78-Knq-750365:10 Basic Metabolic Profile (BMP) Comments: [facility] Zk[address]tauptkg[address] [place], [address] GAP 6 (Normal) Range: 5-15 CO2 28.0 [...] 126 mg/dLsuggests DIABETES MELLITUS per A.D.A. criteria. 4-Dem-740930:39 CBC with auto diff Comments: PATIENT NOT FASTINGPERFORMED BY: LabCoNew Bridge Medical CenterRrtffh4538 [facility] [id number] Information: NURSE DRAW (70330) Immature Grans (Abs) 0.0 {x10E3/uL} (Normal) Range: [...] 3.77-5.28 WBC 5.5 {x10E3/uL} (Normal) Range: 3.4-10.8 4-Vys-729285:39 METABOLIC PANEL, COMPREHENSIVE Comments: PATIENT NOT FASTINGPERFORMED BY: LabCoNew Bridge Medical CenterXnyeur5884 [facility] [id number]; db 03-25 (65677) ALT (SGPT) 12 [iU]/L (Normal) Range: 0-32 [...] Glucose, Serum 112 mg/dL (Abnormal) Range: 65-99 57-Fwk-564377:12 HgA1C , Office (69240) HgA1C , Office 6.1 % (Normal) Range: 4.6 - 7.1 81-Nen-960599:53 LIPOPROTEIN, BLD, BY NMR Comments: PATIENT WAS FASTINGPERFORMED BY: BN [facility] [address] [id number] BY: CB [facility] Icrnbr8165 [facility] [id number] Information: HARD DRAW; fu 10-31-16 (82153) LP-IR Score 76 (Abnormal) Comments: INSULIN RESISTANCE MARKER <--Insulin Sensitive Insulin Resistant--> Percentile in Reference PopulationInsulin Resistance ScoreLP-IR Score Low 25th 50th 75th High <27 27 45 63 >63LP-IR Score is inaccurate if patient is non-fasting. .The LP-IR score is a laboratory developed i [facility] that has beenassociated with insulin resistance and [...] were developed and their performance characteristicsdetermined by [facility]. These assays have not been cleared by [...] Homocysteine, Plasma Comments: PATIENT WAS FASTINGPERFORMED BY: [facility] [address] [id number] BY: LabUniweb.ruNew Bridge Medical CenterBjlivl6081 [facility] [id number] (76637) Homocyst(e)ine, Plasma 13.7 umol/L (Normal) Range: 0.0-15.0 :57 T3, FREE (TRIDOTHYRONINE) (07247) Comments: PATIENT NOT FASTINGPERFORMED BY: [facility]6370 [facility] [id number] Triiodothyronine,Free,Serum 2.8 pg/mL (Normal) Range: 2.0-4.4 :57 T4, FREE (THYROXINE) (69145) Comments: PATIENT NOT FASTINGPERFORMED BY: [facility]6370 [facility] [id number] T4,Free(Direct) 1.06 ng/dL (Normal) Range: 0.82-1.77 :57 Anti-TPO Antibody (48081) Comments: PATIENT NOT FASTINGPERFORMED BY: [facility]6370 [facility] [id number] Thyroid Peroxidase (TPO) Ab 14 {IU/mL} (Normal) Range: 0-34 6-Ciw-493371:45 HgA1C , Office (42260) HgA1C , Office 6.0 % (Normal) Range: 4.6 - 7.1 :11 LIPID PANEL (77867) Comments: PATIENT WAS FASTINGPERFORMED BY: [facility]6370 [facility] [id number]; apt. 4-5 LDL/HDL Ratio 3.8 {ratio_units} (Abnormal) [...] METABOLIC PANEL, Comments: PATIENT WAS FASTINGPERFORMED BY: LabCoNew Bridge Medical CenterHcignk0877 [facility] [id number] Information: [id number] COMPREHENSIVE (83064) ALT (SGPT) 12 [iU]/L (Normal) Range: 0-32 [...] METABOLIC PANEL, Comments: PATIENT WAS FASTINGPERFORMED BY: LabCoNew Bridge Medical CenterRnqwlb0186 [facility] [id number] Information: [id number] COMPREHENSIVE (70612) ALT (SGPT) 11 [iU]/L (Normal) Range: 0-32 [...] mg/dL (Normal) Range: 65-99 07-Feb-20159:03 LIPID PANEL (29951) Comments: PATIENT WAS FASTINGPERFORMED BY: LabCo Liegtn2852 [facility] [id number]; apt. 02-13-15 LDL/HDL Ratio 3.9 {ratio_units} (Abnormal) [...] Cholesterol, Total 285 mg/dL (Abnormal) Range: 100-199 1-Ewa-451517:10 HgA1C , Office (58901) HgA1C , Office 6.2 % (Normal) Range: 4.6 - 7.1 8-Bwi-911839:10 Blood Glucose , Office (66324) Blood Glucose , Office 120 (Normal) :35 Comp. Metabolic Panel (14) Comments: PATIENT WAS FASTINGPERFORMED BY: LabCoNew Bridge Medical CenterIcjjgu8916 [facility] [id number] Information: [id number]; patient has fu 6-09-16 nothing urgent will [...] With LDL/HDL Comments: PATIENT WAS FASTINGPERFORMED BY: HelidyneNew Bridge Medical CenterQemjqd4283 [facility] [id number] Ratio LDL/HDL Ratio 4.1 {ratio_units} (Abnormal) Range: [...] METABOLIC PANEL, Comments: PATIENT WAS FASTINGPERFORMED BY: HelidyneTrevor V[place] 4063370 [facility] [id number] Information: [id number] COMPREHENSIVE (17874) ALT (SGPT) 15 [iU]/L (Normal) Range: 0-32 [...] mg/dL (Abnormal) Range: 65-99 :37 LIPID PANEL (30002) Comments: PATIENT WAS FASTINGPERFORMED BY: LabCoNew Bridge Medical CenterRhutvf1181 [facility] [id number] LDL/HDL Ratio 3.8 {ratio_units} (Abnormal) Range: 0.0-3.2 [...] degree relatives should be collected. J Clin Dbfxjxa4969;5:133-140 LDL Cholesterol Calc 195 mg/dL (Abnormal) Range: 0-99 VLDL Cholesterol Gianfranco 58 mg/dL (Abnormal) Range: 5-40 HDL Cholesterol 52 mg/dL (Normal) Comments: According to ATP-III Guidelines, HDL-C >59 mg/dL is considered anegative risk factor for CHD. Triglycerides 291 mg/dL (Abnormal) Range: 0-149 Cholesterol, Total 305 mg/dL (Abnormal) Range: 100-199 :19 HgA1C , Office (45951) HgA1C , Office 6.0 % (Normal) Range: 4.6 - 7.1 :37 CBC WITH MANUAL DIFF Comments: PATIENT WAS FASTINGPERFORMED BY: [place] 8196470 [facility] [id number] Information: [id number] (66552) Immature Grans (Abs) 0.0 {x10E3/uL} (Normal) Range: [...] Panel, Comprehensive Comments: PATIENT WAS FASTINGPERFORMED BY: [facility]6370 [facility] [id number] (31396) ALT (SGPT) 13 [iU]/L (Normal) Range: 0-32 [...] Glucose, Serum 106 mg/dL (Abnormal) Range: 65-99 23-Qye-24916:37 Lipid Panel (36918) Comments: PATIENT WAS FASTINGPERFORMED BY: LabCo Ywxnyi9462 [facility] [id number] LDL/HDL Ratio 4.3 {ratio_units} (Abnormal) Range: 0.0-3.2 [...] 319 mg/dL (Abnormal) Range: 100-199 :57 CALCIFIDIOL (79187) VIT D 25 Comments: PATIENT NOT FASTINGPERFORMED BY: HelidyneNew Bridge Medical CenterGvqfhj0185 [facility] [id number] Vitamin D, 25-Hydroxy 23.6 ng/mL (Abnormal) Range: 30.0-100.0 Comments: Vitamin D deficiency has been defined by the Panacea ofMedicine and an Endocrine Society practice guideline as alevel of serum 25-OH vitamin D less than 20 ng/mL (1,2).The Endocrine Society went on to further define vitamin Dinsufficiency as a level between 21 and 29 ng/mL (2).1. IOM (Panacea of Medicine). 2010. Dietary reference intakes for calcium and D. [place]: The National Academies Press.2. Diego MF, Pamela NC, Jaron SUAREZ, et al. Evaluation, treatment, and prevention of vitamin D deficiency: an Endocrine Society clinical practice guideline. JCEM. 2010; 96(7):1911-30. :57 TSH (25518) Comments: PATIENT NOT FASTINGPERFORMED BY: [employer] Bgbnsi1464 [facility] [id number] TSH 3.010 {uIU/mL} (Normal) Range: 0.450-4.500 :57 METABOLIC PANEL, COMPREHENSIVE Comments: PATIENT NOT FASTINGPERFORMED BY: HelidyneNew Bridge Medical CenterGtidrx7108 [facility] [id number] (35970) ALT (SGPT) 16 [iU]/L (Normal) Range: 0-32 [...] Glucose, Serum 143 mg/dL (Abnormal) Range: 65-99 49-Qqj-43048:57 CBC WITH MANUAL DIFF Comments: PATIENT NOT FASTINGPERFORMED BY: [facility] Ygrbdh0272 [facility] [id number] Information: [id number] (88649) Immature Grans (Abs) 0.0 {x10E3/uL} (Normal) Range: [...] 3.77-5.28 WBC 5.3 {x10E3/uL} (Normal) Range: 3.4-10.8 33-Lwn-26770:22 Urinalysis, Office (49313) UA - LEUKOCYTE ESTERASE Negative (Normal) UA - NITRITE Negative (Normal) URINE UROBILINGN LOUISE TIMED 2 mg/dL (Normal) UA - PROTEIN Negative mg/dL (Normal) UA - PH 5.0 (Normal) UA - BLOOD Hemolyzed Trace (Normal) UA - SPECIFIC GRAVITY 1.030 (Abnormal) UA - KETONES Negative mg/dL (Normal) UA - BILIRUBIN Negative (Normal) UA - GLUCOSE Negative (Normal) 6-Cwx-818496:22 CMP GAP 9 (Normal) Range: 5-15 CL [...] 7-18 GLU 94 mg/dL (Normal) Range: 70-110 9-Uqk-601638:22 LIPID LDL 150 mg/dL (Abnormal) Range: 0-130 [...] CHOL 247 mg/dL (Abnormal) Comments: <200 mg/dL Vqwiuoodl325-773 mg/dL Borderline>240 mg/dL High Risk :15 CRE [...] oliver D.O.November 10, 2012 at 11:10:28 AM [id number] Signed DS/DS If you are the referring physician and would like to consult with theradiologist who provided this interpretation, please contact Diaz Chavez D.O. at [phone]. If this radiologist is unavailable, you will bedirected to another radiologist to assist. If you are a patient with a question regarding this report, pleasecont actyour referring physician directly. Professional Interpretation Provided By: [employer], Phone , These documents contain legally protected [...] on 11/10/12 1126 Sign by: Eugenio Vitaly 2-Ogp-933241:40 LIPID LDL <TEST NOT PERFORMED> mg/dL (Normal) [...] Very High > or = 500 mg/dL 1-Beq-495544:40 LIVER ALT 20 U/L (Normal) Range: 12-78 BID 0.09 mg/dL (Normal) Range: 0.00-0.30 BIT 0.40 mg/dL (Normal) Range: 0.00-1.00 ALK 85 U/L (Normal) Range: 50-136 ALB 4.0 g/dL (Normal) Range: 3.4-5.0 AST 22 U/L (Normal) Range: 15-37 TPROT 8.2 g/dL (Normal) Range: 6.4-8.2 3-Hmc-146516:50 CHEST, PA AND LATERAL Radiology Report See [...] Gilliland D.O.April 07, 2012 at 8:03:03 PM [id number] Signed IF/IF If you are the referring physician and would like to consult [facility] theradiologist who provided this interpretation, please contact Сергей Gilliland D.O.at [phone]. If this radiologist is unavailable, you will be directedto another radiologist to assist. If you are a pa tient with a question regarding this report, pleasecontactyour referring physician directly. Professional Interpretation Provided By: [employer], Phone , These documents c ontain legally [...] on 04/07/122013 Sign by: Сергей Gilliland DO 6-Nnt-177843:21 CKMB CPKMB 0.6 ng/mL (Normal) Range: 0.0-5.0 Comments: CK-MB and RI Interpretation MB Relative Index Non-AMI <or= 5 NA Indeterminate > 5 <or= 4 AMI > 5 > 4 CPK 90 U/L (Normal) Range: 26-192 6-Xmc-323714:21 DDIMQ 1.24 {FEUug/mL} Range: 0.22-0.48 (Abnormal) Comments: D-Dimer ELEVATED: Additional studies and clinicalassessments are indicated to conclude diagnosis of:Deep Vein Thrombosis (DVT) or Pulmonary Embolism (PE)CRITICAL VALUE REPEATED AND VERIFIED. CALLED TO Chip SOLIZ RN04/07/12 1324 TRANG ALCANTARRESULTS READ BACK BY SAME . 9-Ygu-215709:21 TROP < 0.02 ng/mL (Normal) Comments: TROPONIN-I [...] Mcfadden M.D.April 07, 2012 at 4:18:06 PM [id number] onically Signed GP/GP If you are the referring physician and would like to consult with theradiologist who provided this interpretation, please contact Ana Rosa Almonte at [phone]. If this r adiologist is unavailable, youwill be directed to another radiologist to assist. If you are a patient with a question regarding this report, pleasecontactyour referring physician directly. Professional Interpretation Provided By: [employer], Phone , These documents contain legally protected [...] 04/07/12 162 Sign by: Edgar Mcfadden MD 37-Mjm-63566:26 CBCMD RBCM NORM C+C {NORMAL} (Normal) PE [...] CHOL 275 mg/dL (Abnormal) Comments: <200 mg/dL Asldxkujh252-377 mg/dL Borderline>240 mg/dL High Risk TRIG 187 mg/dL (Normal) Comments: Serum Triglycerides Reference IntervalNormal <150 mg/dLBorderline high 150 - 199 mg/dLHigh 200 - 499 mg/ dLVery High > or = 500 mg/dL 53-Gmx-491824:07 HAND,MIN 3 VIEWS (MT) Radiology Report See Note (Normal) Comments: Exam Number: [id number] CLINICAL:NO RECENT INJURYPAIN MID 2ND AND 3RD [...] T PROT 7.5 g/dL (Normal) Range: 6.4-8.2 18-Oyh-589859:55 PELVIS WITH IV CONTRAST Radiology Report See Note (Normal) Comments: Exam Number: [id number] CLINICAL:Abdominal pain, history of breast cancer CT [...] adrenal adenoma. Reported By: ZAY POSADAS M.D. 90-Nba-757501:54 ABDOMEN WITH IV CONTRAST Radiology Report See Note (Normal) Comments: Exam Number: [id number] CLINICAL:Abdominal pain, history of breast cancer CT [...] 11.6-14.6 WBC 4.7 K/mm3 (Normal) Range: 4.4-11.0 61-Ksu-747350:29 Urinalysis, Office (65867) UA - BILIRUBIN Negative (Normal) UA - [...] T PROT 8.0 g/dL (Normal) Range: 6.4-8.2 1-Pxb-533625:00 Urinalysis, Office (91532) UA - BILIRUBIN Negative (Normal) UA - [...] for patient's is the eGFRmultiplied by 1.212. [facility] Laboratory uses the abbreviated Modification of [...] Disease W/O Kidney Disease>/= 90 Stage One Dhhjnu68 - 89 Stage Two Suspect Decreased GFR30 [...] T PROT 8.1 g/dL (Normal) Range: 6.4-8.2 29-Hwo-91087:20 LIPID CHOL 314 mg/dL (Abnormal) Comments: <200 [...] 40 mg/dL (Normal) Range: 5-40 :20 METHYLM 493037 336 nmol/L (Normal) Range: 73-376 Comments: The reference range for methylmalonic acid has been set at+3sd above the mean for healthy blood bank donors. In theclinical assessment of patients with megaloblastic anemiasa cutoff of +3sd provides gre ater specificity in thediagnosis of the vitamin deficiency states, despite thesacrifice of some sensitivity.Performed At: [address] [id number] :21 COMP METABOLIC CL 106 mmol/L (Normal) [...] T PROT 7.9 g/dL (Normal) Range: 6.4-8.2 77-Rwi-09803:21 LIPID CHOL 266 mg/dL (Abnormal) Comments: <200 [...] mg/dL VLDL 46 mg/dL (Abnormal) Range: 5-40 8-Jzh-748498:45 PELVIS WITH CONTRAST Radiology Report See Note (Normal) Comments: Exam Number: [id number] THREE PHASE CT OF THE ABDOMEN WITH [...] etiology. Reported By: ANN MARIE GERBER M.D. 7-Ilc-444847:44 ABDOMEN W/WO CONTRAST Radiology Report See Note (Normal) Comments: Exam Number: [id number] THREE PHASE CT OF THE ABDOMEN WITH [...] mg/dL VLDL 28 mg/dL (Normal) Range: 5-40 84-Gyo-812045:15 ABDOMEN W/WO CONTRAST Radiology Report See Note (Normal) Comments: Exam Number: [id number] CT OF THE ABDOMEN WITH AND WITHOUT [...] stability. Reported By: ANN MARIE GERBER M.D. 03-Zte-406174:14 LIPID CHOL 246 mg/dL (Abnormal) Comments: <200 [...] mg/dL VLDL 50 mg/dL (Abnormal) Range: 5-40 24-Hhq-509388:14 LIVER ALB 3.9 g/dL (Normal) Range: 3.4-5.0 ALK P 84 U/L (Normal) Range: 50-136 ALT 29 [iU]/L (Abnormal) Range: 30-65 AST 19 U/L (Normal) Range: 15-37 D BILI 0.06 mg/dL (Normal) Range: 0.00-0.30 T BILI 0.36 mg/dL (Normal) Range: 0.00-1.00 T PROT 7.8 g/dL (Normal) Range: 6.4-8.2 :40 ABDOMEN W/WO CONTRAST Radiology Report See Note (Normal) Comments: Exam Number: [id number] 4-PHASE CT SCAN OF LIVER CLINICAL STATEMENTMass [...] Report See Note (Normal) Comments: Exam Number: [id number] CT CHEST WITH CONTRAST CLINICAL STATEMENTRight axillary [...] impression #2. Reported By: ELIE BECKFORD M.D. 25-Lhz-17445:40 COMP METABOLIC A/G 1.0 {RATIO} (Normal) Range: [...] Treatment Indication: Hypercholesteremia Planned Observations EBV Panel (20021)Indication: Fatigue On: 91-Qju-058928:49 Request METABOLIC PANEL, COMPREHENSIVE (10115)Indication: Hypercholesteremia On: :30 Request LIPID PANEL (62363)Indication: Hypercholesteremia On: :30 Request HgA1C , Office (61598)Indication: Impaired Fasting Glucose (Renamed from Elevated fasting blood sugar) On: 9-Jdt-238610: Request VITAMIN D, 1, 25-DIHYDROXY (11748)Indication: Vitamin disease On: 23-Dzy-306834:51 Request METABOLIC PANEL, COMPREHENSIVE (04008)Indication: Hypercholesteremia On: :33 Request LIPID PANEL (83733)Indication: Hypercholesteremia On: 07-Jul-20129:33 Request Troponin I (36565)Indication: CHEST PAIN On: 5-Wen-552070:17 Request CPK MB FRACTION (22870)Indication: CHEST PAIN On: :17 Request CREATINE KINASE TOTAL (84892)Indication: CHEST PAIN On: 8-Cih-204221:17 Request D-Dimer (73091)Indication: CHEST PAIN On: 7-Osc-049492:17 Request LIPID PANEL (19916)Indication: Hypercholesteremia On: 0-Rfp-436303:07 Request HEPATIC FUNCTION PANEL (78831)Indication: Hypercholesteremia On: 7-Utt-333041:07 Request URINALYSIS, W/ MICRO (24866)Indication: Renal insufficiency On: 83-Gae-437342:41 Request METABOLIC PANEL, COMPREHENSIVE (04468)Indication: Hypercholesteremia On: 98-Dcy-872841:41 Request LIPID PANEL (56538)Indication: Hypercholesteremia On: :41 Request CBC WITH MANUAL DIFF (37771)Indication: Hypercholesteremia On: 84-Snq-984113:41 Request Metabolic Panel, Comprehensive (23474)Indication: Hypercholesteremia On: 65-Vaz-227132:10 Request Lipid Panel (22974)Indication: Hypercholesteremia On: 02-Hzt-435251:10 Request Lipid Panel (74836)Indication: Hypercholesteremia On: 08-Xzw-863811:48 Request Comments: recheck in 3 months Metabolic Panel, Comprehensive (75948)Indication: Hypercholesteremia On: 40-Sar-589930:47 Request LIPID PANEL (17953)Indication: Hypercholesteremia On: 4-Guv-482835:19 Request LIPID PANEL (21154)Indication: Hypercholesteremia On: 53-Yaw-767464:00 Request METABOLIC PANEL, COMPREHENSIVE (97603)Indication: Hypercholesteremia On: 48-Xbw-443247:00 Request Metabolic Panel, Basic (59548)Indication: Abdominal pain, acute, generalized On: :06 Request CBC, Platelets & Auto Diff (07428)Indication: Abdominal pain, acute, generalized On: :06 Request Lipid Panel (88399)Indication: Hypercholesteremia On: :03 Request HEPATIC FUNCTION PANEL (44266)Indication: Hypercholesteremia On: 86-Wxh-999117:03 Request HEPATIC FUNCTION PANEL ([id number])Indication: Hypercholesteremia On: :21 Request Lipid Panel ([id number])Indication: Hypercholesteremia On: 66-Rdq-823741:21 Request Comments: in three months (approximately) Methylmalonic acid, serum 19803Julxftgwle: Nonscarring hair loss, unspecified On: 6-Oeq-920925:16 Request CBC (Auto) ([id number])Indication: Hypercholesteremia On: 2-Log-364959:11 Request Metabolic Panel, Comprehensive ([id number])Indication: Hypercholesteremia On: 0-Qyj-453082:11 Request Lipid Panel (44768)Indication: Hypercholesteremia On: 9-Pok-558811:11 Request Comments: 4 month Metabolic Panel, Comprehensive ([id number])Indication: Hypercholesteremia On: 1-Csn-078237:50 Request Lipid Panel ([id number])Indication: Hypercholesteremia On: 9-Xqz-821823:50 Request Urinalysis, Office ([id number])Indication: Renal insufficiency On: 2-Ccx-396044:42 Request METABOLIC PANEL, COMPREHENSIVE ([id number])Indication: Hypercholesteremia On: 67-Dwb-690770:12 Request LIPID PANEL ([id number])Indication: Hypercholesteremia On: 13-Jwv-969620:12 Request CBC WITH MANUAL DIFF ([id number])Indication: Hypercholesteremia On: 75-Wps-388509:12 Request Comments: in six months (approximately) HEPATIC FUNCTION PANEL ([id number])Indication: Hypercholesteremia On: 72-Vzm-503565:23 Request Lipid Panel (02625)Indication: Hypercholesteremia On: 64-Phr-620219:23 Request Comments: in six months HEPATIC FUNCTION PANEL ([id number])Indication: Hypercholesteremia On: 75-Qxs-373270:16 Request LIPID PANEL ([id number])Indication: Hypercholesteremia On: 69-Yzn-041999:16 Request Planned Encounters Medical; [facility]ness Exam (Nurse) - On: 09-Apr-2018 8:15 [facility] KARLA Quinonez; [facility] Wellness Exam (Doctor) - On: 30-Apr-2018 13:00 [facility] Sami FLORES, Анна Gallardo MD, Анна Riley Planned Procedures Flu Vaccine (Quadrivalent) On: 28-Jan-2018 Intent 85054Rt: Iveth Richard Comments: Lot #[id number]-R dltd, IMDose prefilled syringegiven by: Lauren Richard MA Nuclear Stress Test/Stress On: 07-Nov-2017 Intent SPECT/TreadmillBy: Sami FLORES, Анна Fong MD Echo CompleteBy: Sami FLORES, On: 07-Nov-2017 Intent Анна Fong MD ELECTROCARDIOGRAM, COMPLETE On: 21-Oct-2017 Intent (ECG) (31142)By: Sami FLORES, Comments: see scanned document of [...] celeste [id number] exp 08-03-2018 1 cc keegan [id number] exp exp:as above rte:intra articular right knee dose:as above given by:Dr. Gallardo ABN signedER, Анна Ramirez MD Radiology - Knee - Right - On: 06-Mar-2017 Intent Weight BearingBy: Анна Gallardo MD, MD, Dana M Flu Vaccine (Quadrivalent) On: 07-Feb-2017 Intent 03704Gh: Анна Gallardo MD Comments: QUAD flu shotlot number: [id number]: 08/2017R Deltoid IMAD BLUEPRINT TRIMMER Анна Gallardo MD CT - Chest (Without On: 13-Feb-2016 Intent Contrast)By: Анна Gallardo MD Comments: think lipoma but has had skin cancer melanoma and bresat cancer. 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
--- OUTSIDE RECORDS SUMMARY | 2018-07-28 01:26 | XMS RPT_ITS ---
:1940 Author Organization OHIP Support Name Relationship Address Phone FORINASH, SURESH Unavailable Unavailable + [place] [address] MYKEL ALVAREZ Unavailable Unavailable + [place] [address] R Unavailable Unavailable Unavailable FORINASH, SURESH Unavailable Unavailable + [place] [address] JEREMIE ALVAREZMAN Unavailable Unavailable + [place] [address] R Unavailable Unavailable Unavailable FORINASH, SURESH Unavailable Unavailable + [place] [address] R Unavailable Unavailable Unavailable FORINASH, SURESH Unavailable Unavailable + [place] [address] R Unavailable Unavailable Unavailable FORINASH, SURESH Unavailable Unavailable + [place] [address] R Unavailable Unavailable Unavailable FORINASH, SURESH Unavailable Unavailable + [place] [address] R Unavailable Unavailable Unavailable FORINASH, SURESH Unavailable Unavailable + [place] [address] R Unavailable Unavailable Unavailable FORINASH, SURESH Unavailable Unavailable + [place] [address] R Unavailable Unavailable Unavailable FORINASH, SURESH Unavailable Unavailable + [place] [address] R Unavailable Unavailable Unavailable FORINASH, SURESH Unavailable [address] + [place] [address] R Unavailable Unavailable Unavailable FORINASH, SURESH Unavailable [address] + [place] [address] R Unavailable Unavailable Unavailable FORINASH, SURESH Unavailable [address] + [place] [address] R Unavailable Unavailable Unavailable Care Team Providers Name Role Phone Анна Gallardo MD Attending Unavailable Анна Gallardo MD Referring Unavailable Bonezzi Анна FLORES Consulting Unavailable Bonezzi, Анна Attending Unavailable Bonezzi, Анна Primary Care Unavailable Bonezzi, Анна Attending Unavailable Bonezzi, Анна Referring Unavailable Bonezzi, Анна Primary Care Unavailable Bonezzi, Анна Attending Unavailable Bonezzi, Анна Primary Care Unavailable Bonezzi, Анна Attending Unavailable Bonezzi, Анна Referring Unavailable Bonezzi, Анна Primary Care Unavailable Snider, Al Attending Unavailable Bonezzi, Анна Primary Care Unavailable Flash, Derwent Attending Unavailable Bonezzi, Анна Referring Unavailable Bonezzi, Анна Primary Care Unavailable Bonezzi, Анна Consulting Unavailable Bonezzi, Анна Attending Unavailable Bonezzi, Анна Referring Unavailable Bonezzi, Анна Primary Care Unavailable Snider, Al Attending Unavailable Snider, Al Referring Unavailable Bonezzi, Анна Primary Care Unavailable Bonezzi, Анна Attending Unavailable Bonezzi, Анна Primary Care Unavailable Bonezzi, Анна Referring Unavailable Bonezzi, Анна Attending Unavailable Bonezzi, Анна Referring Unavailable Bonezzi, Анна Primary Care Unavailable Bonezzi, Анна Attending Unavailable Bonezzi, Анна Referring Unavailable Bonezzi, Анна Primary Care Unavailable Flash, Alverto Attending Unavailable PROBLEMS PROBLEMS DATE TYPE CONDITION / CODE ATTENDING STATUS SOURCE 02/11/2018 Unknown M50.30 - Other Bonezzi, Анна Active [place] cervical disc Community degeneration, Hospital unspecified Repository cervical region / M50.30(ICD-10) 12/15/2017 Unknown R06.02 - Flash, Alverto Active [place] Short[facility] Community breath / Hospital R06.02(ICD-10) Repository 11/21/2017 Unknown R53.83 - Other Bonezzi, Анна Active [place] fatigue / Community R53.83(ICD-10) Hospital Repository 08/27/2017 Unknown R05 - Cough / Bonezzi, Анна Active [place] R05(ICD-10) [facility] Repository PROCEDURES PROCEDURES No Procedure Records FoundRESULTS RESULTS LIMITED CHEST CT Observed: 05/25/2018 Status: F Source: [place] W/CCTA 1:43 PM [facility] REPOSITORY [facility] Imaging Services [address] [place] [address] w/CCTA MR#: [id number] Acct: [id number] Name: MADIHA NEGRON Rep #: [id number] : 1940 F 77 From: Edgar Mcfadden MD PCP: Анна Gallardo MD Status: REG CLI Study: Limited Chest CT w/CCTA Date of Exam: 05/25/18 Exam# [id number] Ordering Dr: Анна Gallardo MD STUDY: CT CHEST WITHOUT CONTRAST REASON FOR EXAM: Female, 77 years old. Hyperlipidemia. Calcium scoring examination. Radiological over read examination. RADIATION DOSAGE (If Supplied By Facility): CTDIvol = ( 12.19 ) mGy, DLP = ( 390.07 ) mGycm TECHNIQUE: Transaxial imaging was performed without the administration of intravenous contrast material. Individualized dose optimization techniques were used for this CT. COMPARISON: Comparison is made with prior examination dated February 22, 2016. FINDINGS: History of bilateral mastectomy. Stable mild degree of increased markings at the lung bases suggestive of scarring and/or atelectasis. There is no demonstrated pleural abnormality. There are calcifications of the coronary arteries. There are multiple small lymph nodes within the mediastinum, which are normal in size and morphology most compatible with reactive lymph hyperplasia. Normal hilar regions. Normal unenhanced pulmonary arteries. Normal aorta arch and descending thoracic aorta. There are degenerative changes of the thoracic spine. Hiatal hernia. CT/Limited Chest CT w/CCTA IMPRESSION: Stable examination. No acute abnormality is seen. Electronically Signed: Edgar Mcfadden MD at 15:55 EST Tel [phone], Service support , CC: Анна Gallardo MD Parking Worker: Signed TXT - BLOOD FLOW Observed: 05/13/2018 Status: F Source: [place] SCREENING 7:52 PM [facility] REPOSITORY [facility] Cardiovascular Services [address] [place] [address] 05/12/18 0800 MR#: [id number] Acct: [id number] Name: MADIHA NEGRON Rep #: [id number] : 1940 77 From: Omero Fink MD Attending Dr: Анна Gallardo MD Status: REG REF Ordering Dr: Date: 05/13/18 Location: [facility] Sex: F C Admitted: Reason For Study: Blood flow screening Carotid Duplex Ultrasound Abdominal Aorta The right maximum [...] ankle/ brachial index is 1.0. The left ankle/ brachial index is 1.0. Medical History and [...] Анна Gallardo M.D. Performed By: Chelsi Hdz RVT 05/13/181951 Date Omero Fink MD CC: Анна Gallardo MD Date Dictated: 05/12/18799 Date Transcribed: 05/13/181951 Parking Worker: Signed PT D/C SUMMARY (1) Observed: 02/11/2018 Status: F Source: [place] 2:49 PM [facility] REPOSITORY [facility] Physical Therapy [facility] [address] [place] [address] Fax REHABILITATION SERVICES DISCHARGE SUMMARY MR#: [id number] Acct: [id number] Name: MADIHA NEGRON Rep #: [id number] : 1940 77 From: Evangelist Strauss PT, Cert. MDT, OCS Referring Dr.: Анна Gallardo MD Status: REG RCR Insurance: [facility] MEDICARE SELF PAY INSURANCE HP - PT D/C Summary It has been my pleasure to treat MADIHA NEGRON under orders from Анна Gallardo, for the diagnosis of DDD CERVICAL ,NECK PAIN for a total of 6 visit(s). Discharge Date: Please see the following information for a summary of their discharge status. - Subjective Subjective: goes by AURELIO.. Neck feels good right now. Played golf twice this week with no increase pain. Just finished [facility] [employer] [facility] program. - Pain Right Neck Pain Intensity (Out of 10): 1 - Overall Improvement % Improvement: 80 - Objective Objective/Function: CUES TO SLOW DOWN THE EXERICSES- ADMITS [...] driving,golfing with min limiations - Plan Plan: US/MHP,[facility] THERAPY CERVICAL TRACTION-CERVICAL MOBS 3-4 OA/AA,C2-3 ,ICTX 15-20# X15MIN,CERVICAL ROM/POSTURAL EX - D/C Information If there are questions or concerns regarding this patient's physical therapy, please feel free to call me at [phone]. Thank you for the referral of this patient. Sincerely, Evangelist Strauss PT, <Electronically signed by Evangelist Strauss PT, CertRuth Ann CRANDALL, OCS> 02/11/18 1449 CC: Анна Gallardo MD MATTIE Signed INITAL EVALUATION (1) Observed: 12/03/2017 Status: F Source: [place] - PT 9:16 AM [facility] REPOSITORY [facility] Physical Therapy [facility] [address] [place] [address] Fax REHABILITATION SERVICES INITIAL EVALUATION MR#: [id number] Acct: [id number] Name: MADIHA NEGRON Rep #: [id number] : 1940 77 From: Evangelist Strauss PT CertRuth Ann FLOREST, OCS Referring Dr.: Анна Gallardo MD Status: REG RCR Insurance: [facility] MEDICARE SELF PAY INSURANCE Patient's Visit Information MADIHA NEGRON is a 77 year old F referred to Physical Therapy by Анна Gallardo with a diagnosis of DDD CERVICAL ,NECK PAIN. Date of Evaluation: 12/02/17 Physical Therapist: Evangelist Strauss PT, - Visit Plan Frequency: 2x /Week Duration: 3 Weeks Plan: US/P,[facility] THERAPY CERVICAL TRACTION-CERVICAL MOBS 3-4 OA/AA,C2-3 ,ICTX 15-20# X15MIN,CERVICAL ROM/POSTURAL EX - Subjective Subjective: This 73 y/o female presents to physical therapy with neck pain,DDD cervical spine. Patient has had cervical pain on right side 2 1/2 months incidous onset of neck. Patient developed Stephens prior to neck pain with tiredenes. Location right cervical worse with turning cervical to right,drivng ,sitting. Symtoms better rest. Patient seen DR x-rays DDD.Denies parathesia/tingling. Denies SUAREZ/tinnitus/dizziness. Patient sleep is affects. Patient symptoms affect QOL and inablity golf. SOCIAL: . VOCATION: retired. HOBBIES: golfing - Pain Right Neck Pain Intensity (Out of 10): 3 Pain Intensity Range: 10 - Objective POSTURE: mild foward posture. NEURO: denies parathesia/tingling ,reflexes C5-6-7 1/3. PALAPTION: tender occiput ,parasinals,levator ,C2-3,OA. AROM: BUE WNL. MMT: BUE 4/5 ,shoulder 4-/5. CERVICAL ROM: flexion min loss,extension mod loss,lateeral flexion /rotation right mod loss,left min/mod loss. ASSESORY MOTION: C2-3,OA restricted - Special Tests C/S Radiculapathy [...] Sitting: Sidebend Right - Mechanical Response: No effect Cervical Sitting: Sidebend Right - Symptoms During Testing: Increases Cervical Sitting: Sidebend Right - Symptoms After Testing: No worse Cervical Sitting: Sidebend Left - Mechanical Response: No effect Cervical Sitting: Sidebend Left - Symptoms During Testing: No effect Cervical Sitting: Sidebend Left - Symptoms After Testing: Better Cervical Sitting: Rotation Right - Mechanical Response: No effect Cervical Sitting: Rotation Right - Symptoms During Testing: Increases Cervical Sitting: Rotation Right - Symptoms After Testing: No worse Cervical Sitting: Rotation Left - Mechanical Response: No effect Cervical Sitting: Rotation Left - Symptoms During Testing: Decreases Cervical Sitting: Rotation Left - Symptoms After Testing: Better - Goals Goal 1:: Independant with HEP Goal Time Frame: 4-6 Weeks Goal 2:: Patient to be Independant with posture for ADL'S Goal Time Frame: 4-6 Weeks Goal 3:: Patient to decrease pain right cervical to improve function for driving. Goal Time Frame: 4-6 Weeks Goal 4:: Patient to improve cervical ROM to right min/mod limited for function of recovery for function. Goal Time Frame: 4-6 Weeks Goal 5:: Patient improve ablity to perform ADL'S and driving,golfing with min limiations Goal Time Frame: 4-6 Weeks - Rehabilitation Potential Physical Therapy Diagnosis: This 77 y/o female presents to physical therapy with cervical DDD,neck pain with loss of ROM to right which impairs driving ADL'S and golf thus benifit from skilled PT. Rehabilitation Potential: Good - Anticipated Interventions Patient/Client Instruction: Educate patient on: Condition, Plan of Care For the Purpose of:: To decrease pain, To increase ROM, To improve muscle performance and motor function, To increase tolerance to activity/condition/position, To improve ability of physical actions for home/community/work/leisure, To improve health of tissue, To decrease soft tissue restriction, To increase flexibility/ROM, To improve health and function, To improve ability to perform tasks related to life management Therapeutic Exercise to Include: Strength training, Postural training, Flexibilty training, Active ROM For the Purpose of:: To decrease pain, To increase ROM, To improve muscle performance and motor function, To improve ability to perform ADL's, To improve performance and independence with ADL's, To improve ability of physical actions for home/community/work/leisure, To improve health of tissue, To decrease soft tissue restriction, To improve ability to perform tasks related to life management Manual Therapy Techniques to Include: Mobilization, Soft tissue mobilization Comment: CERVICAL TRACTION ,MOBS OA ,AA,C2-3 For the Purpose of:: To increase ROM, To improve nutrient delivery to tissue, To increase oxygenation perfusion, To improve health of tissue, To decrease soft tissue restriction TENS: Yes IF ES: Yes Cryotherapy (ice pack, ice massage): Yes Thermo therapy (hot pack): Yes Ultrasound (thermal/non thermal): Yes Intermittent cervical traction: Yes - 15-20# X15MIN For the Purpose of:: To decrease pain, To increase ROM, To improve nutrient delivery to tissue, To increase oxygenation perfusion, To improve health of tissue, To decrease soft tissue restriction Thank you for the opportunity to evaluate your patient. For Medicare and Medicare HMO plans, please review the plan of care and approve it. It will need to be FAXED BACK to us at [phone] for Medicare purposes. Please let me know if there are questions or concerns regarding this plan of care. Physician Signature: Date: <Electronically signed by Evangelist Strauss PT, Cert. MDT, OCS> 12/03/17915 CC: Анна Gallardo MD MATTIE Signed For Medicare only, by signing this I certify the plan of care. Physicians Signature Date ECHOCARDIOGRAM COMPLETE Observed: 11/17/2017 Status: F Source: [place] 5:29 PM [facility] REPOSITORY [facility] Cardiovascular Services [address] [place] [address] Echo Complete 11/17/17 1039 MR#: [id number] Acct: [id number] Name: MADIHA NEGRON Rep #: [id number] : 1940 77 From: Alverto Vidales MD Attending Dr: Анна Gallardo MD Status: REG CLI Ordering Dr: Анна Gallardo MD Date: 11/17/17 Location: [facility] Sex: F C Admitted: Reason For Study: SOB Procedure This was a 2D Doppler, Color Flow transthoracic echocardiogram. Exam performed in department. Left Ventricle Normal LV size. Left ventricular systolic function is normal. The estimated ejection fraction is 60 %. Transmitral diastolic flow velocities suggest mild (stage 1) diastolic dysfunction (reversed pattern). No regional wall motion abnormalities noted. Right Ventricle Normal RV size. Normal systolic function. Atria Normal left atrium. Normal right atrium. Mitral Valve Normal mitral valve. Mild (1+) eccentric mitral valve insufficiency. Tricuspid Valve Normal tricuspid valve. Aortic Valve Normal aortic valve. Pulmonic Valve Normal pulmonic valve. Great Vessels Normal aortic root. The pulmonary artery is normal size. Normal inferior vena cava. Pericardium/Pleural No pericardial effusion. MMode/2D Measurements AND Calculations LVIDd: 4.4 cm IVSd: 0.56 cm LA dimension: 2.7 cm LVIDs: 3.4 cm LVPWd: 0.81 cm RVDd: 2.7 cm FS: 23.4 % LAV(MOD-bp): 23.9 ml LVAd ap4: 21.8 cm2 SV(MOD-sp4): 29.9 ml LAV(MOD-bp) Indexed: 12.4 ml/m2 EDV(MOD-sp4): 56.3 ml LAV(MOD-sp2): 26.5 ml EDV(sp4-el): 59.7 ml LAV(MOD-sp4): 21.3 ml LVAs ap4: 13.8 cm2 ESV(MOD-sp4): 26.4 ml ESV(sp4-el): 27.6 ml EF(MOD-sp4): 53.1 % EF(sp4-el): 53.8 % SV(sp4-el): 32.1 ml LA A4 area: 11.5 cm2 RA A4 area: 10.8 cm2 Time Measurements MV dec time: 0.24 sec Doppler Measurements AND Calculations MV E max christiano: 53.5 cm/sec Lat Peak E' Christiano: 5.2 cm/sec Med Peak E' Christiano: 3.9 cm/sec MV A max christiano: 111.7 cm/sec E/E' lat: 10.3 E/E' med: 13.8 MV E/A: 0.48 Ao V2 max: 136.5 cm/sec LV V1 max: 99.1 cm/sec PA V2 max: 103.8 cm/sec Ao max P.5 mmHg LV V1 max P.9 mmHg Interpretation Summary Normal LV size. Left ventricular systolic function is normal. The estimated ejection fraction is 60 %. Transmitral diastolic flow velocities suggest mild (stage 1) diastolic dysfunction (reversed pattern). Ordering Physician: Анна Gallardo Referring Physician: Анна Gallardo Performed By: Maria Monge RDCS 11/17/17 1728 Date Alverto Vidales MD CC: Анна Gallardo MD Date Dictated: 11/17/17 1039 Date Transcribed: 11/17/171727 Parking Worker: Signed STRESS REPORT Observed: 11/17/2017 Status: F Source: [place] 10:13 AM [facility] REPOSITORY [facility] Cardiovascular Services [address] [place] [address] MR#: [id number] Acct: [id number] Name: MADIHA NEGRON Rep #: [id number] : 1940 77 From: Alverto Vidales MD Primary Care: Анна Gallardo MD Status: REG CLI Ordering Dr: Sex: F C Stress Test Report Exercise myocardial perfusion stress test. 77-year-old lady with a history of shortness of breath. Medications: Aspirin diltiazem Prevacid probiotic. Stress protocol: Resting EKG demonstrates normal sinus rhythm with a rate of 67 bpm normal intervals and noted resting blood pressure is 140/80 mmHg. The patient exercised according to regular Tavon protocol for total duration of 4 minutes and 30 seconds. Patient completed 1 minute and 30 seconds into stage II of the Tavon protocol. The maximum heart rate attained was 123 bpm which was 86% of maximum predicted heart rate the maximum workload attained was 6.4 metabolic equivalents. At rest there were no ST or T-wave changes noted suggest ischemia peak exercise upsloping ST changes only were noted with no meet the criteria for ischemia the test was terminated due to shortness of breath. No chest pain was noted. The resting blood pressure was 140/80 mmHg with a peak blood pressure 148/70 mmHg. Myocardial perfusion protocol. 11.4 mCi of technetium 99m sestamibi was injected at rest. The patient exercised according to regular Tavon [...] images demonstrate normal uptake of tracer noted in all areas of the myocardium. The resting images similarly demonstrate normal uptake of tracer noted in all areas of the myocardium. No areas of reversibility are noted suggest ischemia and no previous infarct is noted. Gated SPECT analysis: The gated ejection fraction is 80%. Conclusion: Normal exercise myocardial perfusion stress test at a low to moderate workload. Preserved ejection fraction 11/17/17 1013 <Electronically signed by Alverto Vidales MD> Date Alverto Vidales MD CC: Анна Gallardo MD Date Dictated: 11/17/17 1007 Date Transcribed: 11/17/17 1007 Parking Worker: [place] Signed OPERATIVE REPORT Observed: 11/03/2017 Status: F Source: [place] 8:03 AM [facility] REPOSITORY [facility] Medical Records Department [address] [place] [address] Operative Report 10/31/17 0926 MR#: [id number] Acct: [id number] Name: MADIHA NEGRON Rep #: [id number] : 1940 77 From: Al Snider MD PCP: Анна Gallardo MD Status: DEP [facility] [place] Location[place] [facility] Problem List (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 She been unsuccessful in wearing a traditional hearing aid due to chronic drainage from her left mastoid cavity from chronic mastoiditis and the above procedure was offered in hopes of successful rehabilitation of her hearing loss. She was eager to proceed. The risks, alternatives, potential benefits, and complications were discussed at length and any questions answered to the patient and/or caregiver's satisfaction. Witnessed informed consent was obtained in the office, and the patient and/or caregiver was agreeable to proceed. Procedure went as follows: The patient was identified in the preoperative holding after site marking the appropriate ear in accordance with the patient's history, office chart, and physical exam. The patient was then brought to the operating room and placed under general anesthesia and intubated. When appropriate anesthesia is obtained, the left scalp was prepped and draped in usual sterile fashion. The abutment site was then marked 5 cm posterior to the external auditory meatus and injected with 0.5 mL of 1% lidocaine with 100,000 epinephrine. Using a 5 mm punch, The skin and subcutaneous tissue were then resected. The periosteum overlying the operative site was then removed sharply with an iris scissor and a periosteal elevator. The charter pilot drill hole was then created and palpated to ensure bone at the maximal depth of the hole and then finalize to 4 mm in size to allow for placement of the titanium abutment. The bony fragments were then suctioned and irrigated clear and the 4 x 9 mm abutment was then placed in accordance of the manufactures directions. Xeroform gauze was then placed at the skin edge followed by the healing cap. The patient was then to return to anesthesia, was revived and extubated without complication having tolerated the procedure well. Type of Anesthesia:: General Anesthesiologist: Dax Maxwell Special Medications: none Specimen's removed: none Drains: none Estimated Blood Loss (mL): 0 mL Fluids Replaced: 300 mL Grafts/Implants Used: 4 mm by 9 mm titanium abutment - Complications none - Admit VTE Documentation VTE Present on Admission: No VTE Mechan Device Prophylaxis: SCD's VTE Pharm Prophylaxis ordered?: No 10/31/17932 <Electronically signed by Al Snider MD> Date Al Snider MD CC: Анна Gallardo MD; Al Snider MD Signed DISCHARGE INSTRUCTION Observed: 10/31/2017 Status: F Source: [place] 9:34 AM [facility] REPOSITORY [facility] Medical Records Department [address] [place] [address] Instructions for Home/Discharge Instructions 10/31/17932 MR#: [id number] Acct: [id number] Name: MADIHA NEGRON Rep #: [id number] : 1940 77 From: Al Snider MD PCP: Анна Gallardo MD Status: REG SDC - Discharge Diagnoses Current Active Problems: Current Active and Chronic Problems Mixed conductive and sensorineural hearing loss (Chronic) Chronic mastoiditis of left side (Chronic) You will use the following diet at home:: No restrictions Your food should be the consistency of: Regular Discharge Activity: Return to Normal Activity Call your doctor if your incision/area has: Continuous Slow Oozing, Increased Pain/ Swelling, Foul Smelling Discharge, Swelling at the incision site Call your doctor if you observe: Fever of 101 or Higher, Uncontrolled pain Cleanse incision/area with: Keep Dressing Clean AND Dry Allergies/Adverse Reactions: Allergies bacitracin Allergy (Verified 10/27/17 11:12) Hives clarithromycin Allergy (Verified 10/27/17 11:12) Hives gemfibrozil Allergy (Verified 10/27/17 11:12) Unknown Iodinated Contrast- Oral and IV Dye [CONTRASTS] Allergy (Verified 10/27/17 11:13) Rash iodine Allergy (Verified 10/27/17 [...] morphine Adverse Reaction (Verified 10/27/17 11:12) Vomiting Medications to take at Discharge Lansoprazole [Prevacid] 15 mg PO DAILY 09/09/13 RX: Aspirin E.C. [Ecotrin] 81 mg PO QHS 09/09/13 Diltiazem HCl [Diltiazem 24Hr ER] 120 mg PO DAILY 12/16/16 Lactobacillus Combo No.11 [Probiotic] 1 each PO DAILY 10/27/17 Zicam 1 spray NASAL PRN PRN 10/27/17 Primary Care Physician: Анна Gallardo MD [Primary Care Provider] - Please Follow Up With: Al Snider MD When: 10 days 10/31/17 0934 <Electronically signed by Al Snider MD> Date Al Snider MD CC: Анна Gallardo MD CHEST PA AND LATERAL Observed: 10/24/2017 Status: F Source: [place] 10:08 AM [facility] REPOSITORY [facility] Imaging Services [address] [place] [address] Chest PA and Lateral MR#: [id number] Acct: [id number] Name: MADIHA NEGRON Rep #: [id number] : 1940 F 77 From: Ruben Parikh DO PCP: Анна Gallardo MD Status: REG CLI Study: Chest PA and Lateral Date of Exam: 10/24/17 Exam# [id number] Ordering Dr: Анна Gallardo MD STUDY: X-RAY [...] There is absence of the bilateral breast shadows. There is no demonstrated abnormality of the visualized soft tissue structures of the upper abdomen. RAD/Chest PA and Lateral IMPRESSION: No acute cardiopulmonary disease or interval change. Electronically Signed: Ruben Parikh DO at 18:37 EDT Tel [phone], Service support , CC: Анна Gallardo MD Parking Worker: Signed CORTISOL SERUM Collected: 10/24/2017 Status: F Source: [place] 9:50 AM [facility] REPOSITORY Order Comment: BASELINE OR POST MEDICATION STIMULATION?: 60 Min Post MED Stimulati TYPE CODE TESTS RESULT OUT OF REFERENCE UNITS RANGE LAB L509.6000 3.09-22.40 ug/dL High CORTISOL 41.70 Result Comment: Adult (AM) 4.30 - 22.40 ug/dL Adult (PM) 3.09 - 16.66 ug/dL Performed By: #### L509.6000 #### [facility] [place], [address] CORTISOL SERUM Collected: 10/24/2017 Status: F Source: [place] 9:20 AM [facility] REPOSITORY Order Comment: BASELINE OR POST MEDICATION STIMULATION?: 30 Min Post MED Stimulati TYPE CODE TESTS RESULT OUT OF REFERENCE UNITS RANGE LAB L509.6000 3.09-22.40 ug/dL High CORTISOL 37.70 Result Comment: Adult (AM) 4.30 - 22.40 ug/dL Adult (PM) 3.09 - 16.66 ug/dL Performed By: #### L509.6000 #### [facility] [address] [place], [address] CORTISOL SERUM Collected: 10/24/2017 Status: F Source: [place] 8:42 AM [facility] REPOSITORY Order Comment: BASELINE OR POST MEDICATION STIMULATION?: BASELINE TYPE CODE TESTS RESULT OUT OF REFERENCE UNITS RANGE LAB L509.6000 3.09-22.40 ug/dL High CORTISOL 28.40 Result Comment: Adult (AM) 4.30 - 22.40 ug/dL Adult (PM) 3.09 - 16.66 ug/dL Performed By: #### L509.6000 #### [facility] [address] [place], [address] CERV SPINE 4 OR 5 Observed: 10/02/2017 Status: F Source: [place] VIEWS 3:07 PM [facility] REPOSITORY [facility] Imaging Services [address] [place] [address] Cerv Spine 4 or 5 Views MR#: [id number] Acct: [id number] Name: MADIHA NEGRON Rep #: [id number] : 1940 F 77 From: Edgar Mcfadden MD PCP: Анна Gallardo MD Status: REG CLI Study: Cerv Spine 4 or 5 Views Date of Exam: 10/02/17 Exam# [id number] Ordering Dr: Анна Gallardo MD STUDY: X-RAY - CERVICAL SPINE REASON FOR EXAM: Female, 77 years old. Neck stiffness. TECHNIQUE: 6 view(s) of the cervical spine were obtained including oblique views. COMPARISON: None FINDINGS: Normal anterior atlantoaxial articulation. Normal odontoid process. Normal cervical lordosis. There is multi-level endplate spondylosis. There is multi-level degenerative disc disease with multilevel disc space narrowing. Normal visualized intervertebral neuroforamina. The soft tissue structures are unremarkable. RAD/Cerv Spine 4 or 5 Views IMPRESSION: Multilevel disc space narrowing and spondylosis. Electronically Signed: Edgar Mcfadden MD at 9:13 EDT Tel [phone], Service support , CC: Анна Gallardo MD Parking Worker: Signed CHEST PA AND LATERAL Observed: 06/16/2017 Status: F Source: [place] 11:35 AM [facility] REPOSITORY [facility] Imaging Services [address] [place] [address] Chest PA and Lateral MR#: [id number] Acct: [id number] Name: MADIHA NEGRON Rep #: [id number] : 1940 F 76 From: Edgar Mcfadden MD PCP: Анна Gallardo MD Status: REG CLI Study: Chest PA and Lateral Date of Exam: 06/16/17 Exam# [id number] Ordering Dr: Анна Gallardo MD STUDY: X-RAY CHEST REASON FOR EXAM: Female, 76 years [...] Edgar Mcfadden MD at 12:26 EST Tel [phone], Service support , CC: Анна Gallardo MD Parking Worker: Signed ALLERGIES ALLERGIES DATE TYPE / NAME / CODE REACTION SEVERITY SOURCE CODE 10/27/2017 Drug meperidine Vomiting Unknown [place] Allergy/41 HCl/[id number](R Community 5855322([facility]) Repository 10/27/2017 Drug Iodinated Rash Unknown [place] Allergy/41 Contrast- Oral [facility] 6456199([facility]) Dye/[id number](R Repository XNORM) 10/27/2017 Drug Penicillins/F001 Laryngospasms Unknown [place] Allergy/41 960036(RXNORM) [facility] 1401003([facility]) Repository 10/27/2017 Drug Macrolide Unknown Unknown [place] Allergy/41 Antibiotics/F001 [facility] 3034920( 554381(RXNORM) [facility]) Repository 10/27/2017 Drug iodine/[id number] Hives Unknown [place] Allergy/41 2(RXNORM) [facility] 8789215([facility]) Repository 10/27/2017 Drug morphine/B350791 Vomiting Unknown [place] Allergy/41 545(RXNORM) Community 6435667([facility]) Repository 10/27/2017 Drug codeine/Z9217673 Vomiting Unknown [place] Allergy/41 50(RXNORM) [facility] 8815602([facility]) Repository 10/27/2017 Drug gemfibrozil/F006 Unknown Unknown [place] Allergy/41 145055(RXNORM) Community 1602662([facility]) Repository 10/27/2017 Drug bacitracin/F0060 Hives Unknown [place] Allergy/41 37048(RXNORM) Community 5572718([facility]) Repository 10/27/2017 Drug sulfamethoxazole Swelling Unknown [place] Allergy/41 /[id number](RXNO Community 5425632([facility]) Repository 10/27/2017 Drug trimethoprim/F00 Swelling Unknown [place] Allergy/41 5558790(RXNORM) Community 8570107([facility]) Repository 10/27/2017 Drug clarithromycin/F Hives Unknown [place] Allergy/41 934390948(RXNORM Community 9006224([facility]) Repository 10/27/2017 Drug levofloxacin/F00 Hives Unknown [place] Allergy/41 5210841(RXNORM) Community 5853902([facility]) Repository ENCOUNTERS ENCOUNTERS ADMIT/DISCHARGE ACCOUNT ADMITTING ENCOUNTER LOCATION SOURCE NUMBER CLASS 05/25/2018 [id number] Ambulatory BMSBuilding:B [place] 8 [facility] Repository 05/25/2018 [id number] Ambulatory [place] [facility] ing:CT Repository 05/12/2018 [id number] Ambulatory [place] 6 [facility] ing:[facility] Repository 04/30/2018 5541 Ambulatory Building:[facility] OHIP Practices Repository 12/19/2017/ [id number] Ambulatory [place] 8 5 [facility] ing:PT Repository 11/17/2017 [id number] Ambulatory [place] 4 [facility] ing:[facility] Repository 11/17/2017 [id number] Ambulatory BMSBuilding:W [place] 9 [facility] Hospital Repository 10/31/2017/ [id number] Ambulatory [place] [facility] ing[facility]SDC Repository 10/24/2017 [id number] Ambulatory [place] [facility] ing:RAD.FUTUR Repository E 10/24/2017 [id number] Ambulatory [place] 6 [facility] ing:MEDOUTP Repository 10/13/2017 [id number] Ambulatory [place] 7 [facility] ing:LAB.FUTUR Repository E 10/02/2017 [id number] Ambulatory [place] [facility] ing:HPRAD Repository 06/16/2017 [id number] Ambulatory [place] 2 [facility] ing:HPRAD Repository PAYERS PAYERS ENCOUNTER GUARANTOR PAYER SUBSCRIBER SOURCE 05/25/2018 MADIHA Baker Primary Insurance:[facility] MADIHA Carpenter [id number] E PACKAGE PLANPolicy JENKINSDOB: [facility] Number: [id number] [id number] Repository [address]Mnt: (330) Date:2018-04-3063 () 05/25/2018 Secondary NOT GIVENUNK [place] Insurance:SELF PAY [facility] Number: Effective Repository Date:2018-05-25 05/25/2018 MADIHA Baker Primary Insurance:[facility] MADIHA [id number] E PACKAGE PLANPolicy JENKINSDOB: [facility] Number: [id number], [place] [id number] Repository [address]Eva: (330) Date:2018-04-30 [id number] () 05/25/2018 Secondary NOT GIVENUNK [place] Insurance:SELF PAY [facility] Number: Effective Repository Date:2018-04-30 05/12/2018 MADIHA Baker Primary NOT GIVENUNK [place] [id number] E Insurance:SELF PAY [place] Number: Effective Repository [id number]: (330) Date:2018-04-30 [phone] (HP) 04/30/2018 MADIHA Baker Primary Insurance:The MADIHA Baker OHIP Practices ALTAMONTMADY: [facility] Hospital[facility]: Repository [id number] E Number: [id number] [place] [id number] [address] [place], [place] Date:2684-72-57Igmp [place], [place] [address]Tto: (330) Name:Chely [facility] [address]Zqk: NEL Saldana [phone] () (HP)Tel: [phone]: (wp) [phone] 04/30/2018 Secondary MADIHA S OHIP Practices Insurance:MedicarePol JAMILDOB: Repository icy Number: [id number] [address] Date:2004-08-03 - [place], [place] 1981-70-17Vrot [address]Jta: Name: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'S 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 Box ~(3 644469Qgbvcbzc, [place] 30 (HP) [address]YF: 04/30/2018 Tertiary MADIHA S OHIP Practices Insurance:Cory RINCONB: Repository Ins/MedicarePolicy [id number] Number: [address] [id number] [place], [place] Date:2007-05-05 [address]Dwx: [id number] ~(3 Name: [address] (HP) 006[address]QmDawn, [place] [id number]: 04/30/2018 Tertiary MADIHA S OHIP Practices Insurance:Faby RINCONB: Repository /BSPolicy Number: [id number] [address] Date:2010-05-05[place], [place] 6995-63-25Tbuw 47[address]Khk: Name:GPO Box ~(3 [id number], [place] 30 (HP) [id number]: 04/30/2018 Tertiary MADIHA Baker OHIP Practices Insurance:[employer] MCKENZIEB: Repository e OPolicy Number: [id number] [address] Date: - [place], [place] [id number] [address]Rhj: Name:[id number] [place] ~([address] E.do not use, 30 (HP) terminatedSt. [place], [place] [id number]: 12/19/2017 MADIHA S Primary MADIHA S [place] [id number] E Insurance:NENA KING: [facility] HENRIQUE SECURE CARE [id number] [place] Repository 9[address]Txj: (330) Number: [phone] () [id number] Date: [place], [place] [address]UK: 12/19/2017 Secondary NOT GIVENUNK [place] Insurance:SELF PAY [facility] Number: Effective Repository Date:2017-10-22 11/17/2017 MADIHA S Primary MADIHA Carpenter [id number] E Insurance[place] JENKINSDOB: Community [facility] SECURE CARE [id number] [place] MEDICARE[place] Repository 05[address]Fha: (330) Number: [phone] () [id number] Date: [place], [place] [address]KH: 11/17/2017 Secondary NOT GIVENUNK [place] Insurance:SELF PAY [facility] Number: Effective Repository Date:2017-11-07 11/17/2017 MADIHA S Primary MADIHA Carpenter [id number] E Insurance:[place] JENKINSDOB: [facility] CARE [id number] [place] MEDICARE[place] Repository [address]101[address]Inh: (330) Number: [phone] () [id number] Date: [place], [place] [address]EX: 11/17/2017 Secondary NOT GIVENUNK [place] Insurance:SELF PAY [facility] Number: Effective Repository Date:2017-11-17 10/31/2017 MADIHA S Primary MADIHA Carpenter [id number] E Insurance:[place] JENKINSDOB: Community [facility] SECURE CARE [id number] [place] MED[place] Repository 93[address]Hgu: (330) Number: [phone] () [id number] Date: [place], [place] [address]PK: 10/31/2017 Secondary NOT GIVENUNK [place] Insurance:SELF PAY [facility] Number: Effective Repository Date:2017-10-21 10/24/2017 MADIHA Baker Primary MADIHA Carpenter [id number] E Insurance:[place] JENKINSDOB: Community [facility] C[facility] [id number] [place]ARE[place] Repository [address]Ion: 330) Number: [phone] () [id number] Date: [facility], [place] [address]WH: 10/24/2017 Secondary NOT GIVENUNK [place] Insurance:SELF PAY [facility] Number: Effective Repository Date:2017-10-23 10/24/2017 MADIHA Baker Primary MADIHA Carpenter [id number] E Insurance:[place] JENKINSDOB: Community [facility] [id number] [place] MEDICARE[place] Repository 394[address]Wjt: (330) Number: [phone] () [id number] Date: [facility], [place] [address]FO: 10/24/2017 Secondary NOT GIVENUNK [place] Insurance:SELF PAY [facility]: Effective Repository Date:2017-10-22 10/13/2017 MADIHA S Primary MADIHA Carpenter [id number] EAST Insurance:[place] JENKINSDOB: Community [facility] [id number] [facility] [place] MEDICARE[place] Repository 250[address]Iky: (330) Number: [id number] () [id number] Date: [facility], [place] [address]LI: 10/13/2017 Secondary NOT GIVENUNK [place] Insurance:SELF PAY [facility] Number: Effective Repository Date:2017-10-13 10/02/2017 MADIHA S Primary MADIHA Carpenter [id number] EAST Insurance:[place] JENKINSDOB: Community [facility] [id number] [place] MEDICARE[place] Repository 14[address]Axx: (330) Number: [phone] () [id number] Date: [facility] [address]BC: 10/02/2017 Secondary NOT GIVENUNK [place] Insurance:SELF PAY [facility] Number: Effective Repository Date:2017-10-02 06/16/2017 MADIHA Baker Primary SHUKRI [place] [id number] [facility] Insurance:[place] MCKENZIEB: [facility] [id number] [place] MEDICAREPolicy Repository [address]Kjn: (330) Number: [phone] () [id number] Date: [place], [place] [address]RP: 06/16/2017 Secondary NOT GIVENUNK [place] Insurance:SELF PAY [facility] Number: Effective Repository Date:2017-06-16
== END ==
PROVIDERS: Family Provider Internal Medicine; PCP Internal Medicine; Referring Provider Internal Medicine; Visit Provider Internal Medicine
DX: E78.5 Hyperlipidemia, unspecified (principal); E11.9 Type 2 diabetes mellitus without complications
CPT/HCPCS: 75571; 76380

== ENCOUNTER → 2019-01-11 16:35 | Outpatient (CLI) | payer MEDICARE, SELFPAY ==
[2018-05-25 13:49] VITALS: BMI 28.6
--- NOTE | 2019-01-11 16:40 | RAD_ITS ---
STUDY: X-RAY - RIGHT ANKLE REASON FOR EXAM: Right ankle pain, injury one month ago. TECHNIQUE: 3 view(s) of the ankle. COMPARISON: None. FINDINGS: Normal visualized distal tibia and fibula. Normal medial and lateral malleoli. Normal tibiotalar articulation and ankle mortise. There are posterior and plantar calcaneal enthesophytes. The visualized subtalar, talonavicular, calcaneocuboid and tarsal articulations are normal. The soft tissue structures are unremarkable. RAD/Ankle min 3 Views IMPRESSION: Calcaneal enthesopathy. Otherwise, unremarkable x-ray examination of the right ankle. Electronically Signed: Neto Trujillo MD at 14:57 EDT Tel , Service support ,
== END ==
PROVIDERS: Family Provider Internal Medicine; PCP Internal Medicine; Referring Provider Internal Medicine; Visit Provider Internal Medicine
DX: M25.571 Pain in right ankle and joints of right foot (principal)
CPT/HCPCS: 73610

== ENCOUNTER → 2019-01-20 13:04 | Outpatient (CLI) | payer MEDICARE, SELFPAY ==
[2018-05-25 13:49] VITALS: BMI 28.6
--- NOTE | 2019-01-20 13:09 | CT_ITS ---
STUDY: CT CHEST WITH CONTRAST REASON FOR EXAM: Female, 78 years old. Palpable lump in the upper chest wall. History of breast cancer. RADIATION DOSAGE (If Supplied By Facility): CTDIvol = ( 12.78 ) mGy, DLP = ( 554.59 ) mGycm TECHNIQUE: Transaxial imaging was performed following intravenous administration of 100 IV Isovue 300. Multiplanar coronal and sagittal images were reformatted. Individualized dose optimization techniques were used for this CT. COMPARISON: Comparison is made with prior examination dated May 25, 2018. FINDINGS: The patient is status post bilateral mastectomy with bilateral breast prostheses. Mild increased linear markings at the lung bases suggests a mild degree of scarring. There is no demonstrated pleural abnormality. Normal heart and pericardium. There are multiple small lymph nodes within the mediastinum, which are normal in size and morphology most compatible with reactive lymph hyperplasia. Normal hilar regions. Normal enhanced pulmonary arteries. There is atherosclerotic calcification of the aortic arch There are mild degenerative changes of the thoracic spine. Moderate sized hiatal hernia. CT/Chest WITH Contrast IMPRESSION: Stable examination. No acute abnormality is seen. Electronically Signed: Edgar Mcfadden, at 15:40 EDT , Service support ,
== END ==
PROVIDERS: Family Provider Internal Medicine; PCP Internal Medicine; Referring Provider Internal Medicine; Visit Provider Internal Medicine
DX: R22.2 Localized swelling, mass and lump, trunk (principal)
CPT/HCPCS: 71260; Q9967

== ENCOUNTER → 2019-05-06 10:39 | Outpatient (CLI) | payer MEDICARE, SELFPAY ==
[2018-05-25 13:49] VITALS: BMI 28.6
--- NOTE | 2019-05-06 10:45 | BD_ITS ---
STUDY: DUAL ENERGY X-RAY ABSORPTIOMETRY / DXA REASON FOR EXAM: Female, 78 years old. 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 COMPARISON: Comparison is made with prior examination dated February 20, 2016. FINDINGS: Lumbar Spine (L1-L4): g/cm2 (1.212) / T-score (0.4) / Z-score (2.2) Findings are suggestive of normal bone density with a low fracture risk. Left Femur Total: g/cm2 (1.004) / T-score (0.0) / Z-score (2.0) Left Femoral Neck: g/cm2 (0.959) / T-score (-0.6) / Z-score (1.6) Right Femur Total: g/cm2 (0.967) / T-score (-0.3) / Z-score (1.7) Right Femoral Neck: g/cm2 (0.979) / T-score (-0.4) / Z-score (1.7) The T-Scores on the most recent prior examination were: Lumbar Spine (L1-L4): There has been improvement of bone density since the previous examination. Left Femur Total: which represents an improvement of 0.1%. Right Femur Total: which represents a worsening of 1%. BD/Dexa Bone Density Study IMPRESSION: The patient is considered normal as outlined below according to World Sebastien Organization (WHO) criteria with a low fracture risk. There has been improvement of bone density since the previous examination. Reference Information: The T-score is the number of standard deviations above or below the standard which is normal for young adults at their peak bone mineral density. The World Health Organization (WHO) interprets the T-scores as follows: Above -1 Normal bone density Between -1 and -2.5 Osteopenia Equal to / or below -2.5 Osteoporosis As a practical clinical guideline, osteopenia may be graded as follows: Mild -1 through -1.5 Moderate -1.6 through -2.0 Severe -2.1 through -2.4 The Z-score is the number of standard deviations above or below age-matched controls. A Z-score of less than -1.5 would be considered abnormal. References: 1. NIH Osteoporosis and Related Bone Diseases http://www.osteo.org 2. International Society for Clinical Densitometry http://www.iscd.org 3. National Osteoporosis Foundation http://www.nof.org Electronically Signed: Edgar Mcfadden, at 9:26 EST , Service support ,
== END ==
PROVIDERS: Family Provider Internal Medicine; PCP Internal Medicine; Referring Provider Internal Medicine; Visit Provider Internal Medicine
DX: Z78.0 Asymptomatic menopausal state (principal)
CPT/HCPCS: 77080

== ENCOUNTER → 2020-01-03 12:11 | Outpatient (CLI) | payer MEDICARE, SELFPAY ==
[2018-05-25 13:49] VITALS: BMI 28.6
--- NOTE | 2020-01-03 12:17 | US_ITS ---
STUDY: ULTRASOUND BREAST - RIGHT REASON FOR EXAM: Female, 79 years old. Palpable lump in the right breast. Palpable abnormality at the mastectomy scar. TECHNIQUE: Axial and longitudinal images of the RIGHT breast were performed with a high resolution ultrasound transducer. # OF IMAGES: 16 COMPARISON: None. FINDINGS: RIGHT Breast: The area of the right mastectomy scar was examined by ultrasound. No sonographic abnormality is seen. US/Breast Limited Unilateral IMPRESSION: No sonographic abnormality is seen. ASSESSMENT CATEGORY: BIRADS Category 1: Negative. A letter regarding these results will be sent to the patient by the facility within 30 days. Electronically Signed: Edgar Mcfadden, at 14:59 EDT , Service support ,
== END ==
PROVIDERS: PCP Internal Medicine; Referring Provider Internal Medicine; Visit Provider Internal Medicine
DX: R92.8 Other abnormal and inconclusive findings on diagnostic imaging of breast (principal); N63.0 Unspecified lump in unspecified breast
CPT/HCPCS: 76642

== ENCOUNTER → 2020-01-19 14:13 | Outpatient (CLI) | payer MEDICARE, SELFPAY ==
[2020-01-12 13:00] VITALS: BMI 28.6
--- NOTE | 2020-01-19 14:16 | CT_ITS ---
STUDY: CT CHEST WITH CONTRAST REASON FOR EXAM: Female, 79 years old. BILAT MASTECTOMY, HX BREAST CA, NEW PALPABLE LUMP ON RT SIDE OF CHEST RADIATION DOSAGE (If Supplied By Facility): CTDIvol = ( 10.73 ) mGy, DLP = ( 361.19 ) mGycm TECHNIQUE: Transaxial imaging was performed following intravenous administration of IV 100mL Isovue-300. Multiplanar coronal and sagittal images were reformatted. Individualized dose optimization techniques were used for this CT. COMPARISON: Comparison is made with prior study dated 01/20/2019. FINDINGS: The patient is status post bilateral mastectomy. Small benign-appearing bilateral axillary lymph nodes. Stable mild linear scarring at the lung bases. There is no demonstrated pleural abnormality. Normal heart and pericardium. There are multiple small lymph nodes within the mediastinum, which are normal in size and morphology most compatible with reactive lymph hyperplasia. Normal hilar regions. Normal enhanced pulmonary arteries. Normal aorta arch and descending thoracic aorta. There are mild degenerative changes of the thoracic spine. There is a 1.3 cm hypodense nodule in the left adrenal gland most likely representing a small adenoma. Small to moderate-sized hiatal hernia. CT/Chest WITH Contrast IMPRESSION: Stable examination. No acute abnormality is seen. Electronically Signed: Edgar Mcfadden, at 8:53 EDT , Service support ,
[2020-01-19 14:36] LABS: CREATININE FINGERSTICK 1.4 mg/dL (0.55-1.02)
== END ==
PROVIDERS: PCP Internal Medicine; Referring Provider Surgery; Visit Provider Surgery
DX: M79.89 Other specified soft tissue disorders (principal)
CPT/HCPCS: 71260; Q9967

== ENCOUNTER → 2020-08-25 13:34 | Outpatient (CLI) | payer MEDICARE, SELFPAY ==
[2020-01-12 13:00] VITALS: BMI 28.6
--- NOTE | 2020-08-25 13:41 | CT_ITS ---
STUDY: CT BRAIN WITHOUT CONTRAST REASON FOR EXAM: Female, 80 years old. PARESTHESIA RIGHT ARM RADIATION DOSAGE (If Supplied By Facility): CTDIvol = ( 38.43 ) mGy, DLP = ( 698.28 ) mGycm TECHNIQUE: Transaxial CT imaging of the brain was performed without administration of intravenous contrast material. Individualized dose optimization techniques were used for this CT. COMPARISON: No relevant priors. FINDINGS: Normal soft tissue structures. Normal calvarium. There is mild cerebral atrophy with widening of the extra-axial spaces and ventricular dilatation. There are areas of decreased attenuation within the white matter tracts of the supratentorial brain, consistent with microvascular disease changes. Normal basal ganglia and thalami. Normal brainstem. Normal cerebellum. There is no intracranial hemorrhage. There are no findings of an acute ischemic infarction. Atherosclerotic calcification of the vertebral arteries and cavernous portions of the internal carotid arteries bilaterally. Normal visualized paranasal sinuses. CT/Brain/Head without Contrast IMPRESSION: Chronic involutional changes of the brain. Electronically Signed: Edgar Mcfadden MD at 14:09 EDT , Service support ,
== END ==
PROVIDERS: PCP Internal Medicine; Referring Provider Internal Medicine; Visit Provider Internal Medicine
DX: R20.2 Paresthesia of skin (principal)
CPT/HCPCS: 70450

== ENCOUNTER → 2022-05-10 | Outpatient (CLI) | payer MEDICARE, SELFPAY ==
[2022-05-10 12:17] LABS: Absolute Lymphocyte Count 2.21 X10^3/uL (0.83-4.51); Absolute Neutrophil Count 2.9 X10^3/uL (2.0-7.7); Basophil# 0.04 X10^3/uL; Basophil% 0.7 % (0-1); Eosinophil# 0.08 X10^3/uL; Eosinophils% 1.4 % (0-5); Hematocrit 44.6 % (37-47); Hemoglobin 14.7 g/dL (12.0-15.0); Lymphocyte # 2.21 X10^3/ul (0.83-4.51); Lymphocyte % 39.5 % (19-41); Mean Corpuscular Hgb 30.4 pg (27.0-32.0); Mean Corpuscular Volume 92.3 fL (81-99); Monocyte# 0.37 X10^3/uL; Monocyte% 6.6 % (0-10); NRBC Flagged by Analyzer 0 % (0-5); Neutrophil # 2.85 X10^3/uL (2.7-7.7); Neutrophil % 51.1 % (47-70); Platelet Count 315 K/mm3 (150-450); RBC Distribution Width CV 12.6 % (11.6-14.6); RBC Distribution Width SD 42.8 fl (35.1-43.9); Red Blood Count 4.83 M/mm3 (4.2-5.4); White Blood Count 5.6 K/mm3 (4.4-11.0)
[2022-05-10 13:02] LABS: BUN 19 mg/dL (7-18); Creatinine, Serum 1.28 mg/dL (0.55-1.02); EST Glomerular Filtration Rate 42 mL/min (>60); Glucose 120 mg/dL (74-106)
[2022-05-10 13:03] LABS: ALB/GLOB Ratio 0.8 RATIO (0.9-2.4); AST(SGOT) 25 U/L (15-37); Alanine Aminotransfer ALT/SGPT 22 U/L (13-56); Albumin, Serum 3.7 g/dL (3.2-5.0); Alkaline Phosphatase 81 U/L (45-117); Anion Gap 6 (5-15); BUN/Creat Ratio 14.8 RATIO (10-20); Calcium,Total 9.3 mg/dL (8.5-10.1); Chloride 107 mmol/L (98-107); Cholesterol 183 mg/dL (200); Est Glom Filt Rate - Afr Amer 51 mL/min (>60); Globulin 4.4 g/dL (2.2-4.2); High Density Lipoprotein 73 mg/dL; Potassium 4.4 mmol/L (3.5-5.1); Protein, Total 8.1 g/dL (6.4-8.2); Sodium Level 139 mmol/L (136-145); Triglycerides 248 mg/dL; Very Low Density Lipoprotein 50 mg/dL (5-40)
[2022-05-13 09:47] LABS: Hemoglobin A1c 6.5 % (3.8-5.6)
== END | disposition home or self-care (01) ==
PROVIDERS: PCP Internal Medicine; Referring Provider Internal Medicine; Visit Provider Internal Medicine
DX: K21.00 Gastro-esophageal reflux disease with esophagitis, without bleeding (principal); E11.9 Type 2 diabetes mellitus without complications; E78.2 Mixed hyperlipidemia
CPT/HCPCS: 36415; 80053; 80061; 83036; 85025

== ENCOUNTER → 2022-11-04 | Outpatient (CLI) | payer MEDICARE, SELFPAY ==
[2022-11-04 15:57] LABS: Microalbumin,Random Urine 7.6 mg/L (NO RANGE EST.); Microalbumin:Creatinine Ratio 6.3 mg/g CRE (<30 mg/g CRE)
== END | disposition home or self-care (01) ==
LOC: LABSPEC 14:00
PROVIDERS: PCP Internal Medicine; Referring Provider Internal Medicine; Visit Provider Internal Medicine
DX: E11.9 Type 2 diabetes mellitus without complications (principal)
CPT/HCPCS: 82043; 82570

== ENCOUNTER → 2022-11-15 | Outpatient (CLI) | payer MEDICARE, SELFPAY ==
--- NOTE | 2022-11-15 12:24 | US_ITS ---
STUDY: ULTRASOUND BREAST - LEFT REASON FOR EXAM: Female, 82 years old. Palpable chest wall mass. Bilateral mastectomy. TECHNIQUE: Axial and longitudinal images of the LEFT breast were performed with a high resolution ultrasound transducer. # OF IMAGES: 35 COMPARISON: None. FINDINGS: LEFT Breast: The upper-outer quadrant and inner quadrant of the left breast was examined with ultrasound. No sonographic abnormality is seen. US/Breast Limited Unilateral IMPRESSION: No sonographic abnormality is seen. ASSESSMENT CATEGORY: BIRADS Category 1: Negative. A letter regarding these results will be sent to the patient by the facility within 30 days. Electronically Signed: Edgar Mcfadden MD at 12:58 EDT ,
== END | disposition home or self-care (01) ==
LOC: OPUS 12:23
PROVIDERS: PCP Internal Medicine; Referring Provider Internal Medicine; Visit Provider Internal Medicine
DX: N63.20 Unspecified lump in the left breast, unspecified quadrant (principal); Z85.3 Personal history of malignant neoplasm of breast
CPT/HCPCS: 76642

== ENCOUNTER 2023-02-01 12:10 | Emergency (ER) | payer MEDICARE, SELFPAY ==
[2023-02-01 12:11] VITALS: BP 140/74; PULSE 99; RESP 18; TEMP 36.2; O2SAT 97; BMI 29.7
--- NOTE | 2023-02-01 12:39 | EDS_ITS ---
HPI <YUE Carl - Last Filed: 02/01/23 15:25> History of Present Illness Chief Complaint: Fatigue Narrative Narrative: Patient presenting due to fatigue that she has been experiencing over the past few weeks that has been worsening. She also reports that at times she has been feeling mildly short of breath on exertion, never at rest. She reports that she used to exercise 3 times a week and golf 3 times a week, but has been unable to do that due to feeling so fatigued. Reports that she has had a decreased appetite but denies any abdominal pain, nausea, or vomiting. She reports that she tried to get into see her PCP but she never received a call back. This morning, she was doing laundry in her basement but became tired and sweaty and decided to come in. PMH includes hyperlipidemia, history of breast cancer with double mastectomy, CAD, and was told that her last appointment that she had diabetes but has not been started on any medication. She does not currently feel short of breath, she denies any fever, chills, chest pain, and urinary symptoms. 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) Home Medications aspirin 81 mg tablet,delayed release 81 mg PO QHS HEART HEALTH 09/09/13 [History Last Taken Unknown] lansoprazole 30 mg capsule,delayed release 15 mg PO DAILY REFLUX 09/09/13 [History Last Taken 10/31/17 05:30] acetaminophen 325 mg tablet 650 mg (2 x 325 mg) PO Q4H PRN PRN Mild-Moderate Pain (1-5/10) 10/31/17 [Rx Last Taken Unknown] Lactobacillus 25 billion cell-Bifido 25 billion [id number] capsule (Women's Probiotic) cap PO QHS Diverticulitis 11/01/21 [History Last Taken Unknown] folic acid 400 mcg tablet 0.4 mg PO DAILY 11/01/21 [History Last Taken Unknown] mupirocin 2 % topical ointment 1 applic topical TID 11/01/21 [History Last Taken Unknown] latanoprost 0.005 % eye drops 1 drp ophthalmic (eye) QPM 05/08/22 [History Last Taken Unknown] evolocumab 140 mg/mL subcutaneous pen injector ([employer]) 140 mg subcut Q2W 90 days #7 mL 10/22/22 [Rx Last Taken Unknown] diltiazem HCl 120 mg capsule,extended release 24 hr 120 mg PO DAILY ESOPHAGUS #90 caps 11/04/22 [Rx Last Taken Unknown] ipratropium bromide 21 mcg (0.03 %) nasal spray See Rx Instructions .Route .COMPLEX #30 mL 12/24/22 [Rx Last Taken Unknown] Allergy/AdvReac Type Severity Reaction Status Date / Time doxycycline Allergy Severe Anaphylaxis Verified 02/01/23 12:14 cephalexin Allergy Mild PT UNSURE Verified 02/01/23 12:14 OF REACTION bacitracin Allergy Hives Verified 02/01/23 12:14 clarithromycin Allergy Hives Verified 02/01/23 12:14 gemfibrozil Allergy Unknown Verified 02/01/23 12:14 Iodinated Contrast Media Allergy Rash Verified 02/01/23 12:14 [CONTRASTS] iodine Allergy Hives Verified 02/01/23 12:14 levofloxacin Allergy HIVES/ RASH Verified 02/01/23 12:14 Macrolide Antibiotics Allergy Unknown Verified 02/01/23 12:14 Penicillins Allergy Laryngospas Verified 02/01/23 12:14 ms polymyxin B Allergy PT UNSURE Verified 02/01/23 12:14 OF REACTION sulfamethoxazole Allergy Swelling Verified 02/01/23 12:14 [From Bactrim] trimethoprim [From Bactrim] Allergy Swelling Verified 02/01/23 12:14 codeine AdvReac Vomiting Verified 02/01/23 12:14 meperidine HCl [From Demerol] AdvReac Vomiting Verified 02/01/23 12:14 morphine AdvReac Vomiting Verified 02/01/23 12:14 Family History Mother Cancer lung CAD (coronary artery disease) Diabetes Hypertension Thyroid disorder Hyperlipidemia Brother Cancer Diabetes Melanoma Depressed Father Colon cancer Aunt Breast cancer Daughter Thyroid disorder Surgical History S/P bilateral mastectomy S/P bunionectomy S/P cholecystectomy S/P colectomy Social History household members: significant other current occupational status: retired current occupation: worked at the [employer] Smoking Status: Never smoker Electronic Cigarette Use: not used alcohol intake: former details: was never heavy drinker substance use type: does not use do you feel safe at home: Yes ROS <YUE Carl - Last Filed: 02/01/23 15:25> ROS ED Constitutional Constitutional ED: Reports fatigue; Denies chills or fever(s) Cardiovascular Cardiovascular: Denies chest pain or palpitations Respiratory/Chest Respiratory/Chest: Denies cough or dyspnea Gastrointestinal Gastrointestinal: Denies abdominal pain, nausea or vomiting Genitourinary Genitourinary ED: Denies dysuria, hematuria or urinary urgency Musculoskeletal Musculoskeletal: Denies arthralgias or myalgias Integumentary Denies rash Neurologic Neurologic: Denies dizziness or headache(s) EXAM <YUE Carl - Last Filed: 02/01/23 15:25> Physical Exam Const Vital Signs: 02/01/23 12:11 02/01/23 12:49 02/01/23 12:49 Temperature 97.1 F L Temperature Source Temporal Pulse Rate 99 85 Respiratory Rate 18 16 Respiratory Effort Normal Respiratory Pattern Normal Blood Pressure 140/74 H 135/70 H Blood Pressure Mean 96 91 Pulse Ox 97 96 Oxygen Delivery Method Room Air Room Air 02/01/23 14:13 Temperature Temperature Source Pulse Rate Respiratory Rate Respiratory Effort Respiratory Pattern Blood Pressure 128/78 H Blood Pressure Mean Pulse Ox Oxygen Delivery Method Positive well nourished, well developed and no apparent distress General Appearance ED: well developed HEENT Reports normocephalic and head/scalp atraumatic Mouth ED: Yes moist mucous membranes normal Eyes PERRL and EOMs intact bilaterally Neck full ROM and supple Chest Wall inspection of chest normal Resp normal respiratory effort and clear to auscultation bilaterally Cardio regular rate and regular rhythm GI soft to palpation, non-tender, non-distended and no masses Back/Spine normal ROM and normal to inspection Extremity normal to inspection and full ROM Neuro oriented x3, CN's II-XII intact bilaterally, moves all extremities, no focal motor deficits and no sensory deficits noted Sensorium / Orientation: awake and alert Psych mental status grossly normal and thought process normal Skin no rashes or lesions noted and no wounds <Dr. Willie Raza MD - Last Filed: 02/01/23 16:29> Physical Exam Const Vital Signs: 02/01/23 12:11 02/01/23 12:49 02/01/23 12:49 Temperature 97.1 F L Temperature Source Temporal Pulse Rate 99 85 Respiratory Rate 18 16 Respiratory Effort Normal Respiratory Pattern Normal Blood Pressure 140/74 H 135/70 H Blood Pressure Mean 96 91 Pulse Ox 97 96 Oxygen Delivery Method Room Air Room Air 02/01/23 14:13 Temperature Temperature Source Pulse Rate Respiratory Rate Respiratory Effort Respiratory Pattern Blood Pressure 128/78 H Blood Pressure Mean Pulse Ox Oxygen Delivery Method MDM <YUE Carl - Last Filed: 02/01/23 15:25> [facility] Narrative Medical decision making narrative: Patient presenting due to fatigue she has had over the past several weeks. She is well-appearing and in no breath vitals are unremarkable. She reports that at times she will be trying to complete an activity and will feel a little sweaty and short of breath if she is exerting herself, but she does not currently have any shortness of breath. She is not complaining of any chest pain. Labs obtained to rule out leukocytosis, anemia, electrolyte abnormality, ACS, and UTI. Chest x-ray obtained to rule out infiltrate and other cardio pulmonary abnormality. All are unremarkable, kidney function consistent with previous visit in May 2022. Chest x-ray unremarkable. She has been encouraged to follow-up with her PCP, at this time the cause of her symptoms are nonspecific. She will be discharged home in stable condition and is comfortable with plan. Lab Data Attestation: I reviewed the patient's lab results. Lab results narrative: BUN 20, creatinine 1.24, GFR 44-kidney function consistent with previous visit Labs: Laboratory Results - last 24 hr 02/01/23 02/01/23 12:40 13:30 WBC 6.9 RBC 4.76 Hgb 14.8 Hct 43.3 MCV 91.0 MCH 31.1 MCHC 34.2 RDW Std Deviation 41.8 RDW Coeff of Anahi 12.7 Plt Count 240 MPV 8.8 Immature Gran % (Auto) 1.200 H Neut % (Auto) 67.5 Lymph % (Auto) 16.4 L [place] % (Auto) 8.5 Eos % (Auto) 5.7 H Baso % (Auto) 0.7 Absolute Neuts (auto) 4.6 Absolute Lymphs (auto) 1.12 Nucleated RBC % 0 Sodium 139 Potassium 4.0 Chloride 109 H Carbon Dioxide 25.0 Anion Gap 5 BUN 20 H Creatinine 1.24 H Estim Creat Clear Calc 33.43 Est GFR (MDRD) Af Amer 53 L Est GFR (MDRD) Non-Af 44 L BUN/Creatinine Ratio 16.1 Glucose 155 H Calcium 9.6 Troponin I High Sens 7 Urine Color Yellow Urine Clarity Clear Urine pH 6.5 Ur Specific [place] 1.015 Urine Protein 15 H Urine Glucose (UA) Normal Urine Ketones Negative Urine Occult Blood Negative Urine Nitrite Negative Urine Bilirubin Negative Urine Urobilinogen Normal Ur Leukocyte Esterase Negative Urine RBC 0 SEEN Urine WBC 0 SEEN Ur Squamous Epith Cells 0 SEEN Urine Bacteria 0 SEEN Urine Mucus 0 SEEN Radiography X-Ray: Read by ED Physician and Read by Radiologist Diagnostic Testing: Clinical Impression(s) from Imaging Studies Chest X-Ray 02/01/23 12:58 IMPRESSION: No acute pulmonary process Electronically Signed: Lázaro Hurst MD at 13:17 EDT Reading Location ID and State: [address] [place] [address] , Service support , EKG Initial EKG: Comments: Fraction 87 bpm, normal sinus rhythm, no ST elevation, reviewed and interpreted by attending ED physician <Dr. Willie Raza MD - Last Filed: 02/01/23 16:29> [facility] Lab Data Labs: Laboratory Results - last 24 hr 02/01/23 02/01/23 12:40 13:30 WBC 6.9 RBC 4.76 Hgb 14.8 Hct 43.3 MCV 91.0 MCH 31.1 MCHC 34.2 RDW Std Deviation 41.8 RDW Coeff of Anahi 12.7 Plt Count 240 MPV 8.8 Immature Gran % (Auto) 1.200 H Neut % (Auto) 67.5 Lymph % (Auto) 16.4 L [place] % (Auto) 8.5 Eos % (Auto) 5.7 H Baso % (Auto) 0.7 Absolute Neuts (auto) 4.6 Absolute Lymphs (auto) 1.12 Nucleated RBC % 0 Sodium 139 Potassium 4.0 Chloride 109 H Carbon Dioxide 25.0 Anion Gap 5 BUN 20 H Creatinine 1.24 H Estim Creat Clear Calc 33.43 Est GFR (MDRD) Af Amer 53 L Est GFR (MDRD) Non-Af 44 L BUN/Creatinine Ratio 16.1 Glucose 155 H Calcium 9.6 Troponin I High Sens 7 Urine Color Yellow Urine Clarity Clear Urine pH 6.5 Ur Specific [place] 1.015 Urine Protein 15 H Urine Glucose (UA) Normal Urine Ketones Negative Urine Occult Blood Negative Urine Nitrite Negative Urine Bilirubin Negative Urine Urobilinogen Normal Ur Leukocyte Esterase Negative Urine RBC 0 SEEN Urine WBC 0 SEEN Ur Squamous Epith Cells 0 SEEN Urine Bacteria 0 SEEN Urine Mucus 0 SEEN Radiography Diagnostic Testing: Clinical Impression(s) from Imaging Studies Chest X-Ray 02/01/23 12:58 IMPRESSION: No acute pulmonary process Electronically Signed: Lázaro Hurst MD at 13:17 EDT , Treatment and Re-Evaluation :: I have personally performed a face to face assessment of the patient and have reviewed the DAVIN Note. I performed a substantive portion of the visit including all aspects of the following. My brian findings include: History: Patient presents with generalized weakness and tiredness. She states she has been having this for about 2 to 3 weeks. It is just her energy level is low. When she walks around she gets tired. She is not sure if she gets short of breath or it is just plain lack of energy. Normally she is very active. She has never had chest pain. No fevers. She tried to get into see her physician but has not yet been able to. She has never had fevers. No blood in her stool. No urinary symptoms. Exam: Is actually very pleasant. She is awake and alert. She looks energetic and healthy. She does not look pale. HEENT is unremarkable other than her hearing aid device. Neck shows no JVD. Lungs are clear. Heart is regular. Abdomen soft nontender. No flank tenderness. No swelling or edema. Neurologically she is awake alert appropriate and strong. Medical Decision Making: Do blood work including troponin. We did urinalysis. Were not seen in any kidney diabetes, or other acute process to explain her symptoms. I think she is safe for follow-up. Discharge Plan Triage Chief Complaint: Fatigue ED Midlevel Provider: Cintia Richard ED Provider: Willie Raza Dx/Rx/DC Orders Clinical Impression: Fatigue Instructions: ED Weakness (Uncertain Cause) Prescriptions: No Action mupirocin 2 % ointment 1 applic topical TID Women's Probiotic 25B cell-25B cell-50 mg capsule PO QHS folic acid 400 mcg tablet 0.4 mg PO DAILY latanoprost 0.005 % drops 1 drp ophthalmic (eye) QPM diltiazem HCl 120 mg capsule,extended release 24hr 120 mg PO DAILY Qty: 90 1RF aspirin 81 MG tablet 81 mg PO QHS Patient Comments: blood thinner lansoprazole 30 MG capsule 15 mg PO DAILY Patient Comments: acid reflux acetaminophen 325 MG tablet 650 mg PO Q4H PRN PRN (Reason: Mild-Moderate Pain (1-5/10)) 0RF Repatha SureClick 140 mg/mL pen injector 140 mg subcut Q2W 90 Days Qty: 7 1RF ipratropium bromide 21 mcg (0.03 %) spray,non-aerosol See Rx Instructions .ROUTE .COMPLEX Qty: 30 3RF Dose Instruction: SPRAY TWO SPRAYS INTO EACH NOSTRIL TWO TO THREE TIMES DAILY NEEDED FOR ALLERGY SYMPTOMS Rx Instructions: SPRAY TWO SPRAYS INTO EACH NOSTRIL TWO TO THREE TIMES DAILY NEEDED FOR ALLERGY SYMPTOMS Primary Care Provider: Johanny Singletary Referrals: Johanny Singletary MD [Primary Care Provider] - 3-5 Days Activity Restrictions/Additional Instructions: Please follow-up with your PCP, return for any worsening of your symptoms. Disposition Disposition: Home, Self Care Discharge Date/Time: 02/01/23 14:14
[2023-02-01 12:49] VITALS: BP 135/70; PULSE 85; RESP 16; O2SAT 96
--- NOTE | 2023-02-01 12:58 | RAD_ITS ---
STUDY: X-RAY CHEST REASON FOR EXAM: Female, 82 years old. shortness of breath TECHNIQUE: PA and lateral views of the chest. COMPARISON: 05/28/2021 FINDINGS: EKG leads overlie the chest The lungs are clear and expanded. There is no demonstrated pleural abnormality. Normal size heart. Normal mediastinum and yokasta. Normal visualized pulmonary arteries. Normal visualized aortic arch and descending thoracic aorta. Normal visualized thoracic spine. Normal visualized ribs, clavicles, and shoulders. There is no demonstrated abnormality of the visualized soft tissue structures of the upper abdomen. RAD/Chest PA and Lateral IMPRESSION: No acute pulmonary process Electronically Signed: Lázaro Hurst MD at 13:17 EDT ,
[2023-02-01 13:09] LABS: Anion Gap 5 (5-15); BUN 20 mg/dL (7-18); BUN/Creat Ratio 16.1 RATIO (10-20); Calcium,Total 9.6 mg/dL (8.5-10.1); Chloride 109 mmol/L (98-107); Creatinine, Serum 1.24 mg/dL (0.55-1.02); EST Glomerular Filtration Rate 44 mL/min (>60); Est Glom Filt Rate - Afr Amer 53 mL/min (>60); Estimated Creatinine Clearance 33.43 ml/min; Glucose 155 mg/dL (74-106); Sodium Level 139 mmol/L (136-145); Troponin-I HS 7 pg/mL (3.0-54.0)
[2023-02-01 13:20] LABS: Absolute Lymphocyte Count 1.12 X10^3/uL (0.83-4.51); Absolute Neutrophil Count 4.6 X10^3/uL (2.0-7.7); Basophil# 0.05 X10^3/uL; Basophil% 0.7 % (0-1); Eosinophil# 0.39 X10^3/uL; Eosinophils% 5.7 % (0-5); Hematocrit 43.3 % (37-47); Hemoglobin 14.8 g/dL (12.0-15.0); Lymphocyte # 1.12 X10^3/ul (0.83-4.51); Lymphocyte % 16.4 % (19-41); Mean Corp Hgb Conc 34.2 g/dL (32-36); Mean Corpuscular Hgb 31.1 pg (27.0-32.0); Mean Platelet Vol. 8.8 fl (6.2-12.0); Monocyte# 0.58 X10^3/uL; Monocyte% 8.5 % (0-10); NRBC Flagged by Analyzer 0 % (0-5); Neutrophil # 4.63 X10^3/uL (2.7-7.7); Neutrophil % 67.5 % (47-70); Platelet Count 240 K/mm3 (150-450); RBC Distribution Width CV 12.7 % (11.6-14.6); RBC Distribution Width SD 41.8 fl (35.1-43.9); Red Blood Count 4.76 M/mm3 (4.2-5.4); White Blood Count 6.9 K/mm3 (4.4-11.0)
[2023-02-01 13:39] LABS: Bacteria 0 SEEN /hpf (None Seen); Mucous, Urine 0 SEEN /hpf (<or=2+); Red Blood Cells-Urine 0 SEEN /hpf (0-5); Squamous Epithelial Cells - UA 0 SEEN /hpf (5-10); White Blood Cells 0 SEEN /hpf (0-5)
[2023-02-01 13:42] LABS: Color, Urine Yellow (Yellow); Glucose, Dipstick Normal (Normal); Ketone-Dipstick Negative (Negative); Leukocyte Esterase-Dipstick Negative /ul (Negative); Nitrite-Dipstick Negative (Negative); Occult Blood-Urine Negative /ul (Negative); Protein-Dipstick 15 mg/dl (Negative); Specific Gravity, Urine 1.015 (1.002-1.030); Urine Bilirubin Dipstick Negative (Negative); Urine Clarity Clear (Clear); Urine Urobilinogen Normal (Normal); Urine pH 6.5 (5.0 - 8.0)
[2023-02-01 14:13] VITALS: BP 128/78
== END 2023-02-01 14:14 | disposition home or self-care (01) ==
PROVIDERS: Physician Assistant; Emergency Provider Emergency Medicine; PCP Internal Medicine; Visit Provider Emergency Medicine
DX: R53.83 Other fatigue (principal); I25.10 Atherosclerotic heart disease of native coronary artery without angina pectoris
CPT/HCPCS: 71046; 80048; 81001; 84484; 85025; 93005; 99284; A4216

== ENCOUNTER → 2023-02-17 | Outpatient (CLI) | payer MEDICARE, SELFPAY ==
[2023-02-17 15:24] LABS: Absolute Lymphocyte Count 1.98 X10^3/uL (0.83-4.51); Absolute Neutrophil Count 5.7 X10^3/uL (2.0-7.7); Basophil# 0.13 X10^3/uL; Basophil% 1.4 % (0-1); Eosinophil# 0.25 X10^3/uL; Eosinophils% 2.7 % (0-5); Hematocrit 46.4 % (37-47); Hemoglobin 15.1 g/dL (12.0-15.0); Lymphocyte # 1.98 X10^3/ul (0.83-4.51); Lymphocyte % 21.3 % (19-41); Mean Corp Hgb Conc 32.5 g/dL (32-36); Mean Corpuscular Volume 92.2 fL (81-99); Monocyte# 0.85 X10^3/uL; Monocyte% 9.1 % (0-10); NRBC Flagged by Analyzer 0 % (0-5); Neutrophil % 61.2 % (47-70); Platelet Count 362 K/mm3 (150-450); RBC Distribution Width CV 13.2 % (11.6-14.6); RBC Distribution Width SD 43.8 fl (35.1-43.9); Red Blood Count 5.03 M/mm3 (4.2-5.4); White Blood Count 9.3 K/mm3 (4.4-11.0)
[2023-02-17 15:40] LABS: Vitamin D,25 Hydroxy 42.3 ng/mL
[2023-02-17 15:48] LABS: ALB/GLOB Ratio 0.8 RATIO (0.9-2.4); AST(SGOT) 18 U/L (15-37); Alanine Aminotransfer ALT/SGPT 26 U/L (13-56); Albumin, Serum 3.4 g/dL (3.2-5.0); Alkaline Phosphatase 104 U/L (45-117); Anion Gap 7 (5-15); BUN 20 mg/dL (7-18); BUN/Creat Ratio 16.1 RATIO (10-20); Calcium,Total 10.2 mg/dL (8.5-10.1); Chloride 107 mmol/L (98-107); Creatinine, Serum 1.24 mg/dL (0.55-1.02); EST Glomerular Filtration Rate 44 mL/min (>60); Est Glom Filt Rate - Afr Amer 53 mL/min (>60); Globulin 4.4 g/dL (2.2-4.2); Glucose 136 mg/dL (74-106); Potassium 4.4 mmol/L (3.5-5.1); Protein, Total 7.8 g/dL (6.4-8.2); Sodium Level 140 mmol/L (136-145); Thyroid Stim Hormone (TSH) 2.56 uIU/mL (0.358-3.74); Troponin-I HS 7 pg/mL (3.0-54.0)
== END | disposition home or self-care (01) ==
LOC: BIMLAB 14:09
PROVIDERS: PCP Internal Medicine; Visit Provider Internal Medicine
DX: E11.9 Type 2 diabetes mellitus without complications (principal); M81.0 Age-related osteoporosis without current pathological fracture; K21.00 Gastro-esophageal reflux disease with esophagitis, without bleeding; R06.02 Shortness of breath
CPT/HCPCS: 36415; 80053; 82306; 84443; 84484; 85025

== ENCOUNTER → 2023-03-06 | Outpatient (CLI) | payer MEDICARE, SELFPAY ==
--- NOTE | 2023-03-06 14:44 | STRESSREP ---
Stress Test Report Date: 03/06/2023 Procedure: Exercise tolerance test/imaging study Indications: Dyspnea on exertion Consent: Per the patient Procedure: The patient exercised on a Tavon protocol for 3 minutes and 32 seconds achieving a peak heart rate of 125 bpm (91% predicted maximal heart rate) with a peak blood pressure 146/72 mmHg and a peak MET capacity of 5.8 METs. The baseline ECG demonstrated normal sinus rhythm. The peak exercise ECG demonstrated no significant ischemic changes. EKG during recovery revealed no significant ischemic changes [There were no cardiac dysrhythmias pretest, during exercise, or recovery]. The functional capacity was considered normal for age. There was [no complaint of chest discomfort during exercise or recovery]. The examination was discontinued secondary to achieving target heart rate, dyspnea. Impression: 1. Technically adequate (percent predicted maximal heart rate greater than 85%) exercise tolerance test 2. Stress test is negative for exercise-induced EKG changes of ischemia 3. The test test is negative for exercise-induced chest pain 4. Functional capacity is normal for age 5. Nuclear images pending Myocardial perfusion imaging study: Technique: The patient was injected with 13.2 mCi of technetium 99m Cardiolite and subsequently rest SPECT Cardiolite nuclear imaging was obtained in the horizontal long, vertical long, and short axis views. The patient exercised on a Tavon protocol. Please see above for details. The patient was injected with 43 mCi of technetium 99m Cardiolite and subsequently stress SPECT Cardiolite nuclear imaging was obtained in the horizontal long, vertical long, and short axis views. A gated Cardiolite study at peak stress was obtained. Interpretation: Rest and stress SPECT Cardiolite nuclear imaging status post realignment, normalization, and attenuation correction, demonstrates no evidence of significant ischemia or infarction. The gated Cardiolite study demonstrates no significant regional wall motion abnormalities. The reported LVEF is greater than 70%. Impression: 1. There is no evidence of significant ischemia or infarction. 2. The gated Cardiolite study reports an LVEF of greater than 70%. This note was generated with [employer] software. It may contain incorrect words, spelling, and punctuation that were not noted in checking the note before signing.
== END | disposition home or self-care (01) ==
LOC: CVS 07:09
PROVIDERS: PCP Internal Medicine; Referring Provider Internal Medicine; Visit Provider Internal Medicine
DX: R06.02 Shortness of breath (principal)
CPT/HCPCS: 78452; 93017; A9500; A4216

== ENCOUNTER 2023-03-11 16:13 | Inpatient (IN) | payer MEDICARE, SELFPAY ==
[2023-03-11] VITALS (10 sets, daily range): BP systolic 117–126; BP diastolic 60–89; PULSE 84–98; RESP 18–29; TEMP 35.4–36.7; O2SAT 92–99; BMI 27.6; BMI 27.9
--- NOTE | 2023-03-11 16:58 | EKG12_ITS ---
Test Reason : Blood Pressure : / mmHG Vent. Rate : 097 BPM Atrial Rate : 097 BPM P-R Int : 158 ms QRS Dur : 082 ms QT Int : 346 ms P-R-T Axes : 058 007 023 degrees QTc Int : 439 ms Sinus rhythm with occasional Premature ventricular complexes Inferior infarct , age undeterined Anterior infarct , age undetermined T wave abnormality, consider lateral ischemia Abnormal ECG Confirmed by QUOC FLORES, LEANDRA ([id number]), rewrite editor MIGUELITO SIDDIQUI ([id number]) on 03/17/2023 10:43:03 AM Referred By: Confirmed By:JOE KUMARI MD
[2023-03-11] MEDS: Aspirin 81 MG TAB.CHEW 324 MG PO (17:12)
--- NOTE | 2023-03-11 17:12 | ED.VIS.DYS ---
HPI History of Present Illness Chief Complaint: Shortness of Breath Informant: patient and EMS Narrative Narrative: Patient brought by EMS after having a near syncopal episode today. She states she was playing cards at a social club, she went to the bar to order some food, she waited there for about 5 minutes she was asymptomatic, upon coming back to her seat and sitting down she felt terrible. She was dyspneic, chest discomfort that is now resolved, and sweaty, near syncopal. Her friends were very concerned about her and called EMS. She was able to walk outside to get to the ambulance, she was very dyspneic with doing this but did not have any of the other recurrent symptoms. She states for the last several weeks or months she has been tired and having dyspnea with exertion. No orthopnea. No cough, fevers, chills, other illness. No GI symptoms. She has been having some lower chest discomfort intermittently for a long time that she associates with GERD and postoperatively after having breast cancer. She also had melanoma. She has not had chemotherapy for any of this for a long time she has no active cancer she follows up yearly to have checks for recurrence. No pleuritic chest discomfort, no history of DVT or PE, no recent leg pain or swelling or travel out of the area. EMS vital signs show that she was 89-90% on room air and she was placed on oxygen, which she is on now. She is not on oxygen at home. Never a smoker. 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) Home Medications aspirin 81 mg tablet,delayed release 81 mg PO QHS HEART HEALTH 09/09/13 [History Last Taken Unknown] lansoprazole 30 mg capsule,delayed release 15 mg PO DAILY REFLUX 09/09/13 [History Last Taken 10/31/17 05:30] acetaminophen 325 mg tablet 650 mg (2 x 325 mg) PO Q4H PRN PRN Mild-Moderate Pain (1-5/10) 10/31/17 [Rx Last Taken Unknown] Lactobacillus 25 billion cell-Bifido 25 billion [id number] capsule (Women's Probiotic) cap PO QHS Diverticulitis 11/01/21 [History Last Taken Unknown] folic acid 400 mcg tablet 0.4 mg PO DAILY 11/01/21 [History Last Taken Unknown] mupirocin 2 % topical ointment 1 applic topical TID 11/01/21 [History Last Taken Unknown] latanoprost 0.005 % eye drops 1 drp ophthalmic (eye) QPM 05/08/22 [History Last Taken Unknown] evolocumab 140 mg/mL subcutaneous pen injector (Repatha PEAK SurgicalClick) 140 mg subcut Q2W 90 days #7 mL 10/22/22 [Rx Last Taken Unknown] diltiazem HCl 120 mg capsule,extended release 24 hr 120 mg PO DAILY ESOPHAGUS #90 caps 11/04/22 [Rx Last Taken Unknown] ipratropium bromide 21 mcg (0.03 %) nasal spray See Rx Instructions .Route .COMPLEX #30 mL 12/24/22 [Rx Last Taken Unknown] dapagliflozin propanediol 10 mg tablet (Farxiga) 10 mg PO DAILY #90 tabs 02/25/23 [Rx Last Taken Unknown] blood sugar diagnostic (Accu-Chek Arlene Plus test strips) #100 ea 03/05/23 [Rx Last Taken Unknown] blood-glucose meter #1 ea 03/05/23 [Rx Last Taken Unknown] lancets (Accu-Chek Softclix Lancets) #100 ea 03/05/23 [Rx Last Taken Unknown] prednisone 50 mg tablet 50 mg PO .COMPLEX #3 tabs 03/10/23 [Rx Last Taken Unknown] Allergy/AdvReac Type Severity Reaction Status Date / Time doxycycline Allergy Severe Anaphylaxis Verified 03/11/23 16:21 cephalexin Allergy Mild PT UNSURE Verified 03/11/23 16:21 OF REACTION bacitracin Allergy Hives Verified 03/11/23 16:21 clarithromycin Allergy Hives Verified 03/11/23 16:21 gemfibrozil Allergy Unknown Verified 03/11/23 16:21 Iodinated Contrast Media Allergy Rash Verified 03/11/23 16:21 [CONTRASTS] iodine Allergy Hives Verified 03/11/23 16:21 levofloxacin Allergy HIVES/ RASH Verified 03/11/23 16:21 Macrolide Antibiotics Allergy Unknown Verified 03/11/23 16:21 Penicillins Allergy Laryngospas Verified 03/11/23 16:21 ms polymyxin B Allergy PT UNSURE Verified 03/11/23 16:21 OF REACTION sulfamethoxazole Allergy Swelling Verified 03/11/23 16:21 [From Bactrim] trimethoprim [From Bactrim] Allergy Swelling Verified 03/11/23 16:21 codeine AdvReac Vomiting Verified 03/11/23 16:21 meperidine HCl [From Demerol] AdvReac Vomiting Verified 03/11/23 16:21 morphine AdvReac Vomiting Verified 03/11/23 16:21 Family History Mother Cancer lung CAD (coronary artery disease) Diabetes Hypertension Thyroid disorder Hyperlipidemia Brother Cancer Diabetes Melanoma Depressed Father Colon cancer Aunt Breast cancer Daughter Thyroid disorder Surgical History S/P bilateral mastectomy S/P bunionectomy S/P cholecystectomy S/P colectomy Social History household members: significant other current occupational status: retired current occupation: worked at the [employer] Smoking Status: Never smoker Electronic Cigarette Use: not used alcohol intake: former details: was never heavy drinker substance use type: does not use do you feel safe at home: Yes ROS ROS ED Constitutional Constitutional ED: Reports fatigue and sweats; Denies chills or fever(s) Eyes Eyes: Denies change in vision or diplopia ENT ENT ED: Denies rhinorrhea or sore throat Cardiovascular Cardiovascular: Reports as per HPI, chest pain and lightheadedness; Denies orthopnea, palpitations, pedal edema or syncope Respiratory/Chest Respiratory/Chest: Reports dyspnea and dyspnea on exertion; Denies cough or orthopnea Gastrointestinal Gastrointestinal: Denies abdominal pain, diarrhea, nausea or vomiting Genitourinary Genitourinary ED: Denies dysuria or hematuria Musculoskeletal Musculoskeletal: Denies back pain or neck pain Integumentary Denies abscess or rash Neurologic Neurologic: Denies headache(s), paresthesias or weakness Psychiatric Psychiatric: Denies anxiety or suicidal thoughts EXAM Physical Exam Const Vital Signs: 03/11/23 16:17 03/11/23 16:20 03/11/23 16:20 Temperature 95.8 F L 95.8 F L Temperature Source Temporal Temporal Pulse Rate 95 96 95 Respiratory Rate 24 H 23 H 29 H Respiratory Effort Respiratory Depth Respiratory Pattern Blood Pressure 123/74 H 126/77 H 126/77 H Blood Pressure Mean 90 93 93 Pulse Ox 97 97 99 Oxygen Delivery Method Nasal Cannula Nasal Cannula Nasal Cannula Oxygen Flow Rate (L/min) 3 3 3 03/11/23 16:21 03/11/23 17:07 03/11/23 17:42 Temperature 97.7 F L Temperature Source Oral Pulse Rate 93 Respiratory Rate 26 H Respiratory Effort Short of Breath Labored Respiratory Depth Normal Respiratory Pattern Tachypnea Blood Pressure 117/60 Blood Pressure Mean 79 Pulse Ox 97 94 Oxygen Delivery Method Nasal Cannula Nasal Cannula Nasal Cannula Oxygen Flow Rate (L/min) 3 3 4 03/11/23 19:01 03/11/23 19:01 Temperature 97.9 F Temperature Source Oral Pulse Rate 97 89 Respiratory Rate 20 H 29 H Respiratory Effort Respiratory Depth Respiratory Pattern Blood Pressure 124/70 H 124/70 H Blood Pressure Mean 88 88 Pulse Ox 95 95 Oxygen Delivery Method Nasal Cannula Nasal Cannula Oxygen Flow Rate (L/min) 4 4 Positive well nourished and well developed Constitutional Narrative: Well-appearing, conversive in full sentences. General Appearance ED: well developed and NAD HEENT Reports moist mucous membranes normocephalic and atraumatic Eyes PERRL and EOMs intact bilaterally Neck full ROM, supple and no JVD Resp normal respiratory effort and clear to auscultation bilaterally Effort and Inspection: able to speak in complete sentences Cardio regular rate, regular rhythm and no murmurs Rate: Negative for tachycardic GI non-tender and non-distended Auscultation: normoactive bowel sounds Palpation: soft Back/Spine no CVA tenderness General Back: other FROM Extremity normal to inspection General Extremety ED: Negative for edema, pulses abnormal or tenderness General Extremity: Negative for edema or pulses abnormal Neuro oriented x3, CN's II-XII intact bilaterally and no sensory deficits noted Sensorium / Orientation: awake and alert Motor Exam: strength 5/5 throughout Psych mental status grossly normal Skin no rashes or lesions noted and no wounds MDM MDM MDM Narrative Medical decision making narrative: History concerning for acute coronary syndrome but also possibly pulmonary embolus. Her lungs are clear. She was mildly hypoxic at 89% on room air while at rest, she is doing well on a 3 L nasal cannula and asymptomatic at rest here. Her EKG shows some ectopy and some nonspecific T wave inversions, but no acute injury pattern, her initial troponin is at 46 but the 2-hour repeat is elevated at 250, her D-dimer was significantly high so after her 1 view chest x-ray which on my interpretation was normal as confirmed by radiology, she was sent for CT angiography of the chest, I reviewed the images which is consistent with bilateral pulmonary artery emboli with a saddle embolus. I saw the images in real-time as she was still in radiology having them performed, and discussed with the transportation engineering technician as well who saw all this and was concerned enough to call me, so we started the patient on heparin and I discussed with hospitalist for admission. She is asymptomatic at rest on oxygen, her vital signs are normal on oxygen, and at this time there is no indication for thrombolytics. She will be closely monitored until admission. Lab Data Attestation: I reviewed the patient's lab results. Labs: Laboratory Results - last 24 hr 03/11/23 03/11/23 16:27 18:36 WBC 7.5 RBC 4.90 Hgb 14.4 Hct 46.4 MCV 94.7 MCH 29.4 MCHC 31.0 L RDW Std Deviation 47.8 H RDW Coeff of Anahi 13.7 Plt Count 299 MPV 9.4 Immature Gran % (Auto) 1.500 H Neut % (Auto) 62.2 Lymph % (Auto) 25.9 Stanley % (Auto) 7.3 Eos % (Auto) 1.9 Baso % (Auto) 1.2 H Absolute Neuts (auto) 4.7 Absolute Lymphs (auto) 1.95 Nucleated RBC % 0 D-Dimer Quant (PE/DVT) 11.71 H* Sodium 138 Potassium 3.7 Chloride 106 Carbon Dioxide 23.0 Anion Gap 9 BUN 22 H Creatinine 1.23 H Estim Creat Clear Calc 33.70 Est GFR (MDRD) Af Amer 54 L Est GFR (MDRD) Non-Af 44 L BUN/Creatinine Ratio 17.9 Glucose 193 H Calcium 9.6 Troponin I High Sens 46 250 H* B-Natriuretic Peptide 106.4 H Radiography Diagnostic Testing: Clinical Impression(s) from Imaging Studies Chest X-Ray 03/11/23 17:20 IMPRESSION: No radiographic evidence of acute cardiopulmonary disease. Electronically Signed: Good Renee MD at 17:53 EST , Rhythm Strip Rhythm Strip: Sinus Rhythm Rate: 95 Ectopy: PVC(s) EKG Initial EKG: Attestation: I personally reviewed and interpreted this EKG as follows: Interpretation: Sinus Rhythm, No Acute Injury Pattern and Inverted T-Waves (V1-4) Prior EKG tracings: available for review Prior: Changed Management Discussion w/another healthcare provider: Hospitalist Critical Care Time Critical Care Time: Yes Critical care time (excluding procedures): 30-74 minutes (36 min), Including time spent:, Discussing w/Patient &/or Family/Ship Purser, Discussing w/Consultants, Arranging Admission or Transfer and Performing Direct Patient Care at Bedside Discharge Plan Triage Chief Complaint: Shortness of Breath ED Provider: Rico Rios Dx/Rx/DC Orders Clinical Impression: Hypoxemia, Elevated troponin, Chest pain, exertional, Pulmonary emboli Prescriptions: No Action mupirocin 2 % ointment 1 applic topical TID Women's Probiotic 25B cell-25B cell-50 mg capsule PO QHS folic acid 400 mcg tablet 0.4 mg PO DAILY latanoprost 0.005 % drops 1 drp ophthalmic (eye) QPM diltiazem HCl 120 mg capsule,extended release 24hr 120 mg PO DAILY Qty: 90 1RF (DME) blood-glucose meter Misc See Rx Instructions .Route Qty: 1 0RF Rx Instructions: daily (DME) Accu-Chek Arlene Plus test strp Strip See Rx Instructions .Route Qty: 100 0RF Rx Instructions: daily (DME) lancets [Accu-Chek Softclix Lancets] Misc See Rx Instructions .Route Qty: 100 0RF Rx Instructions: daily aspirin 81 MG tablet 81 mg PO QHS Patient Comments: blood thinner lansoprazole 30 MG capsule 15 mg PO DAILY Patient Comments: acid reflux acetaminophen 325 MG tablet 650 mg PO Q4H PRN PRN (Reason: Mild-Moderate Pain (1-5/10)) 0RF Repatha SureClick 140 mg/mL pen injector 140 mg subcut Q2W 90 Days Qty: 7 1RF ipratropium bromide 21 mcg (0.03 %) spray,non-aerosol See Rx Instructions .ROUTE .COMPLEX Qty: 30 3RF Dose Instruction: SPRAY TWO SPRAYS INTO EACH NOSTRIL TWO TO THREE TIMES DAILY NEEDED FOR ALLERGY SYMPTOMS Rx Instructions: SPRAY TWO SPRAYS INTO EACH NOSTRIL TWO TO THREE TIMES DAILY NEEDED FOR ALLERGY SYMPTOMS Farxiga 10 mg tablet 10 mg PO DAILY Qty: 90 0RF prednisone 50 mg tablet 50 mg PO .COMPLEX Qty: 3 0RF Rx Instructions: 50 mg orally; Take 1 tablet 13 hours before, 7 hours before and [address] Primary Care Provider: Johanny Singletary Referrals: Johanny Singletary MD [Primary Care Provider] -
[2023-03-11 17:15] LABS: Absolute Lymphocyte Count 1.95 X10^3/uL (0.83-4.51); Absolute Neutrophil Count 4.7 X10^3/uL (2.0-7.7); Basophil# 0.09 X10^3/uL; Basophil% 1.2 % (0-1); Eosinophil# 0.14 X10^3/uL; Eosinophils% 1.9 % (0-5); Hematocrit 46.4 % (37-47); Hemoglobin 14.4 g/dL (12.0-15.0); Lymphocyte # 1.95 X10^3/ul (0.83-4.51); Lymphocyte % 25.9 % (19-41); Mean Corpuscular Hgb 29.4 pg (27.0-32.0); Mean Corpuscular Volume 94.7 fL (81-99); Mean Platelet Vol. 9.4 fl (6.2-12.0); Monocyte# 0.55 X10^3/uL; Monocyte% 7.3 % (0-10); NRBC Flagged by Analyzer 0 % (0-5); Neutrophil # 4.69 X10^3/uL (2.7-7.7); Neutrophil % 62.2 % (47-70); Platelet Count 299 K/mm3 (150-450); RBC Distribution Width CV 13.7 % (11.6-14.6); RBC Distribution Width SD 47.8 fl (35.1-43.9); White Blood Count 7.5 K/mm3 (4.4-11.0)
--- NOTE | 2023-03-11 17:20 | RAD_ITS ---
EXAM: XR CHEST, 1 VIEW CLINICAL INDICATION: chest pain TECHNIQUE: Frontal view of the chest. COMPARISON: 02/01/2023 FINDINGS: LUNGS AND PLEURAL SPACES: Unremarkable. No consolidation or edema. No pneumothorax. No effusion. HEART: Unremarkable. Cardiac silhouette not enlarged. MEDIASTINUM: Central airways and mediastinal contour are unremarkable. BONES/JOINTS: Unremarkable. SOFT TISSUES: Unremarkable. RAD/Chest 1 View (Portable) IMPRESSION: No radiographic evidence of acute cardiopulmonary disease. Electronically Signed: Good Renee MD at 17:53 EST ,
[2023-03-11 17:31] LABS: Anion Gap 9 (5-15); BUN 22 mg/dL (7-18); BUN/Creat Ratio 17.9 RATIO (10-20); Calcium,Total 9.6 mg/dL (8.5-10.1); Chloride 106 mmol/L (98-107); Creatinine, Serum 1.23 mg/dL (0.55-1.02); EST Glomerular Filtration Rate 44 mL/min (>60); Est Glom Filt Rate - Afr Amer 54 mL/min (>60); Glucose 193 mg/dL (74-106); Potassium 3.7 mmol/L (3.5-5.1); Sodium Level 138 mmol/L (136-145); Troponin-I HS (w/2H Reflex) 46 pg/mL (3.0-54.0)
[2023-03-11 17:44] LABS: BNP,B-Type NATRIURETIC PEPTIDE 106.4 pg/mL (0-100)
[2023-03-11 17:58] LABS: D-Dimer Quantitative (DVT/PE) 11.71 FEU/ug/m (0.27-0.49)
--- NOTE | 2023-03-11 18:02 | CT_ITS ---
We are attempting to reach an attending provider to discuss findings. An addendum with communication details will be sent when the communication is complete. EXAM: CT ANGIOGRAPHY CHEST WITHOUT AND WITH INTRAVENOUS CONTRAST CLINICAL INDICATION: sob, near-syncope, elevated d-dimer TECHNIQUE: Helically acquired angiography images were obtained of the chest without and with intravenous contrast. This CT exam was performed using one or more of the following dose reduction techniques: automated exposure control, adjustment of the mA and/or kV according to patient size, and/or use of iterative reconstruction technique. MIP reconstructed images were created and reviewed. CONTRAST: IV 100mL [id number] COMPARISON: No relevant prior studies available. FINDINGS: PULMONARY ARTERIES: There is low-density filling defect seen within the right and left mainstem pulmonary artery which crosses the midline compatible with a saddle embolus. There is low-density filling defect also seen extending into the right upper middle and lower segmental and subsegmental left upper and lower segmental and subsegmental pulmonary arteries. Normal in caliber. AORTA: Unremarkable. Normal in caliber. No evidence of dissection. GREAT VESSELS OF AORTIC ARCH: Unremarkable. Normal in caliber. No evidence of dissection. LUNGS AND PLEURAL SPACES: Unremarkable. No mass. No consolidation or edema. No pleural effusion or thickening. No pneumothorax. HEART: There is enlargement of the right ventricle measuring 4.9 cm compared to left ventricle which measures 2.1 cm. No pericardial effusion. No significant coronary artery calcifications. MEDIASTINUM: There is a small moderate size hiatal hernia. No mediastinal or hilar adenopathy. Esophagus is unremarkable. THYROID: Unremarkable. No thyroid lesions. BONES/JOINTS: Unremarkable. No suspicious lytic or blastic abnormality. CT/CTA Chest W/WO Contrast IMPRESSION: Bilateral mainstem pulmonary emboli with a saddle embolus crossing midline as well as bilateral upper and lower lobe pulmonary emboli. There is marked enlargement of the right ventricle compatible with right heart strain. Electronically Signed: Good Renee MD at 20:12 EST ,
[2023-03-11] MEDS: DiphenhydrAMINE 50 MG/ML Syringe 25 MG IV (18:19)
[2023-03-11] MEDS: MethylPREDNISolone 125 MG/2 ML Vial IV (18:19)
--- NOTE | 2023-03-11 19:05 | ED.RN ---
THIS RN LET CT KNOW PT WAS MEDICATED AT 1819 AT 1817.
[2023-03-11 19:08] LABS: Reflex Troponin-HS? (from REC) Y
[2023-03-11 19:47] LABS: Troponin-I HS 250 pg/mL (3.0-54.0)
[2023-03-11 20:05] LABS: Prothrombin Time (Protime)PT. 13.4 SECONDS (11.7-14.9)
[2023-03-11 20:06] LABS: Partial Thromboplast Time 27.3 Seconds (24.1-36.2)
[2023-03-11] MEDS: Heparin Injection (Vial) 5,000 UNIT/ML VIAL 4000 UNIT IV (20:17)
[2023-03-11] MEDS: HEPARIN/D5w 25,000 UNITS 25,000 UNITS/250 ML IV.SOLN. 10 UNITS CONT INF (20:31)
[2023-03-11 20:38] LABS: Partial Thromboplast Time 25.1 Seconds (24.1-36.2)
--- NOTE | 2023-03-11 20:40 | PCM.HP.STD ---
[facility] - General General Date of Admission: 03/11/23 Date of Service: 03/11/23 Chief Complaint: Shortness of breath and near syncope HPI Narrative MADIHA NEGRON, is a 82 F with a past medical history of essential hypertension, hyperlipidemia, diabetes mellitus type 2; unknown control, history of coronary artery disease, remote history of breast cancer status post bilateral mastectomies and chemotherapy, history of malignant melanoma, chronic left mastoiditis, migraine headaches and GERD who presents to [facility] ER complaining of shortness of breath and near syncope. Ms. Negron reports her symptoms began approximately 1 month prior to admission with progressively worsening dyspnea on exertion that progressed to shortness of breath at rest. She also admits to associated diaphoresis and near syncope with patient almost passing out twice in the last day. So her friends at the social club activated EMS for her and she was able to walk to the ambulance though very short of breath with EMS recording her oxygen saturation at 89% on room air. She denies associated fevers chills nausea vomiting but she does admit to easy fatigability and worsening dyspnea on exertion. She also admits to chest pain that is primarily located in her lower chest that was pressure-like and made worse with exertion. She denies a history of DVT or PE but she does admit to having a granddaughter who has factor V Leiden disorder. She is not on oxygen at home and she denies any history of tobacco abuse. In the ER she was diagnosed with a large saddle pulmonary embolism complicated by clinical evidence of acute hypoxic respiratory insufficiency and she was then admitted to the general medical floor for ongoing care for a stay that is expected to extend beyond 48 hours. [facility] Medical History Breast cancer Breast lump in female CAD (coronary artery disease) Cataracts, bilateral Chronic mastoiditis of left side Diabetes Diverticulitis Gallstones Gastrointestinal problem High cholesterol Hives Hx of malignant melanoma Left knee pain Migraines Mixed conductive and sensorineural hearing loss Osteoarthritis of left knee Pneumonia Reflux esophagitis Seasonal allergies Skin cancer 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) Home Medications aspirin 81 mg tablet,delayed release 81 mg PO QHS HEART HEALTH 09/09/13 [History Last Taken Unknown] lansoprazole 30 mg capsule,delayed release 15 mg PO DAILY REFLUX 09/09/13 [History Last Taken 10/31/17 05:30] acetaminophen 325 mg tablet 650 mg (2 x 325 mg) PO Q4H PRN PRN Mild-Moderate Pain (1-5/10) 10/31/17 [Rx Last Taken Unknown] Lactobacillus 25 billion cell-Bifido 25 billion [id number] capsule (Women's Probiotic) 1 cap PO QHS Diverticulitis 11/01/21 [History Last Taken Unknown] folic acid 400 mcg tablet 0.4 mg PO DAILY 11/01/21 [History Last Taken Unknown] mupirocin 2 % topical ointment 1 applic topical TID 11/01/21 [History Last Taken Unknown] latanoprost 0.005 % eye drops 1 drp ophthalmic (eye) QPM 05/08/22 [History Last Taken Unknown] evolocumab 140 mg/mL subcutaneous pen injector (Repatha TopmallClick) 140 mg subcut Q2W 90 days #7 mL 10/22/22 [Rx Last Taken 03/07/23] diltiazem HCl 120 mg capsule,extended release 24 hr 120 mg PO DAILY ESOPHAGUS #90 caps 11/04/22 [Rx Last Taken Unknown] ipratropium bromide 21 mcg (0.03 %) nasal spray See Rx Instructions .Route .COMPLEX #30 mL 12/24/22 [Rx Last Taken Unknown] dapagliflozin propanediol 10 mg tablet (Farxiga) 10 mg PO DAILY #90 tabs 02/25/23 [Rx Last Taken Unknown] blood sugar diagnostic (Accu-Chek Arlene Plus test strips) #100 ea 03/05/23 [Rx Last Taken Unknown] blood-glucose meter #1 ea 03/05/23 [Rx Last Taken Unknown] lancets (Accu-Chek Softclix Lancets) #100 ea 03/05/23 [Rx Last Taken Unknown] prednisone 50 mg tablet 50 mg PO .COMPLEX #3 tabs 03/10/23 [Rx Last Taken Unknown] Allergy/AdvReac Type Severity Reaction Status Date / Time doxycycline Allergy Severe Anaphylaxis Verified 03/11/23 16:21 cephalexin Allergy Mild PT UNSURE Verified 03/11/23 16:21 OF REACTION bacitracin Allergy Hives Verified 03/11/23 16:21 clarithromycin Allergy Hives Verified 03/11/23 16:21 gemfibrozil Allergy Unknown Verified 03/11/23 16:21 Iodinated Contrast Media Allergy Rash Verified 03/11/23 16:21 [CONTRASTS] iodine Allergy Hives Verified 03/11/23 16:21 levofloxacin Allergy HIVES/ RASH Verified 03/11/23 16:21 Macrolide Antibiotics Allergy Unknown Verified 03/11/23 16:21 Penicillins Allergy Laryngospas Verified 03/11/23 16:21 ms polymyxin B Allergy PT UNSURE Verified 03/11/23 16:21 OF REACTION sulfamethoxazole Allergy Swelling Verified 03/11/23 16:21 [From Bactrim] trimethoprim [From Bactrim] Allergy Swelling Verified 03/11/23 16:21 codeine AdvReac Vomiting Verified 03/11/23 16:21 meperidine HCl [From Demerol] AdvReac Vomiting Verified 03/11/23 16:21 morphine AdvReac Vomiting Verified 03/11/23 16:21 Family History Mother Cancer lung CAD (coronary artery disease) Diabetes Hypertension Thyroid disorder Hyperlipidemia Brother Cancer Diabetes Melanoma Depressed Father Colon cancer Aunt Breast cancer Daughter Thyroid disorder Surgical History S/P bilateral mastectomy S/P bunionectomy S/P cholecystectomy S/P colectomy Social History household members: significant other current occupational status: retired current occupation: worked at the [employer] Smoking Status: Never smoker Electronic Cigarette Use: not used alcohol intake: former details: was never heavy drinker substance use type: does not use do you feel safe at home: Yes ROS ROS Narrative Review of systems: Constitutional: Patient admits to fatigue and sweats Eyes: Patient denies visual changes ENT: Patient denies rhinorrhea or dysphagia Cardiovascular: Patient admits to chest pain that is pressure-like and lightheadedness but denies lower extremity edema Respiratory: Patient has easy fatigability and dyspnea on exertion Gastrointestinal: Patient denies abdominal pain, nausea, vomiting or diarrhea Musculoskeletal: Patient denies neck or back pain Skin: Patient denies abscess or rash Neurologic: Patient denies headache, paresthesias or weakness Psychiatric: Patient denies anxiety or suicidal thoughts 14 point review systems otherwise negative except for positives noted above in HPI. Vital Signs Vital Signs Vital Signs: 03/11/23 16:17 03/11/23 16:20 03/11/23 16:20 Temperature 95.8 F L 95.8 F L Temperature Source Temporal Temporal Pulse Rate 95 96 95 Respiratory Rate 24 H 23 H 29 H Respiratory Effort Respiratory Depth Respiratory Pattern Blood Pressure 123/74 H 126/77 H 126/77 H Blood Pressure Mean 90 93 93 Pulse Ox 97 97 99 Oxygen Delivery Method Nasal Cannula Nasal Cannula Nasal Cannula Oxygen Flow Rate (L/min) 3 3 3 03/11/23 16:21 03/11/23 17:07 03/11/23 17:42 Temperature 97.7 F L Temperature Source Oral Pulse Rate 93 Respiratory Rate 26 H Respiratory Effort Short of Breath Labored Respiratory Depth Normal Respiratory Pattern Tachypnea Blood Pressure 117/60 Blood Pressure Mean 79 Pulse Ox 97 94 Oxygen Delivery Method Nasal Cannula Nasal Cannula Nasal Cannula Oxygen Flow Rate (L/min) 3 3 4 03/11/23 19:01 03/11/23 19:01 03/11/23 20:33 Temperature 97.9 F 98.1 F Temperature Source Oral Oral Pulse Rate 97 89 97 Respiratory Rate 20 H 29 H 18 Respiratory Effort Respiratory Depth Respiratory Pattern Blood Pressure 124/70 H 124/70 H 117/73 Blood Pressure Mean 88 88 87 Pulse Ox 95 95 92 Oxygen Delivery Method Nasal Cannula Nasal Cannula Nasal Cannula Oxygen Flow Rate (L/min) 4 4 4 Weight Weight: 176 lb 9.444 oz Body Mass Index (BMI) 27.6 Physical Exam Const alert, oriented x3 and average body habitus General Appearance: cooperative HEENT normocephalic, head/scalp atraumatic, hearing grossly normal bilaterally and moist oral mucous membranes Eyes PERRL, EOMs intact bilaterally and conjunctivae normal Neck no lymphadenopathy, supple, no JVD and no carotid bruits Resp normal respiratory effort, no retractions, no use of accessory muscles and clear to auscultation bilaterally Cardio regular rate and regular rhythm GI normal to inspection, nondistended, normoactive bowel sounds, soft to palpation, non-tender and non-distended Extremity normal to inspection Neuro oriented x3, CN's II-XII intact bilaterally, moves all extremities and no focal motor deficits Sensorium / Orientation: awake, alert, oriented to person, oriented to place and oriented to time Speech: speech normal Psych Mood & Affect: anxious Results Medical Records Data Attestation: I reviewed the patient's medical records Lab / Micro Data Attestation: I reviewed the patient's lab results. 03/12/23 02:39 03/12/23 02:39 Labs: Laboratory Results - last 24 hr 03/11/23 16:27: WBC 7.5, RBC 4.90, Hgb 14.4, Hct 46.4, MCV 94.7, MCH 29.4, MCHC 31.0 L, RDW Std Deviation 47.8 H, RDW Coeff of Anahi 13.7, Plt Count 299, MPV 9.4, Immature Gran % (Auto) 1.500 H, Neut % (Auto) 62.2, Lymph % (Auto) 25.9, [place] % (Auto) 7.3, Eos % (Auto) 1.9, Baso % (Auto) 1.2 H, Absolute Neuts (auto) 4.7, Absolute Lymphs (auto) 1.95, Nucleated RBC % 0, PT 13.4, INR 1.0, APTT 27.3, D-Dimer Quant (PE/DVT) 11.71 H*, Sodium 138, Potassium 3.7, Chloride 106, Carbon Dioxide 23.0, Anion Gap 9, BUN 22 H, Creatinine 1.23 H, Estim Creat Clear Calc 33.70, Est GFR (MDRD) Af Amer 54 L, Est GFR (MDRD) Non-Af 44 L, BUN/Creatinine Ratio 17.9, Glucose 193 H, Calcium 9.6, Troponin I High Sens 46, B-Natriuretic Peptide 106.4 H 03/11/23 18:36: Troponin I High Sens 250 H* 03/11/23 20:00: APTT 25.1 Rhythm Strip Rhythm Strip: Sinus Rhythm Rate: 95 Ectopy: PVC(s) Radiology Impression Chest X-Ray 03/11/23 17:20 IMPRESSION: No radiographic evidence of acute cardiopulmonary disease. Electronically Signed: Good Renee MD at 17:53 EST , Chest CTA 03/11/23 18:02 IMPRESSION: Bilateral mainstem pulmonary emboli with a saddle embolus crossing midline as well as bilateral upper and lower lobe pulmonary emboli. There is marked enlargement of the right ventricle compatible with right heart strain. Electronically Signed: Good Renee MD at 20:12 EST , ADDENDUM: 03/11/232023 IMPRESSION: Bilateral mainstem pulmonary emboli with a saddle embolus crossing midline as well as bilateral upper and lower lobe pulmonary emboli. There is marked enlargement of the right ventricle compatible with right heart strain. N.B. : The above Results were Read Back by Good Renee MD to Rico Rios MD, and understanding confirmed on 03/11/2023 20:17:16 (ET). Electronically Signed: Good Renee MD at 20:12 EST , Assessment & Plan Assessment/Plan (1) Saddle embolism of pulmonary artery: PLAN: Plan 1. Large saddle pulmonary embolism-admit to general medical floor. Continue IV heparin per protocol. Check lower extremity ultrasound to evaluate for central residual clot burden. Give Tylenol as needed pain or fever. 2. Acute hypoxic respiratory insufficiency due to #1-continue supplemental oxygen and wean as tolerated. 3. Essential hypertension-continue home medications as previous. 4. Hyperlipidemia-continue statin as previous. 5. Diabetes mellitus type 2 of unknown control-ADA diet plus fingerstick blood sugars before every meal and at bedtime. 6. History of breast cancer status post bilateral mastectomies with chemotherapy-stable with no signs of residual disease. 7. History of malignant melanoma-stable with no signs of residual disease. 8. DVT prophylaxis-already on IV heparin for #1. Total time: Approximately 55 minutes Charges/Coding Visit Charges Inpatient E&M: 69202 Init Hosp L2
[2023-03-11] MEDS: 0.9% Normal Saline (1000mL) 1,000 ML 70 ML IV (22:33)
[2023-03-11] MEDS: Aspirin E.C. 81 MG Tablet PO (22:34)
[2023-03-11 23:16] LABS: Bedside Glucose 250 mg/dL (74-106)
[2023-03-12 02:52] LABS: Absolute Lymphocyte Count 1.02 X10^3/uL (0.83-4.51); Absolute Neutrophil Count 6.6 X10^3/uL (2.0-7.7); Basophil# 0.04 X10^3/uL; Basophil% 0.5 % (0-1); Hematocrit 45.2 % (37-47); Hemoglobin 14.7 g/dL (12.0-15.0); Lymphocyte # 1.02 X10^3/ul (0.83-4.51); Mean Corp Hgb Conc 32.5 g/dL (32-36); Mean Corpuscular Hgb 30.1 pg (27.0-32.0); Mean Corpuscular Volume 92.4 fL (81-99); Mean Platelet Vol. 9.2 fl (6.2-12.0); Monocyte# 0.11 X10^3/uL; Monocyte% 1.4 % (0-10); NRBC Flagged by Analyzer 0 % (0-5); Neutrophil # 6.61 X10^3/uL (2.7-7.7); Platelet Count 294 K/mm3 (150-450); RBC Distribution Width CV 13.8 % (11.6-14.6); RBC Distribution Width SD 46.7 fl (35.1-43.9); Red Blood Count 4.89 M/mm3 (4.2-5.4); White Blood Count 7.9 K/mm3 (4.4-11.0)
[2023-03-12 03:05] LABS: Anion Gap 6 (5-15); BUN 23 mg/dL (7-18); BUN/Creat Ratio 19.3 RATIO (10-20); Calcium,Total 9.3 mg/dL (8.5-10.1); Chloride 112 mmol/L (98-107); Creatinine, Serum 1.19 mg/dL (0.55-1.02); EST Glomerular Filtration Rate 46 mL/min (>60); Est Glom Filt Rate - Afr Amer 56 mL/min (>60); Estimated Creatinine Clearance 34.83 ml/min; Glucose 231 mg/dL (74-106); Potassium 4.6 mmol/L (3.5-5.1); Sodium Level 138 mmol/L (136-145)
[2023-03-12 03:06] LABS: International Normalized Ratio 1.1; Prothrombin Time (Protime)PT. 14.6 SECONDS (11.7-14.9)
[2023-03-12 04:43] VITALS: BP 119/73; PULSE 92; RESP 18; TEMP 36.4; O2SAT 94
[2023-03-12 06:00] VITALS: BMI 28.0
[2023-03-12] MEDS: Insulin Lispro 100 UNIT/ML INSULN.PEN SC ×4 (06:41→21:51)
[2023-03-12 07:22] LABS: Bedside Glucose 204 mg/dL (74-106)
--- NOTE | 2023-03-12 07:25 | NURSING ---
bladder scanned for 655ml. straight cathed for 800ml, pt tolerated well.
--- NOTE | 2023-03-12 07:49 | VDLE_ITS ---
Reason For Study: Pulmonary embolism RIGHT LEFT GSV is normal. GSV is normal. CFV is compressible, spontaneous, competent CFV is compressible, spontaneous, competent, and demonstrates pulsatile venous flow. and demonstrates pulsatile venous flow. FV is compressible, spontaneous, competent FV is compressible, spontaneous, competent and demonstrates pulsatile venous flow. and demonstrates pulsatile venous flow. PTV is compressible. POP V is compressible, spontaneous, competent Acute deep vein thrombosis is noted in the and demonstrates pulsatile venous flow. POP V, T/P Trunk, PeroV and SoleusV. It is T/P Trunk is compressible. dilated and NONCOMPRESSIBLE. LT PerV is compressible. Procedure Acute deep vein thrombosis is noted in the This is a venous duplex using B-mode, color PTV and SoleusV. It is dilated and flow and spectral Doppler. NONCOMPRESSIBLE. Exam performed portable in patient room. A preliminary report was called and/or faxed to Dr. Alaniz. VL/Venous Duplex US - Shimon Extrem Interpretation Summary Acute deep vein thrombosis is noted in the right popliteal vein, tibioperoneal trunk vein, peroneal vein and soleal vein Acute deep vein thrombosis is noted in the left posterior tibial vein, soleal v ein. Ordering Physician: Luis Enrique Diallo Referring Physician: Johanny Singletary Performed By: Doretha Hickey RVT
[2023-03-12 08:44] VITALS: BP 115/63; PULSE 97; RESP 18; TEMP 36.6; O2SAT 94
[2023-03-12] MEDS: Empagliflozin 25 MG Tablet PO (08:46)
[2023-03-12] MEDS: dilTIAZem CD 120 MG Capsule PO (08:46)
[2023-03-12] MEDS: Folic Acid 1 MG Tablet 0.5 MG PO (08:46)
[2023-03-12] MEDS: Pantoprazole Sodium 20 MG Tablet PO (08:46)
--- NOTE | 2023-03-12 09:08 | PN.HOSP_ITS ---
Reason for Visit Reason for Visit: Diagnoses Type 2 diabetes mellitus without complications (03/11/23) Saddle embolus of pulmonary artery without acute cor pulmonale (03/11/23) Subjective Subjective Still short of breath primarily with moving around, also still feeling tired Objective Data Objective Data Vital Signs: Vital Signs Temp Pulse Resp BP Pulse Ox O2 Del Method O2 Flow Rate 97.9 F 97 18 115/63 94 Nasal Cannula 4 03/12/23 08:44 03/12/23 08:44 03/12/23 08:44 03/12/23 08:44 03/12/23 08:44 03/12/23 08:44 03/12/23 08:44 Oxygen Flow Rate (L/min) 4 Oxygen Delivery Method Nasal Cannula Weight: 81.1 kg Body Mass Index (BMI) 28.0 Intake & Output: Intake and Output for Last 24 Hours 03/10/23 03/11/23 03/12/23 23:59 23:59 23:59 Intake Total 66.5 / 66.5 Output Total 800 / 800 Balance -733.5 / -733.5 Lab / Micro Data 03/12/23 02:39 03/12/23 02:39 Labs: Laboratory Results - last 24 hr 03/11/23 16:27: WBC 7.5, RBC 4.90, Hgb 14.4, Hct 46.4, MCV 94.7, MCH 29.4, MCHC 31.0 L, RDW Std Deviation 47.8 H, RDW Coeff of Anahi 13.7, Plt Count 299, MPV 9.4, Immature Gran % (Auto) 1.500 H, Neut % (Auto) 62.2, Lymph % (Auto) 25.9, [place] % (Auto) 7.3, Eos % (Auto) 1.9, Baso % (Auto) 1.2 H, Absolute Neuts (auto) 4.7, Absolute Lymphs (auto) 1.95, Nucleated RBC % 0, PT 13.4, INR 1.0, APTT 27.3, D- Dimer Quant (PE/DVT) 11.71 H*, Sodium 138, Potassium 3.7, Chloride 106, Carbon Dioxide 23.0, Anion Gap 9, BUN 22 H, Creatinine 1.23 H, Estim Creat Clear Calc 33.70, Est GFR (MDRD) Af Amer 54 L, Est GFR (MDRD) Non-Af 44 L, BUN/Creatinine Ratio 17.9, Glucose 193 H, Calcium 9.6, Troponin I High Sens 46, B-Natriuretic Peptide 106.4 H 03/11/23 18:36: Troponin I High Sens 250 H* 03/11/23 20:00: APTT 25.1 03/11/23 22:36: POC Glucose 250 H 03/12/23 02:39: WBC 7.9, RBC 4.89, Hgb 14.7, Hct 45.2, MCV 92.4, MCH 30.1, MCHC 32.5, RDW Std Deviation 46.7 H, RDW Coeff of Anahi 13.8, Plt Count 294, MPV 9.2, Immature Gran % (Auto) 1.100 H, Neut % (Auto) 84.0 H, Lymph % (Auto) 13.0 L, [place] % (Auto) 1.4, Eos % (Auto) 0.0, Baso % (Auto) 0.5, Absolute Neuts (auto) 6.6, Absolute Lymphs (auto) 1.02, Nucleated RBC % 0, PT 14.6, INR 1.1, APTT 155.0 H*, Sodium 138, Potassium 4.6, Chloride 112 H, Carbon Dioxide 20.0 L, Anion Gap 6, BUN 23 H, Creatinine 1.19 H, Estim Creat Clear Calc 34.83, Est GFR (MDRD) Af Amer 56 L, Est GFR (MDRD) Non-Af 46 L, BUN/Creatinine Ratio 19.3, Glucose 231 H, Calcium 9.3 03/12/23 06:36: POC Glucose 204 H Radiography Diagnostic Testing: Radiology Impression Chest X-Ray 03/11/23 17:20 IMPRESSION: No radiographic evidence of acute cardiopulmonary disease. Electronically Signed: Good Renee MD at 17:53 EST , Chest CTA 03/11/23 18:02 IMPRESSION: Bilateral mainstem pulmonary emboli with a saddle embolus crossing midline as well as bilateral upper and lower lobe pulmonary emboli. There is marked enlargement of the right ventricle compatible with right heart strain. Electronically Signed: Good Renee MD at 20:12 EST , ADDENDUM: 03/11/232023 IMPRESSION: Bilateral mainstem pulmonary emboli with a saddle embolus crossing midline as well as bilateral upper and lower lobe pulmonary emboli. There is marked enlargement of the right ventricle compatible with right heart strain. N.B. : The above Results were Read Back by Good Renee MD to Rico Rios MD, and understanding confirmed on 03/11/2023 20:17:16 (ET). Electronically Signed: Good Renee MD at 20:12 EST , Rhythm Strip Rhythm Strip: Sinus Rhythm Rate: 95 Ectopy: PVC(s) Physical Exam Narrative General: Alert, oriented HEENT: Atraumatic, normocephalic Eyes: Anicteric, normal conjunctiva, extraocular movements grossly intact Neck: Supple Respiratory: Slight increased respiratory effort Cardiovascular: Regular rate and rhythm GI: Soft, nontender, nondistended Extremities: Minimal lower extremity edema Musculoskeletal: Moving all extremities Neuro: No overt focal neurological deficits Skin: No rashes appreciated Psych: Cooperative Assessment & Plan Assessment/Plan (1) Saddle embolism of pulmonary artery: PLAN: Plan 1. Large saddle pulmonary embolism-admit to general medical floor. Continue IV heparin per protocol. Check lower extremity ultrasound to evaluate for central residual clot burden. Give Tylenol as needed pain or fever. -03/12: Continue heparin drip, also obtain echocardiogram to assess right heart burden as there is some heart strain on CTA we will try to better assess this so can be followed. Preliminary venous duplex with clots in both legs 2. Acute hypoxic respiratory insufficiency due to #1-continue supplemental oxygen and wean as tolerated. -03/12: 94% on 4 L 3. Essential hypertension-continue home medications as previous. 4. Hyperlipidemia-continue statin as previous. 5. Diabetes mellitus type 2 of unknown control-ADA diet plus fingerstick blood sugars before every meal and at bedtime. 6. History of breast cancer status post bilateral mastectomies with chemotherapy-stable with no signs of residual disease. 7. History of malignant melanoma-stable with no signs of residual disease. 8. DVT prophylaxis-already on IV heparin for #1. Total time: Approximately 35 minutes Charges/Coding Visit Charges Inpatient E&M: 37547 Subs Hosp L2
--- NOTE | 2023-03-12 09:09 | ECHOD_ITS ---
Reason For Study: emboli Procedure This was a 2D Doppler, Color Flow transthoracic echocardiogram. The study was technically difficult. Due to bilateral mastectomies and poor accoustic windows. Exam performed portable in patient room. Left Ventricle Normal LV size. The estimated ejection fraction is 70 %. No evidence for diastolic dysfunction. Left ventricular systolic function is hyperdynamic. No regional wall motion abnormalities noted. Right Ventricle Normal RV size. Normal systolic function. Atria The left and right atria are normal. No doppler evidence for ASD. Mitral Valve There is no mitral valve stenosis. No mitral valve insufficiency. Tricuspid Valve There is no tricuspid stenosis. Mild tricuspid valve insufficiency. Pulmonary artery systolic pressure is 35-40 mmHg. Aortic Valve Trisinus/trileaflet aortic valve. There is no aortic stenosis. No aortic valve insufficiency. Pulmonic Valve There is no pulmonic valvular stenosis. No pulmonic valve insufficiency. Great Vessels Normal aortic root. Pericardium/Pleural No pericardial effusion. MMode/2D Measurements & Calculations LVIDd: 4.3 cm IVSd: 0.93 cm Ao root diam: 3.1 cm LVIDs: 3.1 cm LVPWd: 1.1 cm RVDd: 3.2 cm FS: 26.1 % LVAd ap4: 11.8 cm2 LVAd ap2: 12.4 cm2 SV(MOD-sp4): 12.6 ml LVLd ap4: 6.6 cm LVLd ap2: 6.1 cm EDV(MOD-sp4): 18.2 ml EDV(MOD-sp2): 20.9 ml EDV(sp4-el): 18.1 ml EDV(sp2-el): 21.3 ml LVAs ap4: 5.9 cm2 LVAs ap2: 5.6 cm2 LVLs ap4: 5.5 cm LVLs ap2: 5.0 cm ESV(MOD-sp4): 5.6 ml ESV(MOD-sp2): 6.1 ml ESV(sp4-el): 5.4 ml ESV(sp2-el): 5.3 ml EF(MOD-sp4): 69.3 % EF(MOD-sp2): 70.8 % EF(sp4-el): 70.0 % SV(MOD-sp2): 14.8 ml SV(sp4-el): 12.7 ml Time Measurements MV dec time: 0.33 sec Doppler Measurements & Calculations MV E max christiano: 65.2 cm/sec Lat Peak E' Christiano: 9.1 cm/sec Med Peak E' Christiano: 6.6 cm/sec MV A max christiano: 128.5 cm/sec E/E' lat: 7.2 E/E' med: 9.9 MV E/A: 0.51 Ao V2 max: 181.3 cm/sec LV V1 max: 78.3 cm/sec PA V2 max: 91.8 cm/sec Ao max P.1 mmHg LV V1 max P.5 mmHg PA V2 mean: 64.7 cm/sec Ao V2 mean: 118.8 cm/sec LV V1 mean P.4 mmHg PA V2 VTI: 12.4 cm Ao mean P.5 mmHg LV V1 mean: 56.8 cm/sec Ao V2 VTI: 26.4 cm LV V1 VTI: 14.6 cm AV (velocity ratio): 0.55 TR max christiano: 284.3 cm/sec TR max P.3 mmHg ECHO/Echo Complete Interpretation Summary The estimated ejection fraction is 70 %. No evidence for diastolic dysfunction. Left ventricular systolic function is hyperdynamic. Ordering Physician: Lis Alaniz Referring Physician: [place] Zhou Performed By: Marlin Roy, [place], RVT
[2023-03-12 10:09] VITALS: O2SAT 93
[2023-03-12 10:56] LABS: Partial Thromboplast Time 57.4 Seconds (24.1-36.2)
[2023-03-12 11:36] LABS: Bedside Glucose 289 mg/dL (74-106)
--- NOTE | 2023-03-12 13:40 | CASEMGMT ---
RN CON Face to Face with patient for initial transition planning/care coordination assessment. RN CM introduced self and role at [facility]. Patient lying in bed, alert and oriented. Patient willing to participate in assessment and is able to answer all questions appropriately. Care providers, pharmacy, and demographics verified. Patient wishes to discharge home, denies need for home health at this time. Patient states she has no further needs or concerns at this time. CM to follow for discharge planning needs that may arise. PCP: Hayder Specialists: Mario peoplesoft hcm consultant Preferred Pharmacy: [facility] Insurance: [employer] Prescription Benefit: yes Living Will/HPOA: yes, Jesus Clark LNOK: significant other, daughter Living Arrangements: Patient lives with significant other in a 2 story home. Patient was independent and able to ambulate stairs at home. Transportation: self, significant other DME/HHC: Patient has grab bars at home. No previous HHC or SNF. Will monitor for home oxygen at discharge, no preference in DME. Disposition Plan: Patient to discharge home with family support and follow-up plans in place. Doretha KING, RN, CM
[2023-03-12 15:02] VITALS: BP 110/77; PULSE 87; RESP 18; TEMP 36.6; O2SAT 94
[2023-03-12 16:59] LABS: Partial Thromboplast Time 49.4 Seconds (24.1-36.2)
[2023-03-12 17:45] LABS: Bedside Glucose 205 mg/dL (74-106)
[2023-03-12 21:00] VITALS: BP 126/73; PULSE 85; RESP 16; TEMP 36.6; O2SAT 90
[2023-03-12] MEDS: Aspirin E.C. 81 MG Tablet PO (21:49)
[2023-03-12] MEDS: Latanoprost 0.005% 1 Bottle 1 DRP EACH EYE (21:49)
[2023-03-12 22:02] LABS: Bedside Glucose 198 mg/dL (74-106)
[2023-03-13] VITALS (9 sets, daily range): BP systolic 96–119; BP diastolic 62–77; PULSE 73–80; RESP 16–24; TEMP 36.2–36.6; O2SAT 92–97; BMI 27.4
[2023-03-13 00:02] LABS: Partial Thromboplast Time 57.6 Seconds (24.1-36.2)
[2023-03-13] MEDS: HEPARIN/D5w 25,000 UNITS 25,000 UNITS/250 ML IV.SOLN. 8 UNITS CONT INF (04:59)
[2023-03-13 06:05] LABS: Absolute Lymphocyte Count 1.48 X10^3/uL (0.83-4.51); Absolute Neutrophil Count 9.5 X10^3/uL (2.0-7.7); Basophil# 0.03 X10^3/uL; Basophil% 0.3 % (0-1); Hemoglobin 13.1 g/dL (12.0-15.0); Lymphocyte # 1.48 X10^3/ul (0.83-4.51); Lymphocyte % 12.5 % (19-41); Mean Corp Hgb Conc 31.2 g/dL (32-36); Mean Corpuscular Hgb 30.2 pg (27.0-32.0); Mean Corpuscular Volume 96.8 fL (81-99); Mean Platelet Vol. 9.4 fl (6.2-12.0); Monocyte# 0.72 X10^3/uL; Monocyte% 6.1 % (0-10); NRBC Flagged by Analyzer 0 % (0-5); Neutrophil # 9.49 X10^3/uL (2.7-7.7); Neutrophil % 79.8 % (47-70); Platelet Count 303 K/mm3 (150-450); RBC Distribution Width SD 49.2 fl (35.1-43.9); Red Blood Count 4.34 M/mm3 (4.2-5.4); White Blood Count 11.9 K/mm3 (4.4-11.0)
[2023-03-13 06:37] LABS: Anion Gap 8 (5-15); BUN 34 mg/dL (7-18); BUN/Creat Ratio 27.4 RATIO (10-20); Chloride 110 mmol/L (98-107); Creatinine, Serum 1.24 mg/dL (0.55-1.02); EST Glomerular Filtration Rate 44 mL/min (>60); Est Glom Filt Rate - Afr Amer 53 mL/min (>60); Estimated Creatinine Clearance 33.43 ml/min; Glucose 164 mg/dL (74-106); Potassium 4.2 mmol/L (3.5-5.1); Sodium Level 139 mmol/L (136-145)
[2023-03-13 06:51] LABS: Partial Thromboplast Time 58.6 Seconds (24.1-36.2)
[2023-03-13] MEDS: Insulin Lispro 100 UNIT/ML INSULN.PEN SC ×4 (06:57→22:40)
[2023-03-13] MEDS: Folic Acid 1 MG Tablet 0.5 MG PO (09:51)
[2023-03-13] MEDS: dilTIAZem CD 120 MG Capsule PO (09:52)
[2023-03-13] MEDS: APIXABAN 5 MG TABLET 10 MG PO ×2 (09:52→22:40)
[2023-03-13] MEDS: Empagliflozin 25 MG Tablet PO (09:53)
[2023-03-13] MEDS: Pantoprazole Sodium 20 MG Tablet PO (09:53)
[2023-03-13 09:55] LABS: Bedside Glucose 153 mg/dL (74-106)
[2023-03-13 12:56] LABS: Bedside Glucose 174 mg/dL (74-106)
--- NOTE | 2023-03-13 15:34 | PCM.PN.HOSP ---
Reason for Visit Reason for Visit: Diagnoses Type 2 diabetes mellitus without complications (03/11/23) Saddle embolus of pulmonary artery without acute cor pulmonale (03/11/23) Subjective Subjective Patient still feeling short of breath and weak on ambulation specifically Objective Data Objective Data Vital Signs: Vital Signs Temp Pulse Resp BP Pulse Ox O2 Del Method O2 Flow Rate 97.2 F L 80 16 119/73 93 Nasal Cannula 0 03/13/23 09:45 03/13/23 09:45 03/13/23 09:45 03/13/23 09:45 03/13/23 14:55 03/13/23 09:45 03/13/23 14:55 Oxygen Flow Rate (L/min) [ 0 AMBULATING on Room Air] Oxygen Flow Rate (L/min) [At 0 REST on Room Air] Oxygen Flow Rate (L/min) 4 Oxygen Delivery Method Nasal Cannula Weight: 79.6 kg Body Mass Index (BMI) 27.4 Intake & Output: Intake and Output for Last 24 Hours 03/11/23 03/12/23 03/13/23 23:59 23:59 23:59 Intake Total 2135.70 / 2165.70 161.06 / 161.06 Output Total 1600 / 1600 750 / 750 Balance 535.70 / 565.70 -588.94 / -588.94 Medical Nutrition Assessment Dietitian: Malnutrition Criteria Met Start: 03/12/23 11:43 Freq: Status: Active Protocol: Document 03/12/23 11:43 RMA (Rec: 03/12/23 11:44 RMA [id number]) Nutrition Malnutrition Evidence of Malnutrition Exists Yes Malnutrition (severe): Acute Illness/Injury Evidenced By Suboptimal Energy Intake ( Severe),Weight Loss (Severe) Clinical Problem Acute Disease or Injury Related Malnutrition Etiology Severe protein-calorie malnutrition in the context of acute disease related to increased shortness of breath, fatigue resulting in inadequate oral intake Signs/Symptoms as evidenced by 6% unintentional weight loss x past 1 month and PO meeting less than 50% estimated nutrition needs x past 1 month Status Active Problem Recommendation Dietitian Recommendations/Changes Will adjust diet to 1800 calorie/consistent carbohydrate; cardiac. Will add 240mL chocolate glucerna shake BID w/ lunch and dinner meals. Lab / Micro Data 03/13/23 05:30 03/13/23 05:30 Labs: Laboratory Results - last 24 hr 03/12/23 16:39: APTT 49.4 H 03/12/23 17:23: POC Glucose 205 H 03/12/23 21:42: POC Glucose 198 H 03/12/23 23:14: APTT 57.6 H 03/13/23 05:30: WBC 11.9 H, RBC 4.34, Hgb 13.1, Hct 42.0, MCV 96.8, MCH 30.2, MCHC 31.2 L, RDW Std Deviation 49.2 H, RDW Coeff of Anahi 14.0, Plt Count 303, MPV 9.4, Immature Gran % (Auto) 1.300 H, Neut % (Auto) 79.8 H, Lymph % (Auto) 12.5 L, [place] % (Auto) 6.1, Eos % (Auto) 0.0, Baso % (Auto) 0.3, Absolute Neuts (auto) 9.5 H, Absolute Lymphs (auto) 1.48, Nucleated RBC % 0, APTT 58.6 H, Sodium 139, Potassium 4.2, Chloride 110 H, Carbon Dioxide 21.0, Anion Gap 8, BUN 34 H, Creatinine 1.24 H, Estim Creat Clear Calc 33.43, Est GFR (MDRD) Af Amer 53 L, Est GFR (MDRD) Non-Af 44 L, BUN/Creatinine Ratio 27.4 H, Glucose 164 H, Calcium 9.0 03/13/23 06:48: POC Glucose 153 H 03/13/23 12:23: POC Glucose 174 H Radiography Diagnostic Testing: Radiology Impression Venous Doppler Study 03/12/23 07:49 Interpretation Summary Acute deep vein thrombosis is noted in the right popliteal vein, tibioperoneal trunk vein, peroneal vein and soleal vein Acute deep vein thrombosis is noted in the left posterior tibial vein, soleal vein. Ordering Physician: Luis Enrique Diallo Referring Physician: Johanny Singletary Performed By: Doretha Hickey, RVT Echocardiogram 03/12/23 09:09 Interpretation Summary The estimated ejection fraction is 70 %. No evidence for diastolic dysfunction. Left ventricular systolic function is hyperdynamic. Ordering Physician: Lis Alaniz Referring Physician: [place] Zhou Performed By: Marlin Roy RDCS, RVT Rhythm Strip Rhythm Strip: Sinus Rhythm Rate: 95 Ectopy: PVC(s) Physical Exam Narrative General: Alert, oriented HEENT: Atraumatic, normocephalic Eyes: Anicteric, normal conjunctiva, extraocular movements grossly intact Neck: Supple Respiratory: Slight increased respiratory effort Cardiovascular: Regular rate and rhythm GI: Soft, nontender, nondistended Extremities: Minimal lower extremity edema Musculoskeletal: Moving all extremities Neuro: No overt focal neurological deficits Skin: No rashes appreciated Psych: Cooperative Assessment & Plan Assessment/Plan (1) Saddle embolism of pulmonary artery: PLAN: Plan 1. Large saddle pulmonary embolism-admit to general medical floor. Continue IV heparin per protocol. Check lower extremity ultrasound to evaluate for central residual clot burden. Give Tylenol as needed pain or fever. -03/12: Continue heparin drip, also obtain echocardiogram to assess right heart burden as there is some heart strain on CTA we will try to better assess this so can be followed. Preliminary venous duplex with clots in both legs -03/13: Echo without any right heart strain, both lower extremities with clots, and patient transitioned to p.o. Eliquis, patient was ambulated and did not require O2 however was significantly weak and short of breath and does not feel safe to go home. PT consulted to assess functional status and to assist in discharge planning 2. Acute hypoxic respiratory insufficiency due to #1-continue supplemental oxygen and wean as tolerated. -03/12: 94% on 4 L -03/13: See above 3. Essential hypertension-continue home medications as previous. 4. Hyperlipidemia-continue statin as previous. 5. Diabetes mellitus type 2 of unknown control-ADA diet plus fingerstick blood sugars before every meal and at bedtime. 6. History of breast cancer status post bilateral mastectomies with chemotherapy-stable with no signs of residual disease. 7. History of malignant melanoma-stable with no signs of residual disease. 8. DVT prophylaxis-already on IV heparin for #1. Total time: Approximately 40 minutes Charges/Coding Visit Charges Inpatient E&M: 60382 Subs Hosp L2
[2023-03-13] MEDS: Tamsulosin HCl 0.4 MG Capsule PO (16:24)
[2023-03-13 17:11] LABS: Bedside Glucose 172 mg/dL (74-106)
[2023-03-13] MEDS: Aspirin E.C. 81 MG Tablet PO (22:40)
[2023-03-13] MEDS: Latanoprost 0.005% 1 Bottle 1 DRP EACH EYE (22:41)
[2023-03-13 23:08] LABS: Bedside Glucose 165 mg/dL (74-106)
[2023-03-14] VITALS (7 sets, daily range): BP systolic 97–115; BP diastolic 58–63; PULSE 73–77; RESP 16–23; TEMP 36.3–36.7; O2SAT 16–97
[2023-03-14] MEDS: Insulin Lispro 100 UNIT/ML INSULN.PEN SC ×2 (06:06→11:33)
[2023-03-14 06:58] LABS: Absolute Neutrophil Count 6.3 X10^3/uL (2.0-7.7); Basophil# 0.05 X10^3/uL; Basophil% 0.6 % (0-1); Eosinophil# 0.04 X10^3/uL; Eosinophils% 0.4 % (0-5); Hematocrit 41.2 % (37-47); Hemoglobin 13.1 g/dL (12.0-15.0); Lymphocyte % 20.2 % (19-41); Mean Corp Hgb Conc 31.8 g/dL (32-36); Mean Corpuscular Volume 94.5 fL (81-99); Mean Platelet Vol. 9.2 fl (6.2-12.0); Monocyte# 0.63 X10^3/uL; Monocyte% 7.1 % (0-10); NRBC Flagged by Analyzer 0 % (0-5); Neutrophil # 6.31 X10^3/uL (2.7-7.7); Neutrophil % 70.8 % (47-70); Platelet Count 277 K/mm3 (150-450); RBC Distribution Width CV 13.7 % (11.6-14.6); RBC Distribution Width SD 47.3 fl (35.1-43.9); Red Blood Count 4.36 M/mm3 (4.2-5.4); White Blood Count 8.9 K/mm3 (4.4-11.0)
[2023-03-14 07:08] LABS: Partial Thromboplast Time 30.9 Seconds (24.1-36.2)
[2023-03-14 07:16] LABS: Bedside Glucose 152 mg/dL (74-106)
[2023-03-14 07:34] LABS: Anion Gap 7 (5-15); BUN 34 mg/dL (7-18); BUN/Creat Ratio 28.8 RATIO (10-20); Calcium,Total 8.9 mg/dL (8.5-10.1); Chloride 110 mmol/L (98-107); Creatinine, Serum 1.18 mg/dL (0.55-1.02); EST Glomerular Filtration Rate 46 mL/min (>60); Est Glom Filt Rate - Afr Amer 56 mL/min (>60); Estimated Creatinine Clearance 35.13 ml/min; Glucose 137 mg/dL (74-106); Potassium 4.1 mmol/L (3.5-5.1); Sodium Level 139 mmol/L (136-145)
[2023-03-14] MEDS: Folic Acid 1 MG Tablet 0.5 MG PO (08:10)
[2023-03-14] MEDS: Tamsulosin HCl 0.4 MG Capsule PO (08:11)
[2023-03-14] MEDS: dilTIAZem CD 120 MG Capsule PO (08:57)
[2023-03-14] MEDS: APIXABAN 5 MG TABLET 10 MG PO (08:57)
[2023-03-14] MEDS: Empagliflozin 25 MG Tablet PO (08:58)
[2023-03-14] MEDS: Pantoprazole Sodium 20 MG Tablet PO (08:58)
[2023-03-14 12:34] LABS: Bedside Glucose 177 mg/dL (74-106)
--- NOTE | 2023-03-14 16:19 | PCM.DC.SUM ---
Providers Date of Admission: 03/11/23 Date of Discharge: 03/14/23 Primary Care Physician: Dr. Johanny Singletary MD Reason For Visit: SADDLE PE Diagnosis Discharge Diagnosis (1) Saddle embolism of pulmonary artery: Status: Acute Code(s): I26.92 - Saddle embolus of pulmonary artery without acute cor pulmonale Plan 1. Large saddle pulmonary embolism 2. Acute hypoxic respiratory insufficiency- resolved 3. Essential hypertension 4. Hyperlipidemia 5. Diabetes mellitus type 2 of unknown control 6. History of breast cancer status post bilateral mastectomies with chemotherapy 7. History of malignant melanoma Medications at Discharge Home Medications aspirin 81 mg tablet,delayed release 81 mg PO QHS HEART HEALTH 09/09/13 lansoprazole 30 mg capsule,delayed release 15 mg PO DAILY REFLUX 09/09/13 acetaminophen 325 mg tablet 650 mg (2 x 325 mg) PO Q4H PRN PRN Mild-Moderate Pain (1-09/11) 10/31/17 Lactobacillus 25 billion cell-Bifido 25 billion [id number]-[id number] capsule (Women's Probiotic) 1 cap PO QHS Diverticulitis 11/01/21 folic acid 400 mcg tablet 0.4 mg PO DAILY supplement 11/01/21 latanoprost 0.005 % eye drops 1 drp ophthalmic (eye) QPM eye health 05/08/22 evolocumab 140 mg/mL subcutaneous pen injector (Repatha SureClick) 140 mg subcut Q2W cholesterol 90 days #7 mL 10/22/22 diltiazem HCl 120 mg capsule,extended release 24 hr 120 mg PO DAILY ESOPHAGUS #90 caps 11/04/22 ipratropium bromide 21 mcg (0.03 %) nasal spray See Rx Instructions .Route .COMPLEX #30 mL 12/24/22 dapagliflozin propanediol 10 mg tablet (Farxiga) 10 mg PO DAILY diabetes #90 tabs 02/25/23 blood sugar diagnostic (Accu-Chek Arlene Plus test strips) #100 ea 03/05/23 blood-glucose meter #1 ea 03/05/23 lancets (Accu-Chek Softclix Lancets) #100 ea 03/05/23 apixaban 5 mg (74 tabs) tablets in a dose pack (Eliquis DVT-PE Treat 30D Start) 5 mg PO BID #74 tabs 03/14/23 tamsulosin 0.4 mg capsule 0.4 mg PO DAILY 30 days #30 caps 03/14/23 Hospital Course Procedures Transthoracic echo Summary of Care Provided Minutes Spent on Discharge: 35 Hospital Course: MADIHA NEGRON, is a 82 F with a past medical history of essential hypertension, hyperlipidemia, diabetes mellitus type 2; unknown control, history of coronary artery disease, remote history of breast cancer status post bilateral mastectomies and chemotherapy, history of malignant melanoma, chronic left mastoiditis, migraine headaches and GERD who presents to [facility] ER complaining of shortness of breath and near syncope. She was found to have a large saddle PE on CTA and also queried some right heart strain so echo obtained which showed normal RV size and function. Additionally patient was hypoxic and required O2. She was ambulated prior to discharge and did not require O2 with ambulation however was so significantly short of breath and weak that physical therapy was consulted to assist with DC planning as patient did not feel safe to go home. Lower extremity duplex was ordered on admission to evaluate for clot burden and she was found to have bilateral lower extremity DVTs, she will be discharged on full dose Eliquis 10 mg twice daily and decrease to 5 twice daily thereafter. During her admission when she still is not getting out of bed she had some urinary retention x2 and required Stiles placement, on day of discharge after being started on tamsulosin Stiles catheter was removed and patient voided x2, did not meet threshold of retaining for any kind of further Stiles placement or other acute intervention. Given yesterday it was thought she would be discharged with Stiles catheter there is already a urology appointment scheduled, if patient continues to void well however will likely be able to cancel this. On day of discharge patient worked with physical therapy and while short of breath was ambulating well and required no further acute assistance. Manage expectations and that it would likely take time for symptoms to improve and she verbalized understanding. Patient comfortable with plan to DC home Physical Exam Narrative General: Alert, oriented HEENT: Atraumatic, normocephalic Eyes: Anicteric, normal conjunctiva, extraocular movements grossly intact Neck: Supple Respiratory: No increased resp effort while in bed Cardiovascular: Regular rate and rhythm GI: Soft, nontender, nondistended Extremities: Minimal lower extremity edema Musculoskeletal: Moving all extremities Neuro: No overt focal neurological deficits Skin: No rashes appreciated Psych: Cooperative Medical Records Data Medical Nutrition Assessment Dietitian: Malnutrition Criteria Met Start: 03/12/23 11:43 Freq: Status: Active Protocol: Document 03/12/23 11:43 RMA (Rec: 03/12/23 11:44 RMA [id number]) Nutrition Malnutrition Evidence of Malnutrition Exists Yes Malnutrition (severe): Acute Illness/Injury Evidenced By Suboptimal Energy Intake ( Severe),Weight Loss (Severe) Clinical Problem Acute Disease or Injury Related Malnutrition Etiology Severe protein-calorie malnutrition in the context of acute disease related to increased shortness of breath, fatigue resulting in inadequate oral intake Signs/Symptoms as evidenced by 6% unintentional weight loss x past 1 month and PO meeting less than 50% estimated nutrition needs x past 1 month Status Active Problem Recommendation Dietitian Recommendations/Changes Will adjust diet to 1800 calorie/consistent carbohydrate; cardiac. Will add 240mL chocolate glucerna shake BID w/ lunch and dinner meals. Weight / BMI Weight Weight: 79.6 kg Body Mass Index (BMI) 27.4 ABG / Lab / Microbiology Data 03/14/23 06:40 03/14/23 06:40 Laboratory: Laboratory Results - last 24 hr 03/13/23 16:21: POC Glucose 172 H 03/13/23 21:53: POC Glucose 165 H 03/14/23 06:04: POC Glucose 152 H 03/14/23 06:40: WBC 8.9, RBC 4.36, Hgb 13.1, Hct 41.2, MCV 94.5, MCH 30.0, MCHC 31.8 L, RDW Std Deviation 47.3 H, RDW Coeff of Anahi 13.7, Plt Count 277, MPV 9.2, Immature Gran % (Auto) 0.900, Neut % (Auto) 70.8 H, Lymph % (Auto) 20.2, [place] % (Auto) 7.1, Eos % (Auto) 0.4, Baso % (Auto) 0.6, Absolute Neuts (auto) 6.3, Absolute Lymphs (auto) 1.80, Nucleated RBC % 0, APTT 30.9, Sodium 139, Potassium 4.1, Chloride 110 H, Carbon Dioxide 22.0, Anion Gap 7, BUN 34 H, Creatinine 1.18 H, Estim Creat Clear Calc 35.13, Est GFR (MDRD) Af Amer 56 L, Est GFR (MDRD) Non-Af 46 L, BUN/Creatinine Ratio 28.8 H, Glucose 137 H, Calcium 8.9 03/14/23 11:32: POC Glucose 177 H D/C Instructions Discharge Diet: - (DASH diet) Meaningful Use Info Meaningful Use Diagnoses (Choose all that apply): VTE VTE Anticoag overlap given w/in hospital stay or rx'd at dc?: Yes Pt receive overlap for 5 days?: No Reason overlap not ordered, prescribed, or given for 5 days: Treatment Not Indicated Discharge Plan Admission Admit Date/Time: 03/11/23 20:49 Primary Reason for Your Visit: Fatigue, blood clot Attending Provider: Lis Alaniz Primary Care Provider: Johanny Singletary Consulting Providers: Luis Enrique Diallo Instructions Patient Instructions: DVT/PE Discharge instruction sheet Additional Instructions / Restrictions: DISCHARGE INSTRUCTIONS PLEASE READ *Please take this with you to your next doctors appointment* -You will be discharged on Eliquis 10 mg twice daily for 7 days and then will go down to 5 mg twice daily thereafter -Due to urinary retention you will be discharged on a medication, tamsulosin. Prior to discharge your bladder was emptying better even with the catheter pulled out. You were scheduled an appointment with urology on the , if you are having no problems urinating in the next several days this appointment can be cancelled. -Please call your primary care provider's office upon discharge to schedule a hospital follow up within 1 week. -For any concerning signs or symptoms please call 911 or proceed to the nearest emergency department Discharge Orders/Prescriptions Prescriptions: New tamsulosin 0.4 mg Capsule 0.4 mg PO DAILY 30 Days Qty: 30 0RF Eliquis DVT-PE Treat 30D Start 5 mg (74 tabs) tablets,dose pack 5 mg PO BID Qty: 74 0RF Continued Women's Probiotic 25B cell-25B cell-50 mg capsule 1 cap PO QHS folic acid 400 mcg tablet 0.4 mg PO DAILY latanoprost 0.005 % drops 1 drp ophthalmic (eye) QPM diltiazem HCl 120 mg capsule,extended release 24hr 120 mg PO DAILY Qty: 90 1RF (DME) blood-glucose meter Misc See Rx Instructions .Route Qty: 1 0RF Rx Instructions: daily (DME) Accu-Chek Arlene Plus test strp Strip See Rx Instructions .Route Qty: 100 0RF Rx Instructions: daily (DME) lancets [Accu-Chek Softclix Lancets] Misc See Rx Instructions .Route Qty: 100 0RF Rx Instructions: daily aspirin 81 MG tablet 81 mg PO QHS Patient Comments: blood thinner lansoprazole 30 MG capsule 15 mg PO DAILY Patient Comments: acid reflux acetaminophen 325 MG tablet 650 mg PO Q4H PRN PRN (Reason: Mild-Moderate Pain (1-09/11)) 0RF Repatha SureClick 140 mg/mL pen injector 140 mg subcut Q2W 90 Days Qty: 7 1RF ipratropium bromide 21 mcg (0.03 %) spray,non-aerosol See Rx Instructions .ROUTE .COMPLEX Qty: 30 3RF Dose Instruction: SPRAY TWO SPRAYS INTO EACH NOSTRIL TWO TO THREE TIMES DAILY NEEDED FOR ALLERGY SYMPTOMS Rx Instructions: SPRAY TWO SPRAYS INTO EACH NOSTRIL TWO TO THREE TIMES DAILY NEEDED FOR ALLERGY SYMPTOMS Farxiga 10 mg tablet 10 mg PO DAILY Qty: 90 0RF Discontinued mupirocin 2 % ointment 1 applic topical TID Hold Instructions: NOT USING prednisone 50 mg tablet 50 mg PO .COMPLEX Qty: 3 0RF Hold Instructions: NOT TAKING Rx Instructions: 50 mg orally; Take 1 tablet 13 hours before, 7 hours before and [address] Referrals / Follow Up: Johanny Singletary MD [Primary Care Provider] - Within 1 Week Umang Mix MD [Med Staff - Active Staff] - 03/20/23 2:00 pm Disposition Disposition (needs filled in before D/C Order can be placed): Home, Self Care Charges/Coding Visit Charges Inpatient E&M: 93418 Disch Hosp >30min
[2023-03-14 16:29] LABS: Bedside Glucose 156 mg/dL (74-106)
== END 2023-03-14 17:31 | disposition home or self-care (01) | DRG 176 ==
LOC: ED 16:55 → PCU 21:03
PROVIDERS: Admitting Provider Internal Medicine; Emergency Provider Emergency Medicine; PCP Internal Medicine; Visit Provider Internal Medicine
DX: I26.92 Saddle embolus of pulmonary artery without acute cor pulmonale (principal); I82.431 Acute embolism and thrombosis of right popliteal vein; I82.451 Acute embolism and thrombosis of right peroneal vein; I82.443 Acute embolism and thrombosis of tibial vein, bilateral; E11.9 Type 2 diabetes mellitus without complications; I82.463 Acute embolism and thrombosis of calf muscular vein, bilateral; I10 Essential (primary) hypertension; E78.00 Pure hypercholesterolemia, unspecified; I25.10 Atherosclerotic heart disease of native coronary artery without angina pectoris; R09.02 Hypoxemia; R33.9 Retention of urine, unspecified; Z90.13 Acquired absence of bilateral breasts and nipples; Z68.27 Body mass index [BMI] 27.0-27.9, adult; Z79.82 Long term (current) use of aspirin; Z79.84 Long term (current) use of oral hypoglycemic drugs; Z79.899 Other long term (current) drug therapy; Z85.3 Personal history of malignant neoplasm of breast; Z85.820 Personal history of malignant melanoma of skin; Z92.21 Personal history of antineoplastic chemotherapy
CPT/HCPCS: 36415; 71045; 71275; 80048; 82962; 83880; 84484; 85025; 85379; 85610; 85730; 93005; 93306; 93970; 94668; 97161; 97802; 99285; J7030; Q9967; A4216

== ENCOUNTER → 2023-03-19 | Outpatient (CLI) | payer MEDICARE, SELFPAY ==
[2023-03-19 09:09] LABS: Mucous, Urine 0 SEEN /hpf (<or=2+); Squamous Epithelial Cells - UA 0 SEEN /hpf (5-10)
[2023-03-19 12:37] LABS: Absolute Lymphocyte Count 1.35 X10^3/uL (0.83-4.51); Absolute Neutrophil Count 4.3 X10^3/uL (2.0-7.7); Basophil# 0.08 X10^3/uL; Basophil% 1.2 % (0-1); Eosinophils% 2.9 % (0-5); Hematocrit 47.6 % (37-47); Hemoglobin 15.2 g/dL (12.0-15.0); Lymphocyte # 1.35 X10^3/ul (0.83-4.51); Lymphocyte % 19.8 % (19-41); Mean Corp Hgb Conc 31.9 g/dL (32-36); Mean Corpuscular Volume 93.9 fL (81-99); Mean Platelet Vol. 9.4 fl (6.2-12.0); Monocyte# 0.62 X10^3/uL; Monocyte% 9.1 % (0-10); NRBC Flagged by Analyzer 0 % (0-5); Neutrophil # 4.31 X10^3/uL (2.7-7.7); Platelet Count 446 K/mm3 (150-450); RBC Distribution Width CV 13.7 % (11.6-14.6); RBC Distribution Width SD 47.5 fl (35.1-43.9); Red Blood Count 5.07 M/mm3 (4.2-5.4); White Blood Count 6.8 K/mm3 (4.4-11.0)
[2023-03-19 12:51] LABS: Color, Urine Yellow (Yellow); Glucose, Dipstick 1000 mg/dl (Normal); Ketone-Dipstick Negative (Negative); Leukocyte Esterase-Dipstick 500 /ul (Negative); Nitrite-Dipstick Negative (Negative); Occult Blood-Urine 250 /ul (Negative); Protein-Dipstick 100 mg/dl (Negative); Urine Bilirubin Dipstick Negative (Negative); Urine Clarity Cloudy (Clear); Urine Urobilinogen Normal (Normal)
[2023-03-19 12:56] LABS: ALB/GLOB Ratio 0.8 RATIO (0.9-2.4); AST(SGOT) 20 U/L (15-37); Alanine Aminotransfer ALT/SGPT 27 U/L (13-56); Albumin, Serum 3.6 g/dL (3.2-5.0); Alkaline Phosphatase 91 U/L (45-117); Anion Gap 7 (5-15); BUN 31 mg/dL (7-18); BUN/Creat Ratio 20.7 RATIO (10-20); Calcium,Total 9.8 mg/dL (8.5-10.1); Chloride 105 mmol/L (98-107); EST Glomerular Filtration Rate 35 mL/min (>60); Est Glom Filt Rate - Afr Amer 43 mL/min (>60); Globulin 4.3 g/dL (2.2-4.2); Glucose 236 mg/dL (74-106); Potassium 4.3 mmol/L (3.5-5.1); Protein, Total 7.9 g/dL (6.4-8.2); Sodium Level 137 mmol/L (136-145)
[2023-03-19 13:05] LABS: White Blood Cells >100 SEEN /hpf (0-5)
[2023-03-19 13:06] LABS: Bacteria 2+ /hpf (None Seen); Red Blood Cells-Urine 10-25 SEEN /hpf (0-5)
== END | disposition home or self-care (01) ==
LOC: BIMLAB 08:42
PROVIDERS: PCP Internal Medicine; Referring Provider Internal Medicine; Visit Provider Internal Medicine
DX: R33.9 Retention of urine, unspecified (principal); I26.92 Saddle embolus of pulmonary artery without acute cor pulmonale; R30.0 Dysuria
CPT/HCPCS: 36415; 80053; 81001; 85025

== ENCOUNTER → 2023-04-08 | Outpatient (CLI) | payer MEDICARE, SELFPAY ==
--- NOTE | 2023-04-08 14:57 | CT_ITS ---
STUDY: CT ABDOMEN AND PELVIS WITH CONTRAST REASON FOR EXAM: Female, 82 years old. RLQ pain, weight loss, history of cancer. History of breast cancer with mastectomy. RADIATION DOSAGE (If Supplied By Facility): CTDIvol = ( 17.65 ) mGy, DLP = ( 860.07 ) mGycm TECHNIQUE: Transaxial images were obtained from the dome of the diaphragm to the symphysis pubis with oral contrast. Oral and amp; IV Readi-CAT and amp; 100mL Isovue-300 was administered. Sagittal and coronal images were reconstructed. Individualized dose optimization techniques were used for this CT. COMPARISON: Comparison is made with prior study dated November 10, 2012. FINDINGS: Patient is status post mastectomy. The visualized lung bases are unremarkable. Coronary artery calcification. There is a 5.4 mm cyst in the peripheral inferior aspect of the right lobe of the liver. The patient is status post cholecystectomy. Normal spleen. Normal pancreas. There is a small, circumscribed, smooth, low attenuation left adrenal mass, consistent with an adrenal adenoma. This measures 1 cm. Normal right adrenal gland. Normal right kidney. Normal left kidney. There is a small hiatal hernia. Normal small intestine. Surgical anastomosis is seen at the level of the rectum. There are surgical clips in the region of the appendix consistent with a prior appendectomy. There is diffuse atherosclerotic calcification of the abdominal aorta, without a demonstrated aneurysm. Normal inferior vena cava. Normal retroperitoneum. Normal urinary bladder. Questionable fibroid in the fundal portion of the uterus. Normal abdominal wall. There are mild degenerative changes of the visualized lumbar spine. CT/Abdomen/Pelvis WITH Contrast IMPRESSION: Surgical anastomosis in the rectum. Electronically Signed: Edgar Mcfadden MD at 14:08 EST ,
== END | disposition home or self-care (01) ==
PROVIDERS: PCP Internal Medicine; Referring Provider Internal Medicine; Visit Provider Internal Medicine
DX: R10.31 Right lower quadrant pain (principal); R53.83 Other fatigue
CPT/HCPCS: 74177; Q9967

== ENCOUNTER → 2023-04-15 | Outpatient (CLI) | payer MEDICARE, SELFPAY | END | disposition home or self-care (01) | LOC: LABSPEC 17:05 | PROVIDERS: Referring Provider Urology; Visit Provider Urology | DX: R31.9 Hematuria, unspecified (principal) | CPT/HCPCS: 87086; 87088; 87186 ==

== ENCOUNTER → 2023-05-28 | Outpatient (CLI) | payer MEDICARE, SELFPAY ==
[2023-05-28 15:37] LABS: Absolute Neutrophil Count 3.3 X10^3/uL (2.0-7.7); Basophil# 0.05 X10^3/uL; Basophil% 0.9 % (0-1); Eosinophil# 0.11 X10^3/uL; Hematocrit 45.5 % (37-47); Hemoglobin 14.5 g/dL (12.0-15.0); Lymphocyte % 30.5 % (19-41); Mean Corp Hgb Conc 31.9 g/dL (32-36); Mean Corpuscular Hgb 29.2 pg (27.0-32.0); Mean Corpuscular Volume 91.5 fL (81-99); Mean Platelet Vol. 9.9 fl (6.2-12.0); Monocyte% 7.2 % (0-10); NRBC Flagged by Analyzer 0 % (0-5); Neutrophil # 3.27 X10^3/uL (2.7-7.7); Neutrophil % 58.7 % (47-70); Platelet Count 329 K/mm3 (150-450); RBC Distribution Width CV 13.1 % (11.6-14.6); RBC Distribution Width SD 44.1 fl (35.1-43.9); Red Blood Count 4.97 M/mm3 (4.2-5.4); White Blood Count 5.6 K/mm3 (4.4-11.0)
[2023-05-28 16:14] LABS: ALB/GLOB Ratio 0.9 RATIO (0.9-2.4); AST(SGOT) 20 U/L (15-37); Alanine Aminotransfer ALT/SGPT 17 U/L (13-56); Albumin, Serum 3.6 g/dL (3.2-5.0); Alkaline Phosphatase 76 U/L (45-117); Anion Gap 5 (5-15); BUN 21 mg/dL (7-18); BUN/Creat Ratio 17.4 RATIO (10-20); Calcium,Total 9.9 mg/dL (8.5-10.1); Chloride 108 mmol/L (98-107); Creatinine, Serum 1.21 mg/dL (0.55-1.02); EST Glomerular Filtration Rate 45 mL/min (>60); Est Glom Filt Rate - Afr Amer 55 mL/min (>60); Globulin 4.1 g/dL (2.2-4.2); Glucose 106 mg/dL (74-106); Potassium 4.1 mmol/L (3.5-5.1); Protein, Total 7.7 g/dL (6.4-8.2); Sodium Level 139 mmol/L (136-145)
== END | disposition home or self-care (01) ==
LOC: BIMLAB 12:11
PROVIDERS: PCP Internal Medicine; Referring Provider Internal Medicine; Visit Provider Internal Medicine
DX: R05.9 Cough, unspecified (principal); I26.92 Saddle embolus of pulmonary artery without acute cor pulmonale
CPT/HCPCS: 36415; 80053; 85025; 87635

== ENCOUNTER → 2023-06-25 | Outpatient (CLI) | payer MEDICARE, SELFPAY | END | disposition home or self-care (01) | LOC: PSN 10:31 | PROVIDERS: PCP Internal Medicine; Referring Provider Internal Medicine Critical Care Medicine; Visit Provider Internal Medicine Critical Care Medicine | DX: I26.92 Saddle embolus of pulmonary artery without acute cor pulmonale (principal) | CPT/HCPCS: 94060; 94726; 94729 ==

== ENCOUNTER → 2023-06-30 | Outpatient (CLI) | payer MEDICARE, SELFPAY ==
[2023-06-30 12:33] VITALS: PULSE 71; PULSE 72; PULSE 82; PULSE 91; PULSE 93; PULSE 94; O2SAT 96; O2SAT 97; O2SAT 98
--- NOTE | 2023-07-01 09:18 | PCM.PSN.6M ---
PSN 6 Minute Walk Test 6 Minute Walk Test 6 Minute Walk Test: 6 Minute Walk Test PSN:6-Minute Walk Test Start: 06/30/23 12:33 Freq: Status: Active Protocol: RESP.6MINW Document 06/30/23 12:33 [email or web address] (Rec: 06/30/23 12:36 WEN [id number]) 6 Minute Walk Test Date Performed 06/30/23 Time Performed 12:30 Height 5 ft 7 in Weight: 78.925 kg Weight in Pounds 174.[address]: Tavon Frias Assistive device used: None Pre-test Oxygen Delivery Method Room Air Pulse Ox 98 Pulse Rate (60-100) 71 Dyspnea Demetrio Scale (0-10) 0 Exertion Demetrio Scale (6-20) 6 1st minute Oxygen Delivery Method Room Air Pulse Ox 97 Pulse Rate (60-100) 82 2nd minute Oxygen Delivery Method Room Air Pulse Ox 96 Pulse Rate (60-100) 91 3rd minute Oxygen Delivery Method Room Air Pulse Ox 97 Pulse Rate (60-100) 93 4th minute Oxygen Delivery Method Room Air Pulse Ox 97 Pulse Rate (60-100) 94 5th minute Oxygen Delivery Method Room Air Pulse Ox 98 Pulse Rate (60-100) 94 6th minute Oxygen Delivery Method Room Air Pulse Ox 97 Pulse Rate (60-100) 94 Dyspnea Demetrio Scale (0-10) 1 Exertion Demetrio Scale (6-20) 11 Post-test Oxygen Delivery Method Room Air Pulse Ox 98 Pulse Rate (60-100) 72 Full Laps Walked 18 Partial Lap, Number of Tiles Walked 20 Total Distance Walked (ft) 1082 Interpretation Interpretation: The patient was able to ambulate 1082 feet over the course of 6 minutes on room air with no assistive devices or breaks. The patient experienced no significant tachycardia or desaturation during testing. These findings are consistent with a normal walking oximetry. Recommendations Recommendations: No supplemental oxygen is indicated at this time.
== END | disposition home or self-care (01) ==
PROVIDERS: PCP Internal Medicine; Referring Provider Internal Medicine Critical Care Medicine; Visit Provider Internal Medicine Critical Care Medicine
DX: I26.92 Saddle embolus of pulmonary artery without acute cor pulmonale (principal)
CPT/HCPCS: 94618

== ENCOUNTER → 2023-11-27 | Outpatient (CLI) | payer MEDICARE, SELFPAY ==
[2023-11-27 12:57] LABS: Cholesterol 171 mg/dL (200); High Density Lipoprotein 77 mg/dL; Triglycerides 171 mg/dL; Very Low Density Lipoprotein 34 mg/dL (5-40)
== END | disposition home or self-care (01) ==
LOC: BIMLAB 09:05
PROVIDERS: PCP Internal Medicine; Referring Provider Internal Medicine; Visit Provider Internal Medicine
DX: E78.2 Mixed hyperlipidemia (principal)
CPT/HCPCS: 36415; 80061

== ENCOUNTER 2024-01-17 14:23 | Observation (INO) | payer MEDICARE, SELFPAY ==
[2024-01-17] VITALS (13 sets, daily range): BP systolic 113–134; BP diastolic 51–110; PULSE 67–94; RESP 16–18; TEMP 36.4–37.1; O2SAT 91–98; BMI 27.6; BMI 27.3
--- NOTE | 2024-01-17 14:57 | CT_ITS ---
STUDY: CT ABDOMEN AND PELVIS WITHOUT CONTRAST REASON FOR EXAM: Female, 83 years old. Pain RLQ RADIATION DOSAGE (If Supplied By Facility): CTDIvol = ( 10.61 ) mGy, DLP = ( 559.32 ) mGycm TECHNIQUE: Transaxial images were obtained from the dome of the diaphragm to the symphysis pubis without oral contrast, and without intravenous contrast. Sagittal and coronal images were reconstructed. Individualized dose optimization techniques were used for this CT. COMPARISON: None. FINDINGS: The visualized lung bases are unremarkable. The visualized portions of the heart are within normal limits. Normal liver. Nonvisualization of the gallbladder. No dilatation of the extrahepatic biliary system. Normal spleen. Normal pancreas. Normal bilateral adrenal glands. Normal right kidney. Normal left kidney. Small hiatal hernia. Normal small intestine. Normal colon. The appendix is is prominent with adjacent mesenteric stranding. Appendicitis is suspected in the proper clinical settings.. Normal abdominal aorta. Normal inferior vena cava. Normal retroperitoneum. Normal urinary bladder. Normal abdominal wall. Normal osseous structures. CT/Abdomen/Pelvis without Cont IMPRESSION: The appendix is is prominent with adjacent mesenteric stranding. Appendicitis is suspected in the proper clinical settings.. Hiatal hernia. Electronically Signed: Сергей Gilliland DO at 17:33 EDT ,
[2024-01-17] MEDS: 0.9% Normal Saline (1000mL) 1,000 ML 125 ML IV (15:08)
[2024-01-17 15:09] LABS: Absolute Lymphocyte Count 1.17 X10^3/uL (0.83-4.51); Absolute Neutrophil Count 3.8 X10^3/uL (2.0-7.7); Basophil# 0.02 X10^3/uL; Basophil% 0.4 % (0-1); Eosinophil# 0.02 X10^3/uL; Eosinophils% 0.4 % (0-5); Hematocrit 39.6 % (37-47); Hemoglobin 12.9 g/dL (12.0-15.0); Lymphocyte # 1.17 X10^3/ul (0.83-4.51); Lymphocyte % 21.1 % (19-41); Mean Corp Hgb Conc 32.6 g/dL (32-36); Mean Corpuscular Hgb 29.6 pg (27.0-32.0); Mean Corpuscular Volume 90.8 fL (81-99); Mean Platelet Vol. 8.9 fl (6.2-12.0); Monocyte# 0.47 X10^3/uL; Monocyte% 8.5 % (0-10); NRBC Flagged by Analyzer 0 % (0-5); Neutrophil # 3.83 X10^3/uL (2.7-7.7); Neutrophil % 68.9 % (47-70); Platelet Count 242 K/mm3 (150-450); RBC Distribution Width CV 12.9 % (11.6-14.6); RBC Distribution Width SD 42.5 fl (35.1-43.9); Red Blood Count 4.36 M/mm3 (4.2-5.4); White Blood Count 5.6 K/mm3 (4.4-11.0)
[2024-01-17 15:20] LABS: Bacteria 0 SEEN /hpf (None Seen); Mucous, Urine 0 SEEN /hpf (<or=2+); Red Blood Cells-Urine 0 SEEN /hpf (0-5); Squamous Epithelial Cells - UA 0 SEEN /hpf (5-10)
[2024-01-17 15:23] LABS: Color, Urine Yellow (Yellow); Glucose, Dipstick Normal (Normal); Ketone-Dipstick 5 mg/dl (Negative); Leukocyte Esterase-Dipstick 100 /ul (Negative); Nitrite-Dipstick Negative (Negative); Occult Blood-Urine Negative /ul (Negative); Protein-Dipstick 30 mg/dl (Negative); Specific Gravity, Urine 1.015 (1.002-1.030); Urine Bilirubin Dipstick Negative (Negative); Urine Clarity Clear (Clear); Urine Urobilinogen 1 mg/dl (Normal); Urine pH 6.5 (5.0 - 8.0)
--- NOTE | 2024-01-17 15:41 | ED.VIS.GI ---
HPI HPI - GI History of Present Illness Chief Complaint: Abd Pain Informant: patient Narrative Narrative: Patient with right mid and lower quadrant abdominal pain that started fairly abruptly yesterday and has been persistent ever since. No nausea or vomiting but it has made her have a poor appetite. Normal urination, normal bowel movements no blood or melena. She states she had this pain about a month ago but it went away on its own and it was lower than it is now. Had a history of a partial colectomy no other abdominal surgeries. 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 Home Medications ?Medication ?Instructions ?Recorded ?Last Taken ?Type aspirin 81 mg tablet,delayed 81 mg PO QHS HEART HEALTH 09/09/13 Unknown History release lansoprazole 30 mg capsule,delayed 15 mg PO DAILY REFLUX 09/09/13 10/31/17 05:30 History release Lactobacillus 25 billion 1 cap PO QHS Diverticulitis 11/01/21 Unknown History cell-Bifido 25 billion [id number] capsule (Women's Probiotic) folic acid 400 mcg tablet 0.4 mg PO DAILY supplement 11/01/21 Unknown History latanoprost 0.005 % eye drops 1 drp ophthalmic (eye) QPM eye 05/08/22 Unknown History health ipratropium bromide 21 mcg (0.03 See Rx Instructions .Route 12/24/22 Unknown Rx %) nasal spray .COMPLEX #30 mL blood sugar diagnostic (Accu-Chek #100 ea 03/05/23 Unknown Rx Arlene Plus test strips) blood-glucose meter #1 ea 03/05/23 Unknown Rx lancets (Accu-Chek Softclix #100 ea 03/05/23 Unknown Rx Lancets) evolocumab 140 mg/mL subcutaneous 140 mg subcut Q2W cholesterol 90 09/14/23 Unknown Rx pen injector (Repatha Roxy) days #7 mL diltiazem HCl 120 mg 120 mg PO DAILY ESOPHAGUS #90 caps 11/11/23 Unknown Rx capsule,extended release 24 hr apixaban 5 mg tablet (Eliquis) 5 mg PO BID 3 months #180 tabs 12/23/23 Unknown Rx Allergy/AdvReac Type Severity Reaction Status Date / Time doxycycline Allergy Severe Anaphylaxis Verified 01/17/24 14:24 cephalexin Allergy Mild PT UNSURE Verified 01/17/24 14:24 OF REACTION bacitracin Allergy Hives Verified 01/17/24 14:24 clarithromycin Allergy Hives Verified 01/17/24 14:24 gemfibrozil Allergy Unknown Verified 01/17/24 14:24 Iodinated Contrast Media Allergy Rash Verified 01/17/24 14:24 (CONTRASTS) iodine Allergy Hives Verified 01/17/24 14:24 levofloxacin Allergy HIVES/ RASH Verified 01/17/24 14:24 Macrolide Antibiotics Allergy Unknown Verified 01/17/24 14:24 Penicillins Allergy Laryngospas Verified 01/17/24 14:24 ms polymyxin B Allergy PT UNSURE Verified 01/17/24 14:24 OF REACTION sulfamethoxazole (From Allergy Swelling Verified 01/17/24 14:24 Bactrim) trimethoprim (From Bactrim) Allergy Swelling Verified 01/17/24 14:24 codeine AdvReac Vomiting Verified 01/17/24 14:24 meperidine HCl (From Demerol) AdvReac Vomiting Verified 01/17/24 14:24 morphine AdvReac Vomiting Verified 01/17/24 14:24 Family History Mother Cancer lung CAD (coronary artery disease) Diabetes Hypertension Thyroid disorder Hyperlipidemia Brother Cancer Diabetes Melanoma Depressed Father Colon cancer Aunt Breast cancer Daughter Thyroid disorder Surgical History S/P bilateral mastectomy S/P colectomy S/P bunionectomy S/P cholecystectomy Social History household members: significant other current occupational status: retired current occupation: worked at the [employer] Smoking Status: Never smoker Electronic Cigarette Use: not used alcohol intake: former details: was never heavy drinker substance use type: does not use do you feel safe at home: Yes ROS ROS ED Constitutional Constitutional ED: Denies chills or fever(s) Eyes Eyes: Denies change in vision or diplopia ENT ENT ED: Denies rhinorrhea or sore throat Cardiovascular Cardiovascular: Denies chest pain or palpitations Respiratory/Chest Respiratory/Chest: Denies cough or dyspnea Gastrointestinal Gastrointestinal: Reports abdominal pain; Denies diarrhea, melena, nausea or vomiting Genitourinary Genitourinary ED: Denies dysuria, hematuria or urinary frequency Musculoskeletal Musculoskeletal: Denies back pain or neck pain Integumentary Denies abscess or rash Neurologic Neurologic: Denies headache(s), paresthesias or weakness Psychiatric Psychiatric: Denies anxiety or suicidal thoughts EXAM Physical Exam Const Vital Signs: 01/17/24 14:24 01/17/24 16:23 Temperature 98.8 F 97.5 F L Temperature Source Oral Oral Pulse Rate 75 94 Respiratory Rate 16 18 Blood Pressure 114/68 126/63 H Blood Pressure Mean 83 84 Pulse Ox 94 98 Oxygen Delivery Method Room Air Room Air Positive well nourished and well developed General Appearance ED: well developed and NAD HEENT Reports moist mucous membranes normocephalic and atraumatic Eyes PERRL and EOMs intact bilaterally Neck full ROM and supple Resp normal respiratory effort and clear to auscultation bilaterally Cardio regular rate, regular rhythm and no murmurs GI non-distended GI Narrative: Tender right mid and lower abdomen no guarding or rebound. Negative Marin's. Auscultation: normoactive bowel sounds Palpation: soft Back/Spine no CVA tenderness General Back: other FROM Extremity normal to inspection General Extremety ED: Negative for edema, pulses abnormal or tenderness General Extremity: Negative for edema or pulses abnormal Neuro oriented x3, CN's II-XII intact bilaterally and no sensory deficits noted Sensorium / Orientation: awake and alert Motor Exam: strength 5/5 throughout Skin no rashes or lesions noted and no wounds MDM MDM MDM Narrative Medical decision making narrative: Labs and CT obtained, differential includes appendicitis, kidney stone, less likely cholecystitis, but if she has a low hanging gallbladder that may be in the differential as well. She does not have a leukocytosis, her liver enzymes are within normal limits no hyperbilirubinemia, and I reviewed the CT imaging as well as report which I agree with. Shows some stranding around the appendix, suspected appendicitis as the etiology. Discussed with Dr. Layne who is in agreement, she recommend surgery although the patient the last took her Eliquis this morning, she still recommend surgery although I discussed with the patient and surgery the option of just treating with antibiotics. The patient understands the risk of recurrence of appendicitis and prefers to go with the surgeons recommendation for operative management. I discussed with pharmacy for appropriate antibiotic treatment since she has so many antibiotic allergies, and the pharmacist agreed that giving her 1 g of meropenem would be the most appropriate empiric antibiotic to give her with minimizing the likelihood for reaction. Lab Data Attestation: I reviewed the patient's lab results. Labs: Laboratory Results - last 24 hr 01/17/24 01/17/24 14:37 15:02 WBC 5.6 RBC 4.36 Hgb 12.9 Hct 39.6 MCV 90.8 MCH 29.6 MCHC 32.6 RDW Std Deviation 42.5 RDW Coeff of Anahi 12.9 Plt Count 242 MPV 8.9 Immature Gran % (Auto) 0.700 Neut % (Auto) 68.9 Lymph % (Auto) 21.1 [place] % (Auto) 8.5 Eos % (Auto) 0.4 Baso % (Auto) 0.4 Absolute Neuts (auto) 3.8 Absolute Lymphs (auto) 1.17 Nucleated RBC % 0 Sodium 138 Potassium 4.0 Chloride 108 H Carbon Dioxide 23.0 Anion Gap 7 BUN 16 Creatinine 1.31 H Estim Creat Clear Calc 34.79 Est GFR (MDRD) Af Amer 50 L Est GFR (MDRD) Non-Af 41 L BUN/Creatinine Ratio 12.2 Glucose 143 H Calcium 9.3 Total Bilirubin 0.80 AST 22 ALT 15 Alkaline Phosphatase 78 Total Protein 6.9 Albumin 3.2 Globulin 3.7 Albumin/Globulin Ratio 0.9 Urine Color Yellow Urine Clarity Clear Urine pH 6.5 Ur Specific [place] 1.015 Urine Protein 30 H Urine Glucose (UA) Normal Urine Ketones 5 H Urine Occult Blood Negative Urine Nitrite Negative Urine Bilirubin Negative Urine Urobilinogen 1 H Ur Leukocyte Esterase 100 H Urine RBC 0 SEEN Urine WBC 0-5 SEEN Ur Squamous Epith Cells 0 SEEN Urine Bacteria 0 SEEN Urine Mucus 0 SEEN Radiography Diagnostic Testing: Clinical Impression(s) from Imaging Studies Abdomen/Pelvis CT 01/17/24 14:57 IMPRESSION: The appendix is is prominent with adjacent mesenteric stranding. Appendicitis is suspected in the proper clinical settings.. Hiatal hernia. Electronically Signed: Сергей DO Talat at 17:33 EDT Reading Location ID and State: [facility] / [place] Tel [phone], Service support , Management Discussion w/another healthcare provider: Human Resources Manager (surgery) and Pharmacist Critical Care Time Critical Care Time: Yes Critical care time (excluding procedures): 30-74 minutes (32 min), Including time spent:, Discussing w/Patient &/or Family/Marketing Operations Manager, Discussing w/Consultants, Arranging Admission or Transfer and Performing Direct Patient Care at Bedside Discharge Plan Triage Chief Complaint: Abd Pain ED Provider: Rico Rios Dx/Rx/DC Orders Clinical Impression: Acute appendicitis Prescriptions: No Action Women's Probiotic 25B cell-25B cell-50 mg capsule 1 cap PO QHS folic acid 400 mcg tablet 0.4 mg PO DAILY latanoprost 0.005 % drops 1 drp ophthalmic (eye) QPM (DME) blood-glucose meter Misc See Rx Instructions .Route Qty: 1 0RF Rx Instructions: daily (DME) Accu-Chek Arlene Plus test strp Strip See Rx Instructions .Route Qty: 100 0RF Rx Instructions: daily (DME) lancets [Accu-Chek Softclix Lancets] Misc See Rx Instructions .Route Qty: 100 0RF Rx Instructions: daily aspirin 81 MG tablet 81 mg PO QHS Patient Comments: blood thinner lansoprazole 30 MG capsule 15 mg PO DAILY Patient Comments: acid reflux ipratropium bromide 21 mcg (0.03 %) spray,non-aerosol See Rx Instructions .ROUTE .COMPLEX Qty: 30 3RF Dose Instruction: SPRAY TWO SPRAYS INTO EACH NOSTRIL TWO TO THREE TIMES DAILY NEEDED FOR ALLERGY SYMPTOMS Rx Instructions: SPRAY TWO SPRAYS INTO EACH NOSTRIL TWO TO THREE TIMES DAILY NEEDED FOR ALLERGY SYMPTOMS Repatha SureClick 140 mg/mL pen injector 140 mg subcut Q2W 90 Days Qty: 7 1RF diltiazem HCl 120 mg capsule,extended release 24hr 120 mg PO DAILY Qty: 90 1RF Eliquis 5 mg tablet 5 mg PO BID 90 Days Qty: 180 0RF Primary Care Provider: Johanny Singletary Referrals: Johanny Singletary MD [Primary Care Provider] - Print Language: Persian Disposition Disposition: Acute Care Hospital [facility]
[2024-01-17 15:46] LABS: ALB/GLOB Ratio 0.9 RATIO (0.9-2.4); AST(SGOT) 22 U/L (15-37); Alanine Aminotransfer ALT/SGPT 15 U/L (13-56); Albumin, Serum 3.2 g/dL (3.2-5.0); Alkaline Phosphatase 78 U/L (45-117); Anion Gap 7 (5-15); BUN 16 mg/dL (7-18); BUN/Creat Ratio 12.2 RATIO (10-20); Calcium,Total 9.3 mg/dL (8.5-10.1); Chloride 108 mmol/L (98-107); Creatinine, Serum 1.31 mg/dL (0.55-1.02); EST Glomerular Filtration Rate 41 mL/min (>60); Est Glom Filt Rate - Afr Amer 50 mL/min (>60); Estimated Creatinine Clearance 34.79 ml/min; Globulin 3.7 g/dL (2.2-4.2); Glucose 143 mg/dL (74-106); Protein, Total 6.9 g/dL (6.4-8.2); Sodium Level 138 mmol/L (136-145)
[2024-01-17 15:55] LABS: White Blood Cells 0-5 SEEN /hpf (0-5)
--- NOTE | 2024-01-17 17:49 | NURSING ---
MED SURG ROBOTHAM APPENDICITIS
[2024-01-17] MEDS: Meropenem 1 GM in 0.9% Normal Saline (100mL MB+) 100 ML IV (18:03)
--- NOTE | 2024-01-17 18:36 | PCM.HP.STD ---
HPI - General General Date of Admission: 01/17/24 HPI Narrative MADIHA NEGRON, is a 83 F who presents to the ER due to right lower quadrant pain started last night has been constant still. Patient has decreased appetite denies any nausea or vomiting. Patient states she had episode 2 weeks ago last about 3 days. Patient is on Eliquis due to saddle PE in March 2023 patient states she has not a couple weeks of the Eliquis before she is able to come off. Patient CT abdomen pelvis called appendicitis with stranding around the appendix. Patient had normal white blood count no shift. Patient did receive meropenem in the ER due to multiple antibiotic allergies. Patient did take her Eliquis this morning she is aware she is at low increased risk of bleeding due to this. 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 Home Medications ?Medication ?Instructions ?Recorded ?Last Taken ?Type aspirin 81 mg tablet,delayed 81 mg PO QHS HEART HEALTH 09/09/13 Unknown History release lansoprazole 30 mg capsule,delayed 30 mg PO DAILY REFLUX 09/09/13 10/31/17 05:30 History release Lactobacillus 25 billion 1 cap PO QHS Diverticulitis 11/01/21 Unknown History cell-Bifido 25 billion [id number] capsule (Women's Probiotic) folic acid 400 mcg tablet 0.4 mg PO DAILY supplement 11/01/21 Unknown History latanoprost 0.005 % eye drops 1 drp ophthalmic (eye) QPM eye 05/08/22 Unknown History health ipratropium bromide 21 mcg (0.03 See Rx Instructions .Route 12/24/22 Unknown Rx %) nasal spray .COMPLEX #30 mL blood sugar diagnostic (Accu-Chek #100 ea 03/05/23 Unknown Rx Arlene Plus test strips) blood-glucose meter #1 ea 03/05/23 Unknown Rx lancets (Accu-Chek Softclix #100 ea 03/05/23 Unknown Rx Lancets) evolocumab 140 mg/mL subcutaneous 140 mg subcut Q2W cholesterol 90 09/14/23 Unknown Rx pen injector (Cedric Ramsey) days #7 mL diltiazem HCl 120 mg 120 mg PO DAILY ESOPHAGUS #90 caps 11/11/23 Unknown Rx capsule,extended release 24 hr apixaban 5 mg tablet (Eliquis) 5 mg PO BID 3 months #180 tabs 12/23/23 Unknown Rx tamsulosin 0.4 mg capsule 0.4 mg PO DAILY 01/17/24 Unknown History Allergy/AdvReac Type Severity Reaction Status Date / Time doxycycline Allergy Severe Anaphylaxis Verified 01/17/24 14:24 cephalexin Allergy Mild PT UNSURE Verified 01/17/24 14:24 OF REACTION bacitracin Allergy Hives Verified 01/17/24 14:24 clarithromycin Allergy Hives Verified 01/17/24 14:24 gemfibrozil Allergy Unknown Verified 01/17/24 14:24 Iodinated Contrast Media Allergy Rash Verified 01/17/24 14:24 (CONTRASTS) iodine Allergy Hives Verified 01/17/24 14:24 levofloxacin Allergy HIVES/ RASH Verified 01/17/24 14:24 Macrolide Antibiotics Allergy Unknown Verified 01/17/24 14:24 Penicillins Allergy Laryngospas Verified 01/17/24 14:24 ms polymyxin B Allergy PT UNSURE Verified 01/17/24 14:24 OF REACTION sulfamethoxazole (From Allergy Swelling Verified 01/17/24 14:24 Bactrim) trimethoprim (From Bactrim) Allergy Swelling Verified 01/17/24 14:24 codeine AdvReac Vomiting Verified 01/17/24 14:24 meperidine HCl (From Demerol) AdvReac Vomiting Verified 01/17/24 14:24 morphine AdvReac Vomiting Verified 01/17/24 14:24 Family History Mother Cancer lung CAD (coronary artery disease) Diabetes Hypertension Thyroid disorder Hyperlipidemia Brother Cancer Diabetes Melanoma Depressed Father Colon cancer Aunt Breast cancer Daughter Thyroid disorder Surgical History S/P bilateral mastectomy S/P colectomy S/P bunionectomy S/P cholecystectomy Social History household members: significant other current occupational status: retired current occupation: worked at the [employer] Smoking Status: Never smoker Electronic Cigarette Use: not used alcohol intake: former details: was never heavy drinker substance use type: does not use do you feel safe at home: Yes Vital Signs Vital Signs Vital Signs: 01/17/24 14:24 01/17/24 16:23 01/17/24 18:00 Temperature 98.8 F 97.5 F L 98.2 F Temperature Source Oral Oral Oral Pulse Rate 75 94 67 Respiratory Rate 16 18 16 Blood Pressure 114/68 126/63 H 120/108 H Blood Pressure Mean 83 84 112 Blood Pressure Source Monitor Blood Pressure Position Semi-Fowlers Blood Pressure Location Right Arm Pulse Ox 94 98 97 Oxygen Delivery Method Room Air Room Air Room Air 01/17/24 18:00 01/17/24 18:14 Temperature 98.2 F 98.2 F Temperature Source Oral Pulse Rate 67 67 Respiratory Rate 16 16 Blood Pressure 120/108 H 120/108 H Blood Pressure Mean 112 112 Blood Pressure Source Blood Pressure Position Blood Pressure Location Pulse Ox 96 96 Oxygen Delivery Method Room Air Weight Weight: 176 lb 3.2 oz Body Mass Index (BMI) 27.6 Physical Exam Const alert, oriented x3 and no apparent distress HEENT normocephalic and head/scalp atraumatic Resp normal respiratory effort Cardio regular rate GI soft to palpation; Negative for non-distended Palpation: tender RLQ; Negative for guarding Extremity no clubbing, cyanosis or edema Neuro CN's II-XII intact bilaterally Psych mental status grossly normal Results Lab / Micro Data 01/17/24 15:02 01/17/24 15:02 Labs: Laboratory Results - last 24 hr 01/17/24 14:37: Urine Color Yellow, Urine Clarity Clear, Urine pH 6.5, Ur Specific [place] 1.015, Urine Protein 30 H, Urine Glucose (UA) Normal, Urine Ketones 5 H, Urine Occult Blood Negative, Urine Nitrite Negative, Urine Bilirubin Negative, Urine Urobilinogen 1 H, Ur Leukocyte Esterase 100 H, Urine RBC 0 SEEN, Urine WBC 0-5 SEEN, Ur Squamous Epith Cells 0 SEEN, Urine Bacteria 0 SEEN, Urine Mucus 0 SEEN 01/17/24 15:02: WBC 5.6, RBC 4.36, Hgb 12.9, Hct 39.6, MCV 90.8, MCH 29.6, MCHC 32.6, RDW Std Deviation 42.5, RDW Coeff of Anahi 12.9, Plt Count 242, MPV 8.9, Immature Gran % (Auto) 0.700, Neut % (Auto) 68.9, Lymph % (Auto) 21.1, [place] % (Auto) 8.5, Eos % (Auto) 0.4, Baso % (Auto) 0.4, Absolute Neuts (auto) 3.8, Absolute Lymphs (auto) 1.17, Nucleated RBC % 0, Sodium 138, Potassium 4.0, Chloride 108 H, Carbon Dioxide 23.0, Anion Gap 7, BUN 16, Creatinine 1.31 H, Estim Creat Clear Calc 34.79, Est GFR (MDRD) Af Amer 50 L, Est GFR (MDRD) Non-Af 41 L, BUN/Creatinine Ratio 12.2, Glucose 143 H, Calcium 9.3, Total Bilirubin 0.80, AST 22, ALT 15, Alkaline Phosphatase 78, Total Protein 6.9, Albumin 3.2, Globulin 3.7, Albumin/Globulin Ratio 0.9 Imaging Radiology Impression Abdomen/Pelvis CT 01/17/24 14:57 IMPRESSION: The appendix is is prominent with adjacent mesenteric stranding. Appendicitis is suspected in the proper clinical settings.. Hiatal hernia. Electronically Signed: Сергей Gilliland DO at 17:33 EDT Reading Location ID and State: [address] [place] [address] Tel [phone], Service support , Assessment & Plan Assessment/Plan (1) Acute appendicitis: (2) senior living current use of anticoagulant: PLAN: Plan 1. Discussed procedure laparoscopic appendectomy, possible open along with the risk but not limited to bleeding which is increased with the Eliquis., infection/abscess, injury to another organ (small bowel, colon, etc.), adhesion, hernia at incision sites, and anesthesia. Patient and her no further question this time. Alicia Layne M.D. Pager: [phone] [facility] [address] [place] [address], [address] [place] [address] Office: [phone]
--- NOTE | 2024-01-17 18:45 | PRE.ANES_ITS ---
ASA Classification* ASA Classification ASA Classification: 3 and E Assessment & Plan Anesthesia* Anesthesia Assessment Anesthesia Assessment: Discussed sedation and/or anesthesia options, risks, benefits, and alternatives with patient/parents/legal guardian/POA. Questions invited. The patient/parents/legal guardian/POA seems to understand and agrees to proceed with anesthesia plan. Reviewed the physical assessment, medical history, allergy history and patient home medications list prior to surgery/procedure/anesthetic and documented any changes. Performed airway and anesthesia risk assessments. Anesthesia Type Anesthesia Type: General (RSI) Anesthesia Focused Assessment* Temperature: 98.2 F Pulse Rate: 67 Blood Pressure: 120/108 Respiratory Rate: 16 Pulse Ox: 96 Airway Assessment Mouth opens: >3 cm Mallampati Score: II Focused Labs Anesthesia Preop lab: CBC WBC 5.6 K/mm3 (4.4-11.0) 01/17/24 15:02 RBC 4.36 M/mm3 (4.2-5.4) 01/17/24 15:02 Hgb 12.9 g/dL (12.0-15.0) 01/17/24 15:02 Hct 39.6 % (37-47) 01/17/24 15:02 Plt Count 242 K/mm3 (150-450) 01/17/24 15:02 CHEMISTRY Potassium 4.0 mmol/L (3.5-5.1) 01/17/24 15:02 Sodium 138 mmol/L (136-145) 01/17/24 15:02 BUN 16 mg/dL (7-18) 01/17/24 15:02 Creatinine 1.31 mg/dL (0.55-1.02) H 01/17/24 15:02 Glucose 143 mg/dL (74-106) H 01/17/24 15:02 POC Glucose 156 mg/dL (74-106) H 03/14/23 16:02 TSH 2.56 uIU/mL (0.358-3.74) 02/17/23 14:10 COAG PT 15.5 SECONDS (11.7-14.9) H 12/08/23 11:06 Pre-Assessment Diagnosis/Proposed Procedure Planned Operative Procedure(s): laproscopic appendectomy Anesthesia History Anesthesia History - rib stiffener and heel dipper: Anesthesia History - rib stiffener and heel dipper Hx Hospitalization Yes 05/26/23 13:24 Any Problems With Anesthesia No 01/17/24 18:00 Cholinesterase deficiency No 05/26/23 13:24 You/Your Family Experience No 05/26/23 13:24 fever (hyperthermia) with Relationship Recent Exposure to Contagious No 05/26/23 13:24 Disease Does patient have nerve No 01/17/24 18:00 stimulator Patient instructed to have device shut off --Does patient have Pacemaker or ICD? When Was Last Pacemaker Check QUESTION #4 FULL TEXT: You/Your Family Experience fever (hyperthermia) with Anesthesia Last Oral Intake Last Oral intake: Last Oral Intake NPO since 13:30 01/17/24 18:00 Meds taken in AM with sips of water? Meds patient instructed to take am of surgery PONV PONV - rib stiffener and heel dipper: PONV - rib stiffener and heel dipper Female HX of Motion Sickness HX of N/V After Surgery Non-Smoker Duration of Surgery greater than 60 minutes Number of Risk Factors PONV Score Height & Weight Height & Weight: Anesthesia: Height & Weight Height 5 ft 7 in 01/17/24 18:00 Weight: 79.923 kg 01/17/24 18:00 Body Mass Index (BMI) 27.6 01/17/24 18:00 Respiratory Assessment Respiratory Assessment - rib stiffener and heel dipper: Respiratory Tract Infection Hx - rib stiffener and heel dipper Hx Respiratory Tract Infection No 05/26/23 13:24 STOP Sleep Apnea STOP Sleep Apnea - rib stiffener and heel dipper: STOP Sleep Apnea - rib stiffener and heel dipper Hx Hypertension No 01/17/24 18:00 Hx Sleep Apnea No 01/17/24 18:00 CPAP No 05/26/23 13:24 BIPAP No 05/26/23 13:24 Do you snore loudly (louder No 01/17/24 18:00 than talking or can be heard Do you often feel tired/ No 01/17/24 18:00 fatigued/ sleepy during daytime? Has anyone observed you stop No 01/17/24 18:00 breathing during sleep? STOP Results Negative 01/17/24 18:00 QUESTION #5 FULL TEXT : Do you snore loudly (louder than talking or can be heard through closed doors)? Tobacco Use History Tobacco Use History - rib stiffener and heel dipper: Tobacco Use History - rib stiffener and heel dipper Tobacco Use Smoking Status Never smoker 01/17/24 14:56 Hx Tobacco Use No 05/26/23 13:24 Years Smoking Packs Smoked per Day Smoking Cessation Date was within the last 15 years Hx Smoking Cessation Date Hx Smoking Cessation Counseling Hematologic Medial History Hematologic Hx - rib stiffener and heel dipper: Hematologic Medical Hx - machine set up Hx of Blood Transfusion Hx of Transfusion in last 3 Months Date of Last Transfusion (if within last 3 months) Ever experience any problems with transfusion(s)? Specify any problems Hx of Preganancy in last 3 Months Nurse Filling Out Transfusion & Questions: Date: Time: Patient unable to answer at this time (ie. confused, unrespo /Reproduction History /Reproductive History - rib stiffener and heel dipper: /Reproductive Hx- rib stiffener and heel dipper Hx Now Gestational Age (in weeks): EDC: Hx Hx Para Hx Section SAB Active Medications Active Medications: Current Medications Generic Name Dose Route Start Last Admin Trade Name Freq PRN Reason Stop Dose Admin Sodium Chloride 1,000 mls @ 125 mls/hr 01/17/24 15:00 01/17/24 15:08 IV 125 mls/hr .Q8H JOSE Administration PFSH Medical History Elevated troponin Osteoarthritis of left knee Left knee pain Diverticulitis Skin cancer Pneumonia Hives High cholesterol Migraines Gastrointestinal problem Gallstones Cataracts, bilateral Breast cancer Breast lump in female 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) Seasonal allergies CAD (coronary artery disease) Hx of malignant melanoma Diabetes Reflux esophagitis 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 Home Medications ?Medication ?Instructions ?Recorded ?Last Taken ?Type aspirin 81 mg tablet,delayed 81 mg PO QHS HEART HEALTH 09/09/13 Unknown History release lansoprazole 30 mg capsule,delayed 30 mg PO DAILY REFLUX 09/09/13 10/31/17 05:30 History release Lactobacillus 25 billion 1 cap PO QHS Diverticulitis 11/01/21 Unknown History cell-Bifido 25 billion [id number] capsule (Women's Probiotic) folic acid 400 mcg tablet 0.4 mg PO DAILY supplement 11/01/21 Unknown History latanoprost 0.005 % eye drops 1 drp ophthalmic (eye) QPM eye 05/08/22 Unknown History health ipratropium bromide 21 mcg (0.03 See Rx Instructions .Route 12/24/22 Unknown Rx %) nasal spray .COMPLEX #30 mL blood sugar diagnostic (Accu-Chek #100 ea 03/05/23 Unknown Rx Arlene Plus test strips) blood-glucose meter #1 ea 03/05/23 Unknown Rx lancets (Accu-Chek Softclix #100 ea 03/05/23 Unknown Rx Lancets) evolocumab 140 mg/mL subcutaneous 140 mg subcut Q2W cholesterol 90 09/14/23 Unknown Rx pen injector (Repatha SureClick) days #7 mL diltiazem HCl 120 mg 120 mg PO DAILY ESOPHAGUS #90 caps 11/11/23 Unknown Rx capsule,extended release 24 hr apixaban 5 mg tablet (Eliquis) 5 mg PO BID 3 months #180 tabs 12/23/23 Unknown Rx tamsulosin 0.4 mg capsule 0.4 mg PO DAILY 01/17/24 Unknown History Allergy/AdvReac Type Severity Reaction Status Date / Time doxycycline Allergy Severe Anaphylaxis Verified 01/17/24 14:24 cephalexin Allergy Mild PT UNSURE Verified 01/17/24 14:24 OF REACTION bacitracin Allergy Hives Verified 01/17/24 14:24 clarithromycin Allergy Hives Verified 01/17/24 14:24 gemfibrozil Allergy Unknown Verified 01/17/24 14:24 Iodinated Contrast Media Allergy Rash Verified 01/17/24 14:24 (CONTRASTS) iodine Allergy Hives Verified 01/17/24 14:24 levofloxacin Allergy HIVES/ RASH Verified 01/17/24 14:24 Macrolide Antibiotics Allergy Unknown Verified 01/17/24 14:24 Penicillins Allergy Laryngospas Verified 01/17/24 14:24 ms polymyxin B Allergy PT UNSURE Verified 01/17/24 14:24 OF REACTION sulfamethoxazole (From Allergy Swelling Verified 01/17/24 14:24 Bactrim) trimethoprim (From Bactrim) Allergy Swelling Verified 01/17/24 14:24 codeine AdvReac Vomiting Verified 01/17/24 14:24 meperidine HCl (From Demerol) AdvReac Vomiting Verified 01/17/24 14:24 morphine AdvReac Vomiting Verified 01/17/24 14:24 Family History Mother Cancer lung CAD (coronary artery disease) Diabetes Hypertension Thyroid disorder Hyperlipidemia Brother Cancer Diabetes Melanoma Depressed Father Colon cancer Aunt Breast cancer Daughter Thyroid disorder Surgical History S/P bilateral mastectomy S/P colectomy S/P bunionectomy S/P cholecystectomy Social History household members: significant other current occupational status: retired current occupation: worked at the [employer] Smoking Status: Never smoker Electronic Cigarette Use: not used alcohol intake: former details: was never heavy drinker substance use type: does not use do you feel safe at home: Yes Review of Systems (Anesthesia) ROS Narrative System reviewed and no additional complaints, except as documented.
--- NOTE | 2024-01-17 19:20 | APP_PTH ---
PATIENT: MADIHA NEGRON LOC: [facility]3 U#:[id number] AGE/SX: 83/F ROOM: [facility]311 RE01/17/[address]: Dr. Alicia Layne MD : 1940 BED: 1 DIS: 01/17/2024 SPEC #: [id number] RECD: 01/19/24 07:13 STATUS: MEREDITH SANTIAGO #: [id number] YEIMI: 01/17/24 19:[address]: Alicia Layne DEPT: SURGICAL PATHOLOGY RECD BY: Doreen Francois ENTERED: 01/19/24 10:30 SP TYPE: APPENDIX OTHR DR: Dr. Johanny Singletary MD Tissues: Appendix, NOS Procedures: Surgery Specimen Level III HEADER OPERATION: Laparoscopic appendectomy PRE-OP DIAGNOSIS: Acute appendicitis TISSUE SUBMITTED: Appendix MICROSCOPIC DIAGNOSIS Appendix, appendectomy: Acute necrotizing appendicitis. Acute serositis. AM. 01/20/2024 MICROSCOPIC DESCRIPTION Slides are reviewed. GROSS DESCRIPTION Received in fixative is one container labeled with the patient's name and designated appendix. The specimen consists of an appendix measuring 5.5 cm in length and up to 1.0 cm in diameter. The attached periappendiceal adipose tissue measures up to 2.0 cm in width. The serosa is congested. No obvious perforation is identified. The lumen is filled with fecal material. No fecalith is identified. Addressograph Operator sections are submitted in one cassette. / SJ:mr 01/19/2024 TC: TC:2 CPT: 65476
[2024-01-17] MEDS: Bupiv/Epi 0.25% 30 ML Vial (19:40)
--- NOTE | 2024-01-17 19:46 | PCM.OPRPT ---
Report of Operation Date of Procedure: 01/17/24 Pre-Operative Diagnosis: Acute appendicitis Post-Operative Diagnosis: Same Surgery/Procedure Performed:: Laparoscopic appendectomy Surgeon: Alicia Layne Type of Anesthesia: General/Supplemental Anesthesiologist: Dax Maxwell Special Medications: Meropenem 1 g IV in the ER for acute appendicitis x 1 Specimen's removed: Appendix Estimated Blood Loss (mL): 20 cc Description of Procedure: Indications: 83-year-old female male presented to the ER with new right lower quadrant pain last night. On workup she was found to have acute appendicitis on CT and a leukocytosis of 5.6. Patient was started on antibiotics in the ER for acute appendicitis-meropenem 1 g IV due to multiple antibiotic allergies for acute appendicitis. Description of the procedure: The patient was placed on operating table in supine position. General anesthesia was induced. A timeout was completed verifying correct patient, procedure, position and special equipment prior to beginning procedure. Abdomen was prepped and draped in usual sterile fashion. Incision was made in the natural skin line below the umbilicus with a 15 blade scalpel. The fascia was elevated and incised. Entry into the peritoneum was confirmed visually and no bowel was noted in the vicinity of the incision. The Galdamez trocar was placed under direct vision. Abdomen insufflated with a pressure of 12-15 mmHg. Patient tolerated insertion well. The scope was inserted and the abdomen inspected. No injuries from initial trocar placement were noted. There is noted to be adhesion in the inferior midline. An direct visualization 2 -5 mm trocars were placed one above the symphysis pubis and below the hairline and one in the right mid quadrant lateral to the rectus muscle. Care is taken to avoid injury to the bladder and inferior epigastric vessels. The table was placed in Trendelenburg position with the right side elevated. The appendix was grasped with atraumatic grasper and elevated. It was noted to be inflamed. A window was developed in the mesoappendix at the point between the base of the appendix and the cecum. An endoscopic 45 mm linear cutting stapler blue load was then used to divide and staple the base of the appendix. Enseal was used to divide the mesoappendix The appendix was withdrawn into the Galdamez trocar after being placed endoscopically retrieval bag. Appendix was sent to pathology. The appendiceal stump was then irrigated and hemostasis was assured. Fluid was suctioned no other pathology was identified. Secondary trochars were removed under direct visualization. No bleeding was noted trocar sites. The laparoscope withdrawn and the umbilical trocar removed. The abdomen was allowed to collapse. Local anesthesia of 20 mL of 0.25% Marcaine was used at the incision sites. The umbilical trocar site was closed with the [id number] 0 Vicryl suture. The skin was closed using sutures of 4-0 Monocryl and Steri-Strips. The patient was extubated. The patient tolerated the procedure well and was taken to the postanesthesia care unit in satisfactory condition. Complications none
--- NOTE | 2024-01-17 19:49 | DCINST_ITS ---
Discharge Instructions Diet Discharge Diet: Light diet - advance as tolerated Activity Discharge Activity: May Not Drive (while taking narcotic pain medications.) May shower in (days): 1 Lifting Restrictions: no lifting >20 lbs x 2 wks, no strenuous exercise for 4 wks Dressing / Incision Call your doctor if your incision/area has: Continuous Slow Oozing, Sudden Increased Bleeding, Increased Pain/ Swelling, Increased Redness, Foul Smelling Discharge and Swelling at the incision site Call your doctor if you observe: Fever of 101 or Higher Remove Dressing in: 2 days Cleanse incision/area with: Soap & Water Additional Dressing/Incision Instructions:: Steri-Strips will fall off in 7 to 10 days, if they do not fall off okay to remove after 10 days. Follow Up Care Please Follow Up With: Alicia Layne MD When: Call the office for a follow-up appointment 2 weeks; after 5 PM and on the weekends call [phone] with any concerns. Test Results: Test results from this visit will be discussed in further detail at your follow- up appointment, if applicable. Discharge Plan Admission Admit Date/Time: 01/17/24 18:40 Attending Provider: Alicia Layne Primary Care Provider: Johanny Singletary Discharge Orders/Prescriptions Prescriptions: New oxycodone 5 mg capsule 5 mg PO Q6H PRN (Reason: pain) 3 Days Qty: 10 0RF Continued Women's Probiotic 25B cell-25B cell-50 mg capsule 1 cap PO QHS folic acid 400 mcg tablet 0.4 mg PO DAILY latanoprost 0.005 % drops 1 drp ophthalmic (eye) QPM (DME) blood-glucose meter Misc See Rx Instructions .Route Qty: 1 0RF Rx Instructions: daily (DME) Accu-Chek Arlene Plus test strp Strip See Rx Instructions .Route Qty: 100 0RF Rx Instructions: daily (DME) lancets [Accu-Chek Softclix Lancets] Misc See Rx Instructions .Route Qty: 100 0RF Rx Instructions: daily lansoprazole 30 MG capsule 30 mg PO DAILY Patient Comments: acid reflux tamsulosin 0.4 mg capsule 0.4 mg PO DAILY ipratropium bromide 21 mcg (0.03 %) spray,non-aerosol See Rx Instructions .ROUTE .COMPLEX Qty: 30 3RF Dose Instruction: SPRAY TWO SPRAYS INTO EACH NOSTRIL TWO TO THREE TIMES DAILY NEEDED FOR ALLERGY SYMPTOMS Rx Instructions: SPRAY TWO SPRAYS INTO EACH NOSTRIL TWO TO THREE TIMES DAILY NEEDED FOR ALLERGY SYMPTOMS Repatha SureClick 140 mg/mL pen injector 140 mg subcut Q2W 90 Days Qty: 7 1RF diltiazem HCl 120 mg capsule,extended release 24hr 120 mg PO DAILY Qty: 90 1RF Held aspirin 81 MG tablet 81 mg PO QHS Hold Instructions: Resume on 01/18/24. Patient Comments: blood thinner Eliquis 5 mg tablet 5 mg PO BID 90 Days Qty: 180 0RF Hold Instructions: Resume on 01/18/24. Evening dose Referrals / Follow Up: Johanny Singletary MD [Primary Care Provider] - Disposition Disposition (needs filled in before D/C Order can be placed): Home, Self Care
--- NOTE | 2024-01-17 20:09 | PCM.POST.ANE ---
Anesthesia: Postop Eval I Current Vital Signs Temperature: 98.7 F Pulse Rate: 80 Blood Pressure: 134/64 Respiratory Rate: 17 Pulse Ox: 94 Assessment Airway patent: Yes Spontaneous unlabored respirations: Yes nausea: No Vomiting: No Anesthesia Complication: No Fluid Hydration Crystalloid volume administer (ml): 300 Total IV fluid infused: 300 Progress Note Anesthesia document: Postop Eval 1 completed: Yes
--- NOTE | 2024-01-17 20:10 | PCM.POSTANE2 ---
Anesthesia Postop Eval I Sum Postop Eval Completion status Anesthesia document: Postop Eval 1 completed: Yes Anesthesia Postop Eval I Summary Anesthesia Postop Eval I Summary: Anesthesia Postop Eval I: Assessment Summary Airway patent Yes 01/17/24 20:09 Spontaneous unlabored Yes 01/17/24 20:09 respirations Mental status nausea No 01/17/24 20:09 Vomiting No 01/17/24 20:09 Anesthesia Postop Eval I: Fluid Summary Crystalloid volume administer 300 01/17/24 20:09 (ml) Colloids volume administered ( ml) Blood Product volume administered (ml) Total IV fluid infused 300 01/17/24 20:09 Anesthesia Postop Eval I: Summary Notes Anesthesia Complication No 01/17/24 20:09 Anesthesia Complication Comment: Post-operative progress note Anesthesia: Postop Eval II Evaluation Mental status: Awake Pain Level: 0 nausea: No Vomiting: No
== END 2024-01-17 23:56 | disposition home or self-care (01) ==
LOC: ED 17:58 → SDC 18:10 → ACINP 18:11 → SDC 18:18 → MS3 18:19
PROVIDERS: Admitting Provider Surgery; Emergency Provider Emergency Medicine; PCP Internal Medicine; Visit Provider Surgery
PROC: 0DTJ4ZZ Resection of Appendix, Percutaneous Endoscopic Approach (ICD-10-PCS; CPT 44970; principal; 2024-01-17 19:00)
DX: K35.80 Unspecified acute appendicitis (principal); E11.9 Type 2 diabetes mellitus without complications; Z79.01 Long term (current) use of anticoagulants; I25.10 Atherosclerotic heart disease of native coronary artery without angina pectoris; K21.00 Gastro-esophageal reflux disease with esophagitis, without bleeding; E78.2 Mixed hyperlipidemia; Z79.82 Long term (current) use of aspirin; Z79.899 Other long term (current) drug therapy; Z86.711 Personal history of pulmonary embolism
CPT/HCPCS: 44970; 00840; 74176; 80053; 81001; 85025; 88304; 99284; J2185; J7030; A4216; C1760; J2405

== ENCOUNTER → 2024-02-18 | Outpatient (CLI) | payer MEDICARE, SELFPAY ==
--- NOTE | 2024-02-18 14:56 | CT_ITS ---
INDICATION: exertional dyspnea EXAMINATION: CT CHEST WITH CONTRAST - CT Chest W/ Contrast Injection TECHNIQUE: Helically acquired images were obtained of the chest following IV contrast. A radiation dose optimization technique was used for this scan. IV Contrast dosage and agent: 75 cc [id number] COMPARISON: 01/19/2020 FINDINGS: LUNGS, PLEURA AND LARGE AIRWAYS: No masses, consolidation, or edema. No pleural effusions. No pneumothorax. THYROID: 8 mm nodule left lobe. HEART AND PERICARDIUM: Heart size is normal. No pericardial effusion. VESSELS: No aortic aneurysm. No aortic dissection. No obvious central pulmonary embolism although this study was not performed with the pulmonary embolism protocol. MEDIASTINUM AND KELLY: Stable 10 mm paratracheal lymph node. Esophagus is unremarkable. Moderate retrocardiac hiatal hernia. UPPER ABDOMEN: No acute pathology. Stable nodular thickening left adrenal. BONES: No acute or aggressive abnormality. CT/Chest WITH Contrast IMPRESSION: No acute findings in the thorax. 8mm nodule left lobe thyroid. If not previously evaluated, consider follow-up routine thyroid ultrasound. Electronically Signed: Viral Sue MD at 16:14 EDT ,
[2024-02-18 15:41] LABS: CREATININE FINGERSTICK 1.2 mg/dL (0.55-1.02)
== END | disposition home or self-care (01) ==
LOC: CT 14:48
PROVIDERS: PCP Internal Medicine; Referring Provider Physician Assistant; Visit Provider Physician Assistant
DX: Z01.812 Encounter for preprocedural laboratory examination (principal); R06.09 Other forms of dyspnea
CPT/HCPCS: 71260; Q9967

== ENCOUNTER → 2024-02-27 | Outpatient (CLI) | payer MEDICARE, SELFPAY ==
--- NOTE | 2024-02-27 12:17 | US_ITS ---
STUDY: THYROID ULTRASOUND REASON FOR EXAM: Female, 83 years old. Thyroid nodule. TECHNIQUE: Ultrasound evaluation of the thyroid was performed with real-time and static dasilva-scale imaging. COMPARISON: CT chest with contrast 02/18/2024. FINDINGS: RIGHT LOBE: The right lobe of the thyroid gland measures 4.3 x 1.2 x 1.9 cm. There is a homogeneous echotexture. There are 3 nodules in the right thyroid lobe. Nodule 1 there is anechoic cyst and located in the posterior superior upper thyroid lobe measures 0.70 x 0.42 x 0.75 cm. Nodule 2 in the posterior lower thyroid lobe measures 0.74 x 0.33 x 0.64 cm. This is complex complex cyst. Nodule 3 in the caudal aspect of the right lateral caudal aspect of the thyroid lobe. This measures 0.60 x 0.40 x 0.40 cm. This is anechoic cyst. LEFT LOBE: The left lobe of the thyroid gland measures 3.1 x 1.3 x 1.1 cm. There is a homogeneous echotexture. There are 3 nodules in the left thyroid lobe. Nodule 1 is mixed solid and cystic and located in the superior thyroid lobe. This measures 0.76 x 0.45 x 0.73 cm. Nodule 2 is hypoechoic and located in the anterior mid thyroid lobe measuring 0.47 x 0.27 x 0.45 cm. Nodule 3 is mixed solid and cystic and located in the inferior thyroid lobe measuring 1.20 x 0.78 x 1.0 cm. ISTHMUS: The isthmus measures 0.12 cm. . US/Thyroid IMPRESSION: 1. Multiple nodules in both thyroid lobes. The 3 dominant nodules in both sides are measured. 2. Nodule 1 in the right posterior superior upper thyroid lobe is anechoic cyst. This measures 0.70 x 0.42 x 0.75 cm. TI-RADS points: 0. TI-RADS category: TR1. This nodule is benign and no FNA or follow-up is necessary. 3. Nodule 2 in the right posterior lower thyroid lobe is complex cyst. This measures 0.74 x 0.33 x 0.64 cm. TI-RADS points: 6. TI-RADS category: TR4. This nodule is moderately suspicious but no FNA or follow-up is necessary given the small size of this nodule. 4. Nodule 3 in the lateral caudal aspect of the right thyroid lobe measures 0.60 x 0.40 x 0.40. This is anechoic cyst. TI-RADS points: 0. TI-RADS category: TR1. This nodule is benign and no FNA or follow-up is necessary. 5. Nodule 1 in the left superior thyroid lobe is mixed solid and cystic. This measures 0.76 x 0.45 x 0.73 cm. TI-RADS points: 3. TI-RADS category: TR3. This nodule is mildly suspicious but no FNA or follow-up is necessary given the small size of this nodule. 6. Nodule 2 in the left anterior mid thyroid lobe is hypoechoic. This measures 0.47 x 0.27 x 0.45 cm. TI-RADS points: 4. TI-RADS category: TR4. This nodule is moderately suspicious but no FNA or follow-up is necessary given the small size of this nodule. TI-RADS points: 4. TI-RADS category: TR4. This nodule is moderately suspicious but no FNA or follow-up is necessary given the small size of this nodule. 7. Nodule 3 in the left inferior thyroid lobe is mixed solid and cystic. This measures 1.0 x 0.78 x 1.0 cm. TI-RADS points: 3. TI-RADS category: TR3. This nodule is mildly suspicious but no FNA or follow-up is necessary given the small size of this nodule. Electronically Signed: Jefry Mena MD at 10:35 EDT ,
== END | disposition home or self-care (01) ==
LOC: US 12:15
PROVIDERS: PCP Internal Medicine; Referring Provider Physician Assistant; Visit Provider Physician Assistant
DX: E04.1 Nontoxic single thyroid nodule (principal)
CPT/HCPCS: 76536

== ENCOUNTER → 2024-04-09 | Outpatient (CLI) | payer MEDICARE, SELFPAY ==
--- NOTE | 2024-04-09 06:44 | ECHOD_ITS ---
Reason For Study: DYSPNEA/SOB Procedure This was a 2D Doppler, Color Flow transthoracic echocardiogram. Exam performed in department. Left Ventricle Normal size and thickness. Posterior basal hypokinesis. Estimated LVEF 50 to 55%. Grade 1 diastolic dysfunction. Right Ventricle Normal right ventricle. Atria The left and right atria are normal. Mitral Valve Mild mitral annular calcification. Trivial mitral valve insufficiency. Tricuspid Valve Trivial tricuspid valve insufficiency. Unable to estimate RV systolic pressure due to insufficient tricuspid regurgitant envelope. Aortic Valve Trisinus/trileaflet aortic valve. Pulmonic Valve The pulmonic valve is not well visualized. Great Vessels Normal sized aortic root. Pericardium/Pleural No pericardial effusion. MMode/2D Measurements & Calculations LVIDd: 5.0 cm IVSd: 0.87 cm Ao root diam: 3.2 cm RVDd: 3.2 cm LVPWd: 1.1 cm LAV(MOD-bp): 27.1 ml LVAd ap4: 20.5 cm2 SV(MOD-sp4): 28.7 ml LAV(MOD-bp) Indexed: 14.1 ml/m2 LVLd ap4: 7.3 cm SI(MOD-sp4): 14.9 ml/m2 LAV(MOD-sp2): 28.6 ml EDV(MOD-sp4): 47.6 ml LAV(MOD-sp4): 23.6 ml EDV(sp4-el): 48.9 ml LVAs ap4: 11.8 cm2 LVLs ap4: 6.3 cm ESV(MOD-sp4): 18.9 ml ESV(sp4-el): 18.7 ml EF(MOD-sp4): 60.3 % EF(sp4-el): 61.8 % SV(sp4-el): 30.2 ml LA A4 area: 12.9 cm2 LA dimension(2D): 3.0 cm RA A4 area: 11.0 cm2 TAPSE: 1.9 cm Time Measurements MV dec time: 0.26 sec Doppler Measurements & Calculations MV E max christiano: 69.8 cm/sec Lat Peak E' Christiano: 7.3 cm/sec Med Peak E' Christiano: 6.1 cm/sec MV A max christiano: 98.0 cm/sec E/E' lat: 9.6 E/E' med: 11.5 MV E/A: 0.71 Ao V2 max: 160.6 cm/sec LV V1 max: 93.5 cm/sec PA V2 max: 94.4 cm/sec Ao max P.3 mmHg LV V1 max P.5 mmHg TR max christiano: 204.8 cm/sec TR max P.8 mmHg ECHO/Echo Complete Interpretation Summary Posterior basal hypokinesis. Estimated LVEF 50 to 55%. Grade 1 diastolic dysfun ction. Mild mitral annular calcification. Ordering Physician: Hannah Guzmán Referring Physician: LAINEY DILLARD Performed By: Maria Monge RDCS
--- NOTE | 2024-04-12 08:58 | STRESSREP ---
Stress Test Report Date: 04/09/2024 Procedure: Pharmacologic stress nuclear imaging study Indications: Dyspnea Consent: Per the patient Procedure: The patient underwent pharmacologic (Regadenoson 0.4mg ) evaluation with a peak heart rate of 87 beats per minute (63%predicted maximal heart rate) and a peak blood pressure of 110/60 mmHg. The baseline ECG demonstrated sinus rhythm. The peak pharmacologic ECG demonstrated no ischemic changes. There were no cardiac dysrhythmias pretest, during pharmacologic infusion, or recovery. There was no complaint of chest discomfort during pharmacologic infusion or recovery. The patient was injected with 11.8 millicuries of technetium 99m Cardiolite and subsequently rest SPECT Cardiolite nuclear imaging was obtained in the horizontal long, vertical long, and short axis views. The patient underwent pharmacologic (Regadenoson) evaluation. The patient was injected with 32.6 millicuries of technetium 99m Cardiolite and subsequently stress SPECT Cardiolite nuclear imaging was obtained in the horizontal long, vertical long, and short axis views. A gated Cardiolite study at peak stress was obtained. The examination was stopped secondary to completion of protocol. Rest and stress SPECT Cardiolite nuclear imaging status post realignment, normalization, and attenuation correction demonstrate no fixed or reversible perfusion defects. There is end systolic thickening and brightening. The gated Cardiolite study demonstrates myocardial thickening and inward wall motion. The reported LVEF is 83%. Impression: 1. Pharmacologic (Regadenoson) evaluation 2. Peak pharmacologic ECG with no ischemic changes. 3. There were no cardiac dysrhythmias pretest, during pharmacologic infusion, or recovery. 5. Rest and stress SPECT Cardiolite nuclear imaging demonstrate relative uniform tracer uptake and myocardial perfusion appearing within normal limits. 6. The gated Cardiolite study reports an LVEF of 83%. This note was generated with Paradialation software. It may contain incorrect words, spelling, and punctuation that were not noted in checking the note before signing.
== END | disposition home or self-care (01) ==
PROVIDERS: PCP Internal Medicine; Referring Provider Internal Medicine Cardiovascular Disease; Visit Provider Internal Medicine Cardiovascular Disease
DX: R06.09 Other forms of dyspnea (principal); I10 Essential (primary) hypertension; E78.5 Hyperlipidemia, unspecified
CPT/HCPCS: 78452; 93017; 93306; A9500; A4216; J2785

== ENCOUNTER → 2024-06-09 | Outpatient (CLI) | payer MEDICARE, SELFPAY ==
[2024-06-09 12:41] LABS: D-Dimer Quantitative (DVT/PE) 1.02 FEU/ug/m (0.27-0.49)
--- NOTE | 2024-06-09 13:14 | RAD_ITS ---
EXAM: XR Chest, 2 Views CLINICAL INDICATION: TECHNIQUE: Frontal and lateral views of the chest. COMPARISON: No relevant prior studies available. FINDINGS: LUNGS AND PLEURAL SPACES: Unremarkable. No consolidation. No pneumothorax. HEART: Unremarkable. No cardiomegaly. MEDIASTINUM: Unremarkable. Normal mediastinal contour. BONES/JOINTS: Unremarkable. No acute fracture. RAD/Chest PA and Lateral IMPRESSION: No acute cardiopulmonary process. Reading Location[facility]
[2024-06-09 17:59] LABS: Microalbumin,Random Urine 5.3 mg/L (NO RANGE EST.); Microalbumin:Creatinine Ratio 5.6 mg/g CRE (<30 mg/g CRE)
== END | disposition home or self-care (01) ==
LOC: BIMLAB 11:50 → RAD 13:10
PROVIDERS: PCP Internal Medicine; Referring Provider Internal Medicine; Visit Provider Internal Medicine
DX: R07.9 Chest pain, unspecified (principal)
CPT/HCPCS: 36415; 71046; 82043; 82570; 85379

== ENCOUNTER → 2024-07-01 | Outpatient (CLI) | payer MEDICARE, SELFPAY ==
--- NOTE | 2024-07-01 13:03 | CT_ITS ---
PROCEDURE: CTA chest with IV contrast REASON FOR EXAM: Pain TECHNIQUE: Multiple contiguous axial images of the chest were obtained after the administration of intravenous contrast. Two-dimensional and three-dimensional MIP coronal and sagittal reformatted images were reconstructed. Low-dose imaging technique was utilized. COMPARISON: None. FINDINGS: Heart size is toward the upper limits of normal. Mild LAD and right coronary artery calcifications. No significant pericardial effusion. Normal caliber thoracic aorta without dissection. Mildly prominent pulmonary arteries without filling defects. No suspicious adenopathy. Superficial soft tissues are within normal limits. No acute findings in the visualized upper abdomen. Mild/moderate hiatal hernia. Central airways are patent. No acute infiltrates, pleural effusion or pneumothorax. No pulmonary mass. No acute osseous abnormality. CT/CTA Chest W/WO Contrast IMPRESSION: 1. No acute process. 2. Incidental findings as above. One or more dose reduction techniques were used (e.g., Automated exposure contr ol, adjustment of the mA and/or kV according to patient size, use of iterative reconstruction technique). Reading Location: [facility]
== END | disposition home or self-care (01) ==
LOC: CT 13:02
PROVIDERS: PCP Internal Medicine; Referring Provider Internal Medicine; Visit Provider Internal Medicine
DX: R07.9 Chest pain, unspecified (principal); R79.89 Other specified abnormal findings of blood chemistry; Z86.711 Personal history of pulmonary embolism
CPT/HCPCS: 71275; Q9967; A4216

== ENCOUNTER → 2024-08-19 | Outpatient (CLI) | payer MEDICARE, SELFPAY ==
[2024-08-19 17:56] LABS: Absolute Lymphocyte Count 1.84 X10^3/uL (0.83-4.51); Basophil# 0.05 X10^3/uL; Basophil% 0.8 % (0-1); Eosinophil# 0.06 X10^3/uL; Eosinophils% 0.9 % (0-5); Hematocrit 41.2 % (37-47); Hemoglobin 13.9 g/dL (12.0-15.0); Lymphocyte # 1.84 X10^3/ul (0.83-4.51); Lymphocyte % 28.5 % (19-41); Mean Corp Hgb Conc 33.7 g/dL (32-36); Mean Corpuscular Hgb 30.5 pg (27.0-32.0); Mean Corpuscular Volume 90.5 fL (81-99); Mean Platelet Vol. 9.6 fl (6.2-12.0); Monocyte# 0.42 X10^3/uL; Monocyte% 6.5 % (0-10); NRBC Flagged by Analyzer 0 % (0-5); Neutrophil # 4.04 X10^3/uL (2.7-7.7); Neutrophil % 62.5 % (47-70); Platelet Count 318 K/mm3 (150-450); RBC Distribution Width CV 12.8 % (11.6-14.6); Red Blood Count 4.55 M/mm3 (4.2-5.4); White Blood Count 6.5 K/mm3 (4.4-11.0)
[2024-08-19 18:25] LABS: Hemoglobin A1c 6.8 % (<=5.6)
[2024-08-19 18:40] LABS: ALB/GLOB Ratio 1.4 RATIO (0.9-2.4); AST(SGOT) 24 U/L (<=31); Alanine Aminotransfer ALT/SGPT 12 U/L (<=34); Albumin, Serum 4.3 g/dL (3.4-4.8); Alkaline Phosphatase 87 U/L (35-104); Anion Gap 13 (5-15); BUN 17 mg/dL (4-19); BUN/Creat Ratio 14.6 RATIO (10-20); Calcium,Total 9.9 mg/dL (7.6-11.0); Chloride 106 mmol/L (98-108); Cholesterol 161 mg/dL (<=200); Creatinine, Serum 1.14 mg/dL (0.70-1.20); EST Glomerular Filtration Rate 47 (>60); Globulin 3.2 g/dL (2.2-4.2); Glucose 117 mg/dL (70-99); High Density Lipoprotein 68 mg/dL; Low Density Lipoprotein Calc. 68 mg/dL; Potassium 4.2 mmol/L (3.3-5.1); Protein, Total 7.5 g/dL (5.9-8.4); Sodium Level 140 mmol/L (133-145); Total Bilirubin 0.37 mg/dL (0.00-1.30); Triglycerides 129 mg/dL; Very Low Density Lipoprotein 26 mg/dL (5-40); cholesterol:hdl ratio screen 2.38
== END | disposition home or self-care (01) ==
LOC: MFPLAB 15:08
PROVIDERS: PCP Family Medicine; Referring Provider Family Medicine; Visit Provider Family Medicine
DX: E78.5 Hyperlipidemia, unspecified (principal); R53.83 Other fatigue; R73.09 Other abnormal glucose; K21.9 Gastro-esophageal reflux disease without esophagitis
CPT/HCPCS: 36415; 80053; 80061; 82306; 83036; 84443; 85025

== ENCOUNTER → 2024-10-01 | Outpatient (CLI) | payer MEDICARE, SELFPAY ==
--- NOTE | 2024-10-01 15:16 | VDLE_ITS ---
Reason For Study Reason For Study: Right leg pain RIGHT LEFT GSV is normal. CFV is compressible, spontaneous, phasic, competent, CFV is compressible, spontaneous, phasic, competent and demonstrates normal augmentation. and demonstrates normal augmentation. FV is compressible, spontaneous, phasic, competent and demonstrates normal augmentation. POP V is compressible, spontaneous, phasic, competent and demonstrates normal augmentation. T/P Trunk is compressible. PTV is compressible. RT PerV is compressible. Procedure This is a venous duplex using B-mode, color flow and spectral Doppler. Exam performed in department. A preliminary report was called and/or faxed to Dr. Santiago. VL/Venous Duplex US, Unilateral Interpretation Summary Deep veins of the right lower extremity are patent and compressible segmentally . There is no evidence of right lower extremity deep vein thrombosis. Valvular competence appears intact within the p roximal deep venous system on the right . The right great saphenous vein appears patent and compressible segmentally. The left common femoral vein is patent and compressible . Ordering Physician: Martin Santiago Referring Physician: Martin Santiago Performed By: Doretha Hickey RVT
== END | disposition home or self-care (01) ==
LOC: CVS 15:10
PROVIDERS: PCP Family Medicine; Referring Provider Family Medicine; Visit Provider Family Medicine
DX: M79.661 Pain in right lower leg (principal)
CPT/HCPCS: 93971

== ENCOUNTER → 2024-10-01 | Outpatient (CLI) | payer MEDICARE, SELFPAY ==
[2024-10-01 20:34] LABS: D-Dimer Quantitative (DVT/PE) 0.95 FEU/ug/m (0.27-0.49)
== END | disposition home or self-care (01) ==
LOC: MFPLAB 14:46
PROVIDERS: PCP Family Medicine; Visit Provider Family Medicine
DX: M79.661 Pain in right lower leg (principal)
CPT/HCPCS: 36415; 85379

== ENCOUNTER → 2024-10-06 | Outpatient (CLI) | payer MEDICARE, SELFPAY ==
--- NOTE | 2024-10-06 14:53 | VDLE_ITS ---
Reason For Study Reason For Study: Elevated D Dimer RIGHT LEFT FV is compressible, spontaneous, phasic, competent GSV is normal. and demonstrates normal augmentation. CFV is compressible, spontaneous, phasic, competent, Procedure and demonstrates normal augmentation. This is a venous duplex using B-mode, color flow and FV is compressible, spontaneous, phasic, competent spectral Doppler. and demonstrates normal augmentation. Exam performed in department. POP V is compressible, spontaneous, phasic, competent The exam was diagnostic. and demonstrates normal augmentation. A preliminary report was called and/or faxed to T/P Trunk is compressible. Jack' office. PTV is compressible. LT PerV is compressible. VL/Venous Duplex US, Unilateral Interpretation Summary Deep veins of the left lower extremity are patent and compressible segmentally. There is no evidence of left lower extremity deep vein thrombosis. Valvular competence appears intact within the p roximal deep venous system on the left . The left great saphenous vein appears patent and compressible segmentally. The right femoral vein is patent and competent. Ordering Physician: Martin Santiago Referring Physician: Martin Santiago Performed By: Francois Gupta, MACKENZIE
--- NOTE | 2024-10-06 15:30 | CT_ITS ---
PROCEDURE: CTA CHEST W/WO CONTRAST 10/06/2024 REASON FOR EXAM: HX OF PE, HAS D DIMER OF 0.95! TECHNIQUE: CTA axial imaging of the chest with intravenous contrast. Multiplanar and multisequence images were obtained. PATIENT PREPARATION: Per protocol CONTRAST: 100 mL of Isovue 370 One or more dose reduction techniques were used (e.g., Automated exposure control, adjustment of the mA and/or kV according to patient size, use of iterative reconstruction technique). RADIATION DOSE SUMMARY: DLP: 338 mGycm COMPARISON: 11/21/2024 FINDINGS: PULMONARY ARTERIES: No evidence of pulmonary embolism. LUNGS AND PLEURA: No consolidations. No definite pulmonary edema. No mass or nodule. No pleural effusion. No pneumothorax. 3 mm nodule within the right middle lobe best seen on series 2, image 117. MEDIASTINUM: Prominent mediastinal lymph nodes. Coronary atherosclerosis. Heart size is within normal limits. No significant pericardial effusion. The aorta shows no acute findings. The pulmonary trunk, and branches of the vessels in the mediastinum are within normal limits. SUPRACLAVICULAR AND AXILLARY: No abnormalities seen in these regions. No mass or significant lymphadenopathy. UPPER ABDOMEN: [id number] hiatal hernia. BONES AND SOFT TISSUES: The ribs are unremarkable. The visualized spine shows no significant acute findings. No focal bony mass lesions noted. The subcutaneous soft tissues are unremarkable. CT/CTA Chest W/WO Contrast IMPRESSION: No acute pulmonary emboli. No focal consolidations. Prominent mediastinal lymph nodes. Reading Location: [id number]
== END | disposition home or self-care (01) ==
LOC: CT 14:51
PROVIDERS: PCP Family Medicine; Referring Provider Family Medicine; Visit Provider Family Medicine
DX: R79.89 Other specified abnormal findings of blood chemistry (principal); M79.89 Other specified soft tissue disorders; Z86.711 Personal history of pulmonary embolism
CPT/HCPCS: 71275; 93971; Q9967

== ENCOUNTER → 2024-12-01 | Outpatient (CLI) | payer MEDICARE, SELFPAY ==
--- NOTE | 2024-12-01 09:29 | US_ITS ---
PROCEDURE: BREAST LIMITED UNILATERAL 12/01/2024 REASON FOR EXAM: F, Age 84 y/o , PALPABLE LUMP AXILLA AND PAIN. Personal history of bilateral mastectomy. COMPARISON: No priors available. TECHNIQUE: BREAST LIMITED UNILATERAL FINDINGS: Ultrasound performed of the area of patient's palpable concern in the left axilla demonstrates an irregular hypoechoic mass with internal flow measuring 0.7 x 0.6 x 0.5 cm. This may represent a solid mass versus an abnormal lymph node. Also, the left chest/mastectomy was imaged demonstrating no additional suspicious sonographic findings. US/Breast Limited Unilateral IMPRESSION: Suspicious left axillary mass, may represent a solid mass versus an abnormal ly mph node. 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 Recommend tissue sampling with ultrasound core needle biopsy for f urther evaluation. BI-RADS 4: SUSPICIOUS RECOMMENDATION: Biopsy Recommended Reading Location: [id number]
== END | disposition home or self-care (01) ==
PROVIDERS: PCP Family Medicine; Referring Provider Family Medicine; Visit Provider Family Medicine
DX: N63.20 Unspecified lump in the left breast, unspecified quadrant (principal); N64.4 Mastodynia
CPT/HCPCS: 76642